=== PATIENT | female | born 1955 | race Caucasian/White ===

== ENCOUNTER 2016-06-15 00:19 | Inpatient (IN) | payer OTHER ==
[2016-06-15] VITALS (9 sets, daily range): BP systolic 150–161; BP diastolic 80–110; PULSE 58–92; TEMP 36.3–36.6; O2SAT 88–98; Ht 170.2 cm; Wt 134.0 kg
[~2016-06-15] VITALS: Ht 170.2 cm; Wt 134.0 kg
[2016-06-15 00:58] LABS: BASO % 0.3 %; BASO ABS # 0.02 K/uL (0-0.2); COMPLETE YES; EOS % 2.8 %; HEMATOCRIT 36.3 % (37-47); IG% 0.1 %; LYMPH % 16.7 %; LYMPH ABS # 1.21 K/uL (1.2-3.4); MEAN CELL VOLUME 90.8 fL (80-100); MEAN CORPUSCULAR HEMOGLOBIN 28.3 pg (25-34); MEAN CORPUSCULAR HGB CONC 31.1 g/dl (32-36); MONO % 6.9 %; NEUT % 73.2 %; PLATELET COUNT 214 K/uL (130-400); WHITE BLOOD COUNT 7.24 K/uL (4.8-10.8)
[2016-06-15 01:12] LABS: INR 1.2 (0.9-1.1); PARTIAL THROMBOPLASTIN RATIO 1.1; PROTHROMBIN TIME (PATIENT) 13.2 SECONDS (9.0-12.0)
[2016-06-15 01:14] LABS: BUN/CREATININE RATIO 32.6 (10-20); CALCIUM 8.8 mg/dl (8.5-10.1); CREATININE 0.76 mg/dl (0.60-1.20); POTASSIUM 4.3 mmol/L (3.5-5.1)
[2016-06-15 01:19] LABS: CKMB/CK RATIO 2.2 (0-3.0)
[2016-06-15] MEDS ORDERED: PANT40TA PO (01:25)
[2016-06-15] MEDS ORDERED: CITA40TA4 PO (01:26)
[2016-06-15] MEDS ORDERED: LISI20TA3 PO (01:27)
[2016-06-15] MEDS ORDERED: ATOR80TA PO (01:28)
[2016-06-15] MEDS ORDERED: GABA-113 PO (01:28)
--- NOTE | 2016-06-15 01:29 | EMERGENCY ROOM VISIT NOTE ---
History Report prepared by Nikki: Adolfo Carbajal Under the Supervision of: Dr. Gilson Benson M.D. First contact with patient: 00:29 Chief Complaint: ALTERED MENTAL STATUS Stated Complaint: CONFUSED,CAN'T REMEMBER THINGS History of Present Illness The patient is a 60 year old female who presents to the Emergency Room with complaints of worsening confusion starting about 7 hours ago. She has been having trouble remembering. She is having issues speech and word finding. As per family, the patient does not seem to be at baseline. She had a sudden onset of her symptoms. She also complains of abdominal distension and bilateral lower extremity swelling. The patient currently denies any pain. She denies headache, chest pain, shortness of breath, abdominal pain, or any other complaints. She denies any drug or alcohol use. She was recently started on gabapentin. She has a history of stroke occurring in 2014. She is currently on Xarelto. The patient also has a history of diabetes. Source of History: patient Onset: about 7 hours ago Position: other (global) Symptom Intensity: No pain Quality: other (confusion) Timing: worsening Associated Symptoms: No SOB, No abdominal pain, No chest pain, No headache Review of Systems See HPI for pertinent positives & negatives. A total of 10 systems reviewed and were otherwise negative. Past Medical & Surgical Medical Problems: (1) CHF (congestive heart failure) (2) Diabetes (3) Stroke Family History Patient reports no known family medical history. Social History Marital Status: single Occupation Status: unemployed Current/Historical Medications Scheduled Atenolol (Tenormin), 50 MG PO DIRECTED Atorvastatin Calcium (Lipitor), 40 MG PO DAILY Cholecalciferol (Vitamin D3), 1,000 INTER.UNIT PO DAILY Cinnamon (Cinnamon), 375 MG PO DAILY Citalopram (Citalopram Hydrobromide), 40 MG PO DAILY Cyanocobalamin (Vitamin B 12), 500 MCG PO DAILY Ferrous Fumarate (Iron), 65 MG PO DAILY Fish Oil ([place]-3), 1 CAP PO DAILY Furosemide (Lasix), 20 MG PO DAILY Gabapentin (Neurontin), 300 MG PO DIRECTED Glyburide (Micronase), 5 MG PO DIRECTED Lisinopril (Prinivil), 20 MG PO DAILY Loratadine (Claritin), 10 MG PO DAILY Melatonin (Gnp Melatonin Maximum Str), 5 MG PO HS Metformin Hcl (Glucophage), 500 MG PO DAILY Multivitamin (Multivitamin), 1 TAB PO DAILY Pantoprazole (Protonix), 40 MG PO DAILY Potassium Chloride Pwd (Klor-Con Pwd), 20 MEQ PO DAILY Rivaroxaban (Xarelto), 20 MG PO DAILY Triamterene & Hydrochlorothiaz (Triamterene/Hydrochloroth 50-25 mg), 1 CAP PO DIRECTED [caritia xt], 240 MG PO DAILY Scheduled PRN Acetaminophen (Tylenol), 650 MG PO DIRECTED PRN for pain fever Allergies Coded Allergies: Codeine (Unverified Allergy, Unknown, unsure, 06/15/16) Erythromycin (Unverified Allergy, Unknown, unsure, 06/15/16) Physical Exam Vital Signs Date Time Temp Pulse Resp B/P Pulse Ox O2 Delivery O2 Flow Rate FiO2 06/15/16 01:11 57 20 168/112 94 Room Air 06/15/16 00:35 56 06/15/16 00:31 93 Room Air 06/15/16 00:21 36.4 71 22 177/104 93 Room Air Physical Exam GENERAL: Patient is unwell appearing but in no acute distress. HEENT: No acute trauma, normocephalic atraumatic, mucous membranes moist, no nasal congestion, no scleral icterus. NECK: No stridor, no adenopathy, no meningismus, trachea is midline. LUNGS: Decreased breath sounds in all lung robles with apical wheezing and crackles. HEART: Regular rate and rhythm. No murmurs, rubs, gallops appreciated. ABDOMEN: Soft, nontender, distant bowel sounds, no masses appreciated, no peritonitis. Distended abdomen. BACK: No midline tenderness, no CVA tenderness EXTREMITIES: Normal motion all extremities, no cyanosis, 4+ edema bilateral lower extremities. NEUROLOGIC: Awake, answering questions though inappropriately answering some questions. Does not remember date or time but remembers name. She has stuttering and sometimes incorrect speech. Has word finding problems. No focal weakness, cranial nerves grossly intact. SKIN: No rash, no jaundice, no diaphoresis. Medical Decision & Procedures ER Provider Diagnostic Interpretation: X ray results are stated below per my interpretation: CHEST X-RAY ONE VIEW Enlarged heart and diffuse congestive findings, no infiltrate, no effusion. CT results as stated below per interpretation by me and the radiologist: CT HEAD No evidence of acute infarct, hemorrhage, mass or edema. Chronic small vessel ischemic disease. The sinuses are patent. No acute osseous abnormality. Radiologist: Gilberto Sutton MD Laboratory Results Test 06/15/16 00:31 06/15/16 00:45 06/15/16 00:50 06/15/16 02:10 Bedside Glucose 118 mg/dl (70-90) Nucleated RBC Absolute Count (auto) 0.00 K/uL (0-0) Nucleated Red Blood Cells % 0.0 % Prothrombin Time 13.2 SECONDS (9.0-12.0) Prothromb Time International Ratio 1.2 (0.9-1.1) Activated Partial Thromboplast Time 29.6 SECONDS (21.0-31.0) Partial Thromboplastin Ratio 1.1 Est Creatinine Clear Calc Drug Dose 119.4 ml/min Magnesium Level 2.2 mg/dl (1.8-2.4) Total Creatine Kinase 59 U/L (26-192) Creatine Kinase MB 1.3 ng/ml (0.5-3.6) Creatine Kinase MB Ratio 2.2 (0-3.0) Pro-B-Type Natriuretic Peptide 1519 pg/ml (0-900) Thyroid Stimulating Hormone (TSH) 1.310 uIu/ml (0.300-4.500) Ethyl Alcohol mg/dL < 3.0 mg/dl (0-3) Urine Color YELLOW Urine Appearance CLEAR (CLEAR) Urine pH 5.5 (4.5-7.5) Urine Specific [place] 1.016 (1.000-1.030) Urine Protein TRACE (NEG) Urine Glucose (UA) NEG (NEG) Urine Ketones NEG (NEG) Urine Occult Blood NEG (NEG) Urine Nitrite NEG (NEG) Urine Bilirubin NEG (NEG) Urine Urobilinogen NEG (NEG) Urine Leukocyte Esterase NEG (NEG) Urine WBC (Auto) 1-5 /hpf (0-5) Urine RBC (Auto) 0-4 /hpf (0-4) Urine Hyaline Casts (Auto) 1-5 /lpf (0-5) Urine Epithelial Cells (Auto) >30 /lpf (0-5) Urine Bacteria (Auto) NEG (NEG) Urine Opiates Screen NEG (NEG) Urine Methadone, Qualitative NEG (NEG) Urine Barbiturates NEG (NEG) Urine Phencyclidine (PCP) Level NEG (NEG) Ur Amphetamine/Methamphetamine NEG (NEG) MDMA (Ecstasy) Screen NEG (NEG) Urine Benzodiazepines Screen NEG (NEG) Urine Cocaine Metabolite NEG (NEG) Urine Marijuana (THC) NEG (NEG) Laboratory results as reviewed by me. Medications Administered Medications (Trade) Dose Ordered Sig/Magdaleno Route Start Time Stop Time Status Last Admin Dose Admin Aspirin (Aspirin Chew) 324 mg NOW STAT PO 06/15/16 01:32 06/15/16 01:34 DC 06/15/16 01:42 324 MG Furosemide (Lasix Inj) 40 mg NOW STAT IV 06/15/16 01:32 06/15/16 01:34 DC 06/15/16 01:42 40 MG ECG Indication: other (Confusion) Rate (beats per minute): 53 Rhythm: atrial fibrillation Findings: no acute ischemic change, other (Slow ventricular response) Comparison ECG Date: no prior available ED Course 0029: The patient was evaluated in room A11B. A complete history and physical exam was performed. 0132: Lasix Inj 40 mg IV, Aspirin 324 mg PO 0139: Upon reevaluation, the patient is resting comfortably. Discussed results and treatment plan with the patient and her family. They verbalized understanding and agreement with the treatment plan. I discussed the patient's case with Dr. Weiss, from [facility]. The patient will be evaluated for further management. Medical Decision Differential: Sepsis, Infectious (UTI/Pneumonia/Meningitis/etc), Metabolic/ Electrolyte Abnormality, Cardiac, Hepatic, Endocrine, Toxicologic, Neurologic, amongst other pathologies entertained. 60 yr old female with > 6 hours of word finding issues, memory problems and mild slurred speech. No weakness on exam though clearly word findings issues and memory loss. With ongoing symptoms an don xarelto not stroke alert/TPA candidate. She also is in acute CHF per my exam though without hypoxia. CT head negative. CXR with congestive findings. EKG Afib (unclear if chronic). Trop negative. Will need to come in for further work-up and evaluation. Lasix/ ASA ordered. Consults Time Called: 133 [facility] Phys[facility] Returned Call: [phone] I discussed the patient's case with Dr. Weiss, from [facility]. Impression Primary Impression: Stroke Additional Impression: CHF (congestive heart failure) Scribe Attestation The scribe's documentation has been prepared under my direction and personally reviewed by me in its entirety. I confirm that the note above accurately reflects all work, treatment, procedures, and medical decision making performed by me. Departure Information Dispostion Being Evaluated By Hospitalist Referrals Franklyn Nicole PA-C (PCP) Patient Instructions [facility] Stroke History Time Last Known Well 1730 Stroke t-PA Criteria Reviewed Does NOT meet criteria for t-PA Reason t-PA Not Given Treatment not indicated Extended Window (3-4.5 hour) Any anticoagulant use (Xarelto) Problem Qualifiers Primary Impression: Stroke CVA mechanism: unspecified Qualified Codes: I63.9 - Cerebral infarction, unspecified Additional Impression: CHF (congestive heart failure) Congestive heart failure type: diastolic Congestive heart failure chronicity : acute on chronic Qualified Codes: I50.33 - Acute on chronic diastolic ( congestive) heart failure
[2016-06-15] MEDS ORDERED: [UNRECOGNIZED DRUG - OTHER] PO (01:30)
[2016-06-15] MEDS ORDERED: GLYB5TAB8 PO (01:31)
[2016-06-15] MEDS ORDERED: GLC/500 PO (01:32)
[2016-06-15] MEDS ORDERED: ASPIRIN 324 MG CHEW PO STA (01:32)
[2016-06-15] MEDS ORDERED: FUROSEMIDE 40 MG/4 ML VIAL IV STA (01:32)
[2016-06-15] MEDS ORDERED: FURO-85 PO (01:32)
[2016-06-15] MEDS ORDERED: ATEN50TA8 PO (01:33)
[2016-06-15] MEDS ORDERED: RIVA1TAB4 PO (01:34)
[2016-06-15] MEDS ORDERED: POTA1POW PO (01:35)
[2016-06-15] MEDS ORDERED: TRIA50CA PO (01:38)
[2016-06-15] MEDS ORDERED: OMEG10007 PO (01:39)
[2016-06-15] MEDS ORDERED: ACET650S10 PO (01:39)
[2016-06-15] MEDS ORDERED: CHOL1000 PO (01:40)
[2016-06-15] MEDS ORDERED: MULT-506 PO (01:41)
[2016-06-15] MEDS ORDERED: FERR18TA2 PO (01:43)
[2016-06-15] MEDS ORDERED: CINN1CAP2 PO (01:44)
[2016-06-15] MEDS ORDERED: CYAN1LOZ2 PO (01:45)
[2016-06-15] MEDS ORDERED: CLR10 PO (01:45)
[2016-06-15] MEDS ORDERED: MELA1TAB12 PO (01:46)
[2016-06-15 02:06] LABS: MAGNESIUM 2.2 mg/dl (1.8-2.4); THYROID STIMULATING HORMONE 1.31 uIu/ml (0.300-4.500)
[2016-06-15 02:43] LABS: BENZODIAZEPINE, URINE NEG (NEG); COCAINE,URINE NEG (NEG); PHENCYCLIDINE, URINE NEG (NEG)
[2016-06-15] MEDS ORDERED: ALBUT/IPRATROP 3MG/0.5MG NEB 3 ML VIAL INH STA (03:12)
[2016-06-15] MEDS ORDERED: GLUCOSE 10 TABS/TUBE PO PRN (03:15)
[2016-06-15] MEDS ORDERED: PHARMACIST DISCHARGE MED REC CONSULT PRN (03:15)
[2016-06-15] MEDS ORDERED: NITROGLYCERIN 0.4 MG SL PER TAB CHARGE SL PRN (03:15)
[2016-06-15] MEDS ORDERED: DEXTROSE 50% 50 ML SYR IV PRN (03:15)
[2016-06-15] MEDS ORDERED: GLUCAGON FOR INJ 1 MG VIAL SQ PRN (03:15)
[2016-06-15] MEDS ORDERED: GLUCOSE 40% GEL 15 GM TUBE PO PRN (03:15)
[2016-06-15] MEDS ORDERED: ALBUT/IPRATROP 3MG/0.5MG NEB 3 ML VIAL INH PRN (03:15)
[2016-06-15] MEDS ORDERED: RIVAROXABAN 10 MG TAB PO STA (03:36)
[2016-06-15 03:42] LABS: FERRITIN 50.8 ng/ml (8.0-388.0)
[2016-06-15 03:59] LABS: URINE APPEARANCE CLEAR (CLEAR); URINE BILIRUBIN NEG (NEG); URINE COLOR YELLOW; URINE EPITHELIAL CELL AUTO >30 /lpf (0-5); URINE NITRITE NEG (NEG); URINE PH 5.5 (4.5-7.5); URINE SPECIFIC GRAVITY 1.016 (1.000-1.030); UROBILINOGEN NEG (NEG); ZZUR CULT IF INDIC CLEAN CATCH NO
[2016-06-15 04:00] LABS: MANUAL MICROSCOPIC REQUIRED? NO; REVIEW REQ? NO
[2016-06-15 05:33] LABS: BASO % 0.3 %; BASO ABS # 0.02 K/uL (0-0.2); COMPLETE YES; EOS % 3.3 %; HEMATOCRIT 33.9 % (37-47); IG% 0.2 %; LYMPH % 19.2 %; LYMPH ABS # 1.17 K/uL (1.2-3.4); MEAN CELL VOLUME 90.6 fL (80-100); MEAN CORPUSCULAR HEMOGLOBIN 27.8 pg (25-34); MEAN CORPUSCULAR HGB CONC 30.7 g/dl (32-36); MEAN PLATELET VOLUME 8.7 fL (7.4-10.4); MONO % 7.6 %; NEUT % 69.4 %; PLATELET COUNT 196 K/uL (130-400); RED BLOOD COUNT 3.74 M/uL (4.2-5.4); WHITE BLOOD COUNT 6.08 K/uL (4.8-10.8)
--- NOTE | 2016-06-15 05:58 | HISTORY & PHYSICAL EXAMINATION ---
DATE OF ADMISSION: 06/15/2016 PRIMARY CARE PHYSICIAN: Franklyn Nicole PA-C. History obtained from patient and patient's friends. Patient is not a very reliable historian secondary to aphasia. HISTORY OF PRESENT ILLNESS: Medical history significant for history of mini-strokes as per family, AF on Xarelto, HTN, DM2 on oral meds, hx uterine cancer status post surgery. The last 2 weeks, the patient noted abdominal distention and abundio leg swelling, shortness of breath danay on exertion. No unusual cough sx. Complaint with home medications. No chest pain. As per patient's friend, the patient was seen at PCP's office. Px felt that "she was not being taken seriously... prescribed an inhaler." This afternoon, the patient dropped chocolates she had in hand. Had trouble looking for them. Noted to be confused - her words were not making sense. Patient was given orange juice for possible hypoglycemia. No glucometer at home. Some improvement as per friend. Patient subsequently napped. Upon waking up, symptoms a little worse. Patient brought to the Emergency Room. Patient given ASA and Lasix at the ER. MEDICAL HISTORY: As above. SURGERIES: She has had hysterectomy. HOME MEDICATIONS: Include citalopram, iron, Lasix, Neurontin, glyburide, lisinopril, Claritin, melatonin, Glucophage, multivitamins, Protonix, Klor-Con, triamterene ALLERGIES: CODEINE, ERYTHROMYCIN. FAMILY HISTORY: Heart disease. PERSONAL AND SOCIAL HISTORY: Nonsmoker, no chronic intake of alcoholic beverages. 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 REVIEW OF SYSTEMS: could not be reliably obtained. PHYSICAL EXAMINATION: VITAL SIGNS: Blood pressure noted to be 177/104, pulse rate 72, respiratory rate 22, T 37 O2 sats 94 on room air. GENERAL: Noted to be obese. Aphasic. In minimal respiratory distress. SKIN: Pallor. HEENT: Pale palpable conjunctivae. Dry mucosa. NECK: Short neck. HEART: irreg ABDOMEN: Some distention. NT RECTAL: Intact sphincter. Brown stool, heme negative. EXTREMITIES: Bilateral lower extremity edema, tenderness. NEUROLOGIC: No gross focality except for aphasia. LABORATORY DATA: Hemoglobin 11.3, WBC 10 platelet count 214. Sodium 144, potassium 4.3, chloride 108, CO2 29, BUN 25, creatinine 0.7, glucose was noted to be 106. Troponin was noted to be 0.01. EKG - aFib. Chest x-ray - minimal congestion, atelectasis CT of the head - initial read no acute strokes, chronic small vessel ischemic disease. ASSESSMENT: 1. Cerebrovascular accident hx TIA as per px/family possible Xarelto failure ? compliance history of Atrial fibrillation, rate on the lower side, on Xarelto. 2. Hypertension, elevated possibly secondary to above. 3. acute CHF subacute sx over the last 2 weeks 4. DM2 on oral medications euglycemic in the Emergency Room, unknown baseline control. 5. Hyperlipidemia on statin tx 6. hx uterine cancer sp surgery 7. Anemia, possibly chronic. px on iron supplementation at home 8. LE swelling 2 to CHF ro dvt PLAN: PCU neuro checks Add aspirin to Xarelto for now secondary stroke prevention until new stroke definitely ruled out. continue statin MRI/MRA of the brain. Neurology consultation. RE aphasia may need additional stroke fulton pending MRI results PT, OT eval. Permissive hypertension until stroke ruled out diuretic tx; 2D echo, Cardio Consult (Dr. Cross as per family request) RE CHF strict IOs, daily weights, CHF education PT, OT eval. ISS BG goal 140-180. Check hemoglobin A1c. anemia fulton LE dopplers ro dvt Retrieve recent outpx PCP records DVT prophylaxis, Xarelto Full code. Patient's friends requesting the patient's brother to be updated by px providers. Mr. Joaquín [facility]i at / . [facility]
[2016-06-15 06:07] LABS: BLOOD UREA NITROGEN 24 mg/dl (7-18); BUN/CREATININE RATIO 32.9 (10-20); CALCIUM 8.4 mg/dl (8.5-10.1); CARBON DIOXIDE 30 mmol/L (21-32); CHLORIDE 109 mmol/L (98-107); CREATININE 0.74 mg/dl (0.60-1.20); GLUCOSE 78 mg/dl (70-99); POTASSIUM 3.7 mmol/L (3.5-5.1); SODIUM 143 mmol/L (136-145)
[2016-06-15 06:12] LABS: FERRITIN 47.8 ng/ml (8.0-388.0); TOTAL IRON BINDING CAPACITY 327 mcg/dl (250-450)
--- NOTE | 2016-06-15 06:42 | DIAGNOSTIC IMAGING REPORT ---
HEAD CT NONCONTRAST CT DOSE: 537.48 mGy.cm HISTORY: Mental status change stroke TECHNIQUE: Multiaxial CT images of the head were performed without the use of intravenous contrast. Comparison: None. Findings: The paranasal sinuses and mastoid air cells are clear. The calvarium and skull base are intact. The ventricles and sulci are within normal limits. There is no mass, hematoma, midline shift, or acute infarct. Impression: No acute intracranial abnormality. Electronically signed by: Anam Solano M.D. 06/15/2016 6:41 AM Dictated Date/Time: 06/15/2016 6:40 AM
--- NOTE | 2016-06-15 06:42 | DIAGNOSTIC IMAGING REPORT ---
CHEST ONE VIEW PORTABLE CLINICAL HISTORY: Stroke symptoms COMPARISON STUDY: No previous studies for comparison. FINDINGS: The heart is enlarged. There is mild central pulmonary vascular congestion. There is no focal pulmonary consolidation. There are no pleural effusions.[ IMPRESSION: Cardiomegaly with mild central pulmonary vascular congestion/fluid overload. Electronically signed by: Anurag Archibald M.D. 06/15/2016 6:41 AM Dictated Date/Time: 06/15/2016 6:41 AM
[2016-06-15] MEDS: INSULIN ASPART 100 UNITS/ML 3 ML PEN SC SCH ×4 (07:00→20:53)
--- NOTE | 2016-06-15 07:06 | DIAGNOSTIC IMAGING REPORT ---
Limited abdominal ultrasound ASCITES-ABDOMEN LIMITED CLINICAL HISTORY: abd distension ascites TECHNIQUE: Survey abdominal ultrasound COMPARISON STUDY: None FINDINGS: Serial family abdomen confirms a trace amount of ascites. Major collection is not seen. IMPRESSION: Trace abdominal ascites Electronically signed by: Anam Solano M.D. 06/15/2016 7:05 AM Dictated Date/Time: 06/15/2016 7:04 AM
--- NOTE | 2016-06-15 07:07 | DIAGNOSTIC IMAGING REPORT ---
ULTRASOUND VENOUS DOPPLER LWR EXT BILA CLINICAL HISTORY: leg swelling COMPARISON STUDY: No previous studies for comparison. FINDINGS: Real-time and color flow Doppler imaging were performed. Flow was seen within the femoral, popliteal and calf veins with no intraluminal thrombus demonstrated. The saphenous vein is patent. There are prominent bilateral inguinal lymph nodes. There are complex collections within each popliteal fossa, likely representing complex popliteal cyst. The lesion on the right measures 46 x 16 x 31 mm. The lesion the left measures 95 x 25 x 33 mm. IMPRESSION: No evidence of deep venous thrombosis. Electronically signed by: Anurag Archibald M.D. 06/15/2016 7:06 AM Dictated Date/Time: 06/15/2016 7:04 AM
[2016-06-15 07:52] LABS: ESTIMATED AVERAGE GLUCOSE 120 mg/dl; HA1C FLAG Normal (Normal)
[2016-06-15] MEDS ORDERED: ASPIRIN 81 MG ECTAB PO SCH (09:00)
[2016-06-15] MEDS ORDERED: RIVAROXABAN 10 MG TAB PO SCH (09:00)
[2016-06-15] MEDS: PANTOprazole SOD 40 MG TAB PO SCH (09:05)
[2016-06-15] MEDS: CITALOPRAM 40 MG TAB PO SCH (09:05)
[2016-06-15] MEDS: FERROUS FUMARATE CONTR REL CAP 65 MG CAPCR PO SCH (09:05)
[2016-06-15] MEDS: FUROSEMIDE 20 MG TAB PO SCH (09:05)
[2016-06-15] MEDS: MULTIVITAMIN TAB PO SCH (09:06)
[2016-06-15] MEDS: ATORVASTATIN 20 MG TAB PO SCH (09:06)
[2016-06-15] MEDS: POTASSIUM CHLORIDE PWD 20 MEQ PACK PO SCH (09:07)
--- NOTE | 2016-06-15 10:40 | Cardiology Consultation ---
Cardiology Consultation Date of Consultation: June 15, 2016 Requesting Physician: Abhishek Attending Chairman & Ceo: Tay (Anam Vaughan PA-C) History of Present Illness Ms. Marti is a 60 year old female who is being seen at the request of Dr. Weiss. Reason for cardiology consultation is congestive heart failure. Ms. Marti states she presented to the [facility] because "I got melani of confused." This seemed to start around 17:30 last night. She has word finding trouble, difficulty with speech, increased memory impairment, increased fatigue. Gabapentin started in April and titrated upward. She notes increased abdominal distention and increased peripheral edema. She is also prescribed Cardizem, 240 mg/day, for rate control of what appears to be chronic atrial fibrillation. The patient is followed by Dr. Callahan in [place] for Cardiology. She describes what appears to be chronic atrial fibrillation for which she is prescribed Cardizem 240 mg/day, Atenolol 50 mg/day, and Xarelto. She describes have had an abnormal stress test that lead to diagnostic cardiac catheterization in November 2015, describing mild to moderate nonobstructive coronary artery disease. Unfortunately no records are available for review but were requested by the undersigned prior to typing his note. She denies chest pain or discomfort. She denies history of SC or congestive heart failure. She denies history of rheumatic fever or scarlet fever. She denies worsening exertional dyspnea. She denies palpitations. She has orthopnea without PND and evidence suggestive of significant sleep apnea/hypoxemia, daytime sleepiness, poor concentration, restless sleep, nocturnal choking, AM fatigue, and intermittent headaches upon waking. (Anam Vaughan PA-C) History Past Medical and Surgical History: History of TIA x 1. Chronic atrial fibrillation managed by Dr. Callahan, rate control with Diltiazem and Atenolol, anticoagulation with Xarelto Mild to moderate nonobstructive coronary artery disease by November 2015 cardiac catheterization in [place], as per patient description. Hypertension Dyslipidemia Type II diabetes mellitus Obesity Anemia Uterine cancer status post total hysterectomy Social History: Nonsmoker. No alcohol. No illegal drug use. Single. No children. 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 Lives in [place], [place] Family History: Father is alive at 92 with CAD. Mother 8 years ago and had CHF. ? CA. She has a younger brother without cardiac issues. (Anam Vaughan PA-C) Review Of Systems General: No fevers. No chills. + Mild night sweats. No abrupt weight gain or loss. HEENT: Migraine headaches. AM headaches. Floaters. Epistaxis. No head trauma. Cardiovascular: See above. No near syncope or syncope. Pulmonary: Sleep apnea signs and symptoms. + Cough. + Wheezing. ? hemoptysis 2 weeks ago. Gastrointestinal: + Nausea. No vomiting. No melena or hematochezia. : Urinary incontinence. No hematuria. No dysuria. Skin: No rash. Musculoskeletal: Arthritis. Back pain. Neurological: TIA x 1. No CVA. No history of seizure. Complete review of systems is as stated above, negative or noncontributory. (Anam Vaughan PA-C) Allergies Coded Allergies: Codeine (Unverified Allergy, Unknown, unsure, 06/15/16) Erythromycin (Unverified Allergy, Unknown, unsure, 06/15/16) Medications Reported Home Medications Medications Dose Route/Sig Max Daily Dose Days Date Category Gnp Melatonin Maximum Str (Melatonin) 5 Mg Tab 5 Mg PO HS 06/15/16 Reported Claritin (Loratadine) 10 Mg Tab 10 Mg PO DAILY 06/15/16 Reported Vitamin B 12 (Cyanocobalamin) 250 Mcg Malorie 500 Mcg PO DAILY 06/15/16 Reported Cinnamon 500 Mg Cap 375 Mg PO DAILY 06/15/16 Reported Iron (Ferrous Fumarate) 18 Mg Tab 65 Mg PO DAILY 06/15/16 Reported Multivitamin (Multivitamins) Tab 1 Tab PO DAILY 06/15/16 Reported Vitamin D3 (Cholecalciferol) 1,000 Unit Tab 1,000 Inter.unit PO DAILY 90 06/15/16 Reported Floral-3 (Fish Oil) 1 Ea Cap 1 Cap PO DAILY 06/15/16 Reported Tylenol (Acetaminophen) 650 Mg Supp 650 Mg PO DIRECTED PRN 06/15/16 Reported Triamterene/Hydrochloroth 50-25 mg (Triamterene & Hydrochlorothiaz) 1 Cap Cap 1 Cap PO DIRECTED 06/15/16 Reported Klor-Con Pwd (Potassium Chloride) 20 Meq Pack 20 Meq PO DAILY 06/15/16 Reported Xarelto (Rivaroxaban) 20 Mg Tab 20 Mg PO DAILY 06/15/16 Reported Tenormin (Atenolol) 50 Mg Tab 50 Mg PO DIRECTED 06/15/16 Reported Lasix (Furosemide) 20 Mg Tab 20 Mg PO DAILY 06/15/16 Reported Glucophage (Metformin Hcl) 500 Mg Tab 500 Mg PO DAILY 06/15/16 Reported Micronase (Glyburide) 5 Mg Tab 5 Mg PO DIRECTED 06/15/16 Reported [caritia xt] 240 Mg PO DAILY 06/15/16 Reported Neurontin (Gabapentin) 300 Mg Cap 300 Mg PO DIRECTED 06/15/16 Reported Lipitor (Atorvastatin Calcium) 80 Mg Tab 40 Mg PO DAILY 06/15/16 Reported Prinivil (Lisinopril) 20 Mg Tab 20 Mg PO DAILY 06/15/16 Reported Citalopram Hydrobromide (Citalopram) 40 Mg Tab 40 Mg PO DAILY 90 06/15/16 Reported Protonix (Pantoprazole Sodium) 40 Mg Tab 40 Mg PO DAILY 06/15/16 Reported (Anam Vaughan PA-C) Physical Exam Vital Signs (Last 8hrs): Last 8 Hrs Date Time Temp Pulse Resp B/P Pulse Ox O2 Delivery O2 Flow Rate FiO2 06/15/16 07:04 36.4 58 16 161/97 93 Room Air 06/15/16 04:12 36.3 68 16 152/83 94 Nasal Cannula 2.0 06/15/16 04:10 88 Room Air 06/15/16 02:47 62 20 151/94 95 06/15/16 02:30 62 20 151/94 95 Room Air General Appearance: Alert to person and place. NAD. HEENT: Normocephalic. Atraumatic. PER. EOMI. Conjunctiva and sclera clear. Neck: Crowded airway. Neck if very thick. No carotid bruits. Jugular veins are not appreciated. Respiratory: Clear anteriorly and laterally. No wheezes. Cardiovascular: Distant heart sounds. Irregularly irregular in the 40's. No murmurs appreciated. PMI was nonpalpable. Abdomen: Markedly obese. +BS. Soft. Nontender. No obvious masses. Extremities: Thick indurated edema to the knees. No clubbing. No cyanosis. Distal pulses nonpalpable. Neuro: Dysarthric. No other focal deficits appreciated. Psychiatric: Flat affect. (Anam Vaughan PA-C) Data Last 24 Hours Test 06/15/16 00:31 06/15/16 00:45 06/15/16 00:50 06/15/16 02:10 Bedside Glucose 118 mg/dl White Blood Count 7.24 K/uL Red Blood Count 4.00 M/uL Hemoglobin 11.3 g/dL Hematocrit 36.3 % Mean Corpuscular Volume 90.8 fL Mean Corpuscular Hemoglobin 28.3 pg Mean Corpuscular Hemoglobin Concent 31.1 g/dl Platelet Count 214 K/uL Mean Platelet Volume 9.0 fL Neutrophils (%) (Auto) 73.2 % Lymphocytes (%) (Auto) 16.7 % Monocytes (%) (Auto) 6.9 % Eosinophils (%) (Auto) 2.8 % Basophils (%) (Auto) 0.3 % Neutrophils # (Auto) 5.30 K/uL Lymphocytes # (Auto) 1.21 K/uL Monocytes # (Auto) 0.50 K/uL Eosinophils # (Auto) 0.20 K/uL Basophils # (Auto) 0.02 K/uL RDW Standard Deviation 51.7 fL RDW Coefficient of Variation 15.5 % Immature Granulocyte % (Auto) 0.1 % Immature Granulocyte # (Auto) 0.01 K/uL Nucleated RBC Absolute Count (auto) 0.00 K/uL Nucleated Red Blood Cells % 0.0 % Prothrombin Time 13.2 SECONDS Prothromb Time International Ratio 1.2 Activated Partial Thromboplast Time 29.6 SECONDS Partial Thromboplastin Ratio 1.1 Sodium Level 144 mmol/L Potassium Level 4.3 mmol/L Chloride Level 108 mmol/L Carbon Dioxide Level 29 mmol/L Anion Gap 7.0 mmol/L Blood Urea Nitrogen 25 mg/dl Creatinine 0.76 mg/dl Est Creatinine Clear Calc Drug Dose 119.4 ml/min Estimated GFR () 99.5 Estimated GFR (Non- 85.9 BUN/Creatinine Ratio 32.6 Random Glucose 106 mg/dl Calcium Level 8.8 mg/dl Magnesium Level 2.2 mg/dl Iron Level 36 mcg/dl Total Iron Binding Capacity 359 mcg/dl Ferritin 50.8 ng/ml Total Creatine Kinase 59 U/L Creatine Kinase MB 1.3 ng/ml Creatine Kinase MB Ratio 2.2 Troponin I 0.019 ng/ml Pro-B-Type Natriuretic Peptide 1519 pg/ml Thyroid Stimulating Hormone (TSH) 1.310 uIu/ml Ethyl Alcohol mg/dL < 3.0 mg/dl Estimated Average Glucose 120 mg/dl Hemoglobin A1c 5.8 % Urine Color YELLOW Urine Appearance CLEAR Urine pH 5.5 Urine Specific [place] 1.016 Urine Protein TRACE Urine Glucose (UA) NEG Urine Ketones NEG Urine Occult Blood NEG Urine Nitrite NEG Urine Bilirubin NEG Urine Urobilinogen NEG Urine Leukocyte Esterase NEG Urine WBC (Auto) 1-5 /hpf Urine RBC (Auto) 0-4 /hpf Urine Hyaline Casts (Auto) 1-5 /lpf Urine Epithelial Cells (Auto) >30 /lpf Urine Bacteria (Auto) NEG Urine Opiates Screen NEG Urine Methadone, Qualitative NEG Urine Barbiturates NEG Urine Phencyclidine (PCP) Level NEG Ur Amphetamine/Methamphetamine NEG MDMA (Ecstasy) Screen NEG Urine Benzodiazepines Screen NEG Urine Cocaine Metabolite NEG Urine Marijuana (THC) NEG Test 06/15/16 05:24 06/15/16 07:03 06/15/16 07:28 White Blood Count 6.08 K/uL Red Blood Count 3.74 M/uL Hemoglobin 10.4 g/dL Hematocrit 33.9 % Mean Corpuscular Volume 90.6 fL Mean Corpuscular Hemoglobin 27.8 pg Mean Corpuscular Hemoglobin Concent 30.7 g/dl Platelet Count 196 K/uL Mean Platelet Volume 8.7 fL Neutrophils (%) (Auto) 69.4 % Lymphocytes (%) (Auto) 19.2 % Monocytes (%) (Auto) 7.6 % Eosinophils (%) (Auto) 3.3 % Basophils (%) (Auto) 0.3 % Neutrophils # (Auto) 4.22 K/uL Lymphocytes # (Auto) 1.17 K/uL Monocytes # (Auto) 0.46 K/uL Eosinophils # (Auto) 0.20 K/uL Basophils # (Auto) 0.02 K/uL RDW Standard Deviation 51.1 fL RDW Coefficient of Variation 15.5 % Immature Granulocyte % (Auto) 0.2 % Immature Granulocyte # (Auto) 0.01 K/uL Sodium Level 143 mmol/L Potassium Level 3.7 mmol/L Chloride Level 109 mmol/L Carbon Dioxide Level 30 mmol/L Anion Gap 4.0 mmol/L Blood Urea Nitrogen 24 mg/dl Creatinine 0.74 mg/dl Est Creatinine Clear Calc Drug Dose 121.2 ml/min Estimated GFR () 102.8 Estimated GFR (Non- 88.7 BUN/Creatinine Ratio 32.9 Random Glucose 78 mg/dl Calcium Level 8.4 mg/dl Iron Level 30 mcg/dl Total Iron Binding Capacity 327 mcg/dl Transferrin 253 mg/dl Transferrin % Saturation 8 % Ferritin 47.8 ng/ml Troponin I < 0.015 ng/ml Vitamin B12 Level 703 pg/mL Folate 21.45 ng/mL Bedside Glucose 73 mg/dl 83 mg/dl Admission CXR revealed cardiomegaly with mild central pulmonary vascular congestion/fluid overload, as per Dr. Archibald. Admission EKG revealed atrial fibrillation with slow ventricular response (53 bpm) with nonspecific ST and T wave abnormality. EKG this morning revealed atrial fibrillation with slow ventricular response ( 53 bpm) with nonspecific T wave abnormality. Telemetry: Currently atrial fibrillation in the 40's. No pauses. No significant tachy events. Venous duplex showed no evidence of deep venous thrombosis, as per Dr. Archibald. Abdominal ultrasound revealed trace abdominal ascites as per Dr. Solano. Head CT showed no acute intracranial abnormality as per Dr. Solano. (Anam Vaughan PA-C) Assessment & Plan ? Transient ischemic attack. CVA. MR evaluation pending. Neurology consultation pending. Right heart failure, fluid overload. ? secondary to obesity hypoventilation syndrome, medications (Diltiazem, gabapentin). Resting echocardiography requested, pending. Furosemide as prescribed on admission. Recommend polysomnography. ? Check ABG. Recommend reduction to discontinuation of gabapentin if able. See below, RE discontinuation of diltiazem. Chronic atrial fibrillation. Currently with a slow ventricular response. Atenolol decrease on admission. Discontinue Atenolol Discontinue Diltiazem Add Metoprolol, +/- digoxin if needed down the road. Continue Xarelto. History of mild to moderate nonobstructive coronary artery disease. Cath in [place] in 11/2015 as per patient. Records requested from [facility]. Troponin negative x 2. EKG without acute changes. Denies chest pain. No evidence of an acute coronary syndrome. Continue medical management. Risk factor and life style modification Hypertension Permissive hypertension for now. Continue Lisinopril and the oral loop diuretic for now. Beta-jn (metoprolol) therapy as detailed above. Dyslipidemia. Statin. Anemia. Labs with iron deficiency Further evaluation and treatment as per Hospitalist. (Anam Vaughan PA-C) CARDIOLOGY ATTENDING ADDENDUM: The patient was seen and personally examined. Agree with Anam Vaughan PA-C's findings and plans as documented above with additions as noted below. S: patient states her mentation has improved. She still refers to her friend to help her answer a lot of questions. Exam: CV: ireg rhythm. Impression: 1. Left MCA territory stroke in the setting of chronic AF. -Patient admits to two recent missed doses of Xarelto. 2. Shortness of breath, possible underlying diastolic HF, not acutely volume overloaded. Plan: Not certain this neurologic event occurred due to failure of Xarelto therapy, but rather poor adherence. Pt has recent epistaxis and has iron deficiency. Recommend holding off of full dose ASA for now and continue Xarelto for stroke prophylaxis (if OK with neurology). I discussed adherence to Xarelto with patient. She states there is not a cost barrier to treatment with this medication. Await echo , Will read when images available. Renee Cross DO (Franklyn Cross,D.O.)
--- NOTE | 2016-06-15 10:42 | DIAGNOSTIC IMAGING REPORT ---
MR ANGIOGRAPHY OF THE [place] NO CONTRAST CLINICAL HISTORY: Stroke, confusion, history of uterine carcinoma COMPARISON STUDY: None. A 3-D [id number] MR angiographic sequence of the [place] was performed. Both the source and projection images were reviewed. There is no evidence of major intracranial branch occlusion. There is no evidence of intracranial stenosis. There are no lesions suspicious for aneurysm. The examination is compromised due to patient motion artifact IMPRESSION: Unremarkable MR angiography of the [place]. Electronically signed by: Anurag Archibald M.D. 06/15/2016 10:41 AM Dictated Date/Time: 06/15/2016 10:39 AM
--- NOTE | 2016-06-15 11:05 | DIAGNOSTIC IMAGING REPORT ---
Brain MRI WITHOUT CONTRAST HISTORY: Stroke stroke TECHNIQUE: Multiplanar multisequence MRI of the brain was performed without the use of contrast. COMPARISON STUDY: None. FINDINGS: Diffusion-weighted images show scattered foci of acute ischemic change involving the left middle cerebral arterial distribution. These are relatively small suggested potential watershed type process. No additional foci of acute ischemic change are present. Remainder study is compromised in part due to patient motion. Ventricular system is midline. There is no evidence for midline shift. Internal artery canals are symmetric. Sella and parasellar region are unremarkable. IMPRESSION: Several small foci of acute ischemic change involving the left middle cerebral arterial distribution . This suggestive of watershed type etiology. Remainder the brain is unremarkable. Electronically signed by: Anam Solano M.D. 06/15/2016 11:03 AM Dictated Date/Time: 06/15/2016 10:51 AM
[2016-06-15] MEDS: METOPROLOL TARTRATE 25 MG TAB PO SCH ×2 (13:22→20:54)
--- NOTE | 2016-06-15 15:06 | Neurology Consultation ---
Neurology Consultation Date of Consultation: June 15, 2016. Attending Physician: Sammi Carlisle M.D. Primary Care Physician: Franklyn Nicole PA-C Reason for Consultation: aphasia History of Present Illness Source: patient, friend Deann is a 60 year old female with a PMH DM, CHF, TIA. Her friend is in the room and states she was at a friends house and they noticed she was having trouble finding the right words.She states the event started around 5p last night. They thought this may be a blood sugar issues but after it didn't improve they brought her to the ED. She has word finding trouble, difficulty with speech, increased memory impairment, increased fatigue. Gabapentin started in April and titrated upward. She notes increased abdominal distention and increased peripheral edema. She is also prescribed Cardizem, 240 mg/day, for rate control of what appears to be chronic atrial fibrillation. 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 She is on Xarelto after a TIA in the past for her afib. . She describes have had an abnormal stress test that lead to diagnostic cardiac catheterization in November 2015, describing mild to moderate nonobstructive coronary artery disease. Currently her only complaint is being tired. denies CP, SOB, abdominal pain, one sided weakness, numbness tingling, N , V, vision changes, headache. She states she lives alone and after her TIA she didn't need rehab "she got over it quickly" She does not walk with a walker or cane at baseline. She thinks she has not skipped doses of Xarelto Past Medical/Surgical History Medical Problems: (1) Stroke Status: Acute Social History Marital Status: single Occupation Status: unemployed Allergies Coded Allergies: Codeine (Unverified Allergy, Unknown, unsure, 06/15/16) Erythromycin (Unverified Allergy, Unknown, unsure, 06/15/16) Current Inpatient Medications Current Inpatient Medications Medications (Trade) Dose Ordered Sig/Magdaleno Route Start Time Stop Time Status Last Admin Dose Admin Albuterol/ Ipratropium (Duoneb) 3 ml Q2H PRN INH 06/15/16 03:15 07/15/16 03:14 Acetaminophen (Tylenol Tab) 650 mg Q4H PRN PO 06/15/16 03:15 07/15/16 03:14 Nitroglycerin (Nitrostat Tab) 0.4 mg UD PRN SL 06/15/16 03:15 07/15/16 03:14 Miscellaneous Information (Pharmacist Discharge Med Rec Consult) 1 ea UD PRN N/A 06/15/16 03:15 07/15/16 03:14 Atorvastatin Calcium (Lipitor Tab) 40 mg DAILY PO 06/15/16 09:00 07/15/16 08:59 06/15/16 09:06 40 MG Citalopram Hydrobromide (celeXA TAB) 40 mg DAILY PO 06/15/16 09:00 07/15/16 08:59 06/15/16 09:05 40 MG Furosemide (Lasix Tab) 40 mg DAILY PO 06/15/16 09:00 07/15/16 08:59 06/15/16 09:05 40 MG Multivitamins (Multivitamin Tab) 1 tab DAILY PO 06/15/16 09:00 07/15/16 08:59 06/15/16 09:06 1 TAB Pantoprazole Sodium (Protonix Tab) 40 mg DAILY PO 06/15/16 09:00 07/15/16 08:59 06/15/16 09:05 40 MG Potassium Chloride (Klor-Con Pwd) 20 meq DAILY PO 06/15/16 09:00 07/15/16 08:59 06/15/16 09:07 20 MEQ Ferrous Fumarate (Gabrielle-Sequels Contr Rel Cap) 50 mg DAILY PO 06/15/16 09:00 07/15/16 08:59 06/15/16 09:05 50 MG Ondansetron HCl (Zofran Inj) 4 mg Q6H PRN IV 06/15/16 03:15 07/15/16 03:14 Tramadol HCl (Ultram Tab) 25 mg Q6H PRN PO 06/15/16 03:15 07/15/16 03:14 Insulin Aspart (novoLOG ASPART) SLIDING SCALE If C... ACHS SC 06/15/16 07:00 07/15/16 06:59 Glucose (Glucose 40% Gel) 15-30 GRAMS 15 GRAMS... UD PRN PO 06/15/16 03:15 07/15/16 03:14 Glucose (Glucose Chew Tab) 4-8 Tablets 4 Tabl... UD PRN PO 06/15/16 03:15 07/15/16 03:14 Dextrose (Dextrose 50% 50ML Syringe) 25-50ML OF 50% DW IV FOR... UD PRN IV 06/15/16 03:15 07/15/16 03:14 Glucagon (Glucagon Inj) 1 mg UD PRN SQ 06/15/16 03:15 07/15/16 03:14 Rivaroxaban (Xarelto Tab) 20 mg DAILY PO 06/16/16 09:00 07/16/16 08:59 Aspirin (Ecotrin Tab) 325 mg QAM PO 06/16/16 09:00 07/16/16 08:59 Metoprolol Tartrate (Lopressor Tab) 25 mg TID PO 06/15/16 14:00 07/15/16 13:59 Physical Exam Vital Signs (Past 24 Hrs): Date Time Temp Pulse Resp B/P Pulse Ox O2 Delivery O2 Flow Rate FiO2 06/15/16 13:22 61 157/85 06/15/16 10:57 36.6 60 16 150/80 96 2.0 06/15/16 08:00 96 Room Air 2.0 06/15/16 07:04 36.4 58 16 161/97 93 Room Air 06/15/16 04:12 36.3 68 16 152/83 94 Nasal Cannula 2.0 06/15/16 04:10 88 Room Air 06/15/16 02:47 62 20 151/94 95 06/15/16 02:30 62 20 151/94 95 Room Air 06/15/16 01:11 57 20 168/112 94 Room Air 06/15/16 00:35 56 06/15/16 00:31 93 Room Air 06/15/16 00:21 36.4 71 22 177/104 93 Room Air Physical Exam: Constitutional: appearance nourished, healthy and obese Ears, Nose, Mouth and Throat: mucous membranes moist, no injection and skin normal, eyes normal Cardiovascular: irregular irregular Respiratory: course breath sounds Musculoskeletal: venous stasis bilaterally with 2+ pitting edema to knees Skin: no stigmata of neurocutaneous disease noted and normal and intact Eyes: extraocular muscles intact (EOMI) and pupils equal, round and reactive to light (PERRL) NEUROLOGIC EXAMINATION: Mental status: Alert and interactive Oriented 2017, Trump, unable to say no ifs ands or buts, when asked to stick out tongue close eyes and point to the ceiling with her left hand she point to her head even after repeating command. Oriented to person Speech dysarthria difficulty with word finding, expressive aphasia Cranial Nerves smile eye brow raise symmetric Sensory: to light touch Coordination: finger to nose without bi pass, Gait/Stance: Posture lying in bed Motor: Negative for pronator drift of out stretched arms with eyes closed. Strength: biceps triceps deltoids hand rug measurer bilaterally 5/5, hip flex plantar flex ext 5/5 Laboratory Results Past 24 Hours: 06/15/16 05:24 Red Blood Count 3.74, Mean Corpuscular Volume 90.6, Mean Corpuscular Hemoglobin 27.8, Mean Corpuscular Hemoglobin Concent 30.7, Mean Platelet Volume 8.7, Neutrophils (%) (Auto) 69.4, Lymphocytes (%) (Auto) 19.2, Monocytes (%) (Auto) 7.6, Eosinophils (%) (Auto) 3.3, Basophils (%) (Auto) 0.3, Neutrophils # (Auto) 4.22, Lymphocytes # (Auto) 1.17, Monocytes # (Auto) 0.46, Eosinophils # (Auto) 0.20, Basophils # (Auto) 0.02 06/15/16 05:24 Test 06/15/16 00:45 06/15/16 00:50 06/15/16 02:10 06/15/16 05:24 Nucleated RBC Absolute Count (auto) 0.00 K/uL (0-0) Nucleated Red Blood Cells % 0.0 % Prothrombin Time 13.2 SECONDS (9.0-12.0) Prothromb Time International Ratio 1.2 (0.9-1.1) Activated Partial Thromboplast Time 29.6 SECONDS (21.0-31.0) Partial Thromboplastin Ratio 1.1 Magnesium Level 2.2 mg/dl (1.8-2.4) Total Creatine Kinase 59 U/L (26-192) Creatine Kinase MB 1.3 ng/ml (0.5-3.6) Creatine Kinase MB Ratio 2.2 (0-3.0) Pro-B-Type Natriuretic Peptide 1519 pg/ml (0-900) Thyroid Stimulating Hormone (TSH) 1.310 uIu/ml (0.300-4.500) Ethyl Alcohol mg/dL < 3.0 mg/dl (0-3) Estimated Average Glucose 120 mg/dl Hemoglobin A1c 5.8 % (4.5-5.6) Urine Color YELLOW Urine Appearance CLEAR (CLEAR) Urine pH 5.5 (4.5-7.5) Urine Specific [place] 1.016 (1.000-1.030) Urine Protein TRACE (NEG) Urine Glucose (UA) NEG (NEG) Urine Ketones NEG (NEG) Urine Occult Blood NEG (NEG) Urine Nitrite NEG (NEG) Urine Bilirubin NEG (NEG) Urine Urobilinogen NEG (NEG) Urine Leukocyte Esterase NEG (NEG) Urine WBC (Auto) 1-5 /hpf (0-5) Urine RBC (Auto) 0-4 /hpf (0-4) Urine Hyaline Casts (Auto) 1-5 /lpf (0-5) Urine Epithelial Cells (Auto) >30 /lpf (0-5) Urine Bacteria (Auto) NEG (NEG) Urine Opiates Screen NEG (NEG) Urine Methadone, Qualitative NEG (NEG) Urine Barbiturates NEG (NEG) Urine Phencyclidine (PCP) Level NEG (NEG) Ur Amphetamine/Methamphetamine NEG (NEG) MDMA (Ecstasy) Screen NEG (NEG) Urine Benzodiazepines Screen NEG (NEG) Urine Cocaine Metabolite NEG (NEG) Urine Marijuana (THC) NEG (NEG) White Blood Count 6.08 K/uL (4.8-10.8) Red Blood Count 3.74 M/uL (4.2-5.4) Hemoglobin 10.4 g/dL (12.0-16.0) Hematocrit 33.9 % (37-47) Mean Corpuscular Volume 90.6 fL (80-100) Mean Corpuscular Hemoglobin 27.8 pg (25-34) Mean Corpuscular Hemoglobin Concent 30.7 g/dl (32-36) Platelet Count 196 K/uL (130-400) Mean Platelet Volume 8.7 fL (7.4-10.4) Neutrophils (%) (Auto) 69.4 % Lymphocytes (%) (Auto) 19.2 % Monocytes (%) (Auto) 7.6 % Eosinophils (%) (Auto) 3.3 % Basophils (%) (Auto) 0.3 % Neutrophils # (Auto) 4.22 K/uL (1.4-6.5) Lymphocytes # (Auto) 1.17 K/uL (1.2-3.4) Monocytes # (Auto) 0.46 K/uL (0.11-0.59) Eosinophils # (Auto) 0.20 K/uL (0-0.5) Basophils # (Auto) 0.02 K/uL (0-0.2) RDW Standard Deviation 51.1 fL (36.4-46.3) RDW Coefficient of Variation 15.5 % (11.5-14.5) Immature Granulocyte % (Auto) 0.2 % Immature Granulocyte # (Auto) 0.01 K/uL (0.00-0.02) Anion Gap 4.0 mmol/L (3-11) Est Creatinine Clear Calc Drug Dose 121.2 ml/min Estimated GFR () 102.8 Estimated GFR (Non- 88.7 BUN/Creatinine Ratio 32.9 (10-20) Calcium Level 8.4 mg/dl (8.5-10.1) Iron Level 30 mcg/dl (35-150) Total Iron Binding Capacity 327 mcg/dl (250-450) Transferrin 253 mg/dl (200-360) Transferrin % Saturation 8 % (15-50) Ferritin 47.8 ng/ml (8.0-388.0) Troponin I < 0.015 ng/ml (0-0.045) Vitamin B12 Level 703 pg/mL (211-911) Folate 21.45 ng/mL (>5.38) Test 06/15/16 11:04 Bedside Glucose 101 mg/dl (70-90) Imaging MRA brain -Unremarkable MR angiography of the [place]. MRI brain with and without- Several small foci of acute ischemic change involving the left middle cerebral arterial distribution . This suggestive of watershed type etiology. Remainder the brain is unremarkable. abdominal US- small amount of ascites doppler LE- There are prominent bilateral inguinal lymph nodes. There are complex collections within each popliteal fossa, likely representing complex popliteal cyst. The lesion on the right measures 46 x 16 x 31 mm. The lesion the left measures 95 x 25 x 33 mm. IMPRESSION: No evidence of deep venous thrombosis. CXR- Cardiomegaly with mild central pulmonary vascular congestion/fluid overload. Impression 60 year old female s/p water shed ischemia, chronic afib on Xarelto Plan 1. permissive hypertension and then optimize HTN, cholestrol and DM control 2. recently started on Neurontin and CCB may contribute to LE edema 3. PT/OT/speech for discharge needs 4. echo pending read 5. Xarelto-no clear if patient missed dosing- aspirin 325 mg added 6. optimized anticoagulation due to afib- cardiology input for treatment plan 7. MRI with acute ischemia 8. carotid doppler - to evaluate for carotid stenosis I have seen and discussed above patient with Dr Walter Mcghee, neurology Patient seen examined and images reviewed along with cardiology note and above discussed with Ally Mccurdy picture is that of embolic events left hemisphere with now improving aphasia and no or minimal right sided sensoryu or motor deficits and with at most a minimal right facial asymmetry and no visual field cuts naming and right left issues seem actually to be good some sequencing deficits need carotid duplex to exclude a potential right carotid issue in light of the pure left hemispheric location of the events but continue to suspect a fib and wonder about transient non compliance with the xerelto rather than a failure but agree with adding asa and getting speech etc involved we will follow up tomorrow Walter Mcghee MD
--- NOTE | 2016-06-15 21:58 | Progress Note ---
Internal Med Progress Note Date of Service: June 15, 2016. Provider Documentation: SUBJECTIVE: no complain of headache , still have some dysarthria left sided weakness has much improved no complain of chest pain or SOB , OBJECTIVE: Vital Signs-as noted below Exam: General-no sign of distress, very pleasant Eyes-sclera non icteric Lungs-CTA Heart-irregular Abdomen-soft, non tender Extremities-+ 2 bilat lower ext edema Neuro-+ dysarthria, rt sided weakness Lab data as noted below. ASSESSMENT & PLAN: ACUTE CVA /LEFT MCA TERRITORY STROKE IN SETTING OF CHRONIC AFIB : presented with dysarthria /word finding difficulty hx of chronic afib has skipped Xarelto dose for 2 days due to epistaxis history of Atrial fibrillation MRA brain -Unremarkable MR angiography of the [place]. MRI brain with and without- Several small foci of acute ischemic change involving the left middle cerebral arterial distribution . This suggestive of watershed type etiology. Remainder the brain is unremarkable. abdominal US- small amount of ascites Doppler LE- There are prominent bilateral inguinal lymph nodes. There are complex collections within each popliteal fossa, likely representing complex popliteal cyst. The lesion on the right measures 46 x 16 x 31 mm. The lesion the left measures 95 x 25 x 33 mm. IMPRESSION: No evidence of deep venous thrombosis. CXR- Cardiomegaly with mild central pulmonary vascular congestion/fluid overload. Xarelto resumed appreciate input form Neurology and Cardiology possible acute CVA /Cardioembolic in setting of chronic afib due to missed Xarelto not necessary failure of Xarelto therapy no indication for addition of aspirin - ASA discontinued for risk of bleeding PT/OT ; speech therapy consulted CHRONIC AFIB : remains rate controlled beta jn changed -Atenolol D/flores Diltiazem d/flores -worsening lower ext edema added Metoprolol cont Xarelto for stroke prophylaxis pt is counselled not to stop taking med without counselling with physician BILATERAL LOWER EXT EDEMA /RT HEART FAILURE/POSSIBLE SCOTT /OBESITY HYPOVENTILATION SYNDROME : Appreciate input from cardiology cont Lasix as out pt dose ECHO ordered will need out pt sleep study CPAP at night lower ext -Doppler-negative for DVT HTN : allow permissive HTN in setting acute CVA on Metoprolol , Lasix DYSLIPIDEMIA: Cont statin Fasting lipid panel in AM goal LDL < 70 HX OF CAD : hx of mild to moderate non obstructive coronary artery disease as per Cardiac cath in [place] in 11/2015 records requested form pt's [employer] [place] , [place] cardiac markers negative , EKG no ischemic change no evidence of acute coronary event no complain of chest pain or COLLINS cont medical management risk factor and life style modification , LDL goal < 70 DVT PROPHYLAXIS on Xarelto DISPOSITION cont to monitor in tele PT/OT eval Vital Signs: Date Time Temp Pulse Resp B/P Pulse Ox O2 Delivery O2 Flow Rate FiO2 06/16/16 20:35 99 184/117 95 Room Air 185/107 06/16/16 20:00 Nasal Cannula 2.0 06/16/16 19:38 36.4 100 20 186/97 94 Room Air 06/16/16 16:10 36.4 88 20 182/90 96 Nasal Cannula 2.0 06/16/16 16:00 Nasal Cannula 2.0 06/16/16 12:00 Nasal Cannula 2.0 06/16/16 11:22 36.5 76 20 148/96 95 Nasal Cannula 2.0 06/16/16 09:51 64 18 97 Nasal Cannula 2.0 06/16/16 08:00 Nasal Cannula 2.0 06/16/16 07:33 36.5 76 20 147/83 96 Nasal Cannula 2.0 06/16/16 04:00 Room Air 06/16/16 00:00 Nasal Cannula 2.0 06/15/16 23:14 36.5 62 21 152/98 97 Nasal Cannula 2.0 Lab Results: Results Past 24 Hours Test 06/16/16 05:25 06/16/16 06:28 06/16/16 11:31 06/16/16 16:26 Range/Units White Blood Count 5.52 4.8-10.8 K/uL Red Blood Count 3.87 4.2-5.4 M/uL Hemoglobin 10.7 12.0-16.0 g/dL Hematocrit 35.2 37-47 % Mean Corpuscular Volume 91.0 80-100 fL Mean Corpuscular Hemoglobin 27.6 25-34 pg Mean Corpuscular Hemoglobin Concent 30.4 32-36 g/dl Platelet Count 200 130-400 K/uL Mean Platelet Volume 9.1 7.4-10.4 fL Neutrophils (%) (Auto) 69.4 % Lymphocytes (%) (Auto) 18.3 % Monocytes (%) (Auto) 8.9 % Eosinophils (%) (Auto) 2.7 % Basophils (%) (Auto) 0.5 % Neutrophils # (Auto) 3.83 1.4-6.5 K/uL Lymphocytes # (Auto) 1.01 1.2-3.4 K/uL Monocytes # (Auto) 0.49 0.11-0.59 K/uL Eosinophils # (Auto) 0.15 0-0.5 K/uL Basophils # (Auto) 0.03 0-0.2 K/uL RDW Standard Deviation 50.9 36.4-46.3 fL RDW Coefficient of Variation 15.2 11.5-14.5 % Immature Granulocyte % (Auto) 0.2 % Immature Granulocyte # (Auto) 0.01 0.00-0.02 K/uL Sodium Level 143 136-145 mmol/L Potassium Level 3.9 3.5-5.1 mmol/L Chloride Level 104 98-107 mmol/L Carbon Dioxide Level 36 21-32 mmol/L Anion Gap 3.0 3-11 mmol/L Blood Urea Nitrogen 18 7-18 mg/dl Creatinine 0.71 0.60-1.20 mg/dl Est Creatinine Clear Calc Drug Dose 124.5 ml/min Estimated GFR () 108.1 Estimated GFR (Non- 93.2 BUN/Creatinine Ratio 25.5 10-20 Random Glucose 72 70-99 mg/dl Calcium Level 8.8 8.5-10.1 mg/dl Triglycerides Level 64 0-150 mg/dl Cholesterol Level 100 0-200 mg/dl HDL Cholesterol 39 mg/dl LDL Cholesterol, Calculated 48 mg/dl VLDL Cholesterol, Calculated 13 mg/dl Cholesterol/HDL Ratio 2.6 Bedside Glucose 88 119 96 70-90 mg/dl Test 06/16/16 20:39 Range/Units Bedside Glucose 120 70-90 mg/dl
--- NOTE | 2016-06-15 22:20 | DIAGNOSTIC IMAGING REPORT ---
ULTRASOUND OF THE CAROTID ARTERIES CLINICAL HISTORY: Stroke. COMPARISON STUDY: No priors. TECHNIQUE: Real-time, grayscale, and color Doppler sonography of the carotid arteries is performed. Images are reviewed in the transverse and longitudinal planes. FINDINGS: Blood pressures were not assessed. The carotid arteries are patent bilaterally and demonstrate antegrade flow. There is mild echogenic shadowing atherosclerotic plaque seen bilaterally. Normal doppler arterial waveforms are seen throughout. The cardiac pulsations are irregularly irregular. Velocity measurements are listed below. Elevated velocities within the distal left internal carotid artery are likely related to vascular tortuosity. There is no significant luminal narrowing seen on the grayscale images. Common carotid peak systolic velocity (cm/sec): RIGHT: 66 LEFT: 87 ICA proximal peak systolic velocity (cm/sec): RIGHT: 63 LEFT: 71 ICA mid peak systolic velocity (cm/sec): RIGHT: 59 LEFT: 89 ICA distal peak systolic velocity (cm/sec): RIGHT: 60 LEFT: 174 ICA/CC peak systolic ratio: RIGHT: 1.0 LEFT: 2.0 Antegrade flow was shown in the vertebral arteries. The external carotid arteries are patent. IMPRESSION: 1. There is no sonographic evidence of hemodynamically significant stenosis in the right or left carotid arterial system. 2. Antegrade flow is shown in the vertebral arteries. 3. The cardiac pulsations appear irregularly irregular. Colon clinically and with EKG for evidence of arrhythmia. Electronically signed by: Tal Randle M.D. 06/15/2016 10:19 PM Dictated Date/Time: 06/15/2016 10:17 PM
[2016-06-16] VITALS (7 sets, daily range): BP systolic 147–186; BP diastolic 83–117; PULSE 64–100; TEMP 36.4–36.7; O2SAT 94–97
[2016-06-16 06:17] LABS: BASO % 0.5 %; BASO ABS # 0.03 K/uL (0-0.2); COMPLETE YES; EOS % 2.7 %; HEMATOCRIT 35.2 % (37-47); IG% 0.2 %; LYMPH % 18.3 %; LYMPH ABS # 1.01 K/uL (1.2-3.4); MEAN CORPUSCULAR HEMOGLOBIN 27.6 pg (25-34); MEAN CORPUSCULAR HGB CONC 30.4 g/dl (32-36); MEAN PLATELET VOLUME 9.1 fL (7.4-10.4); MONO % 8.9 %; NEUT % 69.4 %; PLATELET COUNT 200 K/uL (130-400); RED BLOOD COUNT 3.87 M/uL (4.2-5.4); WHITE BLOOD COUNT 5.52 K/uL (4.8-10.8)
[2016-06-16 06:55] LABS: BUN/CREATININE RATIO 25.5 (10-20); CALCIUM 8.8 mg/dl (8.5-10.1); CREATININE 0.71 mg/dl (0.60-1.20); POTASSIUM 3.9 mmol/L (3.5-5.1)
[2016-06-16 06:58] LABS: CHOLESTEROL/HDL RATIO 2.6
[2016-06-16] MEDS: INSULIN ASPART 100 UNITS/ML 3 ML PEN SC SCH ×4 (07:00→20:43)
[2016-06-16] MEDS: METOPROLOL TARTRATE 25 MG TAB PO SCH (07:40)
[2016-06-16] MEDS: PANTOprazole SOD 40 MG TAB PO SCH (07:40)
[2016-06-16] MEDS: ATORVASTATIN 20 MG TAB PO SCH (07:40)
[2016-06-16] MEDS: RIVAROXABAN 10 MG TAB PO SCH (07:40)
[2016-06-16] MEDS: MULTIVITAMIN TAB PO SCH (07:40)
[2016-06-16] MEDS: FERROUS FUMARATE CONTR REL CAP 65 MG CAPCR PO SCH (07:41)
[2016-06-16] MEDS: FUROSEMIDE 20 MG TAB PO SCH (07:41)
[2016-06-16] MEDS: CITALOPRAM 40 MG TAB PO SCH (07:41)
[2016-06-16] MEDS: POTASSIUM CHLORIDE PWD 20 MEQ PACK PO SCH (07:41)
[2016-06-16] MEDS ORDERED: ASPIRIN 325 MG ECTAB PO SCH (09:00)
[2016-06-16] MEDS ORDERED: ASPIRIN 81 MG ECTAB PO SCH (09:00)
--- NOTE | 2016-06-16 09:47 | Cardiology Follow-Up ---
Subjective General Date of Service: June 16, 2016. Chief Complaint: F/U CHF. CVA Pt evaluation today including: conversation w/ patient, physical exam, chart review, lab review, review of studies, review of inpatient medication list History of Present Illness Patient seen and examined. Feels considerably better. No complaints. Improved dysarthria. Denies chest pain, palpitations, new or worsening dyspnea. Telemetry: Currently (chronic) atrial fibrillation ~90-100 bpm. Echo pending Allergies Coded Allergies: Codeine (Unverified Allergy, Unknown, unsure, 06/15/16) Erythromycin (Unverified Allergy, Unknown, unsure, 06/15/16) Social History Smoking Status: Unknown if Ever Smoked Hx Tobacco Use In Past Year?: No Hx Alcohol Use - Type And Amou: No Hx Substance Use - Type And Am: No Problem List Medical Problems: (1) Stroke Status: Acute Physical Exam Vital Signs Last Vital Signs Documentation Date Time Temp Pulse Resp B/P Pulse Ox O2 Delivery O2 Flow Rate FiO2 06/16/16 07:33 36.5 76 20 147/83 96 Nasal Cannula 2.0 Physical Exam Constitutional: General Apperance: obese Level of Distress: NAD Psychiatric: Mental Status: active & alert Orientation: to time, to place, to person Memory: recent memory normal, remote memory normal Head: normocephalic, atraumatic Eyes: Pupils: PERRLA Neck: pertinent finding (No overt JVD) Lungs: Respiratory effort: no dyspnea Auscultation: no wheezing, no rales/crackles, no rhonchi Cardiovascular: Heart Auscultation: no murmurs, no rubs, irregular rate rhythm (~100 bpm) Peripheral Pulses: Radial Pulse: normal on the left, normal on the right Dorsalis Pedis Pulse: decreased on the left, decreased on the right Abdomen: Bowel Sounds: normal Inspection & Palpation: soft, no masses Extremities: no cyanosis, no clubbing, edema (1-2+ edema) Neurologic: Cranial Nerves: grossly intact Assessment and Plan Assessment and Plan Left MCA territory stroke in the setting of chronic atrial fibrillation, noncompliance with Xarelto (missed two doses in the past week secondary to epistaxis) June 15, 2016 Carotid duplex with no sonographic evidence of hemodynamically significant stenosis bilaterally. TTE pending. Right heart failure, fluid overload. ? secondary to obesity hypoventilation syndrome, medications (Diltiazem, gabapentin). Diltiazem and gabapentin discontinued Continue Furosemide as presently prescribed. Recommend polysomnography. ? ABG Chronic atrial fibrillation. Present since 2013 as per patient Patient with a slow ventricular response on presentation Atenolol and diltiazem discontinued. Metoprolol added, to be increased to 50 mg twice a day today. Continue Xarelto. History of mild to moderate nonobstructive coronary artery disease. Cath in [place] in 11/2015 as per patient. Records requested 06/15/2016 (unavailable at this time). Troponin negative x 2. EKG without acute changes. Denies chest pain. No evidence of an acute coronary syndrome. Continue medical management. Risk factor and life style modification Hypertension. See above Dyslipidemia. Statin. Anemia. Labs with iron deficiency. Further evaluation and treatment as per Hospitalist. CARDIOLOGY ATTENDING ADDENDUM: The patient was seen and personally examined. Agree with Anam Vaughan PA-C's findings and plans as documented above with additions as noted below. Patient denies any chest discomfort or shortness of breath. She states her mental status is improving. She is able to tell me her location and described to me her friend's name. Her thinking certainly seems to have improved compared to yesterday. Telemetry reveals recurrent controlled atrial fibrillation in the 90 be per minute range. Cardiovascular exam: Irregular rhythm, no murmurs, trace ankle edema Impression: As noted above Plan: Continue Xarelto for stroke prophylaxis. Given patient history of nonadherence having missed doses, I think her stroke may be due to the patient having failed to take the medication rather than the medication treatment being unsuccessful. Continue iron supplementation. Although patient has coronary artery disease, aspirin has been discontinued due to her anemia. Will review echo when available. Laboratory Results Last 24 Hours Test 06/15/16 11:04 06/15/16 16:22 06/15/16 20:48 06/16/16 05:25 Bedside Glucose 101 mg/dl 80 mg/dl 111 mg/dl White Blood Count 5.52 K/uL Red Blood Count 3.87 M/uL Hemoglobin 10.7 g/dL Hematocrit 35.2 % Mean Corpuscular Volume 91.0 fL Mean Corpuscular Hemoglobin 27.6 pg Mean Corpuscular Hemoglobin Concent 30.4 g/dl Platelet Count 200 K/uL Mean Platelet Volume 9.1 fL Neutrophils (%) (Auto) 69.4 % Lymphocytes (%) (Auto) 18.3 % Monocytes (%) (Auto) 8.9 % Eosinophils (%) (Auto) 2.7 % Basophils (%) (Auto) 0.5 % Neutrophils # (Auto) 3.83 K/uL Lymphocytes # (Auto) 1.01 K/uL Monocytes # (Auto) 0.49 K/uL Eosinophils # (Auto) 0.15 K/uL Basophils # (Auto) 0.03 K/uL RDW Standard Deviation 50.9 fL RDW Coefficient of Variation 15.2 % Immature Granulocyte % (Auto) 0.2 % Immature Granulocyte # (Auto) 0.01 K/uL Sodium Level 143 mmol/L Potassium Level 3.9 mmol/L Chloride Level 104 mmol/L Carbon Dioxide Level 36 mmol/L Anion Gap 3.0 mmol/L Blood Urea Nitrogen 18 mg/dl Creatinine 0.71 mg/dl Est Creatinine Clear Calc Drug Dose 124.5 ml/min Estimated GFR () 108.1 Estimated GFR (Non- 93.2 BUN/Creatinine Ratio 25.5 Random Glucose 72 mg/dl Calcium Level 8.8 mg/dl Triglycerides Level 64 mg/dl Cholesterol Level 100 mg/dl HDL Cholesterol 39 mg/dl LDL Cholesterol, Calculated 48 mg/dl VLDL Cholesterol, Calculated 13 mg/dl Cholesterol/HDL Ratio 2.6 Test 06/16/16 06:28 Bedside Glucose 88 mg/dl
--- NOTE | 2016-06-16 15:30 | Neurology Progress Notes ---
Neurology Progress Note Date of Service June 16, 2016. Sage Zacarias is a 60 year old female with a PMH DM, CHF, TIA. Her friend is in the room and states she was at a friends house and they noticed she was having trouble finding the right words.She states the event started around 5p last night. They thought this may be a blood sugar issues but after it didn't improve they brought her to the ED. She has word finding trouble, difficulty with speech, increased memory impairment, increased fatigue. Gabapentin started in April and titrated upward. She notes increased abdominal distention and increased peripheral edema. She is also prescribed Cardizem, 240 mg/day, for rate control of what appears to be chronic atrial fibrillation. Dr. Callahan in [place] is her manager utilization review. She is on Xarelto after a TIA in the past for her afib. . She describes have had an abnormal stress test that lead to diagnostic cardiac catheterization in November 2015, describing mild to moderate nonobstructive coronary artery disease. Currently her only complaint is being tired. denies CP, SOB, abdominal pain, one sided weakness, numbness tingling, N , V, vision changes, headache. She states she lives alone and after her TIA she didn't need rehab "she got over it quickly" She does not walk with a walker or cane at baseline. She thinks she has not skipped doses of Xarelto. However she did admit to cardiology that she had missed 2 doses when she had a nose bleed. Objective Date Time Temp Pulse Resp B/P Pulse Ox O2 Delivery O2 Flow Rate FiO2 06/16/16 12:00 Nasal Cannula 2.0 06/16/16 11:22 36.5 76 20 148/96 95 Nasal Cannula 2.0 06/16/16 09:51 64 18 97 Nasal Cannula 2.0 06/16/16 08:00 Nasal Cannula 2.0 06/16/16 07:33 36.5 76 20 147/83 96 Nasal Cannula 2.0 06/16/16 04:00 Room Air 06/16/16 00:00 Nasal Cannula 2.0 06/15/16 23:14 36.5 62 21 152/98 97 Nasal Cannula 2.0 06/15/16 20:00 Nasal Cannula 2.0 06/15/16 19:41 36.3 92 22 155/88 98 Nasal Cannula 3.0 06/15/16 16:00 Nasal Cannula 2.0 Last 24 Hours Test 06/15/16 16:22 06/15/16 20:48 06/16/16 05:25 06/16/16 06:28 Bedside Glucose 80 mg/dl 111 mg/dl 88 mg/dl White Blood Count 5.52 K/uL Red Blood Count 3.87 M/uL Hemoglobin 10.7 g/dL Hematocrit 35.2 % Mean Corpuscular Volume 91.0 fL Mean Corpuscular Hemoglobin 27.6 pg Mean Corpuscular Hemoglobin Concent 30.4 g/dl Platelet Count 200 K/uL Mean Platelet Volume 9.1 fL Neutrophils (%) (Auto) 69.4 % Lymphocytes (%) (Auto) 18.3 % Monocytes (%) (Auto) 8.9 % Eosinophils (%) (Auto) 2.7 % Basophils (%) (Auto) 0.5 % Neutrophils # (Auto) 3.83 K/uL Lymphocytes # (Auto) 1.01 K/uL Monocytes # (Auto) 0.49 K/uL Eosinophils # (Auto) 0.15 K/uL Basophils # (Auto) 0.03 K/uL RDW Standard Deviation 50.9 fL RDW Coefficient of Variation 15.2 % Immature Granulocyte % (Auto) 0.2 % Immature Granulocyte # (Auto) 0.01 K/uL Sodium Level 143 mmol/L Potassium Level 3.9 mmol/L Chloride Level 104 mmol/L Carbon Dioxide Level 36 mmol/L Anion Gap 3.0 mmol/L Blood Urea Nitrogen 18 mg/dl Creatinine 0.71 mg/dl Est Creatinine Clear Calc Drug Dose 124.5 ml/min Estimated GFR () 108.1 Estimated GFR (Non- 93.2 BUN/Creatinine Ratio 25.5 Random Glucose 72 mg/dl Calcium Level 8.8 mg/dl Triglycerides Level 64 mg/dl Cholesterol Level 100 mg/dl HDL Cholesterol 39 mg/dl LDL Cholesterol, Calculated 48 mg/dl VLDL Cholesterol, Calculated 13 mg/dl Cholesterol/HDL Ratio 2.6 Test 06/16/16 11:31 Bedside Glucose 119 mg/dl Imaging: carotid doppler- There is no sonographic evidence of hemodynamically significant stenosis in the right or left carotid arterial system. Antegrade flow is shown in the vertebral arteries. The cardiac pulsations appear irregularly irregular. Colon clinically and with EKG for evidence of arrhythmia. Exam: Physical Exam: Constitutional: appearance nourished, healthy and normal Ears, Nose, Mouth and Throat: mucous membranes moist, no injection and skin normal, eyes normal Cardiovascular: irregular irregular Respiratory: course breath sounds Musculoskeletal: LE stasis with non pitting edema Skin: no stigmata of neurocutaneous disease noted and normal and intact Eyes: extraocular muscles intact (EOMI) and pupils equal, round and reactive to light (PERRL) NEUROLOGIC EXAMINATION: Mental status: Alert and interactive able to say no ifs ands or buts, able to close eyes, stick out tongue and point to ceiling Cranial Nerves smile and eye brow raise symmetric tongue midline Reflexes: Deep tendon reflexes were symmetrical and graded 2/5. Plantar responses were flexor. Coordination: finger to nose with no bi pass or tremor Gait/Stance: Posture normal. walking in room with no difficulty Motor: Negative for pronator drift of out stretched arms with eyes closed. Strength: hand strength biceps triceps 5/5 bilaterally Current Inpatient Medications Medications (Trade) Dose Ordered Sig/Magdaleno Route Start Time Stop Time Status Last Admin Dose Admin Albuterol/ Ipratropium (Duoneb) 3 ml Q2H PRN INH 06/15/16 03:15 07/15/16 03:14 06/16/16 09:50 3 ML Acetaminophen (Tylenol Tab) 650 mg Q4H PRN PO 06/15/16 03:15 07/15/16 03:14 Nitroglycerin (Nitrostat Tab) 0.4 mg UD PRN SL 06/15/16 03:15 07/15/16 03:14 Miscellaneous Information (Pharmacist Discharge Med Rec Consult) 1 ea UD PRN N/A 06/15/16 03:15 07/15/16 03:14 Atorvastatin Calcium (Lipitor Tab) 40 mg DAILY PO 06/15/16 09:00 07/15/16 08:59 06/16/16 07:40 40 MG Citalopram Hydrobromide (celeXA TAB) 40 mg DAILY PO 06/15/16 09:00 07/15/16 08:59 06/16/16 07:41 40 MG Furosemide (Lasix Tab) 40 mg DAILY PO 06/15/16 09:00 07/15/16 08:59 06/16/16 07:41 40 MG Multivitamins (Multivitamin Tab) 1 tab DAILY PO 06/15/16 09:00 07/15/16 08:59 06/16/16 07:40 1 TAB Pantoprazole Sodium (Protonix Tab) 40 mg DAILY PO 06/15/16 09:00 07/15/16 08:59 06/16/16 07:40 40 MG Potassium Chloride (Klor-Con Pwd) 20 meq DAILY PO 06/15/16 09:00 07/15/16 08:59 06/16/16 07:41 20 MEQ Ferrous Fumarate (Gabrielle-Sequels Contr Rel Cap) 50 mg DAILY PO 06/15/16 09:00 07/15/16 08:59 06/16/16 07:41 50 MG Ondansetron HCl (Zofran Inj) 4 mg Q6H PRN IV 06/15/16 03:15 07/15/16 03:14 Tramadol HCl (Ultram Tab) 25 mg Q6H PRN PO 06/15/16 03:15 07/15/16 03:14 Insulin Aspart (novoLOG ASPART) SLIDING SCALE If C... ACHS SC 06/15/16 07:00 07/15/16 06:59 Glucose (Glucose 40% Gel) 15-30 GRAMS 15 GRAMS... UD PRN PO 06/15/16 03:15 07/15/16 03:14 Glucose (Glucose Chew Tab) 4-8 Tablets 4 Tabl... UD PRN PO 06/15/16 03:15 07/15/16 03:14 Dextrose (Dextrose 50% 50ML Syringe) 25-50ML OF 50% DW IV FOR... UD PRN IV 06/15/16 03:15 07/15/16 03:14 Glucagon (Glucagon Inj) 1 mg UD PRN SQ 06/15/16 03:15 07/15/16 03:14 Rivaroxaban (Xarelto Tab) 20 mg DAILY PO 06/16/16 09:00 07/16/16 08:59 06/16/16 07:40 20 MG Metoprolol Tartrate (Lopressor Tab) 50 mg BID PO 06/16/16 21:00 07/16/16 20:59 Impression 60 year old female s/p water shed ischemia, chronic afib on Xarelto Plan 1. permissive hypertension and then optimize HTN, cholestrol and DM control 2. recently started on Neurontin may contribute to LE edema would not restart 3. PT/OT/speech for discharge needs 4. echo pending read 5. Xarelto-confirmed missed dosing aspirin stopped by cards 6. optimized anticoagulation due to afib- cardiology input for treatment plan 7. MRI with acute ischemia 8. carotid doppler - to evaluate for carotid stenosis - no high grade stenosis 9. cardiology to follow will see in our clinic in 2-3 weeks Ally Rosas PAC, neurology I have seen and discussed above patient with Dr Walter Mcghee, neurology Mucch better today virtually asymptomatic speech norris Now admits to noncompliance with xarelto for two days prior to event so we do not need to start or continue asa here continue rx for edema and now back on xarelto neurology may well sign off soon as we are not offering any additional value here and the carotid on the left is not a source for embolization leaving the atrial fibrillation as the culprit Walter Mcghee MD
--- NOTE | 2016-06-16 15:59 | ECHOCARDIOGRAM REPORT ---
*NOTICE TO RECEIVING [employer] This information is strictly Confidential and protected under [place] law. [place] law prohibits you from making any further disclosure of this information unless further disclosure is expressly permitted by the written consent of the person to whom it pertains or is authorized by law. A general authorization for the release of medical or other information is not sufficient for this purpose. Hospital accepts no responsibility if the information is made available to any other person, INCLUDING THE PATIENT. Interpretation Summary * Name: ROMELIA STEVENSON Study Date: 06/16/2016 02:47 PM BP: 148/96 mmHg * Patient Location: C.2T\S\S232\S\1 HR: 95 * : 1955 (M/d/yyyy) Gender: Female Height: 68 in * Age: 60 yrs Ethnicity: [place] Weight: 311 lb * Ordering Physician: Morro Weiss * Referring Physician: Self, Referred * Performed By: Laya Riggs RCS * * Reason For Study: SOB * BSA: 2.5 m2 * The study was technically difficult. * -- Conclusions -- * Atrial fibrillation with controlled ventricular response was present during the echocardiogram study. * There is mild concentric left ventricular hypertrophy. * There is mild global hypokinesis of the left ventricle. * Left ventricular systolic function is mildly reduced. * Ejection Fraction = 40-45%. * The right ventricle is mildly dilated. * The right ventricular systolic function is normal as assessed by tricuspid annular plane systolic excursion (TAPSE) (normal >1.5 cm). * The left atrium is severely dilated. * Aortic valve sclerosis mild, without significant aortic valvular stenosis. * There is mild mitral regurgitation. * There is minimal tricuspid regurgitation and therefore the TR jet is not sufficient to allow calculation of the pulmonary artery systolic pressure. Procedure Details * A complete two-dimensional transthoracic echocardiogram was performed (2D, M-mode, Doppler and color flow Doppler). Left Ventricle * The left ventricle is normal in size. * There is mild concentric left ventricular hypertrophy. * Left ventricular systolic function is mildly reduced. * Ejection Fraction = 40-45%. * There is mild global hypokinesis of the left ventricle. Right Ventricle * The right ventricle is mildly dilated. * The right ventricular systolic function is normal as assessed by tricuspid annular plane systolic excursion (TAPSE) (normal >1.5 cm). Atria * The left atrium is severely dilated. * The right atrium is mildly dilated. * There is no evidence of atrial septal defect, but resolution does not allow assessment for a patent foramen ovale. Mitral Valve * The mitral valve is normal. * There is no mitral valve stenosis. * There is mild mitral regurgitation. Tricuspid Valve * The tricuspid valve is normal. * There is no tricuspid stenosis. * Significant tricuspid regurgitation is absent. * There is minimal tricuspid regurgitation and therefore the TR jet is not sufficient to allow calculation of the pulmonary artery systolic pressure. Aortic Valve * The aortic valve is tricuspid. The leaflet thickness if normal. There is no aortic stenosis, and no significant insufficiency. * Aortic valve sclerosis mild, without significant aortic valvular stenosis. * There is no significant aortic regurgitation. Pulmonic Valve * The pulmonary valve is not well seen, but the Doppler examination is normal without significant regurgitation or stenosis. Great Vessels * The aortic root and proximal ascending aorta are normal sized. Pericardium/Pleural * There is no pericardial effusion. Great Vessels * Normal inferior vena cava size and collapsability with sniff indicates a normal right atrial pressure of 3 mmHg Left Ventricular Diastolic Function * The LV diastolic function is abnormal. MMode 2D Measurements and Calculations IVSd 1.4 cm IVSs 1.6 cm LVIDd 5.3 cm LVIDs 3.9 cm LVPWd 1.5 cm LVPWs 1.8 cm IVS/LVPW 0.94 FS 25.4 % EDV(Teich) 132.8 ml ESV(Teich) 66.7 ml EF(Teich) 49.8 % EDV(cubed) 145.3 ml ESV(cubed) 60.2 ml EF(cubed) 58.6 % % IVS thick 14.2 % % LVPW thick 19.8 % LV mass(C)d 325.9 grams LV mass(C)dI 132.2 grams/m\S\2 LV mass(C)s 271.1 grams LV mass(C)sI 110.0 grams/m\S\2 SV(Teich) 66.1 ml SI(Teich) 26.8 ml/m\S\2 SV(cubed) 85.0 ml SI(cubed) 34.5 ml/m\S\2 Ao root diam 3.3 cm Ao root area 8.8 cm\S\2 ACS 1.8 cm LA dimension 5.4 cm LA/Ao 1.6 LVOT diam 1.9 cm LVOT area 2.8 cm\S\2 LVAd ap4 38.2 cm\S\2 LVLd ap4 7.9 cm EDV(MOD-sp4) 156.2 ml EDV(sp4-el) 156.8 ml LVAs ap4 27.0 cm\S\2 LVLs ap4 7.0 cm ESV(MOD-sp4) 87.0 ml ESV(sp4-el) 88.9 ml EF(MOD-sp4) 44.3 % EF(sp4-el) 43.3 % LVAd ap2 32.8 cm\S\2 LVLd ap2 7.1 cm EDV(MOD-sp2) 128.2 ml EDV(sp2-el) 129.3 ml LVAs ap2 23.6 cm\S\2 LVLs ap2 6.1 cm ESV(MOD-sp2) 80.1 ml ESV(sp2-el) 78.2 ml EF(MOD-sp2) 37.6 % EF(sp2-el) 39.5 % LVLd %diff -11.74 % EDV(MOD-bp) 143.7 ml LVLs %diff -15.20 % ESV(MOD-bp) 89.3 ml EF(MOD-bp) 37.9 % SV(MOD-sp4) 69.1 ml SI(MOD-sp4) 28.0 ml/m\S\2 SV(MOD-sp2) 48.2 ml SI(MOD-sp2) 19.5 ml/m\S\2 SV(MOD-bp) 54.5 ml SI(MOD-bp) 22.1 ml/m\S\2 SV(sp4-el) 67.9 ml SI(sp4-el) 27.5 ml/m\S\2 SV(sp2-el) 51.1 ml SI(sp2-el) 20.7 ml/m\S\2 Doppler Measurements and Calculations MV E max veronica 161.2 cm/sec MV P1/2t max veronica 171.8 cm/sec MV P1/2t 66.5 msec MVA(P1/2t) 3.3 cm\S\2 MV dec slope 757.4 cm/sec\S\2 MV dec time 0.11 sec Ao V2 max 167.8 cm/sec Ao max PG 11.3 mmHg Ao max PG (full) 8.0 mmHg EDILBERTO(V,A) 1.5 cm\S\2 EDILBERTO(V,D) 1.5 cm\S\2 LV V1 max PG 3.3 mmHg LV V1 max 90.1 cm/sec MR max veronica 513.8 cm/sec MR max PG 105.6 mmHg PA V2 max 97.7 cm/sec PA max PG 3.8 mmHg
--- NOTE | 2016-06-16 17:51 | Progress Note ---
Internal Med Progress Note Date of Service: June 16, 2016. Provider Documentation: SUBJECTIVE: feels much better today able to walk independently speech is much fluent today no complain of chest pain or SOB OBJECTIVE: Vital Signs-as noted below Exam: General-no sign of distress, very pleasant Eyes-sclera non icteric Lungs-CTA Heart-irregular Abdomen-soft, non tender Extremities-+ 2 bilat lower ext edema Neuro-+ dysarthria, rt sided weakness Lab data as noted below. ASSESSMENT & PLAN: ACUTE CVA /LEFT MCA TERRITORY STROKE IN SETTING OF CHRONIC AFIB : presented with dysarthria /word finding difficulty hx of chronic afib has skipped Xarelto dose for 2 days due to epistaxis history of Atrial fibrillation MRA brain -Unremarkable MR angiography of the [place]. MRI brain with and without- Several small foci of acute ischemic change involving the left middle cerebral arterial distribution . This suggestive of watershed type etiology. Remainder the brain is unremarkable. abdominal US- small amount of ascites Doppler LE- There are prominent bilateral inguinal lymph nodes. There are complex collections within each popliteal fossa, likely representing complex popliteal cyst. The lesion on the right measures 46 x 16 x 31 mm. The lesion the left measures 95 x 25 x 33 mm. IMPRESSION: No evidence of deep venous thrombosis. CXR- Cardiomegaly with mild central pulmonary vascular congestion/fluid overload. Xarelto resumed appreciate input form Neurology and Cardiology possible acute CVA /Cardioembolic in setting of chronic afib due to missed Xarelto not necessary failure of Xarelto therapy no indication for addition of aspirin - ASA discontinued for risk of bleeding PT/OT ; speech therapy consulted CHRONIC AFIB : remains rate controlled beta jn changed -Atenolol D/flores Diltiazem d/flores -worsening lower ext edema added Metoprolol cont Xarelto for stroke prophylaxis pt is counselled not to stop taking med without counselling with physician BILATERAL LOWER EXT EDEMA /RT HEART FAILURE/POSSIBLE SCOTT /OBESITY HYPOVENTILATION SYNDROME : Appreciate input from cardiology cont Lasix as out pt dose ECHO : Atrial fibrillation with controlled ventricular response was present during the echocardiogram study. There is mild concentric left ventricular hypertrophy. There is mild global hypokinesis of the left ventricle. Left ventricular systolic function is mildly reduced. Ejection Fraction = 40-45%. The right ventricle is mildly dilated. The right ventricular systolic function is normal as assessed by tricuspid annular plane systolic excursion (TAPSE) (normal >1.5 cm). The left atrium is severely dilated. will need out pt sleep study nocturnal pulse oximetry ordered lower ext -Doppler-negative for DVT HTN : allow permissive HTN in setting acute CVA on Metoprolol , Lasix DYSLIPIDEMIA: Cont statin Fasting lipid panel in AM goal LDL < 70 HX OF CAD : hx of mild to moderate non obstructive coronary artery disease as per Cardiac cath in [place] in 11/2015 records requested form pt's Senior Patient Account Representative Dr Callahan , [place] cardiac markers negative , EKG no ischemic change no evidence of acute coronary event no complain of chest pain or COLLINS cont medical management risk factor and life style modification , LDL goal < 70 DVT PROPHYLAXIS on Xarelto DISPOSITION cont to monitor in tele PT/OT eval appreciated , independent in her ADLs stable to be return home with home health Vital Signs: Date Time Temp Pulse Resp B/P Pulse Ox O2 Delivery O2 Flow Rate FiO2 06/16/16 20:35 99 184/117 95 Room Air 185/107 06/16/16 20:00 Nasal Cannula 2.0 06/16/16 19:38 36.4 100 20 186/97 94 Room Air 06/16/16 16:10 36.4 88 20 182/90 96 Nasal Cannula 2.0 06/16/16 16:00 Nasal Cannula 2.0 06/16/16 12:00 Nasal Cannula 2.0 06/16/16 11:22 36.5 76 20 148/96 95 Nasal Cannula 2.0 06/16/16 09:51 64 18 97 Nasal Cannula 2.0 06/16/16 08:00 Nasal Cannula 2.0 06/16/16 07:33 36.5 76 20 147/83 96 Nasal Cannula 2.0 06/16/16 04:00 Room Air 06/16/16 00:00 Nasal Cannula 2.0 06/15/16 23:14 36.5 62 21 152/98 97 Nasal Cannula 2.0 Lab Results: Results Past 24 Hours Test 06/16/16 05:25 06/16/16 06:28 06/16/16 11:31 06/16/16 16:26 Range/Units White Blood Count 5.52 4.8-10.8 K/uL Red Blood Count 3.87 4.2-5.4 M/uL Hemoglobin 10.7 12.0-16.0 g/dL Hematocrit 35.2 37-47 % Mean Corpuscular Volume 91.0 80-100 fL Mean Corpuscular Hemoglobin 27.6 25-34 pg Mean Corpuscular Hemoglobin Concent 30.4 32-36 g/dl Platelet Count 200 130-400 K/uL Mean Platelet Volume 9.1 7.4-10.4 fL Neutrophils (%) (Auto) 69.4 % Lymphocytes (%) (Auto) 18.3 % Monocytes (%) (Auto) 8.9 % Eosinophils (%) (Auto) 2.7 % Basophils (%) (Auto) 0.5 % Neutrophils # (Auto) 3.83 1.4-6.5 K/uL Lymphocytes # (Auto) 1.01 1.2-3.4 K/uL Monocytes # (Auto) 0.49 0.11-0.59 K/uL Eosinophils # (Auto) 0.15 0-0.5 K/uL Basophils # (Auto) 0.03 0-0.2 K/uL RDW Standard Deviation 50.9 36.4-46.3 fL RDW Coefficient of Variation 15.2 11.5-14.5 % Immature Granulocyte % (Auto) 0.2 % Immature Granulocyte # (Auto) 0.01 0.00-0.02 K/uL Sodium Level 143 136-145 mmol/L Potassium Level 3.9 3.5-5.1 mmol/L Chloride Level 104 98-107 mmol/L Carbon Dioxide Level 36 21-32 mmol/L Anion Gap 3.0 3-11 mmol/L Blood Urea Nitrogen 18 7-18 mg/dl Creatinine 0.71 0.60-1.20 mg/dl Est Creatinine Clear Calc Drug Dose 124.5 ml/min Estimated GFR () 108.1 Estimated GFR (Non- 93.2 BUN/Creatinine Ratio 25.5 10-20 Random Glucose 72 70-99 mg/dl Calcium Level 8.8 8.5-10.1 mg/dl Triglycerides Level 64 0-150 mg/dl Cholesterol Level 100 0-200 mg/dl HDL Cholesterol 39 mg/dl LDL Cholesterol, Calculated 48 mg/dl VLDL Cholesterol, Calculated 13 mg/dl Cholesterol/HDL Ratio 2.6 Bedside Glucose 88 119 96 70-90 mg/dl Test 06/16/16 20:39 Range/Units Bedside Glucose 120 70-90 mg/dl
[2016-06-16] MEDS: METOPROLOL TARTRATE 50 MG TAB PO SCH (20:16)
[2016-06-16] MEDS: ACETAMINOPHEN 325 MG TAB PO PRN (20:16)
--- NOTE | 2016-06-16 21:02 | Progress Note ---
Progress Note Date of Service June 16, 2016. Progress Note ATTENDING NOTE : pt developed headache , blurred vision followed by transient episode of confusion given Tylenol for headache -improved to 05/23 ( was 8 ) BP elevated 180 pt evaluated at bedside - EXAM : eyes : PERRLA /EOMI -no diplopia or visual field cut noted -Neuro : no facial droop, tongue midline persistent Dysarthria -no worsening of symptom able to repeat : NO IF AND OR BUTS " -with second attempt with mild hesitancy strength normal /symmetric both upper and lower ext Orientation -intact , able to answer questions appropriately remains on Afib on monitor rate controlled got Xarelto 20 mg earlier today at 7 am Lopressor dose increased to 50 mg BID , received last dose at 8 pm TRANSIENT CONFUSION /HEADACHE ; possible due to hypertensive urgency SBP in > 180 persistently Lopressor 50 mg given at [address] head without contrast to assess for any progression of CVA repeat BP in 1-2 hrs PRN IV hydralazine ordered for SBP > 170 pt will be allowed for permissive HTN post acute CVA with goal SBP between 150- 160 cont to monitor in tele
[2016-06-16] MEDS: ONDANSETRON INJ 2 MG/ML 2 ML VIAL IV PRN (21:11)
--- NOTE | 2016-06-16 21:39 | DIAGNOSTIC IMAGING REPORT ---
HEAD CT NONCONTRAST CT DOSE: 537.48 mGy.cm HISTORY: Mental status change acute CVA /headache /confusion TECHNIQUE: Multiaxial CT images of the head were performed without the use of intravenous contrast. Comparison: 06/15/2016 Findings: The paranasal sinuses and mastoid air cells are clear. There is evidence for a small cortical infarct superior left temporal lobe. Density characteristics of the cerebellar as well as cerebral hemispheres are otherwise unremarkable. This measures approximately 1 cm maximum dimension. There is no evidence for acute intracranial hemorrhage. Impression: Small 1 cm infarct left temporal lobe. 2. No evidence for acute intracranial hemorrhage. Electronically signed by: Anam Solano M.D. 06/16/2016 9:37 PM Dictated Date/Time: 06/16/2016 9:35 PM
--- NOTE | 2016-06-16 22:00 | Progress Note ---
Progress Note Date of Service June 16, 2016. Progress Note ATTENDING ADDENDUM: stat CT head shows : Impression: Small 1 cm infarct left temporal lobe. No evidence for acute intracranial hemorrhage. spoke with Neurology Dr Mcghee the change in CT head is natural evolution of CVA which correlate with area of stroked seen in MRI of brain no further intervention needed
[2016-06-16] MEDS: HydrALAZINE HCL 20 MG/ML VIAL IV. PRN (23:03)
[2016-06-17] VITALS (7 sets, daily range): BP systolic 112–156; BP diastolic 62–84; PULSE 71–93; TEMP 36.6–37; O2SAT 91–96
[2016-06-17] MEDS: INSULIN ASPART 100 UNITS/ML 3 ML PEN SC SCH ×4 (07:00→21:00)
[2016-06-17 07:05] LABS: BASO % 0.2 %; BASO ABS # 0.01 K/uL (0-0.2); COMPLETE YES; EOS % 2.6 %; HEMATOCRIT 35.9 % (37-47); IG% 0.2 %; LYMPH % 17.1 %; LYMPH ABS # 0.92 K/uL (1.2-3.4); MEAN CELL VOLUME 91.1 fL (80-100); MEAN CORPUSCULAR HEMOGLOBIN 27.4 pg (25-34); MEAN CORPUSCULAR HGB CONC 30.1 g/dl (32-36); MEAN PLATELET VOLUME 8.8 fL (7.4-10.4); NEUT % 71.9 %; PLATELET COUNT 200 K/uL (130-400); RED BLOOD COUNT 3.94 M/uL (4.2-5.4); WHITE BLOOD COUNT 5.39 K/uL (4.8-10.8)
[2016-06-17 07:35] LABS: BUN/CREATININE RATIO 23.3 (10-20); CALCIUM 8.8 mg/dl (8.5-10.1); CREATININE 0.71 mg/dl (0.60-1.20); POTASSIUM 4.1 mmol/L (3.5-5.1)
[2016-06-17] MEDS: ONDANSETRON INJ 2 MG/ML 2 ML VIAL IV PRN (07:55)
[2016-06-17] MEDS: ACETAMINOPHEN 325 MG TAB PO PRN ×3 (07:55→19:37)
[2016-06-17] MEDS: CITALOPRAM 40 MG TAB PO SCH (08:14)
[2016-06-17] MEDS: METOPROLOL TARTRATE 50 MG TAB PO SCH ×2 (08:14→19:38)
[2016-06-17] MEDS: ATORVASTATIN 20 MG TAB PO SCH (08:15)
[2016-06-17] MEDS: POTASSIUM CHLORIDE PWD 20 MEQ PACK PO SCH (08:16)
[2016-06-17] MEDS: PANTOprazole SOD 40 MG TAB PO SCH (08:16)
[2016-06-17] MEDS: MULTIVITAMIN TAB PO SCH (08:17)
[2016-06-17] MEDS: FERROUS FUMARATE CONTR REL CAP 65 MG CAPCR PO SCH (08:17)
[2016-06-17] MEDS: FUROSEMIDE 20 MG TAB PO SCH (08:17)
[2016-06-17] MEDS: RIVAROXABAN 10 MG TAB PO SCH (08:18)
--- NOTE | 2016-06-17 09:38 | Cardiology Follow-Up ---
Subjective General Date of Service: June 17, 2016. Chief Complaint: F/U CHF. CVA History of Present Illness Patient seen and examined. Notes feeling groggy and with mild nausea this morning. Denies chest pain, palpitations, new or worsening dyspnea. Telemetry: Currently (chronic) atrial fibrillation in the 80's. Rare ectopy. June 16, 2016 TTE Interpretation Summary ([facility], Dr. Cross): Atrial fibrillation with controlled ventricular response was present during the echocardiogram study. There is mild concentric left ventricular hypertrophy. There is mild global hypokinesis of the left ventricle. Left ventricular systolic function is mildly reduced. Ejection Fraction = 40-45%. The right ventricle is mildly dilated. The right ventricular systolic function is normal as assessed by tricuspid annular plane systolic excursion (TAPSE) (normal >1.5 cm). The left atrium is severely dilated. Aortic valve sclerosis mild, without significant aortic valvular stenosis. There is mild mitral regurgitation. There is minimal tricuspid regurgitation and therefore the TR jet is not sufficient to allow calculation of the pulmonary artery systolic pressure. Allergies Coded Allergies: Codeine (Unverified Allergy, Unknown, unsure, 06/15/16) Erythromycin (Unverified Allergy, Unknown, unsure, 06/15/16) Social History Smoking Status: Unknown if Ever Smoked Hx Tobacco Use In Past Year?: No Hx Alcohol Use - Type And Amou: No Hx Substance Use - Type And Am: No Problem List Medical Problems: (1) Stroke Status: Acute Physical Exam Vital Signs Last Vital Signs Documentation Date Time Temp Pulse Resp B/P Pulse Ox O2 Delivery O2 Flow Rate FiO2 06/17/16 07:52 36.8 93 20 156/84 91 Room Air 06/16/16 20:00 2.0 Physical Exam Constitutional: General Apperance: obese Level of Distress: NAD Psychiatric: Mental Status: active & alert Orientation: to time, to place, to person Memory: recent memory normal, remote memory normal Head: normocephalic, atraumatic Eyes: Pupils: PERRLA Neck: pertinent finding (No overt JVD) Lungs: Respiratory effort: no dyspnea Auscultation: no wheezing, no rales/crackles, no rhonchi Cardiovascular: Heart Auscultation: no murmurs, no rubs, irregular rate rhythm (~80 bpm) Peripheral Pulses: Radial Pulse: normal on the left, normal on the right Dorsalis Pedis Pulse: decreased on the left, decreased on the right Abdomen: Bowel Sounds: normal Inspection & Palpation: soft, no masses Extremities: no cyanosis, no clubbing, edema (1+ edema) Neurologic: Cranial Nerves: grossly intact Assessment and Plan Assessment and Plan Left MCA territory stroke in the setting of chronic atrial fibrillation, noncompliance with Xarelto (missed two doses in the past week secondary to epistaxis) June 15, 2016 Carotid duplex with no sonographic evidence of hemodynamically significant stenosis bilaterally. Right heart failure, fluid overload. Appears to be secondary to obesity hypoventilation syndrome, excessive intake, medications (Diltiazem, gabapentin). Diltiazem and gabapentin discontinued Continue Furosemide as presently prescribed. Recommend polysomnography. Chronic atrial fibrillation. Present since 2013 as per patient. Left atrium severely dilated. Patient with a slow ventricular response on presentation Atenolol and diltiazem discontinued. Metoprolol added, to be changed to Toprol XL in the AM given mild reduction in LV systolic function on TTE. Continue Xarelto. History of mild to moderate nonobstructive coronary artery disease. Cath in [place] in 11/2015 as per patient. Records requested 06/15/2016 (unavailable at this time). Troponin negative EKG without acute changes. Denies chest pain. No evidence of an acute coronary syndrome. Continue medical management. Continue statin. Risk factor and life style modification Hypertension. Lisinopril 10 mg/day given mild reduction in LV systolic function and the type II diabetes mellitus. Dyslipidemia. Statin. Anemia. Labs with iron deficiency. Further evaluation and treatment as per Hospitalist. Note: Atenolol, diltiazem, Maxzide, and gabapentin discontinued. Please call with any questions or concerns. Dr. Shultz is covering the weekend service. CARDIOLOGY ATTENDING ADDENDUM: The patient was seen and personally examined. Agree with Anam Vaughan PA-C's findings and plans as documented above and additions as noted below. S: patient denies CP or shortness of breath. Mild upset stomach this am Exam: CV: irregular, no murmurs Impression: as above. Plan: Transition to metoprolol succinate given mild LV systolic dysfunction. Continue lasix 40 mg po daily. Continue Xarelto for stroke and DVT prophylaxis. Laboratory Results Last 24 Hours Test 06/16/16 11:31 06/16/16 16:26 06/16/16 20:39 06/17/16 06:33 Bedside Glucose 119 mg/dl 96 mg/dl 120 mg/dl White Blood Count 5.39 K/uL Red Blood Count 3.94 M/uL Hemoglobin 10.8 g/dL Hematocrit 35.9 % Mean Corpuscular Volume 91.1 fL Mean Corpuscular Hemoglobin 27.4 pg Mean Corpuscular Hemoglobin Concent 30.1 g/dl Platelet Count 200 K/uL Mean Platelet Volume 8.8 fL Neutrophils (%) (Auto) 71.9 % Lymphocytes (%) (Auto) 17.1 % Monocytes (%) (Auto) 8.0 % Eosinophils (%) (Auto) 2.6 % Basophils (%) (Auto) 0.2 % Neutrophils # (Auto) 3.88 K/uL Lymphocytes # (Auto) 0.92 K/uL Monocytes # (Auto) 0.43 K/uL Eosinophils # (Auto) 0.14 K/uL Basophils # (Auto) 0.01 K/uL RDW Standard Deviation 51.1 fL RDW Coefficient of Variation 15.2 % Immature Granulocyte % (Auto) 0.2 % Immature Granulocyte # (Auto) 0.01 K/uL Sodium Level 142 mmol/L Potassium Level 4.1 mmol/L Chloride Level 102 mmol/L Carbon Dioxide Level 37 mmol/L Anion Gap 3.0 mmol/L Blood Urea Nitrogen 17 mg/dl Creatinine 0.71 mg/dl Est Creatinine Clear Calc Drug Dose 112.8 ml/min Estimated GFR () 108.1 Estimated GFR (Non- 93.2 BUN/Creatinine Ratio 23.3 Random Glucose 94 mg/dl Calcium Level 8.8 mg/dl Test 06/17/16 06:42 Bedside Glucose 98 mg/dl
--- NOTE | 2016-06-17 13:08 | Neurology Progress Notes ---
Neurology Progress Note Date of Service June 17, 2016. Sage Zacarias is a 60 year old female with a PMH DM, CHF, TIA. Her friend is in the room and states she was at a friends house and they noticed she was having trouble finding the right words.She states the event started around 5p last night. They thought this may be a blood sugar issues but after it didn't improve they brought her to the ED. She has word finding trouble, difficulty with speech, increased memory impairment, increased fatigue. Gabapentin started in April and titrated upward. She notes increased abdominal distention and increased peripheral edema. She is also prescribed Cardizem, 240 mg/day, for rate control of what appears to be chronic atrial fibrillation. Dr. Callahan in [place] is her medical office technician. She is on Xarelto after a TIA in the past for her afib. . She describes have had an abnormal stress test that lead to diagnostic cardiac catheterization in November 2015, describing mild to moderate nonobstructive coronary artery disease. Currently her only complaint is being tired. She states she lives alone and after her TIA she didn't need rehab "she got over it quickly" She does not walk with a walker or cane at baseline. She thinks she has not skipped doses of Xarelto. However she did admit to cardiology that she had missed 2 doses when she had a nose bleed. She had another episode of headache and some slurred speech. She states the headache is now a 3 but they just gave her some Tylenol. denies CP, SOB, abdominal pain, one sided weakness, numbness tingling, N, V, vision changes, headache. Objective Date Time Temp Pulse Resp B/P Pulse Ox O2 Delivery O2 Flow Rate FiO2 06/17/16 11:09 36.8 89 20 138/74 96 Nasal Cannula 2.0 06/17/16 08:00 Room Air 06/17/16 07:52 36.8 93 20 156/84 91 Room Air 06/17/16 04:57 137/83 06/17/16 04:00 Room Air 06/17/16 03:31 36.8 75 20 112/62 95 Room Air 06/17/16 00:00 Room Air 06/16/16 22:54 36.7 65 20 172/99 97 06/16/16 20:35 99 184/117 95 Room Air 185/107 06/16/16 20:00 Nasal Cannula 2.0 06/16/16 19:38 36.4 100 20 186/97 94 Room Air 06/16/16 16:10 36.4 88 20 182/90 96 Nasal Cannula 2.0 06/16/16 16:00 Nasal Cannula 2.0 Last 24 Hours Test 06/16/16 16:26 06/16/16 20:39 06/17/16 06:33 06/17/16 06:42 Bedside Glucose 96 mg/dl 120 mg/dl 98 mg/dl White Blood Count 5.39 K/uL Red Blood Count 3.94 M/uL Hemoglobin 10.8 g/dL Hematocrit 35.9 % Mean Corpuscular Volume 91.1 fL Mean Corpuscular Hemoglobin 27.4 pg Mean Corpuscular Hemoglobin Concent 30.1 g/dl Platelet Count 200 K/uL Mean Platelet Volume 8.8 fL Neutrophils (%) (Auto) 71.9 % Lymphocytes (%) (Auto) 17.1 % Monocytes (%) (Auto) 8.0 % Eosinophils (%) (Auto) 2.6 % Basophils (%) (Auto) 0.2 % Neutrophils # (Auto) 3.88 K/uL Lymphocytes # (Auto) 0.92 K/uL Monocytes # (Auto) 0.43 K/uL Eosinophils # (Auto) 0.14 K/uL Basophils # (Auto) 0.01 K/uL RDW Standard Deviation 51.1 fL RDW Coefficient of Variation 15.2 % Immature Granulocyte % (Auto) 0.2 % Immature Granulocyte # (Auto) 0.01 K/uL Sodium Level 142 mmol/L Potassium Level 4.1 mmol/L Chloride Level 102 mmol/L Carbon Dioxide Level 37 mmol/L Anion Gap 3.0 mmol/L Blood Urea Nitrogen 17 mg/dl Creatinine 0.71 mg/dl Est Creatinine Clear Calc Drug Dose 112.8 ml/min Estimated GFR () 108.1 Estimated GFR (Non- 93.2 BUN/Creatinine Ratio 23.3 Random Glucose 94 mg/dl Calcium Level 8.8 mg/dl Imaging: CT head- Small 1 cm infarct left temporal lobe. TTE- * Atrial fibrillation with controlled ventricular response was present during the echocardiogram study. * There is mild concentric left ventricular hypertrophy. * There is mild global hypokinesis of the left ventricle. * Left ventricular systolic function is mildly reduced. * Ejection Fraction = 40-45%. * The right ventricle is mildly dilated. * The right ventricular systolic function is normal as assessed by tricuspid annular plane systolic excursion (TAPSE) (normal >1.5 cm). * The left atrium is severely dilated. * Aortic valve sclerosis mild, without significant aortic valvular stenosis. * There is mild mitral regurgitation. * NO ASD Exam: Physical Exam: Constitutional: appearance nourished, healthy and normal Ears, Nose, Mouth and Throat: mucous membranes moist, no injection and skin normal, eyes normal Cardiovascular: irregular irregular Respiratory: clear to auscultation (CTA) and no rales, rhonchi or wheeze Musculoskeletal: venous stasis, non pitting peripheral edema Skin: no stigmata of neurocutaneous disease noted and normal and intact Eyes: extraocular muscles intact (EOMI) and pupils equal, round and reactive to light (PERRL) NEUROLOGIC EXAMINATION: Mental status: Alert and interactive Oriented to full date and location Oriented to person Speech fluent with no evidence of aphasia, mild dysarthria Cranial Nerves smile symmetric Reflexes: Deep tendon reflexes were symmetrical and graded 2/5. Plantar responses were flexor. Sensory: decreased sensation to cool, vibration, GT proprioception absent Coordination: Romberg absent Gait/Stance: Posture normal. Gait normal: with steady with steps, base, turning, heel and toe walking and tandem gait. Motor: Negative for pronator drift of out stretched arms with eyes closed. Strength: biceps triceps hand hard rock miner 5/5 bilaterally hip flex plantar flex ext Current Inpatient Medications Medications (Trade) Dose Ordered Sig/Magdaleno Route Start Time Stop Time Status Last Admin Dose Admin Albuterol/ Ipratropium (Duoneb) 3 ml Q2H PRN INH 06/15/16 03:15 07/15/16 03:14 06/16/16 09:50 3 ML Acetaminophen (Tylenol Tab) 650 mg Q4H PRN PO 06/15/16 03:15 07/15/16 03:14 06/17/16 12:29 650 MG Nitroglycerin (Nitrostat Tab) 0.4 mg UD PRN SL 06/15/16 03:15 07/15/16 03:14 Miscellaneous Information (Pharmacist Discharge Med Rec Consult) 1 ea UD PRN N/A 06/15/16 03:15 07/15/16 03:14 Atorvastatin Calcium (Lipitor Tab) 40 mg DAILY PO 06/15/16 09:00 07/15/16 08:59 06/17/16 08:15 40 MG Citalopram Hydrobromide (celeXA TAB) 40 mg DAILY PO 06/15/16 09:00 07/15/16 08:59 06/17/16 08:14 40 MG Furosemide (Lasix Tab) 40 mg DAILY PO 06/15/16 09:00 07/15/16 08:59 06/17/16 08:17 40 MG Multivitamins (Multivitamin Tab) 1 tab DAILY PO 06/15/16 09:00 07/15/16 08:59 06/17/16 08:17 1 TAB Pantoprazole Sodium (Protonix Tab) 40 mg DAILY PO 06/15/16 09:00 07/15/16 08:59 06/17/16 08:16 40 MG Potassium Chloride (Klor-Con Pwd) 20 meq DAILY PO 06/15/16 09:00 07/15/16 08:59 06/17/16 08:16 20 MEQ Ferrous Fumarate (Gabrielle-Sequels Contr Rel Cap) 50 mg DAILY PO 06/15/16 09:00 07/15/16 08:59 06/17/16 08:17 50 MG Ondansetron HCl (Zofran Inj) 4 mg Q6H PRN IV 06/15/16 03:15 07/15/16 03:14 06/17/16 07:55 4 MG Tramadol HCl (Ultram Tab) 25 mg Q6H PRN PO 06/15/16 03:15 07/15/16 03:14 Insulin Aspart (novoLOG ASPART) SLIDING SCALE If C... ACHS SC 06/15/16 07:00 07/15/16 06:59 Glucose (Glucose 40% Gel) 15-30 GRAMS 15 GRAMS... UD PRN PO 06/15/16 03:15 07/15/16 03:14 Glucose (Glucose Chew Tab) 4-8 Tablets 4 Tabl... UD PRN PO 06/15/16 03:15 07/15/16 03:14 Dextrose (Dextrose 50% 50ML Syringe) 25-50ML OF 50% DW IV FOR... UD PRN IV 06/15/16 03:15 07/15/16 03:14 Glucagon (Glucagon Inj) 1 mg UD PRN SQ 06/15/16 03:15 07/15/16 03:14 Rivaroxaban (Xarelto Tab) 20 mg DAILY PO 06/16/16 09:00 07/16/16 08:59 06/17/16 08:18 20 MG Metoprolol Tartrate (Lopressor Tab) 50 mg BID PO 06/16/16 21:00 06/17/16 23:00 06/17/16 08:14 50 MG Hydralazine HCl (HydrALAZINE INJ) 10 mg Q8 PRN IV. 06/16/16 21:00 07/16/16 20:59 06/16/16 23:03 10 MG Metoprolol Succinate (Toprol Xl Tab) 100 mg QAM PO 06/18/16 08:00 07/18/16 07:59 Lisinopril (Zestril Tab) 10 mg QAM PO 06/18/16 09:00 07/18/16 08:59 Impression 60 year old female s/p water shed ischemia, chronic afib on Xarelto Plan 1. permissive hypertension and then optimize HTN, cholesterol and DM control 2. recently started on Neurontin may contribute to LE edema would not restart 3. PT/OT/speech for discharge needs 4. echo afib and no ASD 5. Xarelto-confirmed missed dosing aspirin stopped by cards 6. optimized anticoagulation due to afib- cardiology input for treatment plan 7. MRI with acute ischemia 8. carotid Doppler - to evaluate for carotid stenosis - no high grade stenosis 9. cardiology to follow 10. repeat CT head with acute infarct noted will not add aspirin at this time but may in the future. will see in our clinic in 2-3 weeks Ally Rosas PAC, neurology I have seen and discussed above patient with Dr Ally Mayberry, neurology Pt seen and examined. CT head reviewed, appears similar to MRI brain. REviewed nurses note. Last pm pt reported being confused. Dr. Carlisle notes mild hesitancy with reps, otherwise ok. Today's exam is unremarkable. Impr L MCA infarct while off xarelto. Monitor, suspect minor fluctuation. Discussed with Dr Cross use of asa in addition, but concern re anemia, microcystosis and recent nose bleeds. Monitor for addl events. If event, check bp, glucose, reimaging, consider eEG depending on sx and exam. Will follow with you, CARRILLO Mayberry MD
[2016-06-17] MEDS ORDERED: ASPIRIN 81 MG ECTAB PO STA (13:18)
--- NOTE | 2016-06-17 21:02 | Progress Note ---
Internal Med Progress Note Date of Service: June 17, 2016. Provider Documentation: SUBJECTIVE: no headache today , no diplopia BP much improved today minimum dysarthria no complain of chest pain or palpitation OBJECTIVE: Vital Signs-as noted below Exam: General-no sign of distress, very pleasant Eyes-sclera non icteric Lungs-CTA Heart-irregular Abdomen-soft, non tender Extremities-+ 2 bilat lower ext edema Neuro-+ dysarthria, rt sided weakness Lab data as noted below. ASSESSMENT & PLAN: ACUTE CVA /LEFT MCA TERRITORY STROKE IN SETTING OF CHRONIC AFIB : presented with dysarthria /word finding difficulty hx of chronic afib has skipped Xarelto dose for 2 days due to epistaxis history of Atrial fibrillation MRA brain -Unremarkable MR angiography of the [place]. MRI brain with and without- Several small foci of acute ischemic change involving the left middle cerebral arterial distribution . This suggestive of watershed type etiology. Remainder the brain is unremarkable. abdominal US- small amount of ascites Doppler LE- There are prominent bilateral inguinal lymph nodes. There are complex collections within each popliteal fossa, likely representing complex popliteal cyst. The lesion on the right measures 46 x 16 x 31 mm. The lesion the left measures 95 x 25 x 33 mm. IMPRESSION: No evidence of deep venous thrombosis. CXR- Cardiomegaly with mild central pulmonary vascular congestion/fluid overload. Xarelto resumed appreciate input form Neurology and Cardiology possible acute CVA /Cardioembolic in setting of chronic afib due to missed Xarelto not necessary failure of Xarelto therapy no indication for addition of aspirin - ASA discontinued for risk of bleeding PT/OT ; speech therapy consulted -no further help needed , pt is at her baseline activity CT head without contrast done yesterday due to headache -showed natural evolution for prior CVA CHRONIC AFIB : remains rate controlled beta jn changed -Atenolol D/flores Diltiazem d/flores -worsening lower ext edema added Metoprolol cont Xarelto for stroke prophylaxis pt is counselled not to stop taking med without counselling with physician BILATERAL LOWER EXT EDEMA /RT HEART FAILURE/POSSIBLE SCOTT /OBESITY HYPOVENTILATION SYNDROME : Appreciate input from cardiology cont Lasix as out pt dose ECHO : Atrial fibrillation with controlled ventricular response was present during the echocardiogram study. There is mild concentric left ventricular hypertrophy. There is mild global hypokinesis of the left ventricle. Left ventricular systolic function is mildly reduced. Ejection Fraction = 40-45%. The right ventricle is mildly dilated. The right ventricular systolic function is normal as assessed by tricuspid annular plane systolic excursion (TAPSE) (normal >1.5 cm). The left atrium is severely dilated. will need out pt sleep study nocturnal pulse oximetry ordered lower ext -Doppler-negative for DVT HTN : allow permissive HTN in setting acute CVA on Metoprolol , Lasix DYSLIPIDEMIA: Cont statin Fasting lipid panel in AM goal LDL < 70 HX OF CAD : hx of mild to moderate non obstructive coronary artery disease as per Cardiac cath in [place] in 11/2015 records requested form pt's [employer] Dr Callahan , [place] cardiac markers negative , EKG no ischemic change no evidence of acute coronary event no complain of chest pain or COLLINS cont medical management risk factor and life style modification , LDL goal < 70 DVT PROPHYLAXIS on Xarelto DISPOSITION cont to monitor in tele PT/OT eval appreciated , independent in her ADLs stable to be return home with home health Vital Signs: Date Time Temp Pulse Resp B/P Pulse Ox O2 Delivery O2 Flow Rate FiO2 06/18/16 16:00 Nasal Cannula 2.0 06/18/16 15:07 36.7 80 20 168/93 97 Nasal Cannula 2.0 Humidified Oxygen 06/18/16 12:00 Nasal Cannula 2.0 06/18/16 11:31 36.8 63 20 166/87 99 2.0 06/18/16 08:00 Nasal Cannula 2.0 06/18/16 06:50 36.6 75 18 176/101 96 2.0 06/18/16 04:00 Nasal Cannula 2.0 06/18/16 03:23 36.6 68 19 148/85 95 Nasal Cannula 2.0 06/18/16 00:00 Nasal Cannula 2.0 06/17/16 23:27 37.0 71 19 145/82 94 Nasal Cannula 2.0 06/17/16 20:08 36.6 90 16 137/73 94 Nasal Cannula 2.0 06/17/16 20:00 Nasal Cannula 2.0 Lab Results: Results Past 24 Hours Test 06/17/16 20:16 06/18/16 05:39 06/18/16 06:27 06/18/16 11:11 Range/Units Bedside Glucose 119 113 135 70-90 mg/dl White Blood Count 5.20 4.8-10.8 K/uL Red Blood Count 3.93 4.2-5.4 M/uL Hemoglobin 10.7 12.0-16.0 g/dL Hematocrit 36.2 37-47 % Mean Corpuscular Volume 92.1 80-100 fL Mean Corpuscular Hemoglobin 27.2 25-34 pg Mean Corpuscular Hemoglobin Concent 29.6 32-36 g/dl Platelet Count 203 130-400 K/uL Mean Platelet Volume 9.0 7.4-10.4 fL Neutrophils (%) (Auto) 69.4 % Lymphocytes (%) (Auto) 18.8 % Monocytes (%) (Auto) 8.7 % Eosinophils (%) (Auto) 2.7 % Basophils (%) (Auto) 0.4 % Neutrophils # (Auto) 3.61 1.4-6.5 K/uL Lymphocytes # (Auto) 0.98 1.2-3.4 K/uL Monocytes # (Auto) 0.45 0.11-0.59 K/uL Eosinophils # (Auto) 0.14 0-0.5 K/uL Basophils # (Auto) 0.02 0-0.2 K/uL RDW Standard Deviation 51.1 36.4-46.3 fL RDW Coefficient of Variation 15.0 11.5-14.5 % Immature Granulocyte % (Auto) 0.0 % Immature Granulocyte # (Auto) 0.00 0.00-0.02 K/uL Sodium Level 141 136-145 mmol/L Potassium Level 3.8 3.5-5.1 mmol/L Chloride Level 100 98-107 mmol/L Carbon Dioxide Level 39 21-32 mmol/L Anion Gap 2.0 3-11 mmol/L Blood Urea Nitrogen 19 7-18 mg/dl Creatinine 0.62 0.60-1.20 mg/dl Est Creatinine Clear Calc Drug Dose 139.2 ml/min Estimated GFR () 114.4 Estimated GFR (Non- 98.7 BUN/Creatinine Ratio 30.6 10-20 Random Glucose 101 70-99 mg/dl Calcium Level 8.9 8.5-10.1 mg/dl
[2016-06-18] VITALS (7 sets, daily range): BP systolic 148–176; BP diastolic 83–107; PULSE 63–84; TEMP 36.5–36.8; O2SAT 94–99
[2016-06-18] MEDS: ACETAMINOPHEN 325 MG TAB PO PRN ×2 (06:29→16:24)
[2016-06-18 06:44] LABS: BASO % 0.4 %; BASO ABS # 0.02 K/uL (0-0.2); COMPLETE YES; EOS % 2.7 %; HEMATOCRIT 36.2 % (37-47); LYMPH % 18.8 %; LYMPH ABS # 0.98 K/uL (1.2-3.4); MEAN CELL VOLUME 92.1 fL (80-100); MEAN CORPUSCULAR HEMOGLOBIN 27.2 pg (25-34); MEAN CORPUSCULAR HGB CONC 29.6 g/dl (32-36); MONO % 8.7 %; NEUT % 69.4 %; PLATELET COUNT 203 K/uL (130-400); RED BLOOD COUNT 3.93 M/uL (4.2-5.4)
[2016-06-18] MEDS: INSULIN ASPART 100 UNITS/ML 3 ML PEN SC SCH ×4 (07:00→20:08)
[2016-06-18 07:07] LABS: BUN/CREATININE RATIO 30.6 (10-20); CALCIUM 8.9 mg/dl (8.5-10.1); CREATININE 0.62 mg/dl (0.60-1.20); POTASSIUM 3.8 mmol/L (3.5-5.1)
[2016-06-18] MEDS: METOPROLOL SUCC 50MG EXT REL TAB PO SCH ×4 (08:21→09:00)
[2016-06-18] MEDS: MULTIVITAMIN TAB PO SCH (08:22)
[2016-06-18] MEDS: FUROSEMIDE 20 MG TAB PO SCH (08:22)
[2016-06-18] MEDS: FERROUS FUMARATE CONTR REL CAP 65 MG CAPCR PO SCH (08:22)
[2016-06-18] MEDS: RIVAROXABAN 10 MG TAB PO SCH (08:23)
[2016-06-18] MEDS: POTASSIUM CHLORIDE PWD 20 MEQ PACK PO SCH (08:23)
[2016-06-18] MEDS: CITALOPRAM 40 MG TAB PO SCH (08:24)
[2016-06-18] MEDS: ATORVASTATIN 20 MG TAB PO SCH (08:24)
[2016-06-18] MEDS: PANTOprazole SOD 40 MG TAB PO SCH (08:24)
[2016-06-18] MEDS ORDERED: ASPIRIN 81 MG ECTAB PO SCH (09:00)
[2016-06-18] MEDS ORDERED: LISINOPRIL 10 MG TAB PO SCH (09:00)
--- NOTE | 2016-06-18 12:09 | NEUROLOGY PROGRESS NOTE ---
DATE: 06/15/2016 DATE: 06/18/2016. SUBJECTIVE: I am seeing Mrs. Marti in followup of a left MCA infarction in the setting of atrial fibrillation without Xarelto. She has not had any recurrent events, although she had some isolated searching for words. She has some mild residual headache which has been relieved by Tylenol. OBJECTIVE: VITAL SIGNS: 36.8, 63, 21, 66/87, 113, 99%. NEUROLOGIC: The patient awake and alert, normal speech and language, affect appropriate. She follows 3-step commands and names. No field cut. No facial asymmetry. No asymmetric weakness. Her gait is unremarkable for age, albeit mildly wide based. IMPRESSION: Left middle cerebral artery infarction while off anticoagulants. No high grade carotid stenosis. Continue risk factor modification, anticoagulant therapy with gradual control of blood pressure, lipids and blood sugar. Will sign off at this point. LAITHD
[2016-06-18] MEDS ORDERED: LISINOPRIL 10 MG TAB PO ONE (17:15)
--- NOTE | 2016-06-18 17:15 | Progress Note ---
Internal Med Progress Note Date of Service: June 18, 2016. Provider Documentation: SUBJECTIVE: feels much better , no headache , dysarthria has improved BP remains elevated > 160 still requiring 02 2 L via nasal canula cont ( was not on home 02 ) denies of any SOB OBJECTIVE: Vital Signs-as noted below Exam: General-no sign of distress, very pleasant Eyes-sclera non icteric Lungs-CTA Heart-irregular Abdomen-soft, non tender Extremities-+ 2 bilat lower ext edema Neuro-+ dysarthria, rt sided weakness Lab data as noted below. ASSESSMENT & PLAN: ACUTE CVA /LEFT MCA TERRITORY STROKE IN SETTING OF CHRONIC AFIB : presented with dysarthria /word finding difficulty hx of chronic afib due to skipped Xarelto dose for 2 days due to epistaxis history of Atrial fibrillation MRA brain -Unremarkable MR angiography of the [place] of [place]. MRI brain with and without- Several small foci of acute ischemic change involving the left middle cerebral arterial distribution . This suggestive of watershed type etiology. Remainder the brain is unremarkable. abdominal US- small amount of ascites Doppler LE- There are prominent bilateral inguinal lymph nodes. There are complex collections within each popliteal fossa, likely representing complex popliteal cyst. The lesion on the right measures 46 x 16 x 31 mm. The lesion the left measures 95 x 25 x 33 mm. IMPRESSION: No evidence of deep venous thrombosis. CXR- Cardiomegaly with mild central pulmonary vascular congestion/fluid overload. Xarelto resumed appreciate input form Neurology and Cardiology possible acute CVA /Cardioembolic in setting of chronic afib due to missed Xarelto not necessary failure of Xarelto therapy no indication for addition of aspirin - ASA discontinued for risk of bleeding PT/OT ; speech therapy consulted -no further help needed , pt is at her baseline activity CT head without contrast done yesterday due to headache -showed natural evolution for prior CVA CHRONIC AFIB : remains rate controlled beta jn changed -Atenolol D/flores Diltiazem d/flores -worsening lower ext edema added Metoprolol cont Xarelto for stroke prophylaxis pt is counselled not to stop taking med without counselling with physician BILATERAL LOWER EXT EDEMA /RT HEART FAILURE/POSSIBLE SCOTT /OBESITY HYPOVENTILATION SYNDROME : Appreciate input from cardiology cont Lasix as out pt dose ECHO : Atrial fibrillation with controlled ventricular response was present during the echocardiogram study. There is mild concentric left ventricular hypertrophy. There is mild global hypokinesis of the left ventricle. Left ventricular systolic function is mildly reduced. Ejection Fraction = 40-45%. The right ventricle is mildly dilated. The right ventricular systolic function is normal as assessed by tricuspid annular plane systolic excursion (TAPSE) (normal >1.5 cm). The left atrium is severely dilated. will need out pt sleep study nocturnal pulse oximetry ordered lower ext -Doppler-negative for DVT HTN : BP remains elevated on Metoprolol , Lasix , Lisinopril added schedule dose of Hydralazine DYSLIPIDEMIA: Cont statin goal LDL < 70 HX OF CAD : hx of mild to moderate non obstructive coronary artery disease as per Cardiac cath in [place] in 11/2015 records requested form pt's Executive Vp Dr Callahan [place] cardiac markers negative , EKG no ischemic change no evidence of acute coronary event no complain of chest pain or COLLINS cont medical management risk factor and life style modification , LDL goal < 70 DVT PROPHYLAXIS on Xarelto DISPOSITION cont to monitor in tele PT/OT eval appreciated , independent in her ADLs stable to be return home with home health tomorrow pt will need assess for home 02 with 2 step pulse oximetry will need scrip for home glucometer and testing strips will continue to follow up with her family physician Dr Franklyn Lyles Vital Signs: Date Time Temp Pulse Resp B/P Pulse Ox O2 Delivery O2 Flow Rate FiO2 06/18/16 20:00 Nasal Cannula 06/18/16 19:55 36.5 66 20 164/83 94 Room Air 06/18/16 16:20 78 20 174/107 94 Nasal Cannula 2.0 84 161/92 06/18/16 16:00 Nasal Cannula 2.0 06/18/16 15:07 36.7 80 20 168/93 97 Nasal Cannula 2.0 Humidified Oxygen 06/18/16 12:00 Nasal Cannula 2.0 06/18/16 11:31 36.8 63 20 166/87 99 2.0 06/18/16 08:00 Nasal Cannula 2.0 06/18/16 06:50 36.6 75 18 176/101 96 2.0 06/18/16 04:00 Nasal Cannula 2.0 06/18/16 03:23 36.6 68 19 148/85 95 Nasal Cannula 2.0 06/18/16 00:00 Nasal Cannula 2.0 06/17/16 23:27 37.0 71 19 145/82 94 Nasal Cannula 2.0 Lab Results: Results Past 24 Hours Test 06/18/16 05:39 06/18/16 06:27 06/18/16 11:11 Range/Units White Blood Count 5.20 4.8-10.8 K/uL Red Blood Count 3.93 4.2-5.4 M/uL Hemoglobin 10.7 12.0-16.0 g/dL Hematocrit 36.2 37-47 % Mean Corpuscular Volume 92.1 80-100 fL Mean Corpuscular Hemoglobin 27.2 25-34 pg Mean Corpuscular Hemoglobin Concent 29.6 32-36 g/dl Platelet Count 203 130-400 K/uL Mean Platelet Volume 9.0 7.4-10.4 fL Neutrophils (%) (Auto) 69.4 % Lymphocytes (%) (Auto) 18.8 % Monocytes (%) (Auto) 8.7 % Eosinophils (%) (Auto) 2.7 % Basophils (%) (Auto) 0.4 % Neutrophils # (Auto) 3.61 1.4-6.5 K/uL Lymphocytes # (Auto) 0.98 1.2-3.4 K/uL Monocytes # (Auto) 0.45 0.11-0.59 K/uL Eosinophils # (Auto) 0.14 0-0.5 K/uL Basophils # (Auto) 0.02 0-0.2 K/uL RDW Standard Deviation 51.1 36.4-46.3 fL RDW Coefficient of Variation 15.0 11.5-14.5 % Immature Granulocyte % (Auto) 0.0 % Immature Granulocyte # (Auto) 0.00 0.00-0.02 K/uL Sodium Level 141 136-145 mmol/L Potassium Level 3.8 3.5-5.1 mmol/L Chloride Level 100 98-107 mmol/L Carbon Dioxide Level 39 21-32 mmol/L Anion Gap 2.0 3-11 mmol/L Blood Urea Nitrogen 19 7-18 mg/dl Creatinine 0.62 0.60-1.20 mg/dl Est Creatinine Clear Calc Drug Dose 139.2 ml/min Estimated GFR () 114.4 Estimated GFR (Non- 98.7 BUN/Creatinine Ratio 30.6 10-20 Random Glucose 101 70-99 mg/dl Calcium Level 8.9 8.5-10.1 mg/dl Bedside Glucose 113 135 70-90 mg/dl
[2016-06-18] MEDS ORDERED: LSX20 PO (17:17)
[2016-06-18] MEDS ORDERED: TPRSR50 PO (17:17)
--- NOTE | 2016-06-18 17:18 | Discharge Instructions ---
Discharge Instructions Date of Service June 18, 2016. Admission Reason for Admission: CHF Discharge Discharge Diagnosis / Problem: ACUTE CVA /HYPERTENSION /RT HEART FAILURE / OBSTRUCTED SLEEP APNEA Discharge Goals Goal(s): Increase independence, Improve disease control, Diagnostic testing Activity Recommendations Activity Limitations: resume your previous activity . Instructions / Follow-Up Instructions / Follow-Up HOSPITAL FOLLOW UP WITH FAMILY PHYSICIAN DR Franklyn Nicole PA-C. IN A WEEK , PLEASE CALL OFFICE FOR APPOINTMENT NEED TO HAVE CLOSE FOLLOW UP FOR MONITORING OF BLOOD PRESSURE AND ADJUSTMENT OF MEDS IF NEEDED NEED REFERRAL FOR OUT PATIENT SLEEP STUDY FOR OBSTRUCTED SLEEP APNEA /HOME CPAP PLEASE HAVE CARDIOLOGY FOLLOW UP IN 2-3 WEEKS [employer] Nathalie Richter DO NOT STOP TAKING ANY OF YOUR MEDICATIONS WITHOUT DISCUSSING WITH YOUR FAMILY PHYSICIAN YOU ARE GIVEN SCRIPTS FOR GLUCOMETER AND TESTING STRIPS CHECK YOU BLOOD SUGAR IN AM BEFORE BREAKFAST -FASTING , KEEP LOG AND BRING TO YOUR DOCTOR'S APPOINTMENT Risk Factors for Stroke: You can reduce your chances of stroke by working with your medical provider to adopt a healthy lifestyle. Some specific ways to lower your chance of stroke are: * If you are a smoker, now is the time to stop smoking cigarettes * If you are diabetic, improve the control of your blood sugars * Avoid excessive amounts of alcohol * Control high blood pressure * Lose weight if you are overweight * Be sure to lead an active lifestyle * Eat a healthy diet low in salt, cholesterol and fat You should know about other risk factors for stroke that you are unable to control. These include: * Age 55 years or older * Male gender * Certain racial groups: , or / * Family History of Stroke, Mini stroke or Heart Attack * Sickle Cell Disease Follow Up: It is important for you to keep your follow up appointments with your medical provider. Current Hospital Diet Patient's current hospital diet: Diabetes Type 2 Diet, AHA Diet (Heart Healthy) Discharge Diet Recommended Diet: AHA Diet (Heart Healthy), Diabetes Type 2 Diet Pending Studies Studies pending at discharge: yes List of pending studies: SLEEP STUDY OUT PATIENT Laboratory Results Hemoglobin A1c Test 06/15/16 00:50 Range/Units Estimated Average Glucose 120 mg/dl Hemoglobin A1c 5.8 H 4.5-5.6 % Lipid Panel Test 06/16/16 05:25 Range/Units Triglycerides Level 64 0-150 mg/dl Cholesterol Level 100 0-200 mg/dl HDL Cholesterol 39 mg/dl Cholesterol/HDL Ratio 2.6 LDL Cholesterol, Calculated 48 mg/dl Medical Emergencies . Who to Call and When: Medical Emergencies: Call 911 immediately if you experience any of the following warning signs and symptoms of Stroke: * Sudden numbness or weakness of the face, arm or leg, especially on one side of the body * Sudden confusion, trouble speaking or understanding * Sudden trouble seeing in one or both eyes * Sudden trouble walking, dizziness, loss of balance or coordination * Sudden severe headache with no cause Do not delay calling 911 if you experience any warning signs or symptoms of a stroke. Delay in seeking medical attention may affect what treatments can be given to you. . Non-Emergent Contact Non-Emergency issues call your: Primary Care Provider . . "Provider Documentation" section prepared by Sammi Carlisle. . Stroke Core Measures Reason no t-PA for Stroke: Treatment not indicated Reason no antithrom by day 2: Treatment provided - N/A Reason no antithrom at D/C: Treatment provided - N/A Reason no statin at D/C: Treatment provided - N/A Reason no anticoag w/a fib: Treatment provided - N/A VTE Core Measure Inpt VTE Proph given/why not?: Other Anticoagulation (XERALTO ) [place] Drug Monitoring Program Search Results: no issues identified
[2016-06-19] VITALS (9 sets, daily range): BP systolic 127–188; BP diastolic 78–126; PULSE 81–100; TEMP 36.4–36.8; O2SAT 91–97
[2016-06-19] MEDS: HydrALAZINE HCL 20 MG/ML VIAL IV. PRN ×3 (03:30→23:41)
[2016-06-19] MEDS: ACETAMINOPHEN 325 MG TAB PO PRN ×3 (03:31→13:34)
[2016-06-19] MEDS ORDERED: SODIUM CHLORIDE 0.65% NA SOLN 45 ML (OCEAN) ONE (04:57)
[2016-06-19] MEDS ORDERED: NURSING VERBAL MED ORDER ONE ×2 (05:15→10:15)
[2016-06-19] MEDS ORDERED: SODIUM CHLORIDE 0.65% NA SOLN 45 ML (OCEAN) PRN (05:15)
[2016-06-19] MEDS: ONDANSETRON INJ 2 MG/ML 2 ML VIAL IV PRN (06:04)
[2016-06-19 06:31] LABS: BASO % 0.2 %; BASO ABS # 0.01 K/uL (0-0.2); COMPLETE YES; EOS % 2.6 %; HEMATOCRIT 34.5 % (37-47); IG% 0.2 %; LYMPH % 14.8 %; LYMPH ABS # 0.91 K/uL (1.2-3.4); MEAN CELL VOLUME 90.1 fL (80-100); MEAN CORPUSCULAR HEMOGLOBIN 27.4 pg (25-34); MEAN CORPUSCULAR HGB CONC 30.4 g/dl (32-36); MEAN PLATELET VOLUME 8.8 fL (7.4-10.4); MONO % 8.2 %; PLATELET COUNT 193 K/uL (130-400); RED BLOOD COUNT 3.83 M/uL (4.2-5.4); WHITE BLOOD COUNT 6.13 K/uL (4.8-10.8)
[2016-06-19 06:53] LABS: BUN/CREATININE RATIO 26.7 (10-20); CREATININE 0.64 mg/dl (0.60-1.20); POTASSIUM 3.7 mmol/L (3.5-5.1)
[2016-06-19] MEDS: INSULIN ASPART 100 UNITS/ML 3 ML PEN SC SCH ×4 (08:06→20:49)
[2016-06-19] MEDS: CITALOPRAM 40 MG TAB PO SCH (08:09)
[2016-06-19] MEDS: MULTIVITAMIN TAB PO SCH (08:09)
[2016-06-19] MEDS: PANTOprazole SOD 40 MG TAB PO SCH (08:10)
[2016-06-19] MEDS: FERROUS FUMARATE CONTR REL CAP 65 MG CAPCR PO SCH (08:10)
[2016-06-19] MEDS: POTASSIUM CHLORIDE PWD 20 MEQ PACK PO SCH (08:11)
[2016-06-19] MEDS: FUROSEMIDE 20 MG TAB PO SCH (08:11)
[2016-06-19] MEDS: ATORVASTATIN 20 MG TAB PO SCH (08:12)
[2016-06-19] MEDS: METOPROLOL SUCC 50MG EXT REL TAB PO SCH (08:13)
[2016-06-19] MEDS: RIVAROXABAN 10 MG TAB PO SCH (08:13)
[2016-06-19] MEDS ORDERED: LISINOPRIL 20 MG TAB PO SCH (09:00)
[2016-06-19] MEDS ORDERED: BISACODYL 5 MG TABEC PO PRN (10:15)
[2016-06-19] MEDS: DOCUSATE SODIUM 100 MG CAP PO SCH ×2 (10:39→20:49)
[2016-06-19] MEDS ORDERED: POLYETHYLENE (MIRALAX) 17 GM PACK PO ONE (10:45)
--- NOTE | 2016-06-19 14:40 | Progress Note ---
Internal Med Progress Note Date of Service: June 19, 2016. Provider Documentation: SUBJECTIVE: feels bloated and nauseous had not had any bowel movement since admission improvement of dysarthria having intermittent headache , getting relief with Tylenol no visual symptom BP improved after adjustment of meds OBJECTIVE: Vital Signs-as noted below Exam: General-no sign of distress, very pleasant Eyes-sclera non icteric Lungs-CTA Heart-irregular Abdomen-soft, non tender Extremities-+ 2 bilat lower ext edema Neuro-+ dysarthria, rt sided weakness Lab data as noted below. ASSESSMENT & PLAN: ACUTE CVA /LEFT MCA TERRITORY STROKE IN SETTING OF CHRONIC AFIB : presented with dysarthria /word finding difficulty hx of chronic afib due to skipped Xarelto dose for 2 days for epistaxis history of Atrial fibrillation-chronic , rate controlled MRA brain -Unremarkable MR angiography of the [place]. MRI brain with and without- Several small foci of acute ischemic change involving the left middle cerebral arterial distribution . This suggestive of watershed type etiology. Remainder the brain is unremarkable. abdominal US- small amount of ascites Doppler LE- There are prominent bilateral inguinal lymph nodes. There are complex collections within each popliteal fossa, likely representing complex popliteal cyst. The lesion on the right measures 46 x 16 x 31 mm. The lesion the left measures 95 x 25 x 33 mm. IMPRESSION: No evidence of deep venous thrombosis. CXR- Cardiomegaly with mild central pulmonary vascular congestion/fluid overload. Xarelto resumed appreciate input form Neurology and Cardiology possible acute CVA /Cardioembolic in setting of chronic afib due to missed Xarelto not necessary failure of Xarelto therapy no indication for addition of aspirin - ASA discontinued for risk of bleeding PT/OT ; speech therapy consulted -no further help needed , pt is at her baseline activity CT head without contrast done yesterday due to headache -showed natural evolution for prior CVA stable to be transferred to medical floor CHRONIC AFIB : remains rate controlled beta jn changed -Atenolol D/flores Diltiazem d/flores -worsening lower ext edema added Metoprolol cont Xarelto for stroke prophylaxis pt is counselled not to stop taking med without counselling with physician BILATERAL LOWER EXT EDEMA /RT HEART FAILURE/POSSIBLE SCOTT /OBESITY HYPOVENTILATION SYNDROME : improved Appreciate input from cardiology cont Lasix as out pt dose ECHO : Atrial fibrillation with controlled ventricular response was present during the echocardiogram study. There is mild concentric left ventricular hypertrophy. There is mild global hypokinesis of the left ventricle. Left ventricular systolic function is mildly reduced. Ejection Fraction = 40-45%. The right ventricle is mildly dilated. The right ventricular systolic function is normal as assessed by tricuspid annular plane systolic excursion (TAPSE) (normal >1.5 cm). The left atrium is severely dilated. will need out pt sleep study lower ext -Doppler-negative for DVT 2 step exercise ordered , pt qualified for home 02 2 L via NC script given to CM portable 02 tank delivered to pt's room ABDOMINAL PAIN /BLOATING : possible due to constipation not able to have bowel movement since admission bowel regimen ordered abdomen exam -benign , no rebound or guarding will order Cxray of abdomen of now bowel movement with laxatives , developed pain in abdomen HTN : BP improved on Metoprolol , Lasix , Lisinopril added schedule dose of Hydralazine DYSLIPIDEMIA: Cont statin goal LDL < 70 HX OF CAD : hx of mild to moderate non obstructive coronary artery disease as per Cardiac cath in [place] in 11/2015 records requested form pt's 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 Modeling Architect Dr Callahan , [place] cardiac markers negative , EKG no ischemic change no evidence of acute coronary event no complain of chest pain or COLLINS cont medical management risk factor and life style modification , LDL goal < 70 DVT PROPHYLAXIS on Xarelto DISPOSITION stable to transfer to medical floor PT/OT eval appreciated , independent in her ADLs Discharge home when medically stable will need script for home glucometer and testing strips will continue to follow up with her family physician Dr Franklyn Lyles Vital Signs: Date Time Temp Pulse Resp B/P Pulse Ox O2 Delivery O2 Flow Rate FiO2 06/19/16 12:00 Nasal Cannula 2.0 06/19/16 11:14 36.4 94 22 157/91 93 Nasal Cannula 2.0 Humidified Oxygen 06/19/16 09:45 140/82 06/19/16 07:45 Nasal Cannula 2.0 06/19/16 07:35 36.4 100 19 172/78 91 Nasal Cannula 2.0 06/19/16 04:20 127/79 06/19/16 04:00 Nasal Cannula 06/19/16 03:24 36.4 82 20 188/114 95 Nasal Cannula 2.0 183/126 06/18/16 23:59 Nasal Cannula 06/18/16 22:58 36.6 70 18 155/89 97 Nasal Cannula 2.0 06/18/16 20:00 Nasal Cannula 06/18/16 19:55 36.5 66 20 164/83 94 Room Air 06/18/16 16:20 78 20 174/107 94 Nasal Cannula 2.0 84 161/92 06/18/16 16:00 Nasal Cannula 2.0 06/18/16 15:07 36.7 80 20 168/93 97 Nasal Cannula 2.0 Humidified Oxygen Lab Results: Results Past 24 Hours Test 06/18/16 16:07 06/18/16 20:00 06/19/16 05:45 06/19/16 06:28 Range/Units Bedside Glucose 127 119 120 70-90 mg/dl White Blood Count 6.13 4.8-10.8 K/uL Red Blood Count 3.83 4.2-5.4 M/uL Hemoglobin 10.5 12.0-16.0 g/dL Hematocrit 34.5 37-47 % Mean Corpuscular Volume 90.1 80-100 fL Mean Corpuscular Hemoglobin 27.4 25-34 pg Mean Corpuscular Hemoglobin Concent 30.4 32-36 g/dl Platelet Count 193 130-400 K/uL Mean Platelet Volume 8.8 7.4-10.4 fL Neutrophils (%) (Auto) 74.0 % Lymphocytes (%) (Auto) 14.8 % Monocytes (%) (Auto) 8.2 % Eosinophils (%) (Auto) 2.6 % Basophils (%) (Auto) 0.2 % Neutrophils # (Auto) 4.54 1.4-6.5 K/uL Lymphocytes # (Auto) 0.91 1.2-3.4 K/uL Monocytes # (Auto) 0.50 0.11-0.59 K/uL Eosinophils # (Auto) 0.16 0-0.5 K/uL Basophils # (Auto) 0.01 0-0.2 K/uL RDW Standard Deviation 48.8 36.4-46.3 fL RDW Coefficient of Variation 14.8 11.5-14.5 % Immature Granulocyte % (Auto) 0.2 % Immature Granulocyte # (Auto) 0.01 0.00-0.02 K/uL Sodium Level 141 136-145 mmol/L Potassium Level 3.7 3.5-5.1 mmol/L Chloride Level 101 98-107 mmol/L Carbon Dioxide Level 37 21-32 mmol/L Anion Gap 3.0 3-11 mmol/L Blood Urea Nitrogen 17 7-18 mg/dl Creatinine 0.64 0.60-1.20 mg/dl Est Creatinine Clear Calc Drug Dose 135.3 ml/min Estimated GFR () 113.2 Estimated GFR (Non- 97.7 BUN/Creatinine Ratio 26.7 10-20 Random Glucose 106 70-99 mg/dl Calcium Level 9.0 8.5-10.1 mg/dl Test 06/19/16 11:13 Range/Units Bedside Glucose 162 70-90 mg/dl
[2016-06-19] MEDS ORDERED: BISACODYL 10 MG SUPP PR ONE (14:45)
[2016-06-19] MEDS: TRAMADOL HCL 50 MG TAB PO PRN (16:36)
[2016-06-19] MEDS ORDERED: LSN20 PO (18:30)
[2016-06-19] MEDS: KETOROLAC TROMETHAMINE 15 MG/ML VIAL IV PRN (19:09)
[2016-06-19] MEDS: POLYETHYLENE (MIRALAX) 17 GM PACK PO SCH (20:47)
[2016-06-19] MEDS: SENNA 8.6 MG TAB PO SCH (20:48)
[2016-06-20] VITALS: BP 135/72
[2016-06-20] MEDS: KETOROLAC TROMETHAMINE 15 MG/ML VIAL IV PRN (03:37)
[2016-06-20 07:48] VITALS: BP 166/75; PULSE 101; TEMP 36.3; O2SAT 90
[2016-06-20] MEDS: POLYETHYLENE (MIRALAX) 17 GM PACK PO SCH ×2 (08:00→19:41)
[2016-06-20] MEDS: METOPROLOL SUCC 50MG EXT REL TAB PO SCH (08:08)
[2016-06-20] MEDS: DOCUSATE SODIUM 100 MG CAP PO SCH ×2 (08:08→19:41)
[2016-06-20] MEDS: POTASSIUM CHLORIDE PWD 20 MEQ PACK PO SCH (08:09)
[2016-06-20] MEDS: MULTIVITAMIN TAB PO SCH (08:09)
[2016-06-20] MEDS: ATORVASTATIN 20 MG TAB PO SCH (08:10)
[2016-06-20] MEDS: RIVAROXABAN 10 MG TAB PO SCH (08:10)
[2016-06-20] MEDS: FUROSEMIDE 20 MG TAB PO SCH (08:10)
[2016-06-20] MEDS: FERROUS FUMARATE CONTR REL CAP 65 MG CAPCR PO SCH (08:10)
[2016-06-20] MEDS: PANTOprazole SOD 40 MG TAB PO SCH (08:10)
[2016-06-20] MEDS: CITALOPRAM 40 MG TAB PO SCH (08:11)
[2016-06-20] MEDS: ONDANSETRON INJ 2 MG/ML 2 ML VIAL IV PRN (08:19)
[2016-06-20] MEDS: TRAMADOL HCL 50 MG TAB PO PRN (08:19)
[2016-06-20] MEDS: LISINOPRIL 40 MG TAB PO SCH (08:29)
[2016-06-20] MEDS: INSULIN ASPART 100 UNITS/ML 3 ML PEN SC SCH ×4 (08:29→20:32)
--- NOTE | 2016-06-20 12:50 | Progress Note ---
Internal Med Progress Note Date of Service: June 20, 2016. Provider Documentation: SUBJECTIVE: wakes up in am with not feeling well , headache , nausea symptom gradually gets better in the afternoon no visual symptoms , speech has improved to be normal AM SBP remains elevate pt's Lisinopril increased to 40 mg daily on2 L 02 via nasal canula will order for CPAP at night pt's symptom could be possible to SCOTT -causing headache , elevated BP in AM arrangements made for home 02 will need out pt sleep study to have CPAP at home OBJECTIVE: Vital Signs-as noted below Exam: General-no sign of distress, very pleasant Eyes-sclera non icteric Lungs-CTA Heart-irregular Abdomen-soft, non tender Extremities-+ 2 bilat lower ext edema Neuro-+ dysarthria, rt sided weakness Lab data as noted below. ASSESSMENT & PLAN: ACUTE CVA /LEFT MCA TERRITORY STROKE IN SETTING OF CHRONIC AFIB : presented with dysarthria /word finding difficulty hx of chronic afib due to skipped Xarelto dose for 2 days for epistaxis history of Atrial fibrillation-chronic , rate controlled MRA brain -Unremarkable MR angiography of the [place] of [place]. MRI brain with and without- Several small foci of acute ischemic change involving the left middle cerebral arterial distribution . This suggestive of watershed type etiology. Remainder the brain is unremarkable. abdominal US- small amount of ascites Doppler LE- There are prominent bilateral inguinal lymph nodes. There are complex collections within each popliteal fossa, likely representing complex popliteal cyst. The lesion on the right measures 46 x 16 x 31 mm. The lesion the left measures 95 x 25 x 33 mm. IMPRESSION: No evidence of deep venous thrombosis. CXR- Cardiomegaly with mild central pulmonary vascular congestion/fluid overload. Xarelto resumed appreciate input form Neurology and Cardiology possible acute CVA /Cardioembolic in setting of chronic afib due to missed Xarelto not necessary failure of Xarelto therapy no indication for addition of aspirin - ASA discontinued for risk of bleeding PT/OT ; speech therapy consulted -no further help needed , pt is at her baseline activity CT head without contrast done yesterday due to headache -showed natural evolution for prior CVA stable to be transferred to medical floor CHRONIC AFIB : remains rate controlled beta jn changed -Atenolol D/flores Diltiazem d/flores -worsening lower ext edema added Metoprolol cont Xarelto for stroke prophylaxis pt is counselled not to stop taking med without counselling with physician BILATERAL LOWER EXT EDEMA /RT HEART FAILURE/POSSIBLE SCOTT /OBESITY HYPOVENTILATION SYNDROME : improved Appreciate input from cardiology cont Lasix as out pt dose ECHO : Atrial fibrillation with controlled ventricular response was present during the echocardiogram study. There is mild concentric left ventricular hypertrophy. There is mild global hypokinesis of the left ventricle. Left ventricular systolic function is mildly reduced. Ejection Fraction = 40-45%. The right ventricle is mildly dilated. The right ventricular systolic function is normal as assessed by tricuspid annular plane systolic excursion (TAPSE) (normal >1.5 cm). The left atrium is severely dilated. will need out pt sleep study lower ext -Doppler-negative for DVT 2 step exercise ordered , pt qualified for home 02 2 L via [place] script given to CM portable 02 tank delivered to pt's room ABDOMINAL PAIN /BLOATING : possible due to constipation not able to have bowel movement since admission bowel regimen ordered abdomen exam -benign , no rebound or guarding will order Cxray of abdomen of now bowel movement with laxatives , developed pain in abdomen HTN : BP remains elevated on Metoprolol , Lasix , Lisinopril added schedule dose of Hydralazine cont to follow and adjust meds as needed DYSLIPIDEMIA: Cont statin goal LDL < 70 HX OF CAD : hx of mild to moderate non obstructive coronary artery disease as per Cardiac cath in [place] in 11/2015 records requested form pt's Supplier Manager Dr Callahan [place] cardiac markers negative , EKG no ischemic change no evidence of acute coronary event no complain of chest pain or COLLINS cont medical management risk factor and life style modification , LDL goal < 70 DVT PROPHYLAXIS on Xarelto DISPOSITION hold discharge home today possible transfer home tomorrow if BP remains stable , no headache complain PT/OT eval appreciated , independent in her ADLs Discharge home when medically stable will need script for home glucometer and testing strips will continue to follow up with her family physician Dr Fraknlyn Lyles Vital Signs: Date Time Temp Pulse Resp B/P Pulse Ox O2 Delivery O2 Flow Rate FiO2 06/20/16 09:00 Nasal Cannula 2.0 06/20/16 07:48 36.3 101 22 166/75 90 2.0 06/20/16 00:00 135/72 06/20/16 00:00 Nasal Cannula 2.0 06/19/16 23:02 36.8 81 18 170/97 97 Nasal Cannula 2.0 06/19/16 18:10 142/86 06/19/16 16:30 Nasal Cannula 2.0 06/19/16 15:54 36.5 85 18 171/95 93 Nasal Cannula 2.0 06/19/16 15:24 36.4 94 22 93 2.0 Lab Results: Results Past 24 Hours Test 06/19/16 16:28 06/19/16 20:04 06/20/16 07:37 06/20/16 11:33 Range/Units Bedside Glucose 166 162 127 152 70-90 mg/dl
[2016-06-20 15:33] VITALS: BP 165/89; PULSE 79; TEMP 36.5; O2SAT 95
[2016-06-20] MEDS ORDERED: LSN20 PO (17:39)
[2016-06-20 19:37] VITALS: BP 136/80; PULSE 96
[2016-06-20] MEDS: SENNA 8.6 MG TAB PO SCH (19:42)
--- NOTE | 2016-06-20 20:10 | Progress Note ---
Progress Note Date of Service June 20, 2016. Progress Note ATTENDING NOTE : received call form Pt's Brother Eusebio Marti ( # [phone] ) and Sister in Law Teena -home phone [phone] both of them are very concerned regarding pt being discharged home mentions that pt is a Hoarder -her home is filthy -has chicken and rooster - faeces every where does not have heating or hot water the whole house is falling apart there are rotten food in fridge , trash and waste every where family were not aware of this situation being so recently until 2 days back as the went to her place Brother mentioned pt refused seek help in past , had argument with him , now not in good term Pt is planning to stay with friends for the time being Brother and Sister in Law requests for Psych eval for her Hoarding Nature and asking help if social service can look into her living situation which is very unhealthy and unsafe will update Social service regarding the situation pt has referral for home health visiting nurse , will hold off discharge home tomorrow till living situation is evaluated due to safety issue
[2016-06-20 22:20] VITALS: PULSE 83; O2SAT 94
[2016-06-21 00:03] VITALS: BP 161/84; PULSE 85; TEMP 36.7; O2SAT 94
[2016-06-21 07:55] VITALS: BP 177/101; PULSE 72; TEMP 37; O2SAT 94
[2016-06-21] MEDS: ATORVASTATIN 20 MG TAB PO SCH (08:28)
[2016-06-21] MEDS: MULTIVITAMIN TAB PO SCH (08:28)
[2016-06-21] MEDS: FUROSEMIDE 20 MG TAB PO SCH (08:29)
[2016-06-21] MEDS: RIVAROXABAN 10 MG TAB PO SCH (08:29)
[2016-06-21] MEDS: POLYETHYLENE (MIRALAX) 17 GM PACK PO SCH (08:30)
[2016-06-21] MEDS: METOPROLOL SUCC 50MG EXT REL TAB PO SCH (08:30)
[2016-06-21] MEDS: DOCUSATE SODIUM 100 MG CAP PO SCH (08:30)
[2016-06-21] MEDS: PANTOprazole SOD 40 MG TAB PO SCH (08:31)
[2016-06-21] MEDS: CITALOPRAM 40 MG TAB PO SCH (08:31)
[2016-06-21] MEDS: POTASSIUM CHLORIDE PWD 20 MEQ PACK PO SCH (08:31)
[2016-06-21] MEDS: HydrALAZINE HCL 20 MG/ML VIAL IV. PRN (08:32)
[2016-06-21] MEDS: LISINOPRIL 40 MG TAB PO SCH (08:32)
[2016-06-21] MEDS: FERROUS FUMARATE CONTR REL CAP 65 MG CAPCR PO SCH (08:33)
[2016-06-21] MEDS: INSULIN ASPART 100 UNITS/ML 3 ML PEN SC SCH ×2 (08:33→11:00)
[2016-06-21] MEDS ORDERED: NURSING DECISION MEDICATION ORDER SCH (08:45)
[2016-06-21] MEDS ORDERED: POTASSIUM CHLORIDE 20 MEQ TABCR PO SCH (09:00)
[2016-06-21 10:59] VITALS: BP 156/96; PULSE 91
--- NOTE | 2016-06-21 14:47 | Progress Note ---
Internal Med Progress Note Date of Service: June 21, 2016. Provider Documentation: SUBJECTIVE: no headache today no complain or sob Speech is clear feels well , stable to be discharged home today pt is updated regarding call form her Family members -Brother /Sister in Law - regarding concern for her living situation being not healthy , and not safe for her to return back to home pt states she will be moving into her friends house , willing to have home health visiting nurse and if needed help form office fo aging for living situation OBJECTIVE: Vital Signs-as noted below Exam: General-no sign of distress, very pleasant Eyes-sclera non icteric Lungs-CTA Heart-irregular Abdomen-soft, non tender Extremities-+ 2 bilat lower ext edema Neuro-speech is clear, no weakness or paresthesia ,no focal deficit Lab data as noted below. ASSESSMENT & PLAN: ACUTE CVA /LEFT MCA TERRITORY STROKE IN SETTING OF CHRONIC AFIB : presented with dysarthria /word finding difficulty symptom has resolved hx of chronic afib due to skipped Xarelto dose for 2 days for epistaxis history of Atrial fibrillation-chronic , rate controlled MRA brain -Unremarkable MR angiography of the [place]. MRI brain with and without- Several small foci of acute ischemic change involving the left middle cerebral arterial distribution . This suggestive of watershed type etiology. Remainder the brain is unremarkable. abdominal US- small amount of ascites Doppler LE- There are prominent bilateral inguinal lymph nodes. There are complex collections within each popliteal fossa, likely representing complex popliteal cyst. The lesion on the right measures 46 x 16 x 31 mm. The lesion the left measures 95 x 25 x 33 mm. IMPRESSION: No evidence of deep venous thrombosis. CXR- Cardiomegaly with mild central pulmonary vascular congestion/fluid overload. Xarelto resumed appreciate input form Neurology and Cardiology possible acute CVA /Cardioembolic in setting of chronic afib due to missed Xarelto not necessary failure of Xarelto therapy no indication for addition of aspirin - ASA discontinued for risk of bleeding PT/OT ; speech therapy consulted -no further help needed , pt is at her baseline activity CT head without contrast -showed natural evolution for prior CVA -stable to be discharged home pt is Cautioned not to stop taking any medications without discussing with her Physician CHRONIC AFIB : remains rate controlled beta jn changed -Atenolol D/flores Diltiazem d/flores -worsening lower ext edema added Metoprolol cont Xarelto for stroke prophylaxis pt is counselled not to stop taking med without counselling with physician BILATERAL LOWER EXT EDEMA /RT HEART FAILURE/POSSIBLE SCOTT /OBESITY HYPOVENTILATION SYNDROME : improved Appreciate input from cardiology cont Lasix as out pt dose ECHO : Atrial fibrillation with controlled ventricular response was present during the echocardiogram study. There is mild concentric left ventricular hypertrophy. There is mild global hypokinesis of the left ventricle. Left ventricular systolic function is mildly reduced. Ejection Fraction = 40-45%. The right ventricle is mildly dilated. The right ventricular systolic function is normal as assessed by tricuspid annular plane systolic excursion (TAPSE) (normal >1.5 cm). The left atrium is severely dilated. will need out pt sleep study lower ext -Doppler-negative for DVT 2 step exercise ordered , pt qualified for home 02 2 L via [place] script given to CM portable 02 tank delivered to pt's room ABDOMINAL PAIN /BLOATING : symptom resolved had bowel movement after taking stool softener HTN : BP stabilized now on Metoprolol , Lasix , Lisinopril DYSLIPIDEMIA: Cont statin goal LDL < 70 HX OF CAD : hx of mild to moderate non obstructive coronary artery disease as per Cardiac cath in [place] in 11/2015 records requested form pt's Medical Billing And Coding Specialist Dr Callahan , [place] cardiac markers negative , EKG no ischemic change no evidence of acute coronary event no complain of chest pain or COLLINS cont medical management risk factor and life style modification , LDL goal < 70 DVT PROPHYLAXIS on Xarelto DISPOSITION discharge home today discussed about living situation at home mentions she will stay with her friends home for now aware the concern for possible unhealthy condition of her home willing to seek help from Office of aging if needed , pt is asked to let Home health visiting nurse know as well arrangements made for Home Health visiting nurse pt will be discharged with home oxygen script given for home glucometer and testing strips Pt is asked to to follow up with her family physician Dr Franklyn Lyles in a week Vital Signs: Date Time Temp Pulse Resp B/P Pulse Ox O2 Delivery O2 Flow Rate FiO2 06/21/16 10:59 91 156/96 06/21/16 08:30 Nasal Cannula 2.0 06/21/16 07:55 37.0 72 20 177/101 94 06/21/16 00:03 36.7 85 20 161/84 94 CPAP 2.0 06/21/16 00:01 CPAP 06/20/16 22:20 83 94 2.0 06/20/16 20:00 Nasal Cannula 2.0 06/20/16 19:37 96 136/80 06/20/16 15:33 36.5 79 20 165/89 95 Nasal Cannula 2.0 06/20/16 15:18 Nasal Cannula 2.0 Lab Results: Results Past 24 Hours Test 06/20/16 16:42 06/20/16 19:48 06/21/16 08:03 06/21/16 11:07 Range/Units Bedside Glucose 126 137 114 171 70-90 mg/dl
--- NOTE | 2016-06-21 15:07 | Discharge Summary ---
Discharge Summary Date of Service June 21, 2016. Discharge Summary Admission Date: June 15, 2016 at 02:25 Discharge Date: June 19, 2016 Discharge Disposition: Home Principal Diagnosis: ACUTE CVA /HYPERTENSION /RT HEART FAILURE /OBSTRUCTED SLEEP APNEA Procedures: MRI OF BRAIN : IMPRESSION: Several small foci of acute ischemic change involving the left middle cerebral arterial distribution . This suggestive of watershed type etiology. Remainder the brain is unremarkable. MRA OF BRAIN : normal study MRA OF NECK normal study CAROTID USG: no hemodynamically significant stenosis CT HEAD WITH OUT CONTRAST : IMPRESSION: No evidence of deep venous thrombosis. ECHO : Atrial fibrillation with controlled ventricular response was present during the echocardiogram study. There is mild concentric left ventricular hypertrophy. There is mild global hypokinesis of the left ventricle. Left ventricular systolic function is mildly reduced. Ejection Fraction = 40-45%. The right ventricle is mildly dilated. The right ventricular systolic function is normal as assessed by tricuspid annular plane systolic excursion (TAPSE) (normal >1.5 cm). The left atrium is severely dilated. Aortic valve sclerosis mild, without significant aortic valvular stenosis. There is mild mitral regurgitation. There is minimal tricuspid regurgitation and therefore the TR jet is not sufficient to allow calculation of the pulmonary artery systolic pressure. Consultations: [facility] Medication Reconciliation New Medications: Furosemide (Furosemide) 20 Mg Tab 40 MG PO DAILY for 30 Days, #60 TAB 2 Refills Lisinopril (Lisinopril) 20 Mg Tab 40 MG PO QAM for 30 Days, #60 TAB 1 Refill Metoprolol Succinate (Metoprolol Succinate ER) 50 Mg Tabcr 100 MG PO QAM for 30 Days, #60 TABS 2 Refills Continued Medications: Acetaminophen (Tylenol) 650 Mg Supp 650 MG PO DIRECTED PRN for pain fever Atorvastatin Calcium (Lipitor) 80 Mg Tab 40 MG PO DAILY, TAB Cholecalciferol (Vitamin D3) 1,000 Unit Tab 1000 INTER.UNIT PO DAILY for 90 Days, TAB 3 Refills Cinnamon (Cinnamon) 500 Mg Cap 375 MG PO DAILY Citalopram (Citalopram Hydrobromide) 40 Mg Tab 40 MG PO DAILY for 90 Days, #90 TAB 3 Refills Cyanocobalamin (Vitamin B 12) 250 Mcg Malorie 500 MCG PO DAILY Ferrous Fumarate (Iron) 18 Mg Tab 65 MG PO DAILY Fish Oil ([place]-3) 1 Ea Cap 1 CAP PO DAILY, CAP Gabapentin (Neurontin) 300 Mg Cap 300 MG PO DIRECTED, CAP Glyburide (Micronase) 5 Mg Tab 5 MG PO DIRECTED, TAB Loratadine (Claritin) 10 Mg Tab 10 MG PO DAILY, TAB Melatonin (Gnp Melatonin Maximum Str) 5 Mg Tab 5 MG PO HS Metformin Hcl (Glucophage) 500 Mg Tab 500 MG PO DAILY, TAB Multivitamin (Multivitamin) Tab 1 TAB PO DAILY, TAB Pantoprazole (Protonix) 40 Mg Tab 40 MG PO DAILY, #30 TAB Potassium Chloride Pwd (Klor-Con Pwd) 20 Meq Pack 20 MEQ PO DAILY Rivaroxaban (Xarelto) 20 Mg Tab 20 MG PO DAILY, TAB Triamterene & Hydrochlorothiaz (Triamterene/Hydrochloroth 50-25 mg) 1 Cap Cap 1 CAP PO DIRECTED [caritia xt] () 240 MG PO DAILY Discontinued Medications: Atenolol (Tenormin) 50 Mg Tab 50 MG PO DIRECTED, TAB Furosemide (Lasix) 20 Mg Tab 20 MG PO DAILY, TAB Lisinopril (Prinivil) 20 Mg Tab 20 MG PO DAILY, TAB Referrals At Discharge Follow up Referrals: Physician Referral - Within 1 Week with Franklyn Nicole PA-C Hospital Course ACUTE CVA /LEFT MCA TERRITORY STROKE IN SETTING OF CHRONIC AFIB : presented with dysarthria /word finding difficulty symptom has resolved hx of chronic afib due to skipped Xarelto dose for 2 days for epistaxis history of Atrial fibrillation-chronic , rate controlled MRA brain -Unremarkable MR angiography of the [place]. MRI brain with and without- Several small foci of acute ischemic change involving the left middle cerebral arterial distribution . This suggestive of watershed type etiology. Remainder the brain is unremarkable. abdominal US- small amount of ascites Doppler LE- There are prominent bilateral inguinal lymph nodes. There are complex collections within each popliteal fossa, likely representing complex popliteal cyst. The lesion on the right measures 46 x 16 x 31 mm. The lesion the left measures 95 x 25 x 33 mm. IMPRESSION: No evidence of deep venous thrombosis. CXR- Cardiomegaly with mild central pulmonary vascular congestion/fluid overload. Xarelto resumed appreciate input form Neurology and Cardiology possible acute CVA /Cardioembolic in setting of chronic afib due to missed Xarelto not necessary failure of Xarelto therapy no indication for addition of aspirin - ASA discontinued for risk of bleeding PT/OT ; speech therapy consulted -no further help needed , pt is at her baseline activity CT head without contrast -showed natural evolution for prior CVA -stable to be discharged home pt is Cautioned not to stop taking any medications without discussing with her Physician CHRONIC AFIB : remains rate controlled beta jn changed -Atenolol D/flores Diltiazem d/flores -worsening lower ext edema added Metoprolol cont Xarelto for stroke prophylaxis pt is counselled not to stop taking med without counselling with physician BILATERAL LOWER EXT EDEMA /RT HEART FAILURE/POSSIBLE SCOTT /OBESITY HYPOVENTILATION SYNDROME : improved Appreciate input from cardiology cont Lasix as out pt dose ECHO : Atrial fibrillation with controlled ventricular response was present during the echocardiogram study. There is mild concentric left ventricular hypertrophy. There is mild global hypokinesis of the left ventricle. Left ventricular systolic function is mildly reduced. Ejection Fraction = 40-45%. The right ventricle is mildly dilated. The right ventricular systolic function is normal as assessed by tricuspid annular plane systolic excursion (TAPSE) (normal >1.5 cm). The left atrium is severely dilated. 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 Machine Operator Nathalie Richter cardiac markers negative , EKG no ischemic change no evidence of acute coronary event no complain of chest pain or COLLINS cont medical management risk factor and life style modification , LDL goal < 70 DVT PROPHYLAXIS on Xarelto DISPOSITION discharge home today discussed about living situation at home mentions she will stay with her friends home for now aware the concern for possible unhealthy condition of her home willing to seek help from Office of aging if needed , pt is asked to let Home health visiting nurse know as well arrangements made for Home Health visiting nurse pt will be discharged with home oxygen script given for home glucometer and testing strips Pt is asked to to follow up with her family physician Dr Franklyn Lyles in a week Total time spent on discharge = This includes examination of the patient, discharge planning, medication reconciliation, and communication with other providers. Discharge Instructions Discharge Instructions Date of Service June 18, 2016. Admission Reason for Admission: CHF Discharge Discharge Diagnosis / Problem: ACUTE CVA /HYPERTENSION /RT HEART FAILURE / OBSTRUCTED SLEEP APNEA Discharge Goals Goal(s): Increase independence, Improve disease control, Diagnostic testing Activity Recommendations Activity Limitations: resume your previous activity . Instructions / Follow-Up Instructions / Follow-Up HOSPITAL FOLLOW UP WITH FAMILY PHYSICIAN DR Franklyn Nicole PA-C. IN A WEEK , PLEASE CALL OFFICE FOR APPOINTMENT NEED TO HAVE CLOSE FOLLOW UP FOR MONITORING OF BLOOD PRESSURE AND ADJUSTMENT OF MEDS IF NEEDED NEED REFERRAL FOR OUT PATIENT SLEEP STUDY FOR OBSTRUCTED SLEEP APNEA /HOME CPAP PLEASE HAVE CARDIOLOGY FOLLOW UP IN 2-3 WEEKS Gear Coding Machine Operator Nathalie Richter DO NOT STOP TAKING ANY OF YOUR MEDICATIONS WITHOUT DISCUSSING WITH YOUR FAMILY PHYSICIAN YOU ARE GIVEN SCRIPTS FOR GLUCOMETER AND TESTING STRIPS CHECK YOU BLOOD SUGAR IN AM BEFORE BREAKFAST -FASTING , KEEP LOG AND BRING TO YOUR DOCTOR'S APPOINTMENT Risk Factors for Stroke: You can reduce your chances of stroke by working with your medical provider to adopt a healthy lifestyle. Some specific ways to lower your chance of stroke are: * If you are a smoker, now is the time to stop smoking cigarettes * If you are diabetic, improve the control of your blood sugars * Avoid excessive amounts of alcohol * Control high blood pressure * Lose weight if you are overweight * Be sure to lead an active lifestyle * Eat a healthy diet low in salt, cholesterol and fat You should know about other risk factors for stroke that you are unable to control. These include: * Age 55 years or older * Male gender * Certain racial groups: , or / * Family History of Stroke, Mini stroke or Heart Attack * Sickle Cell Disease Follow Up: It is important for you to keep your follow up appointments with your medical provider. Current Hospital Diet Patient's current hospital diet: Diabetes Type 2 Diet, AHA Diet (Heart Healthy) Discharge Diet Recommended Diet: AHA Diet (Heart Healthy), Diabetes Type 2 Diet Pending Studies Studies pending at discharge: yes List of pending studies: SLEEP STUDY OUT PATIENT Laboratory Results Hemoglobin A1c Test 06/15/16 00:50 Range/Units Estimated Average Glucose 120 mg/dl Hemoglobin A1c 5.8 H 4.5-5.6 % Lipid Panel Test 06/16/16 05:25 Range/Units Triglycerides Level 64 0-150 mg/dl Cholesterol Level 100 0-200 mg/dl HDL Cholesterol 39 mg/dl Cholesterol/HDL Ratio 2.6 LDL Cholesterol, Calculated 48 mg/dl Medical Emergencies . Who to Call and When: Medical Emergencies: Call 911 immediately if you experience any of the following warning signs and symptoms of Stroke: * Sudden numbness or weakness of the face, arm or leg, especially on one side of the body * Sudden confusion, trouble speaking or understanding * Sudden trouble seeing in one or both eyes * Sudden trouble walking, dizziness, loss of balance or coordination * Sudden severe headache with no cause Do not delay calling 911 if you experience any warning signs or symptoms of a stroke. Delay in seeking medical attention may affect what treatments can be given to you. . Non-Emergent Contact Non-Emergency issues call your: Primary Care Provider . . "Provider Documentation" section prepared by Sammi Carlisle. . Stroke Core Measures Reason no t-PA for Stroke: Treatment not indicated Reason no antithrom by day 2: Treatment provided - N/A Reason no antithrom at D/C: Treatment provided - N/A Reason no statin at D/C: Treatment provided - N/A Reason no anticoag w/a fib: Treatment provided - N/A VTE Core Measure Inpt VTE Proph given/why not?: Other Anticoagulation (XERALTO ) [place] Drug Monitoring Program Search Results: no issues identified Additional Copies To Franklyn Nicole PA-C
--- NOTE | 2016-06-21 15:34 | Pharmacy Progress Note ---
Pharmacist Stroke Counseling Date of Service June 21, 2016. Scope Pharmacy has been consulted to provide medication discharge counseling for this patient admitted with ischemic stroke/hemorrhagic stroke/ transient ischemic attack as per the Pharmacist Discharge Counseling for Stroke Patients Protocol. Medications on Discharge New Medications: Furosemide (Furosemide) 20 Mg Tab 40 MG PO DAILY for 30 Days, #60 TAB 2 Refills Lisinopril (Lisinopril) 20 Mg Tab 40 MG PO QAM for 30 Days, #60 TAB 1 Refill Metoprolol Succinate (Metoprolol Succinate ER) 50 Mg Tabcr 100 MG PO QAM for 30 Days, #60 TABS 2 Refills Continued Medications: Acetaminophen (Tylenol) 650 Mg Supp 650 MG PO DIRECTED PRN for pain fever Atorvastatin Calcium (Lipitor) 80 Mg Tab 40 MG PO DAILY, TAB Cholecalciferol (Vitamin D3) 1,000 Unit Tab 1000 INTER.UNIT PO DAILY for 90 Days, TAB 3 Refills Cinnamon (Cinnamon) 500 Mg Cap 375 MG PO DAILY Citalopram (Citalopram Hydrobromide) 40 Mg Tab 40 MG PO DAILY for 90 Days, #90 TAB 3 Refills Cyanocobalamin (Vitamin B 12) 250 Mcg Malorie 500 MCG PO DAILY Ferrous Fumarate (Iron) 18 Mg Tab 65 MG PO DAILY Fish Oil ([place]-3) 1 Ea Cap 1 CAP PO DAILY, CAP Gabapentin (Neurontin) 300 Mg Cap 300 MG PO DIRECTED, CAP Glyburide (Micronase) 5 Mg Tab 5 MG PO DIRECTED, TAB Loratadine (Claritin) 10 Mg Tab 10 MG PO DAILY, TAB Melatonin (Gnp Melatonin Maximum Str) 5 Mg Tab 5 MG PO HS Metformin Hcl (Glucophage) 500 Mg Tab 500 MG PO DAILY, TAB Multivitamin (Multivitamin) Tab 1 TAB PO DAILY, TAB Pantoprazole (Protonix) 40 Mg Tab 40 MG PO DAILY, #30 TAB Potassium Chloride Pwd (Klor-Con Pwd) 20 Meq Pack 20 MEQ PO DAILY Rivaroxaban (Xarelto) 20 Mg Tab 20 MG PO DAILY, TAB Triamterene & Hydrochlorothiaz (Triamterene/Hydrochloroth 50-25 mg) 1 Cap Cap 1 CAP PO DIRECTED Discontinued Medications: Atenolol (Tenormin) 50 Mg Tab 50 MG PO DIRECTED, TAB Furosemide (Lasix) 20 Mg Tab 20 MG PO DAILY, TAB Lisinopril (Prinivil) 20 Mg Tab 20 MG PO DAILY, TAB Action The above medications, specifically ones for stroke treatment/prophylaxis, have been reviewed in detail with the patient and/or patient automotive sales representative(s) prior to discharge. This includes indication, common adverse reactions, drug interactions, and medication administration. Medication counseling has been employed using the teach-back method to ensure understanding. Outcome The patient and/or patient automotive sales representative(s) have demonstrated understanding of the medications. Please note, they are aware that the pharmacist will call them within 72 hours post-discharge to confirm that the appropriate medications are being taken and answer any further medication related questions the patient might have at that time. 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 All providers aware. Patient instructed to continue Xarelto and to come to ED/ contact MD if nose bleeds would become more severe. Thank you for allowing pharmacy to be involved in the care of this patient. Please call [phone] or [phone] with any additional questions
[2016-06-21 15:54] VITALS: BP_SYST 154; BP_SYST 162; BP_DIAS 105; BP_DIAS 96; PULSE 90; TEMP 36.5; O2SAT 95
[2016-06-21 16:00] VITALS: O2SAT 95
[2016-10-29] MEDS ORDERED: IPRA1AER2 INH (10:53)
[2016-10-29] MEDS ORDERED: LVQ500 PO (10:53)
[2016-10-29] MEDS ORDERED: PRED10TA PO (10:53)
== END 2016-06-21 16:25 | disposition home health service (06) | DRG 65 ==
LOC: ENRESERVDT → ENRESERVTM → C.EDB 00:22 → C.2T 02:25 → C.4E 06-19 15:48
PROVIDERS: ADMIT Internal Medicine; ATTEND Internal Medicine
DX: I63.9 Cerebral infarction, unspecified (principal); E66.2 Morbid (severe) obesity with alveolar hypoventilation; Z68.42 Body mass index [BMI] 45.0-49.9, adult; R47.1 Dysarthria and anarthria; R47.01 Aphasia; I48.2 Chronic atrial fibrillation; I11.0 Hypertensive heart disease with heart failure; E11.9 Type 2 diabetes mellitus without complications; E78.5 Hyperlipidemia, unspecified; I50.9 Heart failure, unspecified; D50.9 Iron deficiency anemia, unspecified; I25.10 Atherosclerotic heart disease of native coronary artery without angina pectoris; I87.8 Other specified disorders of veins; Z79.01 Long term (current) use of anticoagulants; Z79.84 Long term (current) use of oral hypoglycemic drugs; Z79.899 Other long term (current) drug therapy; Z88.5 Allergy status to narcotic agent; Z88.3 Allergy status to other anti-infective agents; Z91.14 Patient's other noncompliance with medication regimen; Z85.42 Personal history of malignant neoplasm of other parts of uterus; Z90.710 Acquired absence of both cervix and uterus; Z82.49 Family history of ischemic heart disease and other diseases of the circulatory system

== ENCOUNTER 2016-10-25 11:43 | Inpatient (IN) | payer OTHER ==
[~2016-10-25] VITALS: Ht 172.7 cm; Wt 123.0 kg
[~2016-10-25 11:43] MED LIST: ACET650S10 PO; ATOR80TA PO; CHOL1000 PO; CINN1CAP2 PO; CITA40TA4 PO; CLR10 PO; CYAN1LOZ2 PO; FERR18TA2 PO; GABA-113 PO; GLC/500 PO; GLYB5TAB8 PO; LSN20 PO; LSX20 PO; MELA1TAB12 PO; MULT-506 PO; OMEG10007 PO; PANT40TA PO; POTA1POW PO; RIVA1TAB4 PO; TPRSR50 PO; TRIA50CA PO
[2016-10-25] MEDS ORDERED: ASPIRIN 81 MG CHEW PO STA (12:03)
--- NOTE | 2016-10-25 12:28 | DIAGNOSTIC IMAGING REPORT ---
CHEST ONE VIEW PORTABLE CLINICAL HISTORY: EVALUATE RESPIRATORY DISTRESS.DYSPNEA COMPARISON STUDY: 06/15/2016 FINDINGS: Moderate stable cardiomegaly. Increased prominence of pulmonary vasculature. Diaphragms smooth. Pulmonary apices are clear. IMPRESSION: Developing congestive heart failure The above report was generated using voice recognition software. It may contain grammatical, syntax or spelling errors. Electronically signed by: Anam Solano M.D. 10/25/2016 12:27 PM Dictated Date/Time: 10/25/2016 12:26 PM
[2016-10-25] MEDS ORDERED: DILTIAZEM BOLUS / DRIP IV STA (12:39)
[2016-10-25] MEDS ORDERED: DILTIAZEM HCL 5 MG/ML 5 ML VIAL IV SCH (12:45)
[2016-10-25] MEDS ORDERED: DILTIAZEM HCL INJ 125 MG in DEXTROSE 5% 100ML IV PRN (12:45)
[2016-10-25 12:56] LABS: BASO % 0.2 %; BASO ABS # 0.02 K/uL (0-0.2); COMPLETE YES; EOS % 0.2 %; HEMATOCRIT 34.7 % (37-47); IG% 0.3 %; LYMPH % 5.5 %; LYMPH ABS # 0.59 K/uL (1.2-3.4); MEAN CELL VOLUME 88.1 fL (80-100); MEAN CORPUSCULAR HEMOGLOBIN 28.7 pg (25-34); MEAN CORPUSCULAR HGB CONC 32.6 g/dl (32-36); MEAN PLATELET VOLUME 8.7 fL (7.4-10.4); MONO % 3.6 %; NEUT % 90.2 %; PLATELET COUNT 154 K/uL (130-400); RED BLOOD COUNT 3.94 M/uL (4.2-5.4); WHITE BLOOD COUNT 10.81 K/uL (4.8-10.8)
[2016-10-25 13:05] LABS: BUN/CREATININE RATIO 23.6 (10-20); CALCIUM 9.1 mg/dl (8.5-10.1); CREATININE 0.78 mg/dl (0.60-1.20); POTASSIUM 3.6 mmol/L (3.5-5.1)
[2016-10-25 13:06] LABS: INR 1.2 (0.9-1.1); PARTIAL THROMBOPLASTIN RATIO 1.3; PROTHROMBIN TIME (PATIENT) 13.3 SECONDS (9.0-12.0)
[2016-10-25 13:09] LABS: URINE APPEARANCE CLEAR (CLEAR); URINE BILIRUBIN NEG (NEG); URINE COLOR YELLOW; URINE NITRITE NEG (NEG); URINE PH 6.5 (4.5-7.5); URINE SPECIFIC GRAVITY 1.021 (1.000-1.030); UROBILINOGEN NEG (NEG)
[2016-10-25 13:10] LABS: ALB/GLOB RATIO 1.1 (0.9-2)
[2016-10-25 13:13] LABS: MANUAL MICROSCOPIC REQUIRED? NO; REVIEW REQ? NO
[2016-10-25] MEDS ORDERED: FUROSEMIDE 40 MG/4 ML VIAL IV STA (13:24)
[2016-10-25] MEDS ORDERED: LEVAQUIN 750MG / 150ML D5W IV ONE (13:30)
[2016-10-25] MEDS ORDERED: NITROGLYCERIN OINT 2% 1GM PACKET EXT SCH (13:30)
[2016-10-25] MEDS ORDERED: ACETAMINOPHEN 325 MG TAB PO PRN (13:45)
[2016-10-25] MEDS ORDERED: ONDANSETRON INJ 2 MG/ML 2 ML VIAL IV PRN (13:45)
[2016-10-25] MEDS ORDERED: NITROGLYCERIN OINT 2% 1GM PACKET ONE ×2 (13:51→14:00)
[2016-10-25 14:08] VITALS: BMI 42.5
[2016-10-25] MEDS ORDERED: METO50TA16 PO (14:49)
[2016-10-25] MEDS ORDERED: GABA-113 PO (14:49)
[2016-10-25] MEDS ORDERED: GLIP10TA9 PO (14:49)
[2016-10-25] MEDS ORDERED: POTA20TA16 PO (14:49)
[2016-10-25] MEDS ORDERED: LEVALBUTEROL/IPRATROPIUM NEB INH PRN (15:00)
[2016-10-25] MEDS ORDERED: GLUCAGON FOR INJ 1 MG VIAL SQ PRN (15:15)
[2016-10-25] MEDS ORDERED: GLUCOSE 40% GEL 15 GM TUBE PO PRN (15:15)
[2016-10-25] MEDS ORDERED: DEXTROSE 50% 50 ML SYR IV PRN (15:15)
[2016-10-25] MEDS ORDERED: GLUCOSE 10 TABS/TUBE PO PRN (15:15)
[2016-10-25] MEDS ORDERED: LPT40 PO (15:34)
[2016-10-25] MEDS ORDERED: LSN20 PO (15:34)
[2016-10-25] MEDS ORDERED: DILT-115 PO (15:34)
--- NOTE | 2016-10-25 15:56 | History and Physical ---
History & Physical Date & Time of Service: Oct 25, 2016 at 15:46 Chief Complaint: Breathing Difficulty Primary Care Physician: Franklyn Nicole PA-C History of Present Illness This is a 61yo F with a PMH of CHF, chronic A Fib (on xarelto), non-obstructive CAD, DM II, HTN, h/o CVA who presents with worsening SOB that started last evening. Patient was in her normal state of health until yesterday morning, when she woke up with fever, chills, sore throat, runny nose and a cough with productive yellow/green sputum. By evening, noticed that she was SOB with any type of exertion but was still not requiring her PRN home O2. Was unable to use her BiPAP overnight due to coughing. This morning, SOB worsened to occurring at rest, which required her to use home O2 of 2.5L NC. Went to see PCP (Franklyn Nicole PA-C) in clinic and was found to have a low grade fever and decompensated CHF. Sent to the ER for further evaluation. Received a nebulized treatment en route. Patient is now breathing comfortably on 4L NC and saturating in the 90s. Endorses "pain in ribs" from coughing that was relieved with nitro paste. Continues to have an intermittent productive cough that is aggravated by deep inspiration. + Rhinorrhea, sore throat. Denies fever/chills. + LE swelling and orthopnea. Denies confusion, palpitations, PND abd pain, nausea/vomiting, LE weakness. States that she has noticed a 5 lb weight gain since the summer. Did not take medications this morning. Was diagnosed with CHF in June of 2016 at [facility]. [facility] Callahan ( [facility] Awaiting records of recent echo performed at OSH. Echo from June 2016 shows a reduced EF of 40-45% with mild LVH and hypokinesis of LV. Did have [facility] that showed mild-moderate non-obstructive CAD. Past Medical/Surgical History Medical Problems: (1) Atrial fibrillation Status: Chronic (2) CHF (congestive heart failure) Status: Chronic (3) Chronic anticoagulation Status: Chronic (4) Depression Status: Chronic (5) DM type 2 (diabetes mellitus, type 2) Status: Chronic (6) GERD (gastroesophageal reflux disease) Status: Chronic (7) History of CVA (cerebrovascular accident) Permanent Comment: Reported events in 2013 and 2014. Status: Chronic (8) History of uterine cancer Status: Chronic (9) HTN (hypertension) Status: Chronic (10) SCOTT (obstructive sleep apnea) Status: Chronic (11) Stroke Status: Resolved Surgical Problems: (1) History of hysterectomy Status: Chronic Family History FH: CAD (coronary artery disease) Social History Smoking Status: Never Smoker Marital Status: single Housing status: lives with friends Occupational Status: unemployed Allergies Coded Allergies: Codeine (Unverified Allergy, Unknown, unsure, 10/25/16) Erythromycin (Unverified Allergy, Unknown, unsure, 10/25/16) Home Medications Scheduled Atorvastatin (Atorvastatin Calcium), 1 TAB PO DAILY Cholecalciferol (Vitamin D3), 1,000 INTER.UNIT PO DAILY Cinnamon (Cinnamon), 375 MG PO DAILY Citalopram (Citalopram Hydrobromide), 40 MG PO DAILY Cyanocobalamin (Vitamin B 12), 500 MCG PO DAILY Diltiazem Hcl Ext Rel (Tiazac), 240 MG PO DAILY Ferrous Fumarate (Iron), 65 MG PO DAILY Fish Oil (Aurora-3), 1 CAP PO DAILY Furosemide (Furosemide), 40 MG PO DAILY Gabapentin (Neurontin), 300 MG PO QAM Gabapentin (Neurontin), 600 MG PO HS Glipizide (Glucotrol), 10 MG PO BID Lisinopril (Lisinopril), 1 TAB PO DAILY Loratadine (Claritin), 10 MG PO DAILY Melatonin (Gnp Melatonin Maximum Str), 5 MG PO HS Metoprolol Tartrate (Lopressor) (Lopressor), 50 MG PO BID Multivitamin (Multivitamin), 1 TAB PO DAILY Pantoprazole (Protonix), 40 MG PO DAILY Potassium Ext Rel (Klor-Con), 40 MEQ PO DAILY Rivaroxaban (Xarelto), 20 MG PO DAILY Review of Systems Ten systems reviewed and negative except as noted in the HPI. Physical Exam Vital Signs Date Time Temp Pulse Resp B/P (MAP) Pulse Ox O2 Delivery O2 Flow Rate FiO2 10/25/16 15:19 87 18 142/95 96 Room Air 10/25/16 14:26 157/113 10/25/16 14:08 Nasal Cannula 10/25/16 14:07 93 20 149/99 95 Nasal Cannula 4.0 10/25/16 13:53 94 24 151/99 95 Nasal Cannula 4.0 10/25/16 13:38 91 164/113 10/25/16 13:32 92 151/103 10/25/16 13:23 91 168/94 10/25/16 13:15 93 16 160/97 10/25/16 13:08 86 16 137/78 94 Nasal Cannula 4.0 10/25/16 13:03 94 Nasal Cannula 4.0 10/25/16 13:02 106 163/112 97 Nasal Cannula 4.0 10/25/16 11:55 94 Nasal Cannula 4.0 10/25/16 11:54 94 4.0 10/25/16 11:54 135 10/25/16 11:46 37.5 122 22 147/112 94 Nasal Cannula 4.0 General Appearance: no apparent distress (Breathing and conversing comfortably with NC O2 in place.), + obese Head: normocephalic, atraumatic Eyes: normal inspection, PERRL ENT: hearing grossly normal, + nasal congestion, + pharyngeal erythema Neck: supple, no adenopathy, trachea midline, + JVD Respiratory/Chest: chest non-tender (Pleuritic pain 2/2 coughing), no respiratory distress, no accessory muscle use, + crackles (Coarse crackles at bilateral bases. ), + wheezing (Expiratory wheezes appreciated throughout lung robles. ) Cardiovascular: no gallop, normal peripheral pulses, + irregularly irregular Abdomen/GI: normal bowel sounds, non tender, soft, no organomegaly Back: normal inspection Extremities/Musculoskelatal: no calf tenderness, normal capillary refill, + swelling (1+ bilateral edema to knees) Neurologic/Psych: alert, normal mood/affect, oriented x 3 Skin: normal color, warm/dry Diagnostics Laboratory Results Results Past 24 Hours Test 10/25/16 12:30 10/25/16 12:52 Range/Units White Blood Count 10.81 4.8-10.8 K/uL Red Blood Count 3.94 4.2-5.4 M/uL Hemoglobin 11.3 12.0-16.0 g/dL Hematocrit 34.7 37-47 % Mean Corpuscular Volume 88.1 80-100 fL Mean Corpuscular Hemoglobin 28.7 25-34 pg Mean Corpuscular Hemoglobin Concent 32.6 32-36 g/dl Platelet Count 154 130-400 K/uL Mean Platelet Volume 8.7 7.4-10.4 fL Neutrophils (%) (Auto) 90.2 % Lymphocytes (%) (Auto) 5.5 % Monocytes (%) (Auto) 3.6 % Eosinophils (%) (Auto) 0.2 % Basophils (%) (Auto) 0.2 % Neutrophils # (Auto) 9.76 1.4-6.5 K/uL Lymphocytes # (Auto) 0.59 1.2-3.4 K/uL Monocytes # (Auto) 0.39 0.11-0.59 K/uL Eosinophils # (Auto) 0.02 0-0.5 K/uL Basophils # (Auto) 0.02 0-0.2 K/uL RDW Standard Deviation 47.0 36.4-46.3 fL RDW Coefficient of Variation 14.5 11.5-14.5 % Immature Granulocyte % (Auto) 0.3 % Immature Granulocyte # (Auto) 0.03 0.00-0.02 K/uL Prothrombin Time 13.3 9.0-12.0 SECONDS Prothromb Time International Ratio 1.2 0.9-1.1 Activated Partial Thromboplast Time 33.4 21.0-31.0 SECONDS Partial Thromboplastin Ratio 1.3 Sodium Level 140 136-145 mmol/L Potassium Level 3.6 3.5-5.1 mmol/L Chloride Level 106 98-107 mmol/L Carbon Dioxide Level 27 21-32 mmol/L Anion Gap 7.0 3-11 mmol/L Blood Urea Nitrogen 18 7-18 mg/dl Creatinine 0.78 0.60-1.20 mg/dl Est Creatinine Clear Calc Drug Dose 107.9 ml/min Estimated GFR () 95.8 Estimated GFR (Non- 82.6 BUN/Creatinine Ratio 23.6 10-20 Random Glucose 148 70-99 mg/dl Calcium Level 9.1 8.5-10.1 mg/dl Total Bilirubin 1.3 0.2-1 mg/dl Aspartate Amino Transf (AST/SGOT) 19 15-37 U/L Alanine Aminotransferase (ALT/SGPT) 26 12-78 U/L Alkaline Phosphatase 80 45-117 U/L Troponin I 0.035 0-0.045 ng/ml Pro-B-Type Natriuretic Peptide 3567 0-900 pg/ml Total Protein 7.5 6.4-8.2 gm/dl Albumin 3.9 3.4-5.0 gm/dl Globulin 3.6 2.5-4.0 gm/dl Albumin/Globulin Ratio 1.1 0.9-2 Urine Color YELLOW Urine Appearance CLEAR CLEAR Urine pH 6.5 4.5-7.5 Urine Specific [place] 1.021 1.000-1.030 Urine Protein 2+ NEG Urine Glucose (UA) NEG NEG Urine Ketones NEG NEG Urine Occult Blood NEG NEG Urine Nitrite NEG NEG Urine Bilirubin NEG NEG Urine Urobilinogen NEG NEG Urine Leukocyte Esterase NEG NEG Urine WBC (Auto) 1-5 0-5 /hpf Urine RBC (Auto) 0-4 0-4 /hpf Urine Hyaline Casts (Auto) 0 0-5 /lpf Urine Epithelial Cells (Auto) 10-20 0-5 /lpf Urine Bacteria (Auto) NEG NEG Diagnostic Radiology CXR: IMPRESSION: Developing congestive heart failure EKG Atrial fibrillation with rapid ventricular response. Ventricular rate of 124. Nonspecific ST and T wave abnormality Impression Assessment and Plan This is a 61yo F with a PMH of CHF, chronic A Fib (on xarelto), non-obstructive CAD, DM II, HTN, h/o CVA who presents with worsening SOB that started last evening. Shortness of breath: -Vital signs are stable. Saturating well on O2 -Likely decompensation of CHF 2/2 URI/bronchitis -No opacities on CXR indicating PNA -Slight leukocytosis of 10.81, productive cough, wheezing -Levaquin given in ER -Ordered Xopenex nebs, solu-medrol 40mg IV x 1, continue O2 -Start prednisone 40mg PO daily tomorrow -See below for CHF -Monitor on tele Acute on chronic CHF: -Shown on XR and clinically -Elevated BNP of 3567 -Given IV Lasix 40mg in ER. Will consider an evening dose -Continue 40mg IV Lasix daily, NC O2 -Continue home meds for HTN -Awaiting OSH records for most recent echo -June 2016 echo shows reduced EF of 40-45%, mild LVH, hypokinesis of LV Mild mitral regurgitation and aortic valve sclerosis -Will consider cardiac consult if no improvement -Daily weights, low Na diet Chronic atrial fibrillation: -EKG of A Fib with RVR on admission with HR of 122 -Placed on diltiazem drip and HR returned to normal range -Plan to transition to home med PO diltiazem on the floor -Monitor on tele -Continue Xarelto HTN: -Stable -Continue home meds DM II: -Last hgb a1c unknown -Ordered for tomorrow -Hold oral agents -SSI ordered -BG checks AC HS Non-obstructive CAD: -2009 cardiac cath performed in [place] showing mild-moderate non-obst. CAD -Complaint of rib pain from coughing, likely pleuritic -Pain relieved by nitro -Given ASA 324 in ER -Trop x 1 neg -No EKG changes suggestive of ischemia -Continue to monitor SCOTT: -Bi PAP to use qHS while in-patient H/o CVA: -Reported ? TIA/CVA in 2013 -Documented CVA in 2014 with residual decreased L eye acuity -No neuro symptoms reported. No deficits on exam -Continue baby aspirin GERD: -Stable -Continue home med Depression: -Stable -Continue home med DVT Ppx: Xarelto Code status: FULL PCP: Bonnie HIGH Dispo: Plan to return home once medically stable Level of Care Telemetry Advanced Directives Existing Living Will: No Existing Power of Electrolysis Engineer: No Resuscitation Status FULL RESUSCITATION VTE Prophylaxis VTE Risk Assessment Done? Y/N: Yes Risk Level: Moderate Given or contraindicated: Other Anticoagulation Note ATTENDING ADDENDUM Record reviewed. Patient interviewed and examined in ED. Care coordinated with Maria Eugenia Carlos PA-C. Please refer to her documentation for patient's history. Briefly, 61 YO F with history of sys CHF, AF, sleep apnea, CVA, DM, and other problems. Presented to ED with worsening SOB associated with productive cough. EXAM: General- no acute distress VS- as noted HEENT- anicteric Neck- + JVD Lungs- scattered rhonchi, diffuse moderate wheezing Heart- irregular, no gallop appreciated Abdomen- + BS, soft, nontender Extremities- trace pretibial edema, no calf tenderness Neuro- alert DATA: WBC 10,810. BNP 3567. Other lab studies as noted. CXR reviewed by undersigned and interpreted by Radiology: cardiomegaly, pulmonary vascular congestion, no infiltrates EKG performed at 11:51 reviewed and demonstrated AF with ventricular rate of 120 / minute, ST depression laterally. ASSESSMENT AND PLAN: Acute on chronic left ventricular systolic CHF. Rx with IV furosemide. Continue MAJO. Echo 06/16/16 showed LVEF 45%. No need to repeat echo at this time. AF with rapid ventricular response. Received IV diltiazem in ED; transition back to PO. Continue metoprolol. Continue rivaroxaban. Lower respiratory tract infection. No infiltrates on CXR. Probable bronchitis. Received levofloxacin in ED. QTc 540. Change antibiotic therapy to doxy. May benefit from short course of steroids. Please refer to NIKOS Carlos's documentation for discussion of other issues. Walter Dias MD
[2016-10-25] MEDS ORDERED: IPRATROPIUM BROMIDE NEB SOLN 0.02% 2.5 ML VIAL INH PRN (16:15)
[2016-10-25 16:27] VITALS: BP 154/86; PULSE 98; TEMP 36.8; O2SAT 97
[2016-10-25] MEDS ORDERED: METHYLPREDNISOLONE IV 40 MG in SYRINGE 0 ML IV SCH (16:45)
[2016-10-25] MEDS: INSULIN ASPART 100 UNITS/ML 3 ML PEN SC SCH ×2 (16:53→21:00)
[2016-10-25] MEDS: RIVAROXABAN 10 MG TAB PO SCH (17:00)
[2016-10-25] MEDS: ATORVASTATIN 40 MG TAB PO SCH (17:00)
[2016-10-25] MEDS: CITALOPRAM 40 MG TAB PO SCH (17:01)
[2016-10-25] MEDS: LISINOPRIL 20 MG TAB PO SCH (17:01)
[2016-10-25] MEDS: POTASSIUM CHLORIDE 20 MEQ TABCR PO SCH (17:01)
[2016-10-25] MEDS: PANTOprazole SOD 40 MG TAB PO SCH (17:02)
--- NOTE | 2016-10-25 18:24 | EMERGENCY ROOM VISIT NOTE ---
History Report prepared by Nikki: Richa Yates Under the Supervision of: Dr. Gilberto Marks D.O. First contact with patient: 11:55 Chief Complaint: SHORTNESS OF BREATH Stated Complaint: BREATHING DIFFICULTY Nursing Triage Summary: PT STATES FEELING SHOB SINCE LAST EVENING, STATES WENT TO PHYSICIANS OFFICE THIS MORNING AND SENT HOME. PT O2 SAT 85 ON ROOM AIR, STATES COUGHING UP "YELLOW GREEN SPUTUM, COUGHING SO MUCH MY RIBS HURT." PT UNABLE TO SLEEP ALL NIGHT. History of Present Illness The patient is a 61 year old female who presents to the Emergency Room with complaints of persistent SOB starting last night. The patient presents to the ED by EMS. She is usually not on oxygen, but does wear it intermittently. She is feeling better on oxygen and after the nebulizer treatment in route. Last night she started having SOB with a cough with green, yellow, and red sputum. She has nausea and swelling in her feet. She has had these symptoms before. She was diagnosed with CHF in June. She denies any chest pain, abdominal pain, or weight gain. She has a history of A fib and is on xarelto. She did not take her heart rate medication this morning. She denies any history of COPD or asthma. She has a history of sleep apnea. She did not use her BiPAP last night. Source of History: patient Onset: last night Position: other (global) Quality: other (SOB) Timing: other (persistent) Modifying Factors (Relieving): other (oxygen, nebulizer) Associated Symptoms: + cough, + nausea, No chest pain, No abdominal pain Note: Pt reports swelling in feet. Pt denies weight gain. Review of Systems See HPI for pertinent positives & negatives. A total of 10 systems reviewed and were otherwise negative. Past Medical & Surgical Medical Problems: (1) Atrial fibrillation (2) CHF (congestive heart failure) (3) Chronic anticoagulation (4) Depression (5) DM type 2 (diabetes mellitus, type 2) (6) GERD (gastroesophageal reflux disease) (7) History of CVA (cerebrovascular accident) (8) History of uterine cancer (9) HTN (hypertension) (10) SCOTT (obstructive sleep apnea) (11) Stroke Surgical Problems: (1) History of hysterectomy Family History FH: CAD (coronary artery disease) Social History Smoking Status: Never Smoker Marital Status: single Occupation Status: unemployed Current/Historical Medications Scheduled Atorvastatin (Atorvastatin Calcium), 1 TAB PO DAILY Cholecalciferol (Vitamin D3), 1,000 INTER.UNIT PO DAILY Cinnamon (Cinnamon), 375 MG PO DAILY Citalopram (Citalopram Hydrobromide), 40 MG PO DAILY Cyanocobalamin (Vitamin B 12), 500 MCG PO DAILY Diltiazem Hcl Ext Rel (Tiazac), 240 MG PO DAILY Ferrous Fumarate (Iron), 65 MG PO DAILY Fish Oil ([place]ote[place]-3), 1 CAP PO DAILY Furosemide (Furosemide), 40 MG PO DAILY Gabapentin (Neurontin), 300 MG PO QAM Gabapentin (Neurontin), 600 MG PO HS Glipizide (Glucotrol), 10 MG PO BID Lisinopril (Lisinopril), 1 TAB PO DAILY Loratadine (Claritin), 10 MG PO DAILY Melatonin (Gnp Melatonin Maximum Str), 5 MG PO HS Metoprolol Tartrate (Lopressor) (Lopressor), 50 MG PO BID Multivitamin (Multivitamin), 1 TAB PO DAILY Pantoprazole (Protonix), 40 MG PO DAILY Potassium Ext Rel (Klor-Con), 40 MEQ PO DAILY Rivaroxaban (Xarelto), 20 MG PO DAILY Allergies Coded Allergies: Codeine (Unverified Allergy, Unknown, unsure, 10/25/16) Erythromycin (Unverified Allergy, Unknown, unsure, 10/25/16) Physical Exam Vital Signs Date Time Temp Pulse Resp B/P (MAP) Pulse Ox O2 Delivery O2 Flow Rate FiO2 10/25/16 13:38 91 164/113 10/25/16 13:32 92 151/103 10/25/16 13:23 91 168/94 10/25/16 13:15 93 16 160/97 10/25/16 13:08 86 16 137/78 94 Nasal Cannula 4.0 10/25/16 13:03 94 Nasal Cannula 4.0 10/25/16 13:02 106 163/112 97 Nasal Cannula 4.0 10/25/16 11:55 94 Nasal Cannula 4.0 10/25/16 11:54 94 4.0 10/25/16 11:54 135 10/25/16 11:46 37.5 122 22 147/112 94 Nasal Cannula 4.0 Physical Exam GENERAL: sitting up in bed, dyspneic, on nasal cannula EYE EXAM: normal conjunctiva OROPHARYNX: no exudate, no erythema, lips, buccal mucosa, and tongue normal and mucous membranes are moist NECK: supple, no nuchal rigidity, no adenopathy, non-tender, mild JVD. LUNGS: Faint rhonchi on exhalation to bilateral bases. Normal chest wall mechanics HEART: tachycardic, irregularly irregular rhythm, no murmurs, S1 normal and S2 normal ABDOMEN: abdomen soft, non-tender, normo-active bowel sounds, no masses, no rebound or guarding. BACK: Back is symmetrical on inspection and there is no deformity, no midline tenderness, no CVA tenderness. SKIN: no rashes and no bruising UPPER EXTREMITIES: upper extremities are grossly normal. LOWER EXTREMITIES: Faint pitting edema bilaterally. NEURO EXAM: Normal sensorium, cranial nerves II-XII grossly intact, normal speech, no gross weakness of arms, no gross weakness of legs. Medical Decision & Procedures ER Provider Diagnostic Interpretation: Radiology results as stated below per my review and the radiologist's interpretation: CHEST ONE VIEW PORTABLE CLINICAL HISTORY: EVALUATE RESPIRATORY DISTRESS.DYSPNEA COMPARISON STUDY: 06/15/2016 FINDINGS: Moderate stable cardiomegaly. Increased prominence of pulmonary vasculature. Diaphragms smooth. Pulmonary apices are clear. IMPRESSION: Developing congestive heart failure The above report was generated using voice recognition software. It may contain grammatical, syntax or spelling errors. Electronically signed by: Anam Solano M.D. 10/25/2016 12:27 PM Dictated Date/Time: 10/25/2016 12:26 PM Laboratory Results 10/25/16 12:30 Red Blood Count 3.94, Mean Corpuscular Volume 88.1, Mean Corpuscular Hemoglobin 28.7, Mean Corpuscular Hemoglobin Concent 32.6, Mean Platelet Volume 8.7, Neutrophils (%) (Auto) 90.2, Lymphocytes (%) (Auto) 5.5, Monocytes (%) (Auto) 3.6, Eosinophils (%) (Auto) 0.2, Basophils (%) (Auto) 0.2, Neutrophils # (Auto) 9.76, Lymphocytes # (Auto) 0.59, Monocytes # (Auto) 0.39, Eosinophils # (Auto) 0.02, Basophils # (Auto) 0.02 10/25/16 12:30 Test 10/25/16 12:30 10/25/16 12:52 White Blood Count 10.81 K/uL (4.8-10.8) Red Blood Count 3.94 M/uL (4.2-5.4) Hemoglobin 11.3 g/dL (12.0-16.0) Hematocrit 34.7 % (37-47) Mean Corpuscular Volume 88.1 fL (80-100) Mean Corpuscular Hemoglobin 28.7 pg (25-34) Mean Corpuscular Hemoglobin Concent 32.6 g/dl (32-36) Platelet Count 154 K/uL (130-400) Mean Platelet Volume 8.7 fL (7.4-10.4) Neutrophils (%) (Auto) 90.2 % Lymphocytes (%) (Auto) 5.5 % Monocytes (%) (Auto) 3.6 % Eosinophils (%) (Auto) 0.2 % Basophils (%) (Auto) 0.2 % Neutrophils # (Auto) 9.76 K/uL (1.4-6.5) Lymphocytes # (Auto) 0.59 K/uL (1.2-3.4) Monocytes # (Auto) 0.39 K/uL (0.11-0.59) Eosinophils # (Auto) 0.02 K/uL (0-0.5) Basophils # (Auto) 0.02 K/uL (0-0.2) RDW Standard Deviation 47.0 fL (36.4-46.3) RDW Coefficient of Variation 14.5 % (11.5-14.5) Immature Granulocyte % (Auto) 0.3 % Immature Granulocyte # (Auto) 0.03 K/uL (0.00-0.02) Prothrombin Time 13.3 SECONDS (9.0-12.0) Prothromb Time International Ratio 1.2 (0.9-1.1) Activated Partial Thromboplast Time 33.4 SECONDS (21.0-31.0) Partial Thromboplastin Ratio 1.3 Anion Gap 7.0 mmol/L (3-11) Est Creatinine Clear Calc Drug Dose 107.9 ml/min Estimated GFR () 95.8 Estimated GFR (Non- 82.6 BUN/Creatinine Ratio 23.6 (10-20) Calcium Level 9.1 mg/dl (8.5-10.1) Total Bilirubin 1.3 mg/dl (0.2-1) Aspartate Amino Transf (AST/SGOT) 19 U/L (15-37) Alanine Aminotransferase (ALT/SGPT) 26 U/L (12-78) Alkaline Phosphatase 80 U/L (45-117) Troponin I 0.035 ng/ml (0-0.045) Pro-B-Type Natriuretic Peptide 3567 pg/ml (0-900) Total Protein 7.5 gm/dl (6.4-8.2) Albumin 3.9 gm/dl (3.4-5.0) Globulin 3.6 gm/dl (2.5-4.0) Albumin/Globulin Ratio 1.1 (0.9-2) Hepatitis C Antibody Screen NEG (NEG) Urine Color YELLOW Urine Appearance CLEAR (CLEAR) Urine pH 6.5 (4.5-7.5) Urine Specific [place] 1.021 (1.000-1.030) Urine Protein 2+ (NEG) Urine Glucose (UA) NEG (NEG) Urine Ketones NEG (NEG) Urine Occult Blood NEG (NEG) Urine Nitrite NEG (NEG) Urine Bilirubin NEG (NEG) Urine Urobilinogen NEG (NEG) Urine Leukocyte Esterase NEG (NEG) Urine WBC (Auto) 1-5 /hpf (0-5) Urine RBC (Auto) 0-4 /hpf (0-4) Urine Hyaline Casts (Auto) 0 /lpf (0-5) Urine Epithelial Cells (Auto) 10-20 /lpf (0-5) Urine Bacteria (Auto) NEG (NEG) Laboratory results per my review. Medications Administered Medications (Trade) Dose Ordered Sig/Magdaleno Route Start Time Stop Time Status Last Admin Dose Admin Aspirin (Aspirin Chew) 324 mg NOW STAT PO 10/25/16 12:03 10/25/16 12:05 DC 10/25/16 12:53 324 MG Diltiazem HCl (Cardizem Inj) 10 mg 1245 IV 10/25/16 12:45 10/25/16 12:48 DC 10/25/16 13:00 10 MG Diltiazem HCl 125 mg/Dextrose 125 ml @ 0 mls/hr Q0M PRN IV 10/25/16 12:45 10/25/16 18:13 DC 10/25/16 13:01 5 MLS/HR Furosemide (Lasix Inj) 40 mg NOW STAT IV 10/25/16 13:24 10/25/16 13:25 DC 10/25/16 14:05 40 MG Levofloxacin (Levaquin / D5W) 750 mg NOW ONCE IV 10/25/16 13:30 10/25/16 13:31 DC 10/25/16 14:05 750 MG ECG Indication: SOB/dyspnea Rate (beats per minute): 124 Rhythm: atrial fibrillation (with RVR) Findings: ST depression (Anterior, Lateral), other (normal axis) ED Course ED COURSE: Vital signs were reviewed and showed hypoxia, tachycardia. The patients medical record was reviewed The above diagnostic studies were performed and reviewed. ED treatments and interventions as stated above. 1155: The patient was evaluated in room A2. A complete history and physical examination was performed. 1203: Aspirin 324 mg PO. 1245: Diltiazem HCl 10 mg IV. 1321: Upon reevaluation, the patient is doing fine. I discussed my findings with the patient and she understands and agrees with the treatment plan. Based on the patients age, coexisting illnesses, exam and lab findings the decision to treat as an inpatient was made. The patient remained stable while under my care. The patient will be evaluated for further management. 1324: Lasix Inj 40 mg IV. 1330: Levofloxacin 750 mg IV, Nitroglycerin 2 inch EXT. 1336: I reviewed the patient's case with Dr. Dias, [facility] hospitalist. He will evaluate the patient for further management. Medical Decision Differential diagnoses includes but is not limited to pneumonia, bronchitis, COPD/Asthma exacerbation, pneumothorax, pulmonary embolism, congestive heart failure, acute coronary syndrome. Patient is a 61-year-old female that presents to ER for shortness of breath associated with a cough which is yellow/green. Patient is on Xa inhibitor. She does have nausea. She does have a history of CHF. CBC along with BMP, LFTs is unremarkable. The BNP is elevated at 3500. Chest x-ray supports CHF. UA was negative. Patient was given a dose of Lasix and placed on nitroglycerin paste which improved her symptoms. EKG did show A. fib with RVR and ST-T wave changes. She was placed on a Cardizem drip and given a bolus. Heart rate conjunctiva 90s. Symptoms improved. She was admitted to internal medicine on Cardizem drip. Medication Reconcilliation Current Medication List: was personally reviewed by me Blood Pressure Screening Patient's blood pressure: Normal blood pressure Blood pressure disposition: Did not require urgent referral Consults Time Called: 1326 Consulting Physician: Dr. Dias [facility] hospitalist Returned Call: [phone] I reviewed the patient's case with him. He will evaluate the patient for further management. Impression Primary Impression: CHF (congestive heart failure) Additional Impression: Atrial fibrillation with RVR Critical Care I have personally spent 35 minutes of critical care time in the direct management of this patient. This includes bedside care, interpretation of diagnostic studies, and testing, discussion with consultants, patient, and family members, and other required patient management activities. This 35 minutes is in excess of all separately billable procedures. Scribe Attestation The scribe's documentation has been prepared under my direction and personally reviewed by me in its entirety. I confirm that the note above accurately reflects all work, treatment, procedures, and medical decision making performed by me. Departure Information Dispostion Being Evaluated By Hospitalist Referrals Franklyn Nicole PA-C (PCP) Patient Instructions My [facility] Problem Qualifiers Primary Impression: CHF (congestive heart failure) Congestive heart failure type: unspecified congestive heart failure type Congestive heart failure chronicity: unspecified congestive heart failure chronicity Qualified Codes: I50.9 - Heart failure, unspecified
[2016-10-25] MEDS: GABAPENTIN 300 MG CAP PO SCH (19:33)
[2016-10-25] MEDS: METOPROLOL TARTRATE 50 MG TAB PO SCH (19:33)
[2016-10-25 19:44] VITALS: BP 163/87; PULSE 103; TEMP 37; O2SAT 94
[2016-10-25] MEDS ORDERED: DILTIAZEM HCL 120 MG ER CAP PO ONE (21:00)
[2016-10-25] MEDS: INSULIN GLARGINE SOLOSTAR 100 UNITS/ML 3 ML PEN SC SCH (21:02)
[2016-10-25 21:30] VITALS: PULSE 110; O2SAT 95
[2016-10-25 22:04] VITALS: PULSE 110; O2SAT 98
[2016-10-25 23:51] VITALS: BP 143/77; PULSE 80; TEMP 37.1; O2SAT 93
[2016-10-26] VITALS (7 sets, daily range): BP systolic 135–159; BP diastolic 75–80; PULSE 67–84; TEMP 36.6–37; O2SAT 90–98
[2016-10-26] MEDS: LEVALBUTEROL 0.63MG/3 ML NEB INH PRN (06:05)
[2016-10-26 06:43] LABS: BUN/CREATININE RATIO 22.1 (10-20); CALCIUM 9.1 mg/dl (8.5-10.1); CREATININE 0.91 mg/dl (0.60-1.20); POTASSIUM 3.9 mmol/L (3.5-5.1)
[2016-10-26 06:55] LABS: ESTIMATED AVERAGE GLUCOSE 111 mg/dl; HA1C FLAG Normal (Normal)
[2016-10-26] MEDS: GABAPENTIN 300 MG CAP PO SCH ×2 (08:48→21:06)
[2016-10-26] MEDS: FUROSEMIDE INJ 40 MG in SYRINGE 0 ML IV SCH (08:48)
[2016-10-26] MEDS: LISINOPRIL 20 MG TAB PO SCH (08:49)
[2016-10-26] MEDS: DILTIAZEM HCL 120 MG EXT REL CAP PO SCH (08:49)
[2016-10-26] MEDS: CITALOPRAM 40 MG TAB PO SCH (08:49)
[2016-10-26] MEDS: LORATADINE 10 MG TAB PO SCH (08:49)
[2016-10-26] MEDS: PANTOprazole SOD 40 MG TAB PO SCH (08:50)
[2016-10-26] MEDS: CHOLECALCIFEROL 1000 INTER.UNIT TAB PO SCH (08:50)
[2016-10-26] MEDS: MULTIVITAMIN TAB PO SCH (08:50)
[2016-10-26] MEDS: ATORVASTATIN 40 MG TAB PO SCH (08:50)
[2016-10-26] MEDS: RIVAROXABAN 10 MG TAB PO SCH (08:51)
[2016-10-26] MEDS: POTASSIUM CHLORIDE 20 MEQ TABCR PO SCH (08:51)
[2016-10-26] MEDS: CYANOCOBALAMIN 500 MCG TAB (VIT B-12) PO SCH (08:52)
[2016-10-26] MEDS: INSULIN GLARGINE SOLOSTAR 100 UNITS/ML 3 ML PEN SC SCH ×2 (08:55→21:16)
[2016-10-26] MEDS: INSULIN ASPART 100 UNITS/ML 3 ML PEN SC SCH ×4 (08:55→21:16)
[2016-10-26] MEDS ORDERED: FERROUS FUMARATE 65 MG PO SCH (09:00)
[2016-10-26] MEDS: METOPROLOL TARTRATE 50 MG TAB PO SCH ×2 (09:00→21:05)
[2016-10-26] MEDS ORDERED: DOXYCYCLINE HYCLATE 100 MG CAP PO SCH (09:00)
[2016-10-26] MEDS: LEVOFLOXACIN 500 MG TAB PO SCH (11:49)
[2016-10-26] MEDS: METHYLPREDNISOLONE IV 40 MG in SYRINGE 0 ML IV SCH ×2 (14:35→21:05)
--- NOTE | 2016-10-26 19:02 | Progress Note ---
Internal Med Progress Note Date of Service: Oct 26, 2016. Provider Documentation: SUBJECTIVE: still having sob on exertion having cough with sputum no chest pain no nausea afebrile OBJECTIVE: Vital Signs-as noted below Exam: General-alert and oriented. Not in distress ENT-normal hearing Neck-no neck masses Lungs-cta b/l b/l rhonchi present Heart-s1 and s2 heard regular rhythm, no murmurs Abdomen-soft bowel sounds present non tender no distension Extremities no edema present no erythema Neuro-alert and oriented moves extremities Lab data as noted below. ASSESSMENT & PLAN: This is a 61yo F with a PMH of CHF, chronic A Fib (on xarelto), non-obstructive CAD, DM II, HTN, h/o CVA who presents with worsening SOB that started last evening. Shortness of breath: acute bronchitis acute on chronic systolic chf on iv steroids, po Levaquin and nebs iv lasix will monitor Acute on chronic CHF: eg 40-45%On echo in june 2016 iv lasix 40mg daily on lisinopril and metoprolol will monitor if no improvement will consult cardiology f/u cxr in am Chronic atrial fibrillation: EKG of A Fib with RVR on admission with HR of 122 Was Placed on diltiazem drip and HR returned to normal range currently home med PO diltiazem and Lopressor on Xarelto will monitor HTN: on diltiazem and Lopressor will monitor DM II: hba1c 5.5 oral agents on hold iss will monitor while on steroids Non-obstructive CAD: 2009 cardiac cath performed in [place] showing mild-moderate non-obst. CAD -Complaint of rib pain from coughing, most likely pleuritic CE and ekg unremarkable will f/u echo. SCOTT: Bi PAP to use qHS while in-patient H/o CVA: Reported ? TIA/CVA in 2013 Documented CVA in 2015 with residual decreased L eye acuity on aspirin GERD: Stable Depression: stable on home med DVT Ppx: Xarelto Disposition monitor in tele to be determined Vital Signs: Date Time Temp Pulse Resp B/P (MAP) Pulse Ox O2 Delivery O2 Flow Rate FiO2 10/26/16 16:00 Oxymask 4.0 10/26/16 15:10 37.0 74 22 143/77 (99) 90 Mask 4.0 10/26/16 12:00 Oxymask 4.0 10/26/16 11:30 37.0 69 18 158/80 (106) 98 Oxymask 4.0 10/26/16 07:39 36.6 75 18 135/77 (96) 96 BiPAP 5.0 10/26/16 07:30 Oxymask 4.0 10/26/16 06:06 84 18 95 BiPAP/CPAP 5.0 10/26/16 04:04 CPAP 5.0 10/26/16 03:55 37.0 77 20 138/80 (99) 95 CPAP 10/26/16 00:01 CPAP 5.0 10/25/16 23:51 37.1 80 22 143/77 (99) 93 CPAP 10/25/16 22:04 110 98 5.0 10/25/16 21:30 110 24 95 Mask 5.0 10/25/16 20:00 Oxymask 4.0 10/25/16 19:44 37.0 103 22 163/87 (112) 94 Nasal Cannula 4.0 Lab Results: Results Past 24 Hours Test 10/25/16 20:19 10/26/16 05:19 10/26/16 07:11 10/26/16 11:14 Range/Units Bedside Glucose 175 200 211 70-90 mg/dl Sodium Level 138 136-145 mmol/L Potassium Level 3.9 3.5-5.1 mmol/L Chloride Level 102 98-107 mmol/L Carbon Dioxide Level 31 21-32 mmol/L Anion Gap 5.0 3-11 mmol/L Blood Urea Nitrogen 20 7-18 mg/dl Creatinine 0.91 0.60-1.20 mg/dl Est Creatinine Clear Calc Drug Dose 91.5 ml/min Estimated GFR () 79.5 Estimated GFR (Non- 68.6 BUN/Creatinine Ratio 22.1 10-20 Random Glucose 193 70-99 mg/dl Estimated Average Glucose 111 mg/dl Hemoglobin A1c 5.5 4.5-5.6 % Calcium Level 9.1 8.5-10.1 mg/dl Test 10/26/16 16:27 10/26/16 16:28 Range/Units Bedside Glucose 201 212 70-90 mg/dl
[2016-10-27] VITALS (7 sets, daily range): BP systolic 150–173; BP diastolic 81–92; PULSE 61–88; TEMP 36.3–37.2; O2SAT 93–98; Ht 172.7 cm; Wt 123.0 kg
[2016-10-27] MEDS: LISINOPRIL 20 MG TAB PO SCH (07:47)
[2016-10-27] MEDS: PANTOprazole SOD 40 MG TAB PO SCH (07:47)
[2016-10-27] MEDS: GABAPENTIN 300 MG CAP PO SCH ×2 (07:47→21:04)
[2016-10-27] MEDS: LORATADINE 10 MG TAB PO SCH (07:47)
[2016-10-27] MEDS: CITALOPRAM 40 MG TAB PO SCH (07:48)
[2016-10-27] MEDS: ATORVASTATIN 40 MG TAB PO SCH (07:48)
[2016-10-27] MEDS: METHYLPREDNISOLONE IV 40 MG in SYRINGE 0 ML IV SCH ×3 (07:48→21:04)
[2016-10-27] MEDS: MULTIVITAMIN TAB PO SCH (07:48)
[2016-10-27] MEDS: CYANOCOBALAMIN 500 MCG TAB (VIT B-12) PO SCH (07:48)
[2016-10-27] MEDS: RIVAROXABAN 10 MG TAB PO SCH (07:49)
[2016-10-27] MEDS: METOPROLOL TARTRATE 50 MG TAB PO SCH ×2 (07:49→21:04)
[2016-10-27] MEDS: CHOLECALCIFEROL 1000 INTER.UNIT TAB PO SCH (07:49)
[2016-10-27] MEDS: POTASSIUM CHLORIDE 20 MEQ TABCR PO SCH (07:50)
[2016-10-27] MEDS: FUROSEMIDE INJ 40 MG in SYRINGE 0 ML IV SCH (07:50)
[2016-10-27] MEDS: DILTIAZEM HCL 120 MG EXT REL CAP PO SCH (07:51)
[2016-10-27] MEDS: INSULIN GLARGINE SOLOSTAR 100 UNITS/ML 3 ML PEN SC SCH ×2 (07:54→21:09)
[2016-10-27] MEDS: INSULIN ASPART 100 UNITS/ML 3 ML PEN SC SCH ×4 (07:55→21:08)
[2016-10-27] MEDS ORDERED: PERFLUTREN LIPID MICROSPHERE (DEFINITY) IV ONE (08:20)
[2016-10-27 09:11] LABS: COMPLETE YES; HEMATOCRIT 36.2 % (37-47); IG% 0.3 %; LYMPH % 5.9 %; LYMPH ABS # 0.58 K/uL (1.2-3.4); MEAN CELL VOLUME 89.8 fL (80-100); MEAN CORPUSCULAR HEMOGLOBIN 27.8 pg (25-34); MEAN CORPUSCULAR HGB CONC 30.9 g/dl (32-36); MONO % 4.9 %; NEUT % 88.9 %; PLATELET COUNT 189 K/uL (130-400); RED BLOOD COUNT 4.03 M/uL (4.2-5.4); WHITE BLOOD COUNT 9.88 K/uL (4.8-10.8)
[2016-10-27 09:37] LABS: BUN/CREATININE RATIO 25.4 (10-20); CALCIUM 9.1 mg/dl (8.5-10.1); CREATININE 0.98 mg/dl (0.60-1.20); MAGNESIUM 2.2 mg/dl (1.8-2.4); POTASSIUM 3.9 mmol/L (3.5-5.1)
[2016-10-27 09:51] LABS: BETA-HYDROXYBUTYRATE 1.08 mg/dL (0.2-2.81)
[2016-10-27] MEDS: LEVOFLOXACIN 500 MG TAB PO SCH (11:24)
--- NOTE | 2016-10-27 12:35 | ECHOCARDIOGRAM REPORT ---
*NOTICE TO RECEIVING REPUBLICAN AGENCY This information is strictly Confidential and protected under [place] law. [place] law prohibits you from making any further disclosure of this information unless further disclosure is expressly permitted by the written consent of the person to whom it pertains or is authorized by law. A general authorization for the release of medical or other information is not sufficient for this purpose. Hospital accepts no responsibility if the information is made available to any other person, INCLUDING THE PATIENT. Interpretation Summary * Name: ROMELIA TSEVENSON Study Date: 10/27/2016 07:52 AM BP: 150/85 mmHg * Patient Location: C.2T\S\S229\S\2 HR: 84 * : 1955 (M/d/y) Gender: Female Height: 68 in * Age: 61 yrs Ethnicity: CA Weight: 274 lb * Ordering Physician: Reuben Hill * Referring Physician: Self, Referred * Performed By: Vaishnavi Leal RCS * * Reason For Study: CHF * BSA: 2.3 m2 * Grossly normal valvular structure and function. * -- Conclusions -- * Extremely poor acoustic windows. * Grossly normal cardiac chamber sizes. * Grossly normal LVEF * Grossly normal valvular structure and function. Procedure Details * A contrast injection of Definity was performed to improve assessment of LV function. * Contrast was injected into an intravenous site in the right arm. * One vial of Definity ultrasound contrast was diluted in normal saline to a total volume of 10 ml. A total of '4' ml of solution was administered during imaging. * Lot # [id number] of Definity utilized for procedure. * Expiration date . * The attending nurse who injected the contrast agent was Rachelle Quinn RN. Left Ventricle * Ejection Fraction = 60-65%. MMode 2D Measurements and Calculations IVSd 1.2 cm LVIDd 6.1 cm LVIDs 3.6 cm LVPWd 1.2 cm IVS/LVPW 1.0 FS 41.6 % EDV(Teich) 186.6 ml ESV(Teich) 53.1 ml EF(Teich) 71.6 % EDV(cubed) 226.5 ml ESV(cubed) 45.2 ml EF(cubed) 80.0 % LV mass(C)d 321.3 grams LV mass(C)dI 137.5 grams/m\S\2 SV(Teich) 133.5 ml SI(Teich) 57.1 ml/m\S\2 SV(cubed) 181.2 ml SI(cubed) 77.6 ml/m\S\2 Ao root diam 2.5 cm Ao root area 5.0 cm\S\2 LVOT diam 1.9 cm LVOT area 2.9 cm\S\2 LVAd ap4 29.7 cm\S\2 LVLd ap4 7.6 cm EDV(MOD-sp4) 95.3 ml EDV(sp4-el) 98.6 ml LVAs ap4 16.3 cm\S\2 LVLs ap4 7.0 cm ESV(MOD-sp4) 30.9 ml ESV(sp4-el) 31.9 ml EF(MOD-sp4) 67.5 % EF(sp4-el) 67.7 % LVAd ap2 38.6 cm\S\2 LVLd ap2 8.4 cm EDV(MOD-sp2) 143.0 ml EDV(sp2-el) 149.6 ml LVAs ap2 23.5 cm\S\2 LVLs ap2 7.9 cm ESV(MOD-sp2) 57.2 ml ESV(sp2-el) 59.2 ml EF(MOD-sp2) 60.0 % EF(sp2-el) 60.4 % LVLd %diff 9.7 % EDV(MOD-bp) 122.4 ml LVLs %diff 11.0 % ESV(MOD-bp) 44.9 ml EF(MOD-bp) 63.4 % SV(MOD-sp4) 64.3 ml SI(MOD-sp4) 27.5 ml/m\S\2 SV(MOD-sp2) 85.9 ml SI(MOD-sp2) 36.8 ml/m\S\2 SV(MOD-bp) 77.5 ml SI(MOD-bp) 33.2 ml/m\S\2 SV(sp4-el) 66.7 ml SI(sp4-el) 28.6 ml/m\S\2 SV(sp2-el) 90.4 ml SI(sp2-el) 38.7 ml/m\S\2 Doppler Measurements and Calculations Ao V2 max 195.5 cm/sec Ao max PG 15.3 mmHg Ao max PG (full) 11.2 mmHg EDILBERTO(V,A) 1.5 cm\S\2 EDILBERTO(V,D) 1.5 cm\S\2 LV V1 max PG 4.0 mmHg LV V1 max 100.4 cm/sec
--- NOTE | 2016-10-27 17:37 | Progress Note ---
Internal Med Progress Note Date of Service: Oct 27, 2016. Provider Documentation: SUBJECTIVE: sob and cough better today no chest pain afebrile no nausea feeling better today OBJECTIVE: Vital Signs-as noted below Exam: General-alert and oriented. Not in distress ENT-normal hearing Neck-no neck masses Lungs-cta b/l b/l rhonchi present-improving Heart-s1 and s2 heard regular rhythm, no murmurs Abdomen-soft bowel sounds present non tender no distension Extremities no edema present no erythema Neuro-alert and oriented moves extremities Lab data as noted below. ASSESSMENT & PLAN: This is a 61yo F with a PMH of CHF, chronic A Fib (on xarelto), non-obstructive CAD, DM II, HTN, h/o CVA who presents with worsening SOB that started last evening. Shortness of breath: acute bronchitis acute on chronic systolic chf on iv steroids, po Levaquin and nebs iv lasix improving will monitor Acute on chronic CHF: eg 40-45%On echo in june 2016 iv lasix 40mg daily on lisinopril and metoprolol will monitor echo poor study but grossly normal ef if no improvement will consult cardiology f/u cxr in am Chronic atrial fibrillation: EKG of A Fib with RVR on admission with HR of 122 Was Placed on diltiazem drip and HR returned to normal range currently home med PO diltiazem and Lopressor rates under control on Xarelto will monitor HTN: on diltiazem and Lopressor will monitor DM II: hba1c 5.5 oral agents on hold iss will monitor while on steroids Non-obstructive CAD: 2009 cardiac cath performed in [place] showing mild-moderate non-obst. CAD -Complaint of rib pain from coughing, most likely pleuritic CE and ekg unremarkable echo unremarkable SCOTT: Bi PAP to use qHS while in-patient H/o CVA: Reported ? TIA/CVA in 2013 Documented CVA in 2015 with residual decreased L eye acuity on aspirin GERD: Stable Depression: stable on home med DVT Ppx: Xarelto Disposition monitor in tele to be determined Vital Signs: Date Time Temp Pulse Resp B/P (MAP) Pulse Ox O2 Delivery O2 Flow Rate FiO2 10/27/16 16:00 Oxymask 4.0 10/27/16 15:14 37.2 61 20 156/88 (110) 93 Mask 4.0 10/27/16 12:00 Oxymask 4.0 10/27/16 11:27 36.3 72 18 173/90 (117) 98 4.0 10/27/16 07:37 37.1 67 18 165/92 (116) 93 BiPAP 10/27/16 07:00 Oxymask 4.0 10/27/16 04:09 36.6 66 16 150/85 (106) 94 Room Air 10/27/16 04:00 Oxymask 4.0 10/27/16 00:00 Oxymask 4.0 10/26/16 23:30 36.6 78 21 159/75 (103) 91 Room Air 10/26/16 20:00 Oxymask 4.0 10/26/16 19:10 36.7 67 18 150/79 (102) 92 Mask 4.0 Lab Results: Results Past 24 Hours Test 10/26/16 20:25 10/27/16 08:59 10/27/16 11:14 10/27/16 16:30 Range/Units Bedside Glucose 250 272 191 70-90 mg/dl White Blood Count 9.88 4.8-10.8 K/uL Red Blood Count 4.03 4.2-5.4 M/uL Hemoglobin 11.2 12.0-16.0 g/dL Hematocrit 36.2 37-47 % Mean Corpuscular Volume 89.8 80-100 fL Mean Corpuscular Hemoglobin 27.8 25-34 pg Mean Corpuscular Hemoglobin Concent 30.9 32-36 g/dl Platelet Count 189 130-400 K/uL Mean Platelet Volume 9.0 7.4-10.4 fL Neutrophils (%) (Auto) 88.9 % Lymphocytes (%) (Auto) 5.9 % Monocytes (%) (Auto) 4.9 % Eosinophils (%) (Auto) 0.0 % Basophils (%) (Auto) 0.0 % Neutrophils # (Auto) 8.79 1.4-6.5 K/uL Lymphocytes # (Auto) 0.58 1.2-3.4 K/uL Monocytes # (Auto) 0.48 0.11-0.59 K/uL Eosinophils # (Auto) 0.00 0-0.5 K/uL Basophils # (Auto) 0.00 0-0.2 K/uL RDW Standard Deviation 46.8 36.4-46.3 fL RDW Coefficient of Variation 14.2 11.5-14.5 % Immature Granulocyte % (Auto) 0.3 % Immature Granulocyte # (Auto) 0.03 0.00-0.02 K/uL Sodium Level 133 136-145 mmol/L Potassium Level 3.9 3.5-5.1 mmol/L Chloride Level 100 98-107 mmol/L Carbon Dioxide Level 27 21-32 mmol/L Anion Gap 6.0 3-11 mmol/L Blood Urea Nitrogen 25 7-18 mg/dl Creatinine 0.98 0.60-1.20 mg/dl Est Creatinine Clear Calc Drug Dose 89.5 ml/min Estimated GFR () 72.7 Estimated GFR (Non- 62.7 BUN/Creatinine Ratio 25.4 10-20 Random Glucose 308 70-99 mg/dl Calcium Level 9.1 8.5-10.1 mg/dl Magnesium Level 2.2 1.8-2.4 mg/dl Beta-Hydroxybutyric Acid 1.08 0.2-2.81 mg/dL
[2016-10-27] MEDS: LEVALBUTEROL 0.63MG/3 ML NEB INH PRN (22:13)
[2016-10-28] VITALS (8 sets, daily range): BP systolic 155–192; BP diastolic 84–91; PULSE 62–94; TEMP 36.1–37.2; O2SAT 93–98
--- NOTE | 2016-10-28 07:41 | DIAGNOSTIC IMAGING REPORT ---
CHEST ONE VIEW PORTABLE HISTORY: Short of breath. congestion/infiltrate COMPARISON: Chest 10/25/2016. FINDINGS: Cardiac silhouette remains mildly enlarged. No pleural effusions. No pneumothorax. There is mild central pulmonary vascular congestion without overt edema. No focal lung consolidations to suggest pneumonia. IMPRESSION: Mild central pulmonary vascular congestion without overt edema. Stable cardiomegaly. Electronically signed by: Rick Gay M.D. 10/28/2016 7:40 AM Dictated Date/Time: 10/28/2016 7:39 AM
[2016-10-28] MEDS: GABAPENTIN 300 MG CAP PO SCH ×2 (07:51→21:18)
[2016-10-28] MEDS: CYANOCOBALAMIN 500 MCG TAB (VIT B-12) PO SCH (07:51)
[2016-10-28] MEDS: FUROSEMIDE INJ 40 MG in SYRINGE 0 ML IV SCH (07:51)
[2016-10-28] MEDS: METHYLPREDNISOLONE IV 40 MG in SYRINGE 0 ML IV SCH (07:51)
[2016-10-28 07:52] LABS: COMPLETE YES; HEMATOCRIT 35.9 % (37-47); IG% 0.3 %; LYMPH % 7.3 %; LYMPH ABS # 0.85 K/uL (1.2-3.4); MEAN CELL VOLUME 89.3 fL (80-100); MEAN CORPUSCULAR HEMOGLOBIN 29.4 pg (25-34); MEAN CORPUSCULAR HGB CONC 32.9 g/dl (32-36); MEAN PLATELET VOLUME 8.9 fL (7.4-10.4); MONO % 4.2 %; NEUT % 88.2 %; PLATELET COUNT 209 K/uL (130-400); RED BLOOD COUNT 4.02 M/uL (4.2-5.4); WHITE BLOOD COUNT 11.63 K/uL (4.8-10.8)
[2016-10-28] MEDS: CITALOPRAM 40 MG TAB PO SCH (07:52)
[2016-10-28] MEDS: DILTIAZEM HCL 120 MG EXT REL CAP PO SCH (07:52)
[2016-10-28] MEDS: RIVAROXABAN 10 MG TAB PO SCH (07:52)
[2016-10-28] MEDS: METOPROLOL TARTRATE 50 MG TAB PO SCH ×2 (07:52→21:18)
[2016-10-28] MEDS: PANTOprazole SOD 40 MG TAB PO SCH (07:52)
[2016-10-28] MEDS: ATORVASTATIN 40 MG TAB PO SCH (07:52)
[2016-10-28] MEDS: LORATADINE 10 MG TAB PO SCH (07:52)
[2016-10-28] MEDS: LISINOPRIL 20 MG TAB PO SCH (07:52)
[2016-10-28] MEDS: MULTIVITAMIN TAB PO SCH (07:53)
[2016-10-28] MEDS: CHOLECALCIFEROL 1000 INTER.UNIT TAB PO SCH (07:53)
[2016-10-28] MEDS: POTASSIUM CHLORIDE 20 MEQ TABCR PO SCH (07:53)
[2016-10-28] MEDS: INSULIN GLARGINE SOLOSTAR 100 UNITS/ML 3 ML PEN SC SCH ×2 (07:55→21:21)
[2016-10-28] MEDS: INSULIN ASPART 100 UNITS/ML 3 ML PEN SC SCH ×4 (08:05→21:22)
[2016-10-28 08:21] LABS: BUN/CREATININE RATIO 32.2 (10-20); CALCIUM 9.2 mg/dl (8.5-10.1); CREATININE 0.9 mg/dl (0.60-1.20); MAGNESIUM 2.5 mg/dl (1.8-2.4)
[2016-10-28] MEDS: LEVOFLOXACIN 500 MG TAB PO SCH (14:02)
--- NOTE | 2016-10-28 17:50 | Progress Note ---
Internal Med Progress Note Date of Service: Oct 28, 2016. Provider Documentation: SUBJECTIVE: sob and cough much better no fevers resting comfortably feeling better eating ok OBJECTIVE: Vital Signs-as noted below Exam: General-alert and oriented. Not in distress ENT-normal hearing Neck-no neck masses Lungs-cta b/l b/l rhonchi present-much improved Heart-s1 and s2 heard regular rhythm, no murmurs Abdomen-soft bowel sounds present non tender no distension Extremities no edema present no erythema Neuro-alert and oriented moves extremities Lab data as noted below. ASSESSMENT & PLAN: This is a 61yo F with a PMH of CHF, chronic A Fib (on xarelto), non-obstructive CAD, DM II, HTN, h/o CVA who presents with worsening SOB that started last evening. Shortness of breath: acute bronchitis acute on chronic systolic chf on iv steroids, po Levaquin and nebs iv lasix improving tapering steroids Acute on chronic CHF: eg 40-45%On echo in june 2016 iv lasix 40mg daily on lisinopril and metoprolol will monitor echo poor study but grossly normal ef if no improvement will consult cardiology f/u cxr improved continue same for now Chronic atrial fibrillation: EKG of A Fib with RVR on admission with HR of 122 Was Placed on diltiazem drip and HR returned to normal range currently home med PO diltiazem and Lopressor rates under control on Xarelto will monitor Stable conditions: HTN: on diltiazem and Lopressor will monitor DM II: hba1c 5.5 oral agents on hold iss will monitor while on steroids Non-obstructive CAD: 2009 cardiac cath performed in [place] showing mild-moderate non-obst. CAD -Complaint of rib pain from coughing, most likely pleuritic CE and ekg unremarkable echo unremarkable SCOTT: Bi PAP to use qHS while in-patient H/o CVA: Reported ? TIA/CVA in 2013 Documented CVA in 2014 with residual decreased L eye acuity on aspirin GERD: Stable Depression: stable on home med DVT Ppx: Xarelto Disposition monitor in tele pt/ot possible d/c in am Vital Signs: Date Time Temp Pulse Resp B/P (MAP) Pulse Ox O2 Delivery O2 Flow Rate FiO2 10/28/16 16:05 Room Air 10/28/16 15:09 36.7 75 18 167/89 (115) 95 Room Air 10/28/16 12:05 Room Air 10/28/16 11:40 37.0 66 20 164/84 (110) 93 Oxymask 3.0 66 10/28/16 08:07 36.6 67 16 192/87 (122) 96 Oxymask 3.0 67 10/28/16 08:05 Room Air 10/28/16 05:53 94 98 5.0 10/28/16 04:00 CPAP 5.0 10/28/16 03:55 36.1 62 17 172/91 (118) 95 BiPAP 10/27/16 23:59 CPAP 5.0 10/27/16 23:55 36.4 67 18 155/81 (105) 97 BiPAP 4.0 10/27/16 22:14 88 18 95 Mask 5.0 10/27/16 20:00 Mask 4.0 10/27/16 18:32 36.3 70 20 173/90 (117) 98 Mask 4.0 Lab Results: Results Past 24 Hours Test 10/27/16 20:23 10/28/16 06:45 10/28/16 07:23 10/28/16 11:21 Range/Units Bedside Glucose 221 220 223 70-90 mg/dl White Blood Count 11.63 4.8-10.8 K/uL Red Blood Count 4.02 4.2-5.4 M/uL Hemoglobin 11.8 12.0-16.0 g/dL Hematocrit 35.9 37-47 % Mean Corpuscular Volume 89.3 80-100 fL Mean Corpuscular Hemoglobin 29.4 25-34 pg Mean Corpuscular Hemoglobin Concent 32.9 32-36 g/dl Platelet Count 209 130-400 K/uL Mean Platelet Volume 8.9 7.4-10.4 fL Neutrophils (%) (Auto) 88.2 % Lymphocytes (%) (Auto) 7.3 % Monocytes (%) (Auto) 4.2 % Eosinophils (%) (Auto) 0.0 % Basophils (%) (Auto) 0.0 % Neutrophils # (Auto) 10.25 1.4-6.5 K/uL Lymphocytes # (Auto) 0.85 1.2-3.4 K/uL Monocytes # (Auto) 0.49 0.11-0.59 K/uL Eosinophils # (Auto) 0.00 0-0.5 K/uL Basophils # (Auto) 0.00 0-0.2 K/uL RDW Standard Deviation 45.9 36.4-46.3 fL RDW Coefficient of Variation 14.0 11.5-14.5 % Immature Granulocyte % (Auto) 0.3 % Immature Granulocyte # (Auto) 0.04 0.00-0.02 K/uL Sodium Level 136 136-145 mmol/L Potassium Level 4.0 3.5-5.1 mmol/L Chloride Level 100 98-107 mmol/L Carbon Dioxide Level 31 21-32 mmol/L Anion Gap 5.0 3-11 mmol/L Blood Urea Nitrogen 29 7-18 mg/dl Creatinine 0.90 0.60-1.20 mg/dl Est Creatinine Clear Calc Drug Dose 92.6 ml/min Estimated GFR () 80.5 Estimated GFR (Non- 69.5 BUN/Creatinine Ratio 32.2 10-20 Random Glucose 211 70-99 mg/dl Calcium Level 9.2 8.5-10.1 mg/dl Magnesium Level 2.5 1.8-2.4 mg/dl Test 10/28/16 16:31 Range/Units Bedside Glucose 166 70-90 mg/dl
[2016-10-28] MEDS ORDERED: METHYLPREDNISOLONE IV 40 MG in SYRINGE 0 ML IV SCH (21:00)
[2016-10-29 03:36] VITALS: BP 188/114; PULSE 67; TEMP 36.7; O2SAT 93
[2016-10-29 05:59] LABS: COMPLETE YES; HEMATOCRIT 36.8 % (37-47); IG% 0.2 %; LYMPH % 8.9 %; LYMPH ABS # 0.89 K/uL (1.2-3.4); MEAN CELL VOLUME 88.2 fL (80-100); MEAN CORPUSCULAR HEMOGLOBIN 28.8 pg (25-34); MEAN CORPUSCULAR HGB CONC 32.6 g/dl (32-36); MEAN PLATELET VOLUME 8.8 fL (7.4-10.4); MONO % 4.8 %; NEUT % 86.1 %; PLATELET COUNT 198 K/uL (130-400); RED BLOOD COUNT 4.17 M/uL (4.2-5.4); WHITE BLOOD COUNT 10.01 K/uL (4.8-10.8)
[2016-10-29 06:28] LABS: BUN/CREATININE RATIO 34.1 (10-20); CALCIUM 8.7 mg/dl (8.5-10.1); CREATININE 0.8 mg/dl (0.60-1.20); MAGNESIUM 2.4 mg/dl (1.8-2.4); POTASSIUM 3.8 mmol/L (3.5-5.1)
[2016-10-29] MEDS: CHOLECALCIFEROL 1000 INTER.UNIT TAB PO SCH (07:36)
[2016-10-29] MEDS: RIVAROXABAN 10 MG TAB PO SCH (07:36)
[2016-10-29] MEDS: METOPROLOL TARTRATE 50 MG TAB PO SCH (07:37)
[2016-10-29] MEDS: MULTIVITAMIN TAB PO SCH (07:37)
[2016-10-29] MEDS: ATORVASTATIN 40 MG TAB PO SCH (07:37)
[2016-10-29] MEDS: POTASSIUM CHLORIDE 20 MEQ TABCR PO SCH (07:37)
[2016-10-29] MEDS: LORATADINE 10 MG TAB PO SCH (07:38)
[2016-10-29] MEDS: DILTIAZEM HCL 120 MG EXT REL CAP PO SCH (07:38)
[2016-10-29] MEDS: LISINOPRIL 20 MG TAB PO SCH (07:38)
[2016-10-29] MEDS: PANTOprazole SOD 40 MG TAB PO SCH (07:38)
[2016-10-29] MEDS: CYANOCOBALAMIN 500 MCG TAB (VIT B-12) PO SCH (07:39)
[2016-10-29] MEDS: GABAPENTIN 300 MG CAP PO SCH (07:39)
[2016-10-29] MEDS: CITALOPRAM 40 MG TAB PO SCH (07:39)
[2016-10-29] MEDS: INSULIN GLARGINE SOLOSTAR 100 UNITS/ML 3 ML PEN SC SCH (07:46)
[2016-10-29] MEDS: INSULIN ASPART 100 UNITS/ML 3 ML PEN SC SCH ×2 (07:46→13:17)
[2016-10-29 07:59] VITALS: BP_SYST 163; BP_SYST 170; BP_DIAS 107; BP_DIAS 98; PULSE 72; TEMP 36.6; O2SAT 96
[2016-10-29 09:05] VITALS: BP 162/81; PULSE 71; TEMP 37.1; O2SAT 93
[2016-10-29] MEDS ORDERED: IPRA1AER2 INH (10:53)
[2016-10-29] MEDS ORDERED: PRED10TA PO (10:53)
[2016-10-29] MEDS ORDERED: LVQ500 PO (10:53)
--- NOTE | 2016-10-29 10:55 | Discharge Instructions ---
Discharge Instructions Date of Service Oct 29, 2016. Admission Reason for Admission: Atrial Fibrillation, Chf Discharge Discharge Diagnosis / Problem: A FIB, CHF, ACUTE BRONCHITIS Discharge Goals Goal(s): Decrease discomfort, Improve function Activity Recommendations Activity Limitations: resume your previous activity . Instructions / Follow-Up Instructions / Follow-Up FOLLOWUP WITH FAMILY DOCTOR WITH IN A WEEK FOLLOW UP WITH CARDIOLOGY IN 1-2 WEEKS Call your Primary Care doctor if any of the following symptoms or problems start or get worse: * Shortness of breath or difficulty breathing * Wake up at night short of breath * Chest pain * Cough * Swelling of your hands, feet, or legs * More fatigued or tired with your normal activity * Palpitations - sudden fast heart beats WEIGHT * Weigh yourself every morning after using the bathroom. * Use the same scale. * Wear the same amount of clothing. * Write your weight down on a chart. * Call your Primary Care doctor if you gain more than 2-3 pounds in 1-2 days. MEDICATIONS * Use this discharge instruction sheet for medication instructions. * Take your medications at the time your doctor ordered. * Do not skip a dose of your medicines. * If you miss a dose of medicine, take it as soon as possible, but DO NOT DOUBLE A DOSE. * Read your medicine information when you get home. * Know all of the side effects of your medicine. If in doubt, ask your pharmacist * Call your Primary Care doctor's office if you have any side effects. * Be sure all of your doctors know what medicine and herbs you take (including cold, flu, and herbal medicine). Take the following with you to your follow-up doctor appointments: * Weight Chart * Medication List * List of questions Do not drink excessive alcohol, beer or wine. Current Hospital Diet Patient's current hospital diet: AHA Diet (Heart Healthy), Diabetes Type 2 Diet Discharge Diet Recommended Diet: AHA Diet (Heart Healthy), Diabetes Type 2 Diet Pending Studies Studies pending at discharge: no Laboratory Results Hemoglobin A1c Test 10/26/16 05:19 Range/Units Estimated Average Glucose 111 mg/dl Hemoglobin A1c 5.5 4.5-5.6 % Medical Emergencies . Who to Call and When: Call 911 or go to the Emergency Room if: * If at any time you feel your situation is an emergency * You have tightness or pain in your chest that does not go away with rest or Nitroglycerin * You are very short of breath even with rest . Non-Emergent Contact Non-Emergency issues call your: Primary Care Provider . . "Provider Documentation" section prepared by Reuben Hill. . VTE Core Measure Inpt VTE Proph given/why not?: Other Anticoagulation (N XARELTO)
[2016-10-29] MEDS: LEVOFLOXACIN 500 MG TAB PO SCH (11:09)
[2016-10-29] MEDS: FUROSEMIDE INJ 40 MG in SYRINGE 0 ML IV SCH (11:09)
[2016-10-29 12:39] VITALS: BP 162/81; PULSE 71; TEMP 37.1; O2SAT 93
--- NOTE | 2016-10-29 17:00 | Progress Note ---
Internal Med Progress Note Date of Service: Oct 29, 2016. Provider Documentation: SUBJECTIVE: sob and cough much improved ambulating fine afebrile no chest pain ok for discharge OBJECTIVE: Vital Signs-as noted below Exam: General-alert and oriented. Not in distress ENT-normal hearing Neck-no neck masses Lungs-cta b/l b/l rhonchi present-resolved Heart-s1 and s2 heard regular rhythm, no murmurs Abdomen-soft bowel sounds present non tender no distension Extremities no edema present no erythema Neuro-alert and oriented moves extremities Lab data as noted below. ASSESSMENT & PLAN: This is a 61yo F with a PMH of CHF, chronic A Fib (on xarelto), non-obstructive CAD, DM II, HTN, h/o CVA who presents with worsening SOB that started last evening. Shortness of breath: acute bronchitis acute on chronic systolic chf on iv steroids, po Levaquin and nebs iv lasix improving d/flores on po Levaquin and tapering steroids improved f/u with pcp and cardiology Acute on chronic CHF: eg 40-45%On echo in june 2016 iv lasix 40mg daily on lisinopril and metoprolol will monitor echo poor study but grossly normal ef if no improvement will consult cardiology f/u cxr improved continue same for now discharged on home meds f/u cardiology Chronic atrial fibrillation: EKG of A Fib with RVR on admission with HR of 122 Was Placed on diltiazem drip and HR returned to normal range currently home med PO diltiazem and Lopressor rates under control on Xarelto HTN: on diltiazem and Lopressor will monitor DM II: hba1c 5.5 oral agents on hold iss d/c on home meds Non-obstructive CAD: 2009 cardiac cath performed in [place] showing mild-moderate non-obst. CAD -Complaint of rib pain from coughing, most likely pleuritic CE and ekg unremarkable echo unremarkable SCOTT: Bi PAP to use qHS while in-patient H/o CVA: Reported ? TIA/CVA in 2013 Documented CVA in 2014 with residual decreased L eye acuity on aspirin GERD: Stable Depression: stable on home med discharged home Vital Signs: Date Time Temp Pulse Resp B/P (MAP) Pulse Ox O2 Delivery O2 Flow Rate FiO2 10/29/16 12:39 37.1 71 19 93 Room Air 10/29/16 12:00 Oxymask 3.0 10/29/16 09:05 37.1 71 19 162/81 (108) 93 Room Air 10/29/16 07:59 36.6 72 20 163/107 (125) 96 Room Air 170/98 (122) 10/29/16 07:30 Oxymask 3.0 10/29/16 04:00 CPAP 10/29/16 03:36 36.7 67 21 188/114 (138) 93 BiPAP 10/28/16 23:59 CPAP 10/28/16 23:00 36.6 75 21 155/91 (112) 93 CPAP 10/28/16 22:56 94 93 5.0 10/28/16 20:00 Room Air 10/28/16 19:56 37.2 65 20 160/90 (113) 96 Oxymask 3.0 Lab Results: Results Past 24 Hours Test 10/28/16 20:56 10/29/16 05:30 10/29/16 06:32 10/29/16 10:50 Range/Units Bedside Glucose 157 205 231 70-90 mg/dl White Blood Count 10.01 4.8-10.8 K/uL Red Blood Count 4.17 4.2-5.4 M/uL Hemoglobin 12.0 12.0-16.0 g/dL Hematocrit 36.8 37-47 % Mean Corpuscular Volume 88.2 80-100 fL Mean Corpuscular Hemoglobin 28.8 25-34 pg Mean Corpuscular Hemoglobin Concent 32.6 32-36 g/dl Platelet Count 198 130-400 K/uL Mean Platelet Volume 8.8 7.4-10.4 fL Neutrophils (%) (Auto) 86.1 % Lymphocytes (%) (Auto) 8.9 % Monocytes (%) (Auto) 4.8 % Eosinophils (%) (Auto) 0.0 % Basophils (%) (Auto) 0.0 % Neutrophils # (Auto) 8.62 1.4-6.5 K/uL Lymphocytes # (Auto) 0.89 1.2-3.4 K/uL Monocytes # (Auto) 0.48 0.11-0.59 K/uL Eosinophils # (Auto) 0.00 0-0.5 K/uL Basophils # (Auto) 0.00 0-0.2 K/uL RDW Standard Deviation 45.1 36.4-46.3 fL RDW Coefficient of Variation 13.9 11.5-14.5 % Immature Granulocyte % (Auto) 0.2 % Immature Granulocyte # (Auto) 0.02 0.00-0.02 K/uL Sodium Level 135 136-145 mmol/L Potassium Level 3.8 3.5-5.1 mmol/L Chloride Level 99 98-107 mmol/L Carbon Dioxide Level 31 21-32 mmol/L Anion Gap 5.0 3-11 mmol/L Blood Urea Nitrogen 27 7-18 mg/dl Creatinine 0.80 0.60-1.20 mg/dl Est Creatinine Clear Calc Drug Dose 103.3 ml/min Estimated GFR () 92.9 Estimated GFR (Non- 80.1 BUN/Creatinine Ratio 34.1 10-20 Random Glucose 217 70-99 mg/dl Calcium Level 8.7 8.5-10.1 mg/dl Magnesium Level 2.4 1.8-2.4 mg/dl
--- NOTE | 2016-10-29 17:47 | Discharge Summary ---
Discharge Summary Date of Service Oct 29, 2016. Discharge Summary Admission Date: Oct 25, 2016 at 13:49 Discharge Date: Oct 29, 2016 Discharge Disposition: Home Principal Diagnosis: SOB ACUTE BRONCHITIS ACUTE ON CHRONIC SYSTOLIC CHF? Secondary Diagnoses/Problems: 1) Atrial fibrillation Status: Chronic (2) CHF (congestive heart failure) Status: Chronic (3) Chronic anticoagulation Status: Chronic (4) Depression Status: Chronic (5) DM type 2 (diabetes mellitus, type 2) Status: Chronic (6) GERD (gastroesophageal reflux disease) Status: Chronic (7) History of CVA (cerebrovascular accident) Permanent Comment: Reported events in 2013 and 2014. Status: Chronic (8) History of uterine cancer Status: Chronic (9) HTN (hypertension) Status: Chronic (10) SCOTT (obstructive sleep apnea) Status: Chronic (11) Stroke Status: Resolved Procedures: CXR: Developing congestive heart failure ECHO: Extremely poor acoustic windows. * Grossly normal cardiac chamber sizes. * Grossly normal LVEF * Grossly normal valvular structure and function Medication Reconciliation New Medications: Ipratropium-Albuterol (Combivent Respimat) 1 Aer Aer 1 PUFFS INH QID PRN for SOB/Wheezing, #1 INH 1 Refill Prednisone Tab (Prednisone) 10 Mg Tab 40 MG PO UD, #20 TAB PREDNISONE 40MG PO DAILY X 2 DAYS THEN PREDNISONE 30MG PO DAILY X 2 DAYS THEN PREDNISONE 20MG PO DAILY X 2 DAYS THEN PREDNISONE 10MG PO DAILY X 2 DAYS THEN STOP. Levofloxacin (Levofloxacin) 500 Mg Tab 500 MG PO DAILY@11 for 4 Days, TAB Continued Medications: Atorvastatin (Atorvastatin Calcium) 40 Mg Tab 1 TAB PO DAILY Cholecalciferol (Vitamin D3) 1,000 Unit Tab 1000 INTER.UNIT PO DAILY for 90 Days, TAB 3 Refills Cinnamon (Cinnamon) 500 Mg Cap 375 MG PO DAILY Citalopram (Citalopram Hydrobromide) 40 Mg Tab 40 MG PO DAILY for 90 Days, #90 TAB 3 Refills Cyanocobalamin (Vitamin B 12) 250 Mcg Malorie 500 MCG PO DAILY Diltiazem Hcl Ext Rel (Tiazac) 240 Mg Capcr 240 MG PO DAILY, CAP Ferrous Fumarate (Iron) 18 Mg Tab 65 MG PO DAILY Fish Oil ([place]-3) 1 Ea Cap 1 CAP PO DAILY, CAP Furosemide (Furosemide) 20 Mg Tab 40 MG PO DAILY for 30 Days, #60 TAB 2 Refills Gabapentin (Neurontin) 300 Mg Cap 300 MG PO QAM, CAP Gabapentin (Neurontin) 300 Mg Cap 600 MG PO HS Glipizide (Glucotrol) 10 Mg Tab 10 MG PO BID, TAB Lisinopril (Lisinopril) 20 Mg Tab 1 TAB PO DAILY Loratadine (Claritin) 10 Mg Tab 10 MG PO DAILY, TAB Melatonin (Gnp Melatonin Maximum Str) 5 Mg Tab 5 MG PO HS Metoprolol Tartrate (Lopressor) (Lopressor) 50 Mg Tab 50 MG PO BID, TAB Multivitamin (Multivitamin) Tab 1 TAB PO DAILY, TAB Pantoprazole (Protonix) 40 Mg Tab 40 MG PO DAILY, #30 TAB Potassium Ext Rel (Klor-Con) 20 Meq Tabcr 40 MEQ PO DAILY, TAB Rivaroxaban (Xarelto) 20 Mg Tab 20 MG PO DAILY, TAB Admission Information HPI (per Admitting provider): This is a 61yo F with a PMH of CHF, chronic A Fib (on xarelto), non-obstructive CAD, DM II, HTN, h/o CVA who presents with worsening SOB that started last evening. Patient was in her normal state of health until yesterday morning, when she woke up with fever, chills, sore throat, runny nose and a cough with productive yellow/green sputum. By evening, noticed that she was SOB with any type of exertion but was still not requiring her PRN home O2. Was unable to use her BiPAP overnight due to coughing. This morning, SOB worsened to occurring at rest, which required her to use home O2 of 2.5L NC. Went to see PCP (Franklyn Nicole PA-C) in clinic and was found to have a low grade fever and decompensated CHF. Sent to the ER for further evaluation. Received a nebulized treatment en route. Patient is now breathing comfortably on 4L NC and saturating in the 90s. Endorses "pain in ribs" from coughing that was relieved with nitro paste. Continues to have an intermittent productive cough that is aggravated by deep inspiration. + Rhinorrhea, sore throat. Denies fever/chills. + LE swelling and orthopnea. Denies confusion, palpitations, PND abd pain, nausea/vomiting, LE weakness. States that she has noticed a 5 lb weight gain since the summer. Did not take medications this morning. Was diagnosed with CHF in June of 2016 at [facility]. Follows with Dr. Callahan ( cardiology) at [facility]. Awaiting records of recent echo performed at OSH. Echo from June 2016 shows a reduced EF of 40-45% with mild LVH and hypokinesis of LV. Did have a cardiac cath performed in Nov 2009 at [facility] that showed mild-moderate non-obstructive CAD. Physical Exam (per Admitting): General Appearance: no apparent distress (Breathing and conversing comfortably with NC O2 in place.), + obese Head: normocephalic, atraumatic Eyes: normal inspection, PERRL ENT: hearing grossly normal, + nasal congestion, + pharyngeal erythema Neck: supple, no adenopathy, trachea midline, + JVD Respiratory/Chest: chest non-tender (Pleuritic pain 2/2 coughing), no respiratory distress, no accessory muscle use, + crackles (Coarse crackles at bilateral bases. ), + wheezing (Expiratory wheezes appreciated throughout lung robles. ) Cardiovascular: no gallop, normal peripheral pulses, + irregularly irregular Abdomen/GI: normal bowel sounds, non tender, soft, no organomegaly Back: normal inspection Extremities/Musculoskelatal: no calf tenderness, normal capillary refill, + swelling (1+ bilateral edema to knees) Neurologic/Psych: alert, normal mood/affect, oriented x 3 Skin: normal color, warm/dry Hospital Course This is a 61yo F with a PMH of CHF, chronic A Fib (on xarelto), non-obstructive CAD, DM II, HTN, h/o CVA who presents with worsening SOB that started last evening. Shortness of breath: acute bronchitis acute on chronic systolic chf on iv steroids, po Levaquin and nebs iv lasix improving d/flores on po Levaquin and tapering steroids improved f/u with pcp and cardiology Acute on chronic CHF: eg 40-45%On echo in june 2016 iv lasix 40mg daily on lisinopril and metoprolol will monitor echo poor study but grossly normal ef if no improvement will consult cardiology f/u cxr improved continue same for now discharged on home meds f/u cardiology Chronic atrial fibrillation: EKG of A Fib with RVR on admission with HR of 122 Was Placed on diltiazem drip and HR returned to normal range currently home med PO diltiazem and Lopressor rates under control on Xarelto HTN: on diltiazem and Lopressor will monitor DM II: hba1c 5.5 oral agents on hold iss d/c on home meds Non-obstructive CAD: 2009 cardiac cath performed in [place] showing mild-moderate non-obst. CAD -Complaint of rib pain from coughing, most likely pleuritic CE and ekg unremarkable echo unremarkable SCOTT: Bi PAP to use qHS while in-patient H/o CVA: Reported ? TIA/CVA in 2013 Documented CVA in 2014 with residual decreased L eye acuity on aspirin GERD: Stable Depression: stable on home med discharged home Total time spent on discharge = 35MINUTES This includes examination of the patient, discharge planning, medication reconciliation, and communication with other providers. Discharge Instructions Discharge Instructions Date of Service Oct 29, 2016. Admission Reason for Admission: Atrial Fibrillation, Chf Discharge Discharge Diagnosis / Problem: A FIB, CHF, ACUTE BRONCHITIS Discharge Goals Goal(s): Decrease discomfort, Improve function Activity Recommendations Activity Limitations: resume your previous activity . Instructions / Follow-Up Instructions / Follow-Up FOLLOWUP WITH FAMILY DOCTOR WITH IN A WEEK FOLLOW UP WITH CARDIOLOGY IN 1-2 WEEKS Call your Primary Care doctor if any of the following symptoms or problems start or get worse: * Shortness of breath or difficulty breathing * Wake up at night short of breath * Chest pain * Cough * Swelling of your hands, feet, or legs * More fatigued or tired with your normal activity * Palpitations - sudden fast heart beats WEIGHT * Weigh yourself every morning after using the bathroom. * Use the same scale. * Wear the same amount of clothing. * Write your weight down on a chart. * Call your Primary Care doctor if you gain more than 2-3 pounds in 1-2 days. MEDICATIONS * Use this discharge instruction sheet for medication instructions. * Take your medications at the time your doctor ordered. * Do not skip a dose of your medicines. * If you miss a dose of medicine, take it as soon as possible, but DO NOT DOUBLE A DOSE. * Read your medicine information when you get home. * Know all of the side effects of your medicine. If in doubt, ask your pharmacist * Call your Primary Care doctor's office if you have any side effects. * Be sure all of your doctors know what medicine and herbs you take (including cold, flu, and herbal medicine). Take the following with you to your follow-up doctor appointments: * Weight Chart * Medication List * List of questions Do not drink excessive alcohol, beer or wine. Current Hospital Diet Patient's current hospital diet: AHA Diet (Heart Healthy), Diabetes Type 2 Diet Discharge Diet Recommended Diet: AHA Diet (Heart Healthy), Diabetes Type 2 Diet Pending Studies Studies pending at discharge: no Laboratory Results Hemoglobin A1c Test 10/26/16 05:19 Range/Units Estimated Average Glucose 111 mg/dl Hemoglobin A1c 5.5 4.5-5.6 % Medical Emergencies . Who to Call and When: Call 911 or go to the Emergency Room if: * If at any time you feel your situation is an emergency * You have tightness or pain in your chest that does not go away with rest or Nitroglycerin * You are very short of breath even with rest . Non-Emergent Contact Non-Emergency issues call your: Primary Care Provider . . "Provider Documentation" section prepared by Reuben Hill. . VTE Core Measure Inpt VTE Proph given/why not?: Other Anticoagulation (N XARELTO)
== END 2016-10-29 13:24 | disposition home or self-care (01) | DRG 202 ==
LOC: EDBD 11:43 → C.EDA 11:44 → C.2T 13:49 → ENRESERV 15:11
PROVIDERS: ADMIT Hospitalist; ATTEND Internal Medicine
DX: J20.9 Acute bronchitis, unspecified (principal); I50.23 Acute on chronic systolic (congestive) heart failure; E11.9 Type 2 diabetes mellitus without complications; K21.9 Gastro-esophageal reflux disease without esophagitis; Z86.73 Personal history of transient ischemic attack (TIA), and cerebral infarction without residual deficits; G47.33 Obstructive sleep apnea (adult) (pediatric); I48.2 Chronic atrial fibrillation; I11.0 Hypertensive heart disease with heart failure; I25.10 Atherosclerotic heart disease of native coronary artery without angina pectoris; Z79.01 Long term (current) use of anticoagulants; F32.9 Major depressive disorder, single episode, unspecified

== ENCOUNTER 2020-04-25 13:04 | Inpatient (IN) ==
--- OUTSIDE RECORDS SUMMARY | 2020-04-25 15:14 | External Medical Summary | Continuity of Care Document ---
:1955 Author Name Alex M.DSonja Address Unavailable Unavailable , Care Team Providers Name Role Phone Unavailable Unavailable Unavailable PCP, UNKNOWN Unavailable Unavailable Problems Atrial flutter (427.32) (I48.92) Atrial fibrillation (427.31) (I48.91) Dizziness (780.4) (R42) Allergic rhinitis (477.9) (J30.9) Depression (311) (F32.9) Mixed hyperlipidemia (272.2) (E78.2) Shortness of breath on exertion (786.05) (R06.02) Chest pain (786.50) (R07.9) Benign essential hypertension (401.1) (I10) History of chronic atrial fibrillation (V12.59) (Z86.79) Allergies and Adverse Reactions codeine (Allergy) Reaction: Nausea Erythromycin Derivatives (Allergy) React ion: Nausea, Vomiting Medications Acetaminophen 500 MG CAPS; TAKE DIRECTED ON BOTTLE. , M.D . Refills: 0 Atenolol 50 MG Oral Tablet; TAKE 1 TABLET TWICE DAILY. , M.D . Quantity: 180 Refills: 3 Atorvastatin Calcium 40 MG Oral Tablet; TAKE 1 TABLET DAILY. , M.D. Quantity: 30 Refills: 11 Cartia XT 240 MG Oral Capsule Extended R elease 24 Hour; TAKE 1 CAPSULE EVERY DAY , M.D. Refills: 0 CeleXA 20 MG Oral Tablet; TAKE ONE TABLET BY MOUTH DAILY , M .D. Refills: 0 Flovent Diskus 50 MCG/BLIST Inhalation A erosol Powder Breath Activated; USE ONE INHALATION TWICE A DAY , M.D. Refills: 0 Glucovance 5-500 MG TABS; TAKE 1 TABLET TWICE DAILY. , M.D. Refills: 0 Ferrous Sulfate ER 50 MG Oral Tablet Extended Release; TAKE 1 TAB DAILY. , M.D. Refills: 0 Lisinopril 20 MG Oral Tablet; TAKE 1 TABLET TWICE DAILY. , M .D. Quantity: 180 Refills: 3 Loratadine 10 MG Oral Tablet; TAKE 1 TABLET DAILY NEEDED. , M.D. Refills: 0 Meclizine HCl - 25 MG Oral Tablet; TAKE 1 TABLET EVERY 8 TO 12 HOURS NEEDED , M.D. Refills: 0 Multivitamins CAPS; TAKE 1 CAP DAILY. , M.D. Refills: 0 Potassium Chloride 20 MEQ TBCR; TAKE 2 TABLETS DAILY. , M.D. Refills: 0 Pred Forte 1 % Ophthalmic Suspension; USE DIRECTED. , M.D . Refills: 0 Triamterene-HCTZ 37.5-25 MG Oral Capsule; TAKE 1 CAPSULE Leigh Ann ly , M.D. Refills: 0 Vitamin B Complex CAPS; TAKE 1 CAP DAILY. , M.D. Refills: 0 Xarelto 20 MG Oral Tablet; TAKE 1 TABLET BY MOUTH DAILY , M. D. Quantity: 90 Refills: 3 Procedures Procedures not documented Immunizations Immunizations not documented Family History Mother Family history of CAD (coronary artery disease) (414.0 0) (I25.10) Status: Active FH: CABG (coronary artery bypass surgery) (V17.3) (Z82.49) S tatus: Active Family history of atrial fibrillation (V17.49) (Z82.49) Stat us: Active Family history of cerebrovascular accident (CVA) (V17.1) (Z8 2.3) Status: Active Father Family history of CAD (coronary artery disease) (414.0 0) (I25.10) Status: Active FH: CABG (coronary artery bypass surgery) (V17.3) (Z82.49) S tatus: Active Family history of cerebrovascular accident (CVA) (V17.1) (Z8 2.3) Status: Active Family history of cardiac disorder (V17.49) (Z82.49) Status: Active Grandfather Family history of malignant neoplasm of urinary bladder (V16 .52) Status: Active (Z80.52) Social History - Smoking Status Never smoked tobacco Plan of Treatment Planned Observations Planned Goals not documented Results No Known Results Results not documented
--- NOTE | 2020-04-25 16:17 | History & Physical Report ---
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 Left lower extremity osteomyelitis, diabetic foot ulcer with cellulitis CBC, BMP, CRP, ESR, blood culture, wound culture pending By report on CT fifth metatarsal evidence of osteomyelitis MRI pending. Preferably with contrast, may defer to without if needed based on creatinine when available Orthopedics consulted, case discussed with Dr. Lee. Patient nontoxic Previously on Zosyn/vancomycin. Clindamycin added on transfer Convert to Zosyn/daptomycin with clindamycin IV Wound care consulted Type 2 diabetes mellitus A1c pending Home glipizide held Converted to basal bolus, Weight-based. Lantus 20 daily, CF 35, ratio 11 Glucose checks AC/at bedtime Diabetic diet Chronic Congestive heart failure Patient unsure of past echo results, reports history of CHF on Lasix TTE pending, new systolic murmur appreciated BNP pending Patient reports clinical signs of volume overload including difficulty breathing laying flat and increased swelling in legs CXR pending Continue atorvastatin 40 mg daily Lisinopril held temporarily Continue metoprolol 50 mg tartrate twice daily Continue Lasix 40 mg daily, 1X Lasix 20 mg IV given for clinical volume overload A. fib on chronic Xarelto anticoagulation Patient irregularly irregular on exam Xarelto held in anticipation of potential surgical intervention this coming week Convert to heparin GTT while held Adequately rate controlled at time of admission Hypertension Continue diltiazem 240 mg CD MAJO held as above Metoprolol as above Wheezing Unclear, patient reports uses Combivent up to four times daily as needed but does not the regular medications DuoNebs as needed Incentive spirometry Flutter valve CAD -Continue b jn, ACEi, Depression Continue aripiprazole 10 mg daily Continue citalopram 40 mg daily GERD Continue pantoprazole 40 mg daily DVT prophylaxis: Heparinized as above Disposition: Medical with telemetry Diet: Diabetic diet CODE STATUS: Full code (2) DM type 2 (diabetes mellitus, type 2): (3) HTN (hypertension): (4) Atrial fibrillation: (5) CHF (congestive heart failure): (6) Chronic anticoagulation: (7) History of uterine cancer: (8) SCOTT (obstructive sleep apnea): (9) Depression: (10) GERD (gastroesophageal reflux disease): (11) History of CVA (cerebrovascular accident): (12) Atrial fibrillation with RVR: (13) Status post cardiac catheterization: (14) Left leg cellulitis: Admission and Anticipated Discharge Date Admission Date: April 25, 2020 History of Present Illness Chief Complaint: Foot infection Primary Care Provider: [facility] Zacarias is a 64-year-old female with a past medical history of atrial fibrillation on Xarelto anticoagulation, congestive heart failure, type 2 diabetes mellitus not on insulin, hypertension, SCOTT, GERD, CVA, and 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 Mery reports that her symptoms began in October with increased swelling in her legs bilaterally. She reports her legs were "leaking "and "I was in CHF ". She eventually presented to her primary care physician in December who diagnosed her with superimposed cellulitis and placed her on 7 days of ciprofloxacin. She reports she did not improve and a few days later went to the emergency department who performed a swab and culture and put her on another medicine of which she is unsure the name but thinks it might have been clindamycin. She reports she did not have resolution of her symptoms and on March 08 went to the emergency department and was placed on "a blue pill that covered for MRSA that you had to take 4 times a day "for 10 days and had resolution of her cellulitis over the next 10 days. Despite resolution of her cellulitis, at the end of February she noticed that she developed left foot pain which gradually worsened and felt like "walking on glass "she feels this symptom gradually worsened and on this past , 2 days prior to presentation to the hospital, was trying to look at her foot when a ulcer seem to rupture and 1/2 teaspoon of purulent white pus "gush "from the outside of the left foot. She reports she felt better after that, and her foot "decreased in size by 50% ", but was advised on Monday to seek additional medical attention. She presented to [facility] who placed her on IV antibiotics and on imaging had concern for gas producing infection and osteomyelitis and transferred her to [facility] for further care. The case was discussed with Dr. Lee prior to transfer who agreed to see the patient following transfer. In addition to the above Mery reports that she has had shaking chills for the past 2 months which only resolved after antibiotics were begun at [facility] 2 days ago. She does not think she had a temperature at any point. She endorses chronic shortness of breath Which is worse laying flat at night. She sleeps on one pillow older than half in order to prop herself up. She reports she is supposed to use CPAP at night, but her multi has had to do it so she has not been able to use it lately. She endorses chronic numbness due to neuropathy in both her feet bilaterally. She reports over the previous few months she has just globally become weaker, and reports while she has not fallen she finds it harder and harder to walk around to maintain her strength and needs increasing mechanical assistance to walk. No bowel or bladder retention/incontinence, her legs do not give out, she just feels she is progressively becoming very weak. Medications: Medication list reviewed. She has a medication list with her which she reports is up-to-date other than a recent addition of 10 mg daily of aripiprazole for depression in addition to her sertraline. Medications: Atorvastatin 40 daily, Cartia XT 240 mg daily, citalopram 40 mg daily, furosemide 40 mg daily as needed, glipizide 10 mg twice daily, isosorbide mononitrate 30 mg every morning, lisinopril 20 mg twice daily, metoprolol 50 mg twice daily, pantoprazole 40 mg daily, potassium chloride 20 M EQ twice daily, gabapentin 300 mg 3 times daily, loratadine 10 mg daily, Combivent 1 puff up to 4 times daily as needed, Xarelto 20 mg daily. Surgical history: Reviewed. Status post hysterectomy. Allergies: Erythromycin hives, codeine nausea. Denies other medication allergies. Social: Reports she lives in a home alone, increasing difficulty performing activities of daily living. Reports "I struggle lately, and think I need some help ". Tobacco: Denies current and former use Alcohol: Reports no alcohol use since age 41 Recreational drug use: Denies CODE STATUS: Full code Allergies Allergy/AdvReac Type Severity Reaction Status Date / Time codeine Allergy Unknown unsure Unverified 10/25/16 14:51 erythromycin base Allergy Unknown unsure Unverified 10/25/16 14:51 Home Medications Medication Instructions Recorded Confirmed Type CHOLECALCIFEROL (VITAMIN D3) 1,000 inter.unit PO DAILY 90 Days 06/15/16 04/25/20 History #0 tab CINNAMON 375 mg PO DAILY #0 06/15/16 History CYANOCOBALAMIN (VITAMIN B 12) 500 mcg PO DAILY #0 06/15/16 04/25/20 History Citalopram (Citalopram 40 mg PO DAILY 90 Days #90 tab 06/15/16 04/25/20 History Hydrobromide) FERROUS FUMARATE (IRON) 65 mg PO DAILY #0 06/15/16 04/25/20 History Fish Oil (Mitchell-3) 1 cap PO DAILY #0 cap 06/15/16 04/25/20 History Gabapentin (Neurontin) 300 mg PO TID #0 cap 06/15/16 History Loratadine (Claritin) 10 mg PO DAILY #0 tab 06/15/16 04/25/20 History MELATONIN (GNP MELATONIN MAXIMUM 5 mg PO HS #0 06/15/16 04/25/20 History STR) Multivitamin 1 tab PO DAILY #0 tab 06/15/16 04/25/20 History Pantoprazole (Protonix) 40 mg PO DAILY #30 tab 06/15/16 04/25/20 History RIVAROXABAN (XARELTO) 20 mg PO DAILY #0 tab 06/15/16 04/25/20 History ATORVASTATIN (LIPITOR) 1 tab PO DAILY #0 10/25/16 04/25/20 History GLIPIZIDE (GLUCOTROL) 10 mg PO BID #0 tab 10/25/16 04/25/20 History Lisinopril 1 tab PO DAILY #0 10/25/16 04/25/20 History Metoprolol Tartrate (Lopressor) 50 mg PO BID #0 tab 10/25/16 04/25/20 History (Lopressor) Potassium Ext Rel (Klor-Con) 20 meq PO BID #0 tab 10/25/16 04/25/20 History IPRATROPIUM-ALBUTEROL (COMBIVENT 1 puff INHALATION QID PRN #1 inh 10/29/16 04/25/20 Rx RESPIMAT) Furosemide 40 mg PO BID PRN 04/25/20 History Past Med/Surg History Surgical History (Updated 04/25/20 @ 16:31 by Ranjan White MD) H/O: hysterectomy Social History Smoking Status: Never smoker Second Hand Exposure: Yes; Do You Dip or Chew Tobacco: No; Hx Alcohol Use: No Hx Substance Use: No Preferred Language: Icelandic Communication Ability: Effective Supplier Development 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 NAD. Cooperative. Skin warm and dry. See extremity exam below. HEENT: Atraumatic, normocephalic. Visual acuity grossly intact. Pupils equal and reactive to light. Pulm: Trace end expiratory wheezes, moderate air movement. No increased work of breathing. No respiratory distress. Bibasilar crackles. Cardiac: Regular rhythm, systolic murmur present. Radial pulses intact and symmetrical. Abdominal: Obese, nontender, nondistended, soft. BS present. Extremities: Left lower extremity: Left lower extremity edematous with chronic venous stasis changes through the calf. Increased erythema compared to the right ascending to a few centimeters below the knee, marked with marking pen. No additional overlying warmth or tenderness. Left foot swollen, 3 cm diameter ulceration at lateral distal fifth PIP/MTP junction with tracking and underlying necrosis. Patient with reduced sensation of the foot globally. PT pulses not able to be appreciated. Right lower extremity: Mild pitting edema, less than left. No overlying cellulitis. Sensation decreased to soft touch over the foot and distal lower extremity. PT pulse intact but difficult to appreciate due to swelling. Small surface ~2mm superficial grade I ulceration at dorsal midfoot. Ankle plantarflexion/dorsiflexion intact bilaterally without pain. [employer] strength, elbow flexion/extension, shoulder internal rotation/external rotation 4+/5 bilaterally. Supervising Physician Co-Signing Physician Notes Resident Physician Supervision Note: I independently interviewed and examined the patient and verified the tripathi history and physical, reviewed labs and image studies, discussed the case with the resident Dr. White and agree with the findings and care plan. Resident Activity Tracking Resident Involvement: Resident Care Provided Care Provided: Adult [facility] Medicine
[2020-04-25] MEDS ORDERED: PIPERACILL/TAZOBAC CONSULT ACTIVE PRN (16:55)
[2020-04-25] MEDS ORDERED: MELATONIN 3 MG TAB PO PRN (17:00)
[2020-04-25] MEDS ORDERED: PATIENT'S HEIGHT AND/OR WEIGHT NEEDED SCH (17:15)
--- NOTE | 2020-04-25 17:25 | XRay Report ---
XR chest 1V portable HISTORY: 64 years-old Female CHF acute shortness of breath with reported heart failure COMPARISON: Chest radiograph 10/28/2016 TECHNIQUE: AP view of the chest. FINDINGS: Cardiac silhouette is moderately enlarged. Pulmonary vascular congestion with mild reticular opacitie s. Calcified plaque of the thoracic aorta. No pneumothorax. Small left pleural effusion with left molly g base opacities. Degenerative changes of the shoulders and spine. IMPRESSION: 1. Cardiomegaly with mild pulmonary edema. 2. Small left pleural effusion with left lung base opacities suggestive of atelectasis versus pneumon itis. ACT 112: Negative or not required by law. The above report was generated using voice recognition software. It may contain grammatical, syntax o r spelling errors. Electronically signed by: Julius Brothers M.D. 04/25/2020 5:23 PM
[2020-04-25] MEDS ORDERED: DEXTROSE 50% 50 ML SYRINGE IV PRN (17:26)
[2020-04-25] MEDS ORDERED: GLUCOSE 10 TABS/TUBE PO PRN (17:26)
[2020-04-25] MEDS ORDERED: CARBOHYDRATES FOR HYPOGLYCEMIA PO PRN (17:26)
[2020-04-25] MEDS ORDERED: GLUCAGON FOR INJ 1 MG VIAL SQ PRN (17:26)
[2020-04-25] MEDS ORDERED: GLUCOSE 40% GEL 15 GM TUBE PO PRN (17:26)
[2020-04-25] MEDS ORDERED: PIPERACILLIN/TAZOBACTAM 3.375 GM in DEXTROSE 5% 100 ML IV ONE (17:30)
[2020-04-25] MEDS: Heparin IV Adult Wt-Based Standard *NO* Bolus Protocol IV SCH ×2 (18:24→19:33)
[2020-04-25] MEDS: INSULIN ASPART 100 UNITS/ML 3 ML PEN SC SCH ×2 (18:26→21:25)
[2020-04-25 18:29] LABS: Basophils # (auto) 0.02 K/uL (0-0.2); Basophils % (auto) 0.3 %; Eosinophils # (auto) 0.14 K/uL (0-0.5); Eosinophils % (auto) 2.3 %; Hematocrit (blood only) 34.1 % (37-47); Hemoglobin 10.4 g/dL (12.0-16.0); Immature Granulocytes # (auto) 0.01 K/uL (0.00-0.02); Immature Granulocytes % (auto) 0.2 %; Lymphocytes # (auto) 0.87 K/uL (1.2-3.4); Lymphocytes % (auto) 14.4 %; Mean Corpuscular Hemoglobin 26.1 pg (25-34); Mean Corpuscular Volume 85.7 fL (80-100); Mean Platelet Volume 9.1 fL (7.4-10.4); Monocytes # (auto) 0.58 K/uL (0.11-0.59); Monocytes % (auto) 9.6 %; Neutrophils # (auto) 4.42 K/uL (1.4-6.5); Neutrophils % (auto) 73.2 %; Platelet Count 229 K/uL (130-400); RDW Coefficient of Variation 15.3 % (11.5-14.5); RDW Standard Deviation 48.1 fL (36.4-46.3); Red Blood Count 3.98 M/uL (4.2-5.4); White Blood Count 6.04 K/uL (4.8-10.8)
[2020-04-25] MEDS: CLINDAMYCIN 600 MG in DEXTROSE 5% 50 ML IV SCH (18:29)
[2020-04-25] MEDS ORDERED: DAPTOmycin 350 MG in SYRINGE 0 ML IV ONE (18:30)
[2020-04-25 18:44] LABS: INR 1.3 (0.9-1.1); Partial Thromboplastin Ratio 1.3; Partial Thromboplastin Time 34.5 Seconds (21.0-31.0); Prothrombin Time 12.6 Seconds (9.0-12.0)
[2020-04-25 18:58] LABS: Mean Corpuscular Hgb Conc 30.5 g/dL (32-36)
[2020-04-25 19:01] LABS: BUN Creatinine Ratio 22.3 (10-20); Calcium 8.2 mg/dl (8.5-10.1); Creatinine Clr Calc Pharmacy 88.7 ml/min; Est GFR (African American) 76.8; Est GFR (Non-African American) 66.3; Potassium 4.5 mmol/L (3.5-5.1)
[2020-04-25] MEDS: HEPARIN SODIUM/DEXTROSE 25,000 UNITS/500 ML BAG IV SCH (19:02)
[2020-04-25 19:05] LABS: C Reactive Protein 6.65 mg/dl (0-0.29)
[2020-04-25] MEDS ORDERED: FUROSEMIDE 20 MG in SYRINGE 0 ML IV ONE (20:00)
[2020-04-25] MEDS: METOPROLOL TARTRATE 50 MG TAB PO SCH (21:26)
[2020-04-25] MEDS: GABAPENTIN 300 MG CAP PO SCH (21:26)
[2020-04-25] MEDS: PIPERACILLIN/TAZOBACTAM 4.5 GM in DEXTROSE 5% 100 ML IV SCH (21:27)
[2020-04-26 01:19] LABS: Partial Thromboplastin Ratio 1.6; Partial Thromboplastin Time 42.1 Seconds (21.0-31.0)
[2020-04-26] MEDS: CLINDAMYCIN 600 MG in DEXTROSE 5% 50 ML IV SCH ×3 (04:38→17:13)
[2020-04-26] MEDS: PIPERACILLIN/TAZOBACTAM 4.5 GM in DEXTROSE 5% 100 ML IV SCH ×3 (06:37→21:52)
[2020-04-26] MEDS: ATORVASTATIN 40 MG TAB PO SCH (08:12)
[2020-04-26] MEDS: dilTIAZem HCL 240 MG CAPCR PO SCH (08:12)
--- NOTE | 2020-04-26 08:12 | Hospitalist Progress Note ---
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 Left lower extremity osteomyelitis, diabetic foot ulcer with cellulitis No leukocytosis, ESR 47, CRP 6.65, By report on CT fifth metatarsal evidence of osteomyelitis MRI with and without contrast pending Orthopedics consulted, case discussed with Dr. Lee. Patient nontoxic Continue Zosyn/daptomycin with clindamycin IV Wound care consulted Type 2 diabetes mellitus A1c pending Home glipizide held Converted to basal bolus, Weight-based. Lantus 20 daily, CF 35, ratio 11 Glucose checks AC/at bedtime Diabetic diet Chronic Congestive heart failure Patient unsure of past echo results, reports history of CHF on Lasix TTE pending, new systolic murmur appreciated BNP 2464 CXR with cardiomegaly and mild pulmonary edema Continue atorvastatin 40 mg daily Lisinopril held temporarily Continue metoprolol 50 mg tartrate twice daily Patient responded with brisk diuresis to 1X Lasix 20 mg IV. Continue p.o. Lasix 20 mg twice daily x1-2 days, hold as indicated based on clinical volume status A. fib on chronic Xarelto anticoagulation Patient irregularly irregular on exam Xarelto held in anticipation of potential surgical intervention this coming week Convert to heparin GTT while held Adequately rate controlled at time of admission Hypertension Continue diltiazem 240 mg CD MAJO held as above Metoprolol as above Wheezing Unclear, patient reports uses Combivent up to four times daily as needed but does not the regular medications DuoNebs as needed Incentive spirometry Flutter valve Depression Continue aripiprazole 10 mg daily Continue citalopram 40 mg daily GERD Continue pantoprazole 40 mg daily Social Patient ports difficulties at home with self-care in addition to recent difficulties with paying bills/registering her car in addition to the loss of her job in the past month. Reports is difficult living condition at home, and may not have adequate resources to appropriately care for her medical condition at home alone at this time. Case management consulted. DVT prophylaxis: Heparinized as above Disposition: Medical with telemetry Diet: Diabetic diet CODE STATUS: Full code (2) DM type 2 (diabetes mellitus, type 2): (3) HTN (hypertension): (4) Atrial fibrillation: (5) CHF (congestive heart failure): (6) Chronic anticoagulation: (7) History of uterine cancer: (8) SCOTT (obstructive sleep apnea): (9) Depression: (10) GERD (gastroesophageal reflux disease): (11) History of CVA (cerebrovascular accident): (12) Atrial fibrillation with RVR: (13) Status post cardiac catheterization: (14) Left leg cellulitis: Admission and Anticipated Discharge Date Admission Date: April 25, 2020 Supervising Physician Co-Signing Physician Notes Resident Physician Supervision Note: I independently interviewed and examined the patient and verified the tripathi history and physical, reviewed labs and image studies, discussed the case with the resident Dr. White and agree with the findings and care plan. Subjective Patient seen at bedside. She reports she feels well, unchanged from prior. No fevers chills. No chest pain, shortness of breath, difficulty breathing. Has been ambulating today. All does not feel a change from prior, is looking forward to moving forward with the plan. Has not yet had MRI. No questions or concerns at bedside. Review of Systems Review of Systems: 10 point review of systems negative except as noted in HPI Physical Exam Physical Exam: General: A&Ox3. NAD. Cooperative. Skin warm and dry. See extremity exam below. HEENT: Atraumatic, normocephalic. Visual acuity grossly intact. Pupils equal and reactive to light. Pulm: Trace end expiratory wheezes, moderate air movement. No increased work of breathing. No respiratory distress. Bibasilar crackles. Cardiac: Regular rhythm, systolic murmur present. Radial pulses intact and symmetrical. Abdominal: Obese, nontender, nondistended, soft. BS present. Extremities: Left lower extremity: Left lower extremity edematous with chronic venous stasis changes through the calf. Increased erythema compared to the right ascending to a few centimeters below the knee, marked with marking pen. No additional overlying warmth or tenderness. No significant change from prior. Left foot swollen, 3 cm diameter ulceration at lateral distal fifth PIP/MTP junction with tracking and underlying necrosis. Patient with reduced sensation of the foot globally. PT pulse not able to be appreciated. Right lower extremity: Mild pitting edema, less than left. No overlying cellulitis. Sensation decreased to soft touch over the foot and distal lower extremity. Small surface ~2mm superficial grade I ulceration at dorsal midfoot. Results & Data Results & Data ([facility]) Vital Signs (Past 12 Hours) Vital Signs Temp Pulse Pulse Resp BP Pulse Ox 04/26/20 07:45 75 04/26/20 07:00 36.7 C 77 20 127/89 90 04/26/20 03:00 36.7 C 81 20 129/76 92 04/26/20 00:00 77 04/25/20 23:00 36.7 C 87 20 137/71 92 04/25/20 21:00 67 20 91 Resident Activity Tracking Resident Involvement: Resident Care Provided Care Provided: Adult Hospital Medicine
[2020-04-26] MEDS: LORATADINE 10 MG TAB PO SCH (08:13)
[2020-04-26] MEDS: FUROSEMIDE 20 MG TAB PO SCH ×2 (08:13→17:16)
[2020-04-26] MEDS: CITALOPRAM 40 MG TAB PO SCH (08:13)
[2020-04-26] MEDS: ISOSORBIDE MONO EXTENDED REL 30 MG TABCR PO SCH (08:13)
[2020-04-26] MEDS: INSULIN ASPART 100 UNITS/ML 3 ML PEN SC SCH ×4 (08:13→20:41)
[2020-04-26] MEDS: PANTOprazole 40 MG TAB PO SCH (08:13)
[2020-04-26] MEDS: ARIPiprazole 10 MG TAB PO SCH (08:13)
[2020-04-26] MEDS: INSULIN GLARGINE SOLOSTAR 100 UNITS/ML 3 ML PEN SC SCH (08:15)
[2020-04-26] MEDS: METOPROLOL TARTRATE 50 MG TAB PO SCH ×2 (08:16→21:51)
[2020-04-26] MEDS: GABAPENTIN 300 MG CAP PO SCH ×3 (08:16→21:52)
[2020-04-26 08:25] LABS: Basophils # (auto) 0.04 K/uL (0-0.2); Eosinophils # (auto) 0.16 K/uL (0-0.5); Eosinophils % (auto) 3.9 %; Hematocrit (blood only) 34.7 % (37-47); Hemoglobin 10.5 g/dL (12.0-16.0); Immature Granulocytes # (auto) 0.01 K/uL (0.00-0.02); Immature Granulocytes % (auto) 0.2 %; Lymphocytes # (auto) 0.97 K/uL (1.2-3.4); Lymphocytes % (auto) 23.4 %; Mean Corpuscular Hgb Conc 30.3 g/dL (32-36); Mean Corpuscular Volume 85.9 fL (80-100); Mean Platelet Volume 9.2 fL (7.4-10.4); Monocytes # (auto) 0.52 K/uL (0.11-0.59); Monocytes % (auto) 12.5 %; Neutrophils # (auto) 2.45 K/uL (1.4-6.5); Platelet Count 228 K/uL (130-400); RDW Coefficient of Variation 15.4 % (11.5-14.5); RDW Standard Deviation 48.8 fL (36.4-46.3); Red Blood Count 4.04 M/uL (4.2-5.4); White Blood Count 4.15 K/uL (4.8-10.8)
[2020-04-26 08:46] LABS: Partial Thromboplastin Ratio 1.7
[2020-04-26 08:50] LABS: BUN Creatinine Ratio 20.7 (10-20); Calcium 8.8 mg/dl (8.5-10.1); Creatinine Clr Calc Pharmacy 86.6 ml/min; Est GFR (African American) 74.8; Est GFR (Non-African American) 64.6
[2020-04-26] MEDS: HEPARIN SODIUM/DEXTROSE 25,000 UNITS/500 ML BAG IV SCH ×2 (09:05→10:53)
--- NOTE | 2020-04-26 12:23 | XCELERA ---
[id number]
[2020-04-26] MEDS: ACETAMINOPHEN 325 MG TAB PO PRN (15:14)
[2020-04-26 15:54] LABS: Partial Thromboplastin Ratio 1.3; Partial Thromboplastin Time 33.2 Seconds (21.0-31.0)
[2020-04-26] MEDS ORDERED: GADOBUTROL 10ML VIAL IV ONE (16:07)
[2020-04-26] MEDS: DAPTOmycin 550 MG in SYRINGE 0 ML IV SCH (17:14)
[2020-04-26] MEDS ORDERED: HEPARIN IV BOLUS 4,000 UNITS in SYRINGE 0 ML IV ONE (18:00)
--- NOTE | 2020-04-26 18:35 | Magnetic Resonance Report ---
MRI OF THE LEFT FOREFOOT COMBO CLINICAL HISTORY: Left foot infection. COMPARISON STUDY: No priors. TECHNIQUE: MRI of the left forefoot is performed using various T1 and T2-weighted sequences in the ax ial, sagittal, and coronal planes. Contrast-enhanced sequences are acquired following the IV administ ration of 12.5 cc of Gadavist. Note that interpretation is significantly suboptimal without plain aziza m correlate. FINDINGS: There is significant marrow edema identified throughout the fifth metatarsal and involving the fifth proximal phalanx. There is nonspecific associated postcontrast enhancement, and the appeara nce is highly concerning for osteomyelitis. Question marrow abnormality within the fifth middle and d istal phalanges. This is not well evaluated due to significant motion artifact and failure of fat sup pression. Erosive change is suggested in the head of the fifth metatarsal, and possibly within the ba se of the fifth proximal phalanx. No additional foci of similar-appearing marrow change are seen thro ughout the remainder of the forefoot. A large cutaneous ulceration is seen overlying the fifth metata rsophalangeal joint. There is surrounding soft tissue edema and nonspecific patchy abnormal enhanceme nt. No organized fluid collection is clearly identified. Milder soft tissue edema is seen throughout the forefoot. There is diffuse myositis of the regional musculature. Degenerative changes noted in th e midfoot. IMPRESSION: 1. Severely motion compromised examination. 2. Findings are consistent with osteomyelitis involving the fifth metatarsal and the fifth proximal p halanx as above. 3. There is evidence of a large overlying soft tissue wound/ulceration and cellulitis. 4. No organized fluid collection is seen to suggest abscess. 5. No similar appearing marrow changes are seen throughout the remainder of the forefoot. Dictated: 04/26/2020 5:30 PM Transcribed: 04/26/2020 6:13 PM Mary [id number] Electronically signed by: Tal Randle M.D. 04/26/2020 6:33 PM
[2020-04-27 01:01] LABS: Partial Thromboplastin Ratio 2.3
[2020-04-27] MEDS: CLINDAMYCIN 600 MG in DEXTROSE 5% 50 ML IV SCH ×3 (01:57→18:51)
[2020-04-27] MEDS: HEPARIN SODIUM/DEXTROSE 25,000 UNITS/500 ML BAG IV SCH ×2 (01:58→15:41)
[2020-04-27 05:54] LABS: Estimated Average Glucose 163 mg/dl; Hemoglobin A1C 7.3 % (4.5-5.6)
[2020-04-27] MEDS: PIPERACILLIN/TAZOBACTAM 4.5 GM in DEXTROSE 5% 100 ML IV SCH ×3 (05:57→22:44)
[2020-04-27] MEDS: PANTOprazole 40 MG TAB PO SCH (08:03)
[2020-04-27] MEDS: METOPROLOL TARTRATE 50 MG TAB PO SCH ×2 (08:03→20:52)
[2020-04-27] MEDS: dilTIAZem HCL 240 MG CAPCR PO SCH (08:03)
[2020-04-27] MEDS: LORATADINE 10 MG TAB PO SCH (08:03)
[2020-04-27] MEDS: ARIPiprazole 10 MG TAB PO SCH (08:03)
[2020-04-27] MEDS: ISOSORBIDE MONO EXTENDED REL 30 MG TABCR PO SCH (08:03)
[2020-04-27] MEDS: ATORVASTATIN 40 MG TAB PO SCH (08:03)
[2020-04-27] MEDS: GABAPENTIN 300 MG CAP PO SCH ×3 (08:03→21:13)
[2020-04-27] MEDS: CITALOPRAM 40 MG TAB PO SCH (08:03)
[2020-04-27] MEDS: INSULIN GLARGINE SOLOSTAR 100 UNITS/ML 3 ML PEN SC SCH (08:04)
[2020-04-27] MEDS: INSULIN ASPART 100 UNITS/ML 3 ML PEN SC SCH ×4 (08:04→21:30)
[2020-04-27 08:12] LABS: Basophils # (auto) 0.02 K/uL (0-0.2); Basophils % (auto) 0.6 %; Eosinophils # (auto) 0.16 K/uL (0-0.5); Eosinophils % (auto) 4.6 %; Hematocrit (blood only) 33.6 % (37-47); Hemoglobin 10.4 g/dL (12.0-16.0); Immature Granulocytes # (auto) 0.01 K/uL (0.00-0.02); Immature Granulocytes % (auto) 0.3 %; Lymphocytes # (auto) 0.89 K/uL (1.2-3.4); Lymphocytes % (auto) 25.7 %; Mean Corpuscular Hemoglobin 26.2 pg (25-34); Mean Corpuscular Volume 84.6 fL (80-100); Mean Platelet Volume 9.3 fL (7.4-10.4); Monocytes # (auto) 0.42 K/uL (0.11-0.59); Monocytes % (auto) 12.1 %; Neutrophils # (auto) 1.96 K/uL (1.4-6.5); Neutrophils % (auto) 56.7 %; Platelet Count 264 K/uL (130-400); RDW Coefficient of Variation 15.4 % (11.5-14.5); Red Blood Count 3.97 M/uL (4.2-5.4); White Blood Count 3.46 K/uL (4.8-10.8)
[2020-04-27 08:35] LABS: Partial Thromboplastin Time 52.4 Seconds (21.0-31.0)
[2020-04-27 09:14] LABS: BUN Creatinine Ratio 17.6 (10-20); Calcium 8.5 mg/dl (8.5-10.1); Creatinine Clr Calc Pharmacy 87.7 ml/min; Est GFR (African American) 75.8; Est GFR (Non-African American) 65.4
[2020-04-27] MEDS: ACETAMINOPHEN 325 MG TAB PO PRN ×2 (12:15→18:59)
--- NOTE | 2020-04-27 14:51 | Orthopedic Consultation ---
Date of Consultation April 27, 2020 Assessment & Plan (1) Osteomyelitis: Osteomyelitis of the left fifth metatarsal head and proximal phalanx per MRI with infected diabetic ulcer in the same area. I have discussed the case with Dr. Lee today. MRI has been reviewed. Patient will need irrigation and debridement of the infected ulcer with likely resection of the metatarsal head as well as probably the fifth toe if needed. This was discussed with the patient along with other possible scenarios including the use of a wound VAC if needed. Continue current antibiotics. Patient is scheduled for Monday the to have the above-noted surgery. Heparin will need to be shut off elma roximately 6 hours prior to surgery. We will make her n.p.o. after midnight tomorrow night. Appreciate wound care team input. Thank you for this consult. 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 She states that she was in [facility] ED at the end of last year having a DVT ruled out. She states at that time she had no signs of an ulceration on the left foot. In the last few months she began having increasing pain in the left foot which she felt was secondary to her neuropathy. Over time she noticed that the area of skin around the lateral left foot near the fifth metatarsal head was changing. As she examined it in the recent past, she states she ended up pushing on the skin and her finger went through the skin itself. Since that time the ulcer has enlarged and was draining. The patient had returned to [facility] of which Dr. Lee had been contacted. She was then directed here and was admitted by the hospitalist service. She was started on antibiotics and her Xarelto was held. She has been placed on a heparin drip. We have been asked to take care of her left foot ulcer. Allergies Allergy/AdvReac Type Severity Reaction Status Date / Time codeine Allergy Unknown unsure Unverified 10/25/16 14:51 erythromycin base Allergy Unknown unsure Unverified 10/25/16 14:51 Home Medications Medication Instructions Recorded Confirmed Type CHOLECALCIFEROL (VITAMIN D3) 1,000 inter.unit PO DAILY 90 Days 06/15/16 04/25/20 History #0 tab CINNAMON 375 mg PO DAILY #0 06/15/16 History CYANOCOBALAMIN (VITAMIN B 12) 500 mcg PO DAILY #0 06/15/16 04/25/20 History Citalopram (Citalopram 40 mg PO DAILY 90 Days #90 tab 06/15/16 04/25/20 History Hydrobromide) FERROUS FUMARATE (IRON) 65 mg PO DAILY #0 06/15/16 04/25/20 History Fish Oil (Cross Anchor-3) 1 cap PO DAILY #0 cap 06/15/16 04/25/20 History Gabapentin (Neurontin) 300 mg PO TID #0 cap 06/15/16 History Loratadine (Claritin) 10 mg PO DAILY #0 tab 06/15/16 04/25/20 History MELATONIN (GNP MELATONIN MAXIMUM 5 mg PO HS #0 06/15/16 04/25/20 History STR) Multivitamin 1 tab PO DAILY #0 tab 06/15/16 04/25/20 History Pantoprazole (Protonix) 40 mg PO DAILY #30 tab 06/15/16 04/25/20 History RIVAROXABAN (XARELTO) 20 mg PO DAILY #0 tab 06/15/16 04/25/20 History ATORVASTATIN (LIPITOR) 1 tab PO DAILY #0 10/25/16 04/25/20 History GLIPIZIDE (GLUCOTROL) 10 mg PO BID #0 tab 10/25/16 04/25/20 History Lisinopril 1 tab PO DAILY #0 10/25/16 04/25/20 History Metoprolol Tartrate (Lopressor) 50 mg PO BID #0 tab 10/25/16 04/25/20 History (Lopressor) Potassium Ext Rel (Klor-Con) 20 meq PO BID #0 tab 10/25/16 04/25/20 History IPRATROPIUM-ALBUTEROL (COMBIVENT 1 puff INHALATION QID PRN #1 inh 10/29/16 04/25/20 Rx RESPIMAT) Furosemide 40 mg PO BID PRN 04/25/20 History Patient History Surgical History H/O: hysterectomy Social History Smoking Status: Never smoker Second Hand Exposure: Yes; Do You Dip or Chew Tobacco: No; Hx Alcohol Use: No Hx Substance Use: No Preferred Language: Citizen Of [place] Communication Ability: Effective 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 She is alert and oriented x3 and in no acute distress. Pleasant and cooperative. Laura Cali RN is present from wound care team to examine the ulcer as well. On examination of her left foot, the dressing is removed and she has an ulcer that has developed on the plantar lateral surface near the fifth metatarsal head. It is close to 3 cm in width. Purulence is noted throughout the wound but is not grossly draining. The metatarsal bone is easily felt with a sterile swab when probing the wound. There is a foul odor. While probing the wound with the sterile swab, the patient has very little feeling. The toes are pink and warm and she has mild to moderate swelling of the foot and lower extremity. The lower extremity is cellulitic in nature. She has a strong dorsalis pedis pulse and posterior tibial pulse is present as well. Capillary refill is less than 2 seconds. She is capable of moving the toes and ankle at this time without difficulty. Neuropathy noted with moderate decrease sensation. Results & Data ([facility]) Vital Signs (Past 12 Hours) Vital Signs Temp Pulse Pulse Resp BP Pulse Ox 04/27/20 11:38 36.8 C 56 L 20 110/68 92 04/27/20 07:56 36.4 C L 61 20 143/79 H 93 04/27/20 03:28 50 L 16 94 Diagnostic Findings Patient: ROMELIA STEVENSON Date: 04/25/20#: [id number]: [id number] PUMPKIN RDAcct ID:[id number]: Date: 1955City Zip: [place] [id number]: 64Location: 2WSex: FRoom/Bed: [id number] Phy: LealJanna MDDiagnosis: OSTEOMYLITIS OF LT FOOTPri Phy: Naty Gillervice Date: 04/26/20Fam Phy:Interpreting Phy: Tal Randle MDAdmit Phy: Sheeba Valente MD Ordering Phy: Ranjan White MD cc: ~ MRI OF THE LEFT FOREFOOT COMBO CLINICAL HISTORY: Left foot infection. COMPARISON STUDY: No priors. TECHNIQUE: MRI of the left forefoot is performed using various T1 and T2- weighted sequences in the axial, sagittal, and coronal planes. Contrast-enhanced sequences are acquired following the IV administration of 12.5 cc of Gadavist. Note that interpretation is significantly suboptimal without plain film correlate. FINDINGS: There is significant marrow edema identified throughout the fifth metatarsal and involving the fifth proximal phalanx. There is nonspecific associated postcontrast enhancement, and the appearance is highly concerning for osteomyelitis. Question marrow abnormality within the fifth middle and distal phalanges. This is not well evaluated due to significant motion artifact and failure of fat suppression. Erosive change is suggested in the head of the fifth metatarsal, and possibly within the base of the fifth proximal phalanx. No additional foci of similar-appearing marrow change are seen throughout the remainder of the forefoot. A large cutaneous ulceration is seen overlying the fifth metatarsophalangeal joint. There is surrounding soft tissue edema and nonspecific patchy abnormal enhancement. No organized fluid collection is clearly identified. Milder soft tissue edema is seen throughout the forefoot. There is diffuse myositis of the regional musculature. Degenerative changes noted in the midfoot. IMPRESSION: 1. Severely motion compromised examination. 2. Findings are consistent with osteomyelitis involving the fifth metatarsal and the fifth proximal phalanx as above. 3. There is evidence of a large overlying soft tissue wound/ulceration and cellulitis. 4. No organized fluid collection is seen to suggest abscess. 5. No similar appearing marrow changes are seen throughout the remainder of the forefoot.
[2020-04-27] MEDS: DAPTOmycin 550 MG in SYRINGE 0 ML IV SCH (18:54)
--- NOTE | 2020-04-27 19:39 | Hospitalist Progress Note ---
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 Left lower extremity osteomyelitis, diabetic foot ulcer with cellulitis No leukocytosis, ESR 47, CRP 6.65, By report on CT fifth metatarsal evidence of osteomyelitis MRI with and without contrast with osteo seen at the 5th metatarsal and 5th proximal phalanx with cellulitis and no fluid collection Orthopedics consulted, case discussed with Dr. Lee. Patient nontoxic Continue Zosyn/daptomycin - discontinued Clindamycin Wound care consulted Type 2 diabetes mellitus A1c pending Home glipizide held Converted to basal bolus, Weight-based. Lantus 20 daily, CF 35, ratio 11 Glucose checks AC/at bedtime Diabetic diet Congestive heart failure Patient unsure of past echo results, reports history of CHF on Lasix TTE with EF 50-55% unchanged from 2017 BNP 2464 CXR with cardiomegaly and mild pulmonary edema Continue atorvastatin 40 mg daily Lisinopril held temporarily Continue metoprolol 50 mg tartrate twice daily Patient responded with brisk diuresis to 1X Lasix 20 mg IV. Continue p.o. Lasix 20 mg twice daily x1-2 days, hold as indicated based on clinical volume status A. fib on chronic Xarelto anticoagulation Patient irregularly irregular on exam Xarelto held in anticipation of potential surgical intervention this coming week Convert to heparin GTT while held Adequately rate controlled Hypertension Continue diltiazem 240 mg CD MAJO held as above Metoprolol as above Wheezing Unclear, patient reports uses Combivent up to four times daily as needed but does not the regular medications DuoNebs as needed Incentive spirometry Flutter valve Depression Continue aripiprazole 10 mg daily Continue citalopram 40 mg daily GERD Continue pantoprazole 40 mg daily Social Patient reports difficulties at home with self-care in addition to recent difficulties with paying bills/registering her car in addition to the loss of her job in the past month. Reports is difficult living condition at home, and may not have adequate resources to appropriately care for her medical condition at home alone at this time. Case management consulted. DVT prophylaxis: Heparinized as above Disposition: Medical with telemetry Diet: Diabetic diet CODE STATUS: Full code (2) DM type 2 (diabetes mellitus, type 2): (3) HTN (hypertension): (4) Atrial fibrillation: (5) CHF (congestive heart failure): (6) Chronic anticoagulation: (7) History of uterine cancer: (8) SCOTT (obstructive sleep apnea): (9) Depression: (10) GERD (gastroesophageal reflux disease): (11) History of CVA (cerebrovascular accident): (12) Atrial fibrillation with RVR: (13) Status post cardiac catheterization: (14) Left leg cellulitis: Admission and Anticipated Discharge Date Admission Date: April 25, 2020 Supervising Physician Co-Signing Physician Notes I personally examined the patient and verified all tripathi points of history and exam, discussed case, and agree with decision making with Dr Neely. Feeling okay, no significant pain, but she notes that she does have neuropathy so she usually does not feel a lot of pain. Wound and orthopedics input appreciated. Patient notes that her left lower extremity redness and swelling is much better than it was a few months ago, but there is not really been a whole lot of change in the last few days. She notes that whenever she was walking around she felt a little bit of a sensation like broken glass, but because of her neuropathy did not really think much of it. In general she is awake and alert pleasant no distress. HEENT normocephalic atraumatic mucous membranes moist. Breathing unlabored no accessory muscle use good effort. Skin shows no rashes no pallor or icterus. Left lower extremity shows chronic venous stasis changes, foot is dressed and wrappedwound is in the room when I am there, they note they just dressed it we were able to get very good picturespictures were reviewed, and because of all of this, the dressing was not taken down at this time. Diabetic foot ulcer with osteomyelitiscontinue gram-negative coverage, also given high probability of gram-positive'scontinue gram-positive coverage. Initially was also on clindamycin for antitoxin effect, but now that it is clear that this is not a progressive/necrotizing fasciitis type process, we can discontinue the clindamycin. Continue local wound care, anticipate operating room in a few days once antibiotics have had a chance to clear surrounding infection, and once her Xarelto has had a chance to washout given that there is not crisis level emergency. Discussed with patient the high probability this will be a long process. DVT prophylaxisheparin for now, Xarelto postop once it is safe to resume Otherwise as above Subjective Doing well this morning, and this afternoon. She brought up that she wanted to be aggressive with treatment of her infection. Her pain was well controlled and she had no questions after talking with her. Review of Systems Review of Systems: Constitutional: denies fevers, chills Cardiac: denies chest pain, palpitations Pulm.: denies shortness of breath GI: denies nausea, vomiting Physical Exam Constitutional: WD/WN, vitals as above Eyes: PERRL, conjunctivae normal, anicteric sclerae ENMT: external ear and nose normal, oropharynx normal Neck: normal visual inspection Respiratory: normal respiratory effort, lungs clear to auscultation Cardiovascular: Rate/Rhythm: + irregularly irregular Gastrointestinal (Abdomen): normal bowel sounds, soft, nontender, no hepatosplenomegaly Skin: left foot with c/d/i bandage, no pain on palpation, warm wiht no eschar, capillary refill <2 seconds, sensation to light touch intact to the distal phalanx of 1st phalanx Neurologic: no focal motor deficits Psychiatric: A+Ox3, euthymic affect Results & Data Results & Data ([facility]) Vital Signs (Past 12 Hours) Vital Signs Temp Pulse Pulse Resp BP BP Pulse Ox 04/27/20 19:07 36.4 C L 76 20 138/75 91 04/27/20 15:26 58 L 04/27/20 15:08 36.7 C 59 L 20 120/60 92 04/27/20 11:38 36.8 C 56 L 20 110/68 92 04/27/20 07:56 36.4 C L 61 20 143/79 H 93 CBC Results Results Complete Blood Count Results: RBC 3.97 M/uL (4.2-5.4) L 04/27/20 WBC 3.46 K/uL (4.8-10.8) L 04/27/20 Hgb 10.4 g/dL (12.0-16.0) L 04/27/20 Hct 33.6 % (37-47) L 04/27/20 Plt Count 264 K/uL (130-400) 04/27/20 Chemistry (BMP) Results BMP Results: Sodium 137 mmol/L (136-145) 04/27/20 Potassium 4.0 mmol/L (3.5-5.1) 04/27/20 Chloride 102 mmol/L (98-107) 04/27/20 BUN 16 mg/dl (7-18) 04/27/20 Creatinine 0.93 mg/dl (0.6-1.2) 04/27/20 Glucose 115 mg/dl (70-99) H 04/27/20 Resident Activity Tracking Resident Involvement: Resident Care Provided Care Provided: Adult Hospital Medicine
--- NOTE | 2020-04-27 20:08 | Billing Data ---
Date of Service April 27, 2020 Coding Level of Care Code 38374 Subseq Hosp Care Lvl 3
[2020-04-28] MEDS: HEPARIN SODIUM/DEXTROSE 25,000 UNITS/500 ML BAG IV SCH ×2 (04:12→16:54)
[2020-04-28] MEDS: PIPERACILLIN/TAZOBACTAM 4.5 GM in DEXTROSE 5% 100 ML IV SCH ×3 (06:55→22:39)
[2020-04-28] MEDS: INSULIN GLARGINE SOLOSTAR 100 UNITS/ML 3 ML PEN SC SCH (08:25)
[2020-04-28] MEDS: INSULIN ASPART 100 UNITS/ML 3 ML PEN SC SCH ×4 (08:25→21:11)
[2020-04-28] MEDS: CITALOPRAM 40 MG TAB PO SCH (08:26)
[2020-04-28] MEDS: LORATADINE 10 MG TAB PO SCH (08:26)
[2020-04-28] MEDS: PANTOprazole 40 MG TAB PO SCH (08:26)
[2020-04-28] MEDS: dilTIAZem HCL 240 MG CAPCR PO SCH (08:26)
[2020-04-28] MEDS: ISOSORBIDE MONO EXTENDED REL 30 MG TABCR PO SCH (08:26)
[2020-04-28] MEDS: METOPROLOL TARTRATE 50 MG TAB PO SCH ×2 (08:26→21:09)
[2020-04-28] MEDS: ARIPiprazole 10 MG TAB PO SCH (08:26)
[2020-04-28] MEDS: ATORVASTATIN 40 MG TAB PO SCH (08:26)
[2020-04-28] MEDS: GABAPENTIN 300 MG CAP PO SCH ×3 (08:26→21:11)
--- NOTE | 2020-04-28 08:27 | Hospitalist Progress Note ---
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 Left lower extremity osteomyelitis, diabetic foot ulcer with cellulitis No leukocytosis, ESR 47, CRP 6.65, By report on CT fifth metatarsal evidence of osteomyelitis MRI with and without contrast with osteo seen at the 5th metatarsal and 5th proximal phalanx with cellulitis and no fluid collection Orthopedics consulted, case discussed with Dr. Lee plan for surgery 04/29 NPO after midnight, will hold Heparin prior to surgery Patient nontoxic Continue Zosyn/daptomycin Wound care consulted Type 2 diabetes mellitus A1c 7.3 Home glipizide held Converted to basal bolus, weight-based. Lantus 20 daily, CF 35, ratio 11 Glucose checks AC/at bedtime Diabetic diet Congestive heart failure Patient unsure of past echo results, reports history of CHF on Lasix TTE with EF 50-55% unchanged from 2017 BNP 2464 CXR with cardiomegaly and mild pulmonary edema Continue atorvastatin 40 mg daily Lisinopril held temporarily Continue metoprolol 50 mg tartrate twice daily Patient responded with brisk diuresis to 1X Lasix 20 mg IV. Continue p.o. Lasix 20 mg twice daily x1-2 days, hold as indicated based on clinical volume status A. fib on chronic Xarelto anticoagulation Patient irregularly irregular on exam Xarelto held in anticipation of potential surgical intervention this coming week Convert to heparin GTT while held Adequately rate controlled Hypertension Continue diltiazem 240 mg CD MAJO held as above Metoprolol as above Wheezing Unclear, patient reports uses Combivent up to four times daily as needed but does not the regular medications DuoNebs as needed Incentive spirometry Flutter valve Depression Continue aripiprazole 10 mg daily Continue citalopram 40 mg daily GERD Continue pantoprazole 40 mg daily Social Patient reports difficulties at home with self-care in addition to recent difficulties with paying bills/registering her car in addition to the loss of her job in the past month. Reports is difficult living condition at home, and may not have adequate resources to appropriately care for her medical condition at home alone at this time. Case management consulted. Infection control precautions - MRSA coverage and precautions due to prior cellulitis that did not resolve until treated with MRSA coverage within the last 30 days of admission DVT prophylaxis: Heparin, discontinue prior to surgery Disposition: Medical with telemetry Diet: Diabetic diet CODE STATUS: Full code (2) DM type 2 (diabetes mellitus, type 2): (3) HTN (hypertension): (4) Atrial fibrillation: (5) CHF (congestive heart failure): (6) Chronic anticoagulation: (7) History of uterine cancer: (8) SCOTT (obstructive sleep apnea): (9) Depression: (10) GERD (gastroesophageal reflux disease): (11) History of CVA (cerebrovascular accident): (12) Atrial fibrillation with RVR: (13) Status post cardiac catheterization: (14) Left leg cellulitis: Admission and Anticipated Discharge Date Admission Date: April 25, 2020 Supervising Physician Co-Signing Physician Notes I personally examined the patient and verified all tripathi points of history and exam, discussed case, and agree with decision making with Dr Neely. Feeling okay, a little bit of pain in the foot but not nearly as bad as before. For surgery tomorrow. No new complaints otherwise. In general she is awake and alert pleasant no distress. HEENT normocephalic atraumatic mucous membranes moist. Breathing unlabored no accessory muscle use good effort. Skin shows no rashes no pallor or icterus. Diabetic foot ulcer with osteomyelitiscontinue gram-negative coverage, also given high probability of gram-positive'scontinue gram-positive coverage. For surgery tomorrow. Continue current care otherwise. DVT prophylaxisheparin for now, Xarelto postop once it is safe to resume Otherwise as above Subjective Deann Marti is doing okay this morning. She was having diarrhea starting overnight. She had some pain while walking that was a 2-3/10. She did not have any questions after talking with her. Review of Systems Review of Systems: Constitutional: denies fevers, chills GI: denies nausea or vomiting Pulm.: denies cough, shortness of breath : denies urinary frequency, urgency, pain Physical Exam Constitutional: WD/WN, vitals as above Eyes: PERRL, conjunctivae normal, anicteric sclerae ENMT: external ear and nose normal, oropharynx normal Neck: normal visual inspection Respiratory: normal respiratory effort, lungs clear to auscultation Cardiovascular: RRR, no murmur, no edema Rate/Rhythm: + irregularly irregular Gastrointestinal (Abdomen): normal bowel sounds, soft, nontender, no hepatosplenomegaly Neurologic: no focal motor deficits Psychiatric: A+Ox3, euthymic affect Results & Data Results & Data ([facility]) Vital Signs (Past 12 Hours) Vital Signs Temp Pulse Pulse Resp BP Pulse Ox 04/28/20 07:39 36.6 C 66 18 124/72 90 04/28/20 03:48 20 90 04/28/20 03:38 36.5 C 58 L 20 125/73 91 04/28/20 00:04 67 20 90 04/28/20 00:00 61 04/27/20 22:47 36.5 C 60 18 127/64 90 CBC Results Results Complete Blood Count Results: RBC 4.07 M/uL (4.2-5.4) L 04/28/20 WBC 4.20 K/uL (4.8-10.8) L 04/28/20 Hgb 10.6 g/dL (12.0-16.0) L 04/28/20 Hct 34.5 % (37-47) L 04/28/20 Plt Count 267 K/uL (130-400) 04/28/20 Chemistry (BMP) Results [facility] Results: Sodium 136 mmol/L (136-145) 04/28/20 Potassium 3.6 mmol/L (3.5-5.1) 04/28/20 Chloride 101 mmol/L (98-107) 04/28/20 BUN 13 mg/dl (7-18) 04/28/20 Creatinine 1.01 mg/dl (0.6-1.2) 04/28/20 Glucose 117 mg/dl (70-99) H 04/28/20 Resident Activity Tracking Resident Involvement: Resident Care Provided Care Provided: Adult [facility] Medicine
[2020-04-28 09:05] LABS: Basophils # (auto) 0.02 K/uL (0-0.2); Basophils % (auto) 0.5 %; Eosinophils # (auto) 0.14 K/uL (0-0.5); Eosinophils % (auto) 3.3 %; Hematocrit (blood only) 34.5 % (37-47); Hemoglobin 10.6 g/dL (12.0-16.0); Immature Granulocytes # (auto) 0.01 K/uL (0.00-0.02); Immature Granulocytes % (auto) 0.2 %; Lymphocytes # (auto) 1.14 K/uL (1.2-3.4); Lymphocytes % (auto) 27.1 %; Mean Corpuscular Hgb Conc 30.7 g/dL (32-36); Mean Corpuscular Volume 84.8 fL (80-100); Mean Platelet Volume 9.3 fL (7.4-10.4); Monocytes # (auto) 0.42 K/uL (0.11-0.59); Neutrophils # (auto) 2.47 K/uL (1.4-6.5); Neutrophils % (auto) 58.9 %; Platelet Count 267 K/uL (130-400); RDW Coefficient of Variation 15.2 % (11.5-14.5); RDW Standard Deviation 47.4 fL (36.4-46.3); Red Blood Count 4.07 M/uL (4.2-5.4)
[2020-04-28 09:24] LABS: Partial Thromboplastin Ratio 2.7
[2020-04-28 09:26] LABS: Partial Thromboplastin Time 72.1 Seconds (21.0-31.0)
[2020-04-28 09:42] LABS: Creatinine Clr Calc Pharmacy 80.9 ml/min; Est GFR (African American) 68.6; Est GFR (Non-African American) 59.2; Potassium 3.6 mmol/L (3.5-5.1)
[2020-04-28 16:02] LABS: Partial Thromboplastin Ratio 2.6
[2020-04-28 16:33] LABS: Partial Thromboplastin Time 67.6 Seconds (21.0-31.0)
[2020-04-28] MEDS: ALBUT/IPRATROP 3MG/0.5MG NEB 3 ML VIAL NEB PRN (16:42)
[2020-04-28] MEDS: DAPTOmycin 550 MG in SYRINGE 0 ML IV SCH (18:15)
--- NOTE | 2020-04-28 19:07 | Billing Data ---
Date of Service April 28, 2020 Coding Level of Care Code 63806 Subseq Hosp Care Lvl 3
[2020-04-28 23:26] LABS: Partial Thromboplastin Ratio 2.3
[2020-04-28 23:38] LABS: Partial Thromboplastin Time 61.1 Seconds (21.0-31.0)
[2020-04-29 06:19] LABS: Basophils # (auto) 0.02 K/uL (0-0.2); Basophils % (auto) 0.5 %; Eosinophils % (auto) 2.6 %; Hematocrit (blood only) 30.9 % (37-47); Hemoglobin 9.5 g/dL (12.0-16.0); Immature Granulocytes # (auto) 0.01 K/uL (0.00-0.02); Immature Granulocytes % (auto) 0.3 %; Lymphocytes # (auto) 0.85 K/uL (1.2-3.4); Mean Corpuscular Hgb Conc 30.7 g/dL (32-36); Mean Corpuscular Volume 84.7 fL (80-100); Mean Platelet Volume 9.1 fL (7.4-10.4); Monocytes # (auto) 0.45 K/uL (0.11-0.59); Monocytes % (auto) 11.6 %; Neutrophils # (auto) 2.44 K/uL (1.4-6.5); Platelet Count 240 K/uL (130-400); RDW Coefficient of Variation 15.4 % (11.5-14.5); RDW Standard Deviation 48.1 fL (36.4-46.3); Red Blood Count 3.65 M/uL (4.2-5.4); White Blood Count 3.87 K/uL (4.8-10.8)
[2020-04-29 06:34] LABS: Partial Thromboplastin Ratio 2.9
[2020-04-29 06:41] LABS: Partial Thromboplastin Time 75.2 Seconds (21.0-31.0)
[2020-04-29] MEDS: PIPERACILLIN/TAZOBACTAM 4.5 GM in DEXTROSE 5% 100 ML IV SCH ×3 (06:42→23:33)
[2020-04-29 06:45] LABS: Calcium 8.7 mg/dl (8.5-10.1); Est GFR (Non-African American) 62.2; Potassium 4.1 mmol/L (3.5-5.1)
[2020-04-29] MEDS ORDERED: ROPIVACAINE 0.5% 5 MG/ML 30 ML VIAL ONE (06:46)
[2020-04-29] MEDS ORDERED: [UNRECOGNIZED DRUG - REMARK] ONE (07:00)
[2020-04-29] MEDS: HEPARIN SODIUM/DEXTROSE 25,000 UNITS/500 ML BAG IV SCH ×3 (07:23→18:57)
[2020-04-29] MEDS: INSULIN ASPART 100 UNITS/ML 3 ML PEN SC SCH ×4 (07:43→20:37)
[2020-04-29] MEDS: GABAPENTIN 300 MG CAP PO SCH ×3 (07:44→20:33)
[2020-04-29] MEDS: ARIPiprazole 10 MG TAB PO SCH (07:44)
[2020-04-29] MEDS: dilTIAZem HCL 240 MG CAPCR PO SCH (07:45)
[2020-04-29] MEDS: ISOSORBIDE MONO EXTENDED REL 30 MG TABCR PO SCH (07:45)
[2020-04-29] MEDS: LORATADINE 10 MG TAB PO SCH (07:45)
[2020-04-29] MEDS: ATORVASTATIN 40 MG TAB PO SCH (07:45)
[2020-04-29] MEDS: METOPROLOL TARTRATE 50 MG TAB PO SCH ×2 (07:45→20:41)
[2020-04-29] MEDS: INSULIN GLARGINE SOLOSTAR 100 UNITS/ML 3 ML PEN SC SCH (07:45)
[2020-04-29] MEDS: PANTOprazole 40 MG TAB PO SCH (07:45)
[2020-04-29] MEDS: CITALOPRAM 40 MG TAB PO SCH (07:45)
--- NOTE | 2020-04-29 13:23 | Hospitalist Progress Note ---
Date of Service April 29, 2020 Assessment & Plan (1) Osteomyelitis: 64-year-old female with a past medical history of atrial fibrillation on Xarelto anticoagulation, congestive heart failure, type 2 diabetes mellitus not on insulin, hypertension, SCOTT, GERD, CVA, and uterine plus endometrial cancer status post total hysterectomy who presents as a direct admission from [facility] for left lower extremity osteomyelitis with gas production. Left lower extremity osteomyelitis, diabetic foot ulcer with cellulitis No leukocytosis, ESR 47, CRP 6.65, By report on CT fifth metatarsal evidence of osteomyelitis MRI with and without contrast with osteo seen at the 5th metatarsal and 5th proximal phalanx with cellulitis and no fluid collection Orthopedics consulted, plan for surgery today Patient nontoxic Continue Zosyn and Daptomycin Wound care consulted Type 2 diabetes mellitus A1c 7.3 Home glipizide held Converted to basal bolus, weight-based. Lantus 20 daily, CF 35, ratio 11 Glucose checks AC/at bedtime Diabetic diet Congestive heart failure TTE with EF 50-55% unchanged from 2017 BNP 2464 CXR with cardiomegaly and mild pulmonary edema Continue atorvastatin 40 mg daily Lisinopril held temporarily Continue metoprolol 50 mg tartrate twice daily Continue p.o. Lasix 20 mg twice daily A. fib on chronic Xarelto anticoagulation Patient irregularly irregular on exam Xarelto held in anticipation of potential surgical intervention this coming week Convert to heparin GTT while held Adequately rate controlled Hypertension Continue diltiazem 240 mg CD MAJO held as above Metoprolol as above Wheezing Unclear, patient reports uses Combivent up to four times daily as needed but does not the regular medications DuoNebs as needed Incentive spirometry Flutter valve Depression Continue aripiprazole 10 mg daily Continue citalopram 40 mg daily GERD Continue pantoprazole 40 mg daily Social Patient reports difficulties at home with self-care in addition to recent difficulties with paying bills/registering her car in addition to the loss of h er job in the past month. Reports is difficult living condition at home, and may not have adequate resources to appropriately care for her medical condition at home alone at this time. Case management consulted. Infection control precautions - MRSA coverage and precautions due to prior cellulitis that did not resolve until treated with MRSA coverage within the last 30 days of admission DVT prophylaxis: Heparin, held prior to surgery Disposition: Medical with telemetry Diet: Diabetic diet CODE STATUS: Full code (2) DM type 2 (diabetes mellitus, type 2): (3) HTN (hypertension): (4) Atrial fibrillation: (5) CHF (congestive heart failure): (6) Chronic anticoagulation: (7) History of uterine cancer: (8) SCOTT (obstructive sleep apnea): (9) Depression: (10) GERD (gastroesophageal reflux disease): (11) History of CVA (cerebrovascular accident): (12) Atrial fibrillation with RVR: (13) Status post cardiac catheterization: (14) Left leg cellulitis: Admission and Anticipated Discharge Date Admission Date: April 25, 2020 Supervising Physician Co-Signing Physician Notes I personally examined the patient and verified all tripathi points of history and exam, discussed case, and agree with decision making with Dr Neely. Postop, feeling good, ate well, no acute complaints. In general she is awake and alert pleasant no distress. HEENT normocephalic atraumatic mucous membranes moist. Breathing unlabored no accessory muscle use good effort. Skin shows no rashes no pallor or icterus. Diabetic foot ulcer with osteomyelitisnow status post surgical debridement, continue antibiotics for now, will need to discuss with orthopedics if ongoing treatment for osteomyelitis will be necessary, or more just for the surrounding soft tissue. Ongoing wound care. DVT prophylaxisheparin for now, Xarelto resume in near future (in next day or two if there's not much bleeding from wound) Otherwise as above Subjective Deann Marti is doing well today with no concerns. She was not having pain today while walking which she was previously. She was ready to have her surgery today. Review of Systems Review of Systems: Constitutional: denies fevers, chills Cardiac: denies chest pain, palpitations Pulm.: denies shortness of breath Physical Exam Constitutional: WD/WN, vitals as above Eyes: PERRL, conjunctivae normal, anicteric sclerae ENMT: external ear and nose normal, oropharynx normal Neck: normal visual inspection Respiratory: normal respiratory effort, lungs clear to auscultation Cardiovascular: RRR, no murmur, no edema Rate/Rhythm: + irregularly irregular Gastrointestinal (Abdomen): normal bowel sounds, soft, nontender, no hepatosplenomegaly Neurologic: no focal motor deficits Psychiatric: A+Ox3, euthymic affect Results & Data Results & Data ([facility]) Vital Signs (Past 12 Hours) Vital Signs Temp Pulse Pulse Resp BP BP Pulse Ox 04/29/20 12:06 36.6 C 55 L 18 119/71 90 04/29/20 11:47 157/89 H 04/29/20 07:57 37.0 C 65 20 164/77 H 92 04/29/20 04:00 36.6 C 67 20 151/84 H 91 04/29/20 02:59 62 18 92 CBC Results Results Complete Blood Count Results: RBC 3.65 M/uL (4.2-5.4) L 04/29/20 WBC 3.87 K/uL (4.8-10.8) L 04/29/20 Hgb 9.5 g/dL (12.0-16.0) L 04/29/20 Hct 30.9 % (37-47) L 04/29/20 Plt Count 240 K/uL (130-400) 04/29/20 Chemistry (BMP) Results BMP Results: Sodium 138 mmol/L (136-145) 04/29/20 Potassium 4.1 mmol/L (3.5-5.1) 04/29/20 Chloride 103 mmol/L (98-107) 04/29/20 BUN 14 mg/dl (7-18) 04/29/20 Creatinine 0.97 mg/dl (0.6-1.2) 04/29/20 Glucose 145 mg/dl (70-99) H 04/29/20 Resident Activity Tracking Resident Involvement: Resident Care Provided Care Provided: [facility]
[2020-04-29] MEDS ORDERED: MIDAZOLAM HCL 1 MG/ML 2ML VIAL ONE ×2 (14:33→15:34)
[2020-04-29] MEDS ORDERED: fentaNYL citrate 100 MCG/2 ML VIAL ONE (14:34)
[2020-04-29] MEDS ORDERED: LIDOCAINE HCL 2% 2 ML VIAL/AMP(20MG/ML) INFIL ONE (14:34)
[2020-04-29] MEDS ORDERED: PROPOFOL IV EMULSION 10 MG/ML 20 ML VIAL IV ONE (14:34)
[2020-04-29] MEDS ORDERED: BACITRACIN INJ 50,000 UNIT VIAL ONE (14:42)
--- NOTE | 2020-04-29 14:50 | Anesthesiology Consultation ---
Date of Service April 29, 2020 Assessment & Plan (1) Encounter for pre-operative examination: Chart Review Chart Review: Acceptable Risk for Surgery and Patient NOT seen in Pre Admission Testing Consults Requested none ASA ASA3 Proposed Anesthesia Anesthesia Type: MAC Risk / Benefits Reviewed With: PT / POA / Parent / Guardian, Accepts Plan and Informed Consent Obtained History Surgery Operation Date: 04/29/20 13:35 Proposed Procedures p Left 5th Metatarsal Head Excisional Arthroplasty - Vik Lee DO s Left Foot Incision and Drainage Large Diabetic Ulcer - Vik Lee DO Height/Weight Height: 5 ft 8 in Weight: 130.8 kg Allergies Allergy/AdvReac Type Severity Reaction Status Date / Time codeine Allergy Unknown unsure Unverified 10/25/16 14:51 erythromycin base Allergy Unknown unsure Unverified 10/25/16 14:51 Medications Home Medications Medication Instructions Recorded Confirmed Last Taken CHOLECALCIFEROL (VITAMIN D3) 1,000 inter.unit PO DAILY 90 Days 06/15/16 04/25/20 Unknown #0 tab CINNAMON 375 mg PO DAILY #0 06/15/16 Unknown CYANOCOBALAMIN (VITAMIN B 12) 500 mcg PO DAILY #0 06/15/16 04/25/20 Unknown Citalopram (Citalopram 40 mg PO DAILY 90 Days #90 tab 06/15/16 04/25/20 Unknown Hydrobromide) FERROUS FUMARATE (IRON) 65 mg PO DAILY #0 06/15/16 04/25/20 Unknown Fish Oil ([place]-3) 1 cap PO DAILY #0 cap 06/15/16 04/25/20 Unknown Gabapentin (Neurontin) 300 mg PO TID #0 cap 06/15/16 Unknown Loratadine (Claritin) 10 mg PO DAILY #0 tab 06/15/16 04/25/20 Unknown MELATONIN (GNP MELATONIN MAXIMUM 5 mg PO HS #0 06/15/16 04/25/20 Unknown STR) Multivitamin 1 tab PO DAILY #0 tab 06/15/16 04/25/20 Unknown Pantoprazole (Protonix) 40 mg PO DAILY #30 tab 06/15/16 04/25/20 Unknown RIVAROXABAN (XARELTO) 20 mg PO DAILY #0 tab 06/15/16 04/25/20 Unknown ATORVASTATIN (LIPITOR) 1 tab PO DAILY #0 10/25/16 04/25/20 Unknown GLIPIZIDE (GLUCOTROL) 10 mg PO BID #0 tab 10/25/16 04/25/20 Unknown Lisinopril 1 tab PO DAILY #0 10/25/16 04/25/20 Unknown Metoprolol Tartrate (Lopressor) 50 mg PO BID #0 tab 10/25/16 04/25/20 Unknown (Lopressor) Potassium Ext Rel (Klor-Con) 20 meq PO BID #0 tab 10/25/16 04/25/20 Unknown IPRATROPIUM-ALBUTEROL (COMBIVENT 1 puff INHALATION QID PRN #1 inh 10/29/16 04/25/20 Unknown RESPIMAT) Furosemide 40 mg PO BID PRN 04/25/20 Unknown Active Medications Generic Name Dose Route Start Last Admin Trade Name Freq PRN Reason Stop Dose Admin Acetaminophen 650 mg 04/25/20 16:50 04/27/20 18:59 Acetaminophen 325 Mg Tab PO 05/25/20 16:49 650 mg Q4H PRN Administration Pain or Fever Albuterol 3 ml 04/25/20 17:00 04/28/20 16:42 Albut/Ipratrop 3mg/0.5mg Neb 3 Ml Vial NEB 05/25/20 16:59 3 ml Q4H PRN Administration Shortness of Breath/Wheezing Aripiprazole 10 mg 04/26/20 09:00 04/29/20 07:44 Aripiprazole 10 Mg Tab PO 05/26/20 08:59 10 mg QAM BILL Administration Atorvastatin Calcium 40 mg 04/26/20 09:00 04/29/20 07:45 Atorvastatin 40 Mg Tab PO 05/26/20 08:59 40 mg QAM BILL Administration Citalopram Hydrobromide 40 mg 04/26/20 09:00 04/29/20 07:45 Citalopram 40 Mg Tab PO 05/26/20 08:59 40 mg QAM BILL Administration Diltiazem HCl 240 mg 04/26/20 09:00 04/29/20 07:45 Diltiazem Hcl 240 Mg Capcr PO 05/26/20 08:59 240 mg QAM BILL Administration Gabapentin 300 mg 04/25/20 21:00 04/29/20 13:03 Gabapentin 300 Mg Cap PO 05/25/20 20:59 Not Given TID BILL Heparin Sodium/Dextrose 25,000 units in 500 mls @ 36 mls/hr 04/25/20 18:15 04/29/20 07:24 Heparin Sodium/Dextrose IV 05/25/20 18:14 Not Given .[id number] BILL Protocol 1,800 UNITS/HR Piperacillin Sod/Tazobactam 120 mls @ 28.75 mls/hr 04/25/20 23:00 04/29/20 11:10 Sod 4.5 gm/ Dextrose IV 05/02/20 22:59 Infused Q8H BILL Infusion Protocol Daptomycin 550 mg/ Syringe 11 mls @ 3.5 mls/min 04/26/20 18:00 04/28/20 18:15 IV 05/03/20 17:59 3.5 mls/min Q24H BILL Administration Protocol Insulin Aspart 0 units 04/25/20 18:30 04/29/20 11:41 Insulin Aspart 100 Units/Ml 3 Ml Pen SC 05/25/20 18:29 Not Given ACHS BILL Insulin Glargine 20 units 04/26/20 09:00 04/29/20 07:45 Insulin Glargine Solostar 100 Units/Ml 3 Ml Pen SC 05/26/20 08:59 20 units DAILY BILL Administration Isosorbide Mononitrate 30 mg 04/26/20 09:00 04/29/20 07:45 Isosorbide Beltrami Extended Rel 30 Mg Tabcr PO 05/26/20 08:59 30 mg QAM BILL Administration Loratadine 10 mg 04/26/20 09:00 04/29/20 07:45 Loratadine 10 Mg Tab PO 05/26/20 08:59 10 mg QAM BILL Administration Metoprolol Tartrate 50 mg 04/25/20 21:00 04/29/20 07:45 Metoprolol Tartrate 50 Mg Tab PO 05/25/20 20:59 50 mg BID BILL Administration Pantoprazole Sodium 40 mg 04/26/20 09:00 04/29/20 07:45 Pantoprazole 40 Mg Tab PO 05/26/20 08:59 40 mg QAM BILL Administration NPO Date Last Intake of Fluids: 04/29/20 Time Last Intake of Fluids: 00:01 Date Last Intake of Solids: 04/29/20 Time Last Intake of Solids: 00:01 Past Medical History Medical History (Updated 04/29/20 @ 14:49 by Dania Landaverde MD) Atrial fibrillation Atrial fibrillation with RVR CHF (congestive heart failure) Chronic anticoagulation Depression DM type 2 (diabetes mellitus, type 2) GERD (gastroesophageal reflux disease) History of CVA (cerebrovascular accident) "Reported events in 2013 and 2014. " History of uterine cancer HTN (hypertension) Left leg cellulitis SCOTT (obstructive sleep apnea) Osteomyelitis Exercise / Class Metabolic Activity III < 4 Walking/Shop/Light housework Positive for SOB denies CP Past Surgical History Surgical History (Updated 04/29/20 @ 14:47 by Dania Landaverde MD) H/O: hysterectomy History of hysterectomy Status post cardiac catheterization "Nov 2009 at [facility]; showed mild-moderate non-obstructive CAD." Past Anesthesia History No Hx of Anesthesia Complications History of PONV History of PONV Social History Smoking Status: Never smoker Do You Dip or Chew Tobacco: No Hx Alcohol Use: No Hx Substance Use: No Review of Systems Patient denies active symptoms of GERD. patient states she is able to lie flat Physical Exam Vital Signs Last Vital Signs Temp 36.6 C 04/29/20 14:35 Pulse 56 L 04/29/20 14:35 Resp 20 04/29/20 14:35 BP 150/63 H 04/29/20 14:35 Pulse Ox 93 04/29/20 14:35 Constitutional + obese ENMT Mouth: + edentulous; no TMJ abnormality and oral opening not small Thyromental Distance: > or= 3.5 Finger Breadths Mallampati Class: I Neck normal visual inspection; neck extension not limited Respiratory normal respiratory effort Auscultation: + wheezes Cardiovascular Rate/Rhythm: regular rate and regular rhythm Heart Sounds: + murmur Neurologic moves all extremities Psychiatric Orientation: alert and oriented x 3 Testing Laboratory Results 04/29/20 05:58 04/29/20 05:58 PT 12.6 Seconds (9.0-12.0) H 04/25/20 18:16 INR 1.3 (0.9-1.1) H 04/25/20 18:16 APTT 75.2 Seconds (21.0-31.0) H* 04/29/20 05:58 Hemoglobin A1c 7.3 % (4.5-5.6) H 04/25/20 18:19 04/25/20 18:19 Aerobic Blood Culture - Preliminary Blood No growth in Aerobic bottle after 48 hours. Anaerobic Blood Culture - Preliminary No growth in Anaerobic bottle after 48 hours. 04/25/20 18:16 Aerobic Blood Culture - Preliminary Blood No growth in Aerobic bottle after 48 hours. Anaerobic Blood Culture - Preliminary No growth in Anaerobic bottle after 48 hours. 04/25/20 18:00 Gram Stain - Final Foot,Left Wound Culture - Final Proteus mirabilis 04/29/20 04/29/20 04/29/20 11:55 07:35 05:59 POC Glucose 111 H 137 H 146 H
[2020-04-29] MEDS ORDERED: ALBUTEROL 0.083% NEBU SOLN 3 ML VIAL NEB STA (14:53)
[2020-04-29] MEDS ORDERED: fentaNYL citrate 100 MCG/2 ML VIAL IV PRN (14:54)
[2020-04-29] MEDS ORDERED: ePHEDrine sulfate 50 MG/ML AMP IV PRN (14:54)
[2020-04-29] MEDS ORDERED: ONDANSETRON INJ 2 MG/ML 2 ML VIAL IV PRN (14:54)
[2020-04-29] MEDS ORDERED: ATROPINE SULFATE 0.1 MG/ML 10ML SYR IV PRN (14:54)
--- NOTE | 2020-04-29 14:58 | History & Physical Bridge Note ---
Date of Service April 29, 2020 History & Physical Bridge Note I have examined the patient, reviewed the History & Physical and in the interval since the performance of the History & Physical I have noted the following changes of clinical significance: no changes noted
[2020-04-29] MEDS ORDERED: ONDANSETRON INJ 2 MG/ML 2 ML VIAL ONE (15:37)
[2020-04-29] MEDS ORDERED: VANCOMYCIN HCL 1000MG/20ML VIAL ONE (15:48)
[2020-04-29] MEDS ORDERED: BUPIVACAINE 0.5 % 5 MG/1 ML MPF 30ML VIAL ONE (15:48)
[2020-04-29] MEDS ORDERED: GENTAMICIN SULFATE 40 MG/ML 2 ML VIAL ONE (15:48)
--- NOTE | 2020-04-29 17:00 | Anesthesiology Progress Note ---
Date of Service April 29, 2020 Anesthesia Post Procedure Vital Signs Vital Signs: Temp Pulse Pulse Pulse Resp BP BP 04/29/20 16:50 63 20 123/61 04/29/20 16:40 61 20 115/57 L 04/29/20 16:31 36.3 C L 62 15 125/62 04/29/20 15:15 59 L 16 04/29/20 14:35 36.6 C 56 L 20 150/63 H 04/29/20 12:06 36.6 C 55 L 18 119/71 04/29/20 11:47 157/89 H 04/29/20 07:57 37.0 C 65 20 164/77 H 04/29/20 04:00 36.6 C 67 20 151/84 H 04/29/20 02:59 62 18 04/29/20 00:57 72 04/29/20 00:20 61 18 04/28/20 23:00 36.7 C 71 20 144/74 H 04/28/20 21:08 80 149/71 H 04/28/20 20:12 04/28/20 20:04 68 04/28/20 19:59 36.6 C 20 121/64 Pulse Ox 04/29/20 16:50 94 04/29/20 16:40 93 04/29/20 16:31 93 04/29/20 15:15 90 04/29/20 14:35 93 04/29/20 12:06 90 04/29/20 11:47 04/29/20 07:57 92 04/29/20 04:00 91 04/29/20 02:59 92 04/29/20 00:57 04/29/20 00:20 94 04/28/20 23:00 91 04/28/20 21:08 92 04/28/20 20:12 90 04/28/20 20:04 04/28/20 19:59 88 L Transfer of Care Handoff Completed per policy Notes Mental Status: alert / awake / arousable and participated in evaluation Nausea / Vomiting: adequately controlled Pain: adequately controlled Airway Patency, RR, SpO2: stable & adequate BP & HR: stable & adequate Hydration State: stable & adequate Anesthetic Complications: no major complications apparent and Pt Satisfied with anesthetic care
[2020-04-29] MEDS ORDERED: bisacodyL 10 MG SUPP PR PRN (17:41)
[2020-04-29] MEDS ORDERED: NALOXONE HCL 0.4 MG/1 ML VIAL/CARP IV PRN (17:41)
[2020-04-29] MEDS ORDERED: MAGNESIUM HYDROXIDE SUSP 30 ML UDC PO PRN (17:41)
[2020-04-29] MEDS ORDERED: SODIUM CHLORIDE 0.9% 1000ML 1,000 ML IV SCH (17:41)
[2020-04-29] MEDS ORDERED: METOCLOPRAMIDE HCL INJ 5 MG/ML 2 ML VIAL IV PRN (17:41)
[2020-04-29] MEDS ORDERED: oxyCODONE HCL IR 5 MG TAB (IMMEDIATE RELEASE) PO PRN (17:41)
[2020-04-29] MEDS ORDERED: HYDROmorphone INJ 0.5 MG/0.5 ML SYR IV PRN (17:41)
[2020-04-29] MEDS ORDERED: diphenhydrAMINE Capsule 25 MG CAP PO PRN (17:41)
--- NOTE | 2020-04-29 17:52 | Post Operative Brief Note ---
Immediate Post Op Note v1 Date of Surgery April 29, 2020 Pre & Post Diagnosis Operation Date: 04/29/20 13:35 Pre-Op Diagnosis: OSTEOMYELITIS OF LEFT FIFTH METATARSAL HEAD, OSTEOMYELITIS LEFT FIFTH PROXIMAL PHALANX, DIABETIC ULCER (3.5 X 3.0 X 1.5 CM), CELLULITIS LEFT FOOT Post-Op Diagnosis: OSTEOMYELITIS OF LEFT FIFTH METATARSAL HEAD, OSTEOMYELITIS LEFT FIFTH PROXIMAL PHALANX, DIABETIC ULCER (3.5 X 3.0 X 1.5 CM), abscess left foot , CELLULITIS LEFT FOOT I identified the patient and participated in the time-out.: Yes Procedure Operation Date: 04/29/20 13:35 Actual Procedures p Left foot 5th Metatarsal Head excisional arthroplasty, left foot fifth proximal phalanx Excisional Arthroplasty(Left) - Vik Lee DO s Left Foot Debridement Large Diabetic Ulcer including skin, subcutaneous tissue, fascia, tendon and muscle, debridement diabetic ulcer (2.5 x 3.0 x 1.5 cm), application of antibiotic Stimulan beads (Left) - Vik Lee DO Surgeon Vik Lee DO Senior Software Engineering Manager Hector Taylor PA-C Estimated Blood Loss 2 Findings Consistent with Post-Op Diagnosis Specimens Fifth metatarsal head and fifth proximal phalanx Anesthesia Type MAC Regional Complications none Disposition Accompanied Patient To Recovery: Yes Disposition: Recovery Room
[2020-04-29] MEDS: FUROSEMIDE 20 MG TAB PO SCH (18:18)
[2020-04-29] MEDS: DAPTOmycin 550 MG in SYRINGE 0 ML IV SCH (18:22)
[2020-04-29 18:37] LABS: Partial Thromboplastin Time 27.3 Seconds (21.0-31.0)
--- NOTE | 2020-04-29 19:36 | Billing Data ---
Date of Service April 29, 2020 Coding Level of Care Code 39809 Subseq Hosp Care Lvl 3
[2020-04-29] MEDS: SENNA 8.6 MG TAB PO SCH (20:34)
[2020-04-29] MEDS: DOCUSATE SODIUM 100 MG CAP PO SCH (20:34)
--- NOTE | 2020-04-29 20:44 | Operative Report (OR) ---
DATE OF OPERATION: 04/29/2020 PREOPERATIVE DIAGNOSES: 1. Left foot osteomyelitis of the fifth metatarsal head. 2. Left foot osteomyelitis of the fifth proximal phalanx. 3. Diabetic ulcer (3.5 x 3.0 x 1.5 cm), cellulitis of the left lower extremity and foot. POSTOPERATIVE DIAGNOSES: 1. Left foot osteomyelitis of the fifth metatarsal head. 2. Left foot osteomyelitis of the fifth proximal phalanx. 3. Diabetic ulcer (3.5 x 3.0 x 1.5 cm), cellulitis of the left lower extremity and foot. 4. Abscess, lateral distal foot. PROCEDURES PERFORMED: 1. Left foot resection arthroplasty, fifth metatarsal. 2. Left foot resection arthroplasty, fifth proximal phalanx. 3. Debridement, fifth metatarsal ulcer measuring 3.5 x 3.0 x 1.5 cm. 4. Implantation of antibiotic Stimulan beads. 5. Debridement of skin, subcutaneous tissue, fascia, tendon and muscle of the left foot. 6. Evacuation of abscess. SURGEON: Vik Lee DO. CARDIOLOGY CONSULTANT: Hector Taylor PA-C who was present for patient positioning, sterile prep and drape, management of retractors and instruments. He was present through the critical portions of the case including wound closure, application of sterile dressing and transport of the patient to recovery. ANESTHESIA: MAC, regional. SPECIMENS: Bone, fifth metatarsal head and proximal phalanx, left foot, fifth. DRAINS: None. COMPLICATIONS: None. BLOOD LOSS: 2 mL. PERTINENT HISTORY: This is a 64-year-old woman who has been diabetic for approximately 20 years. She presented initially to [facility] where she was stabilized, no surgeon was available to render care for the patient. She was then transferred to [facility], admitted to the hospitalist service, stabilized and then scheduled for surgery as indicated due to her MRI confirmed osteomyelitis of the fifth metatarsal head and fifth proximal phalanx, left foot with a large ulceration as noted above. All potential risks, benefits, complications, alternatives, rehab potential for incomplete relief of symptoms, need for further surgery, DVT, PE, , persistent pain, swelling, scarring, weakness, neurovascular injury, wound complications, need for further amputation and surgery were discussed with the patient. The patient decided to proceed with the procedure as indicated. DESCRIPTION OF PROCEDURE: The patient was taken to the operative suite, placed supine on the operating room table. After review of consent and identification of proper operative site, the patient was sedated. Left lower extremity had a tourniquet applied high on the left thigh over cast padding; however, the pneumatic tourniquet was not used during the case. Left lower extremity was then sterilely prepped and draped in usual fashion, elevated and partially exsanguinated with an Esmarch bandage from the level of the heel proximally. The tourniquet was applied over sterile surgical towel. Next, the 15 blade scalpel was used to make an incision on the dorsum of the left foot centered over the fifth metatarsophalangeal joint. The incision was carefully deepened through skin and subcutaneous tissue with a 15 blade scalpel. Meticulous hemostasis was achieved with electrocautery. Jordyn rakes were applied to retract soft tissue. The fifth extensor tendon was identified, freed with a tenotomy scissor, retracted, and protected with a Jordyn rake. Next, the dorsal joint capsule was then incised with a 15 blade scalpel. Of note, there was significant abscess, fluid pocket noted just medial to the fifth metatarsophalangeal joint, not previously appreciated on the MRI, which was then evacuated and soft tissue around it was then resected using a rongeur. Next, the bone was noted to be of particular weakness as evidenced by passage of the 15 blade scalpel directly into the metatarsal head without difficulty. This indicated obvious osteomyelitis and at this point, Hohmann retractors were placed medial and lateral to the fifth metatarsal and then oblique resection was then performed with a sagittal saw, excised in the entirety of the distal fifth metatarsal as evidenced by MRI suggesting osteomyelitis through at least the distal one-third of the fifth metatarsal. Next, attention was then directed toward the proximal phalanx of the fifth toe. Hohmann retractors were placed medial and lateral to the proximal phalanx after elevation, retraction, and protection of the extensor. The medial and lateral capsular ligaments were then freed to the base of the proximal phalanx and then sagittal saw was then used to resect the proximal aspect of the proximal phalanx, fifth toe. These bony fragments were then passed off as specimen. Next, a 15 blade scalpel was used to sharply debride the 3.5 x 3.0 x 1.5 cm plantar lateral ulceration centered over the fifth metatarsal head. Dissection and debridement consisted of skin, subcutaneous tissue, local fascia, tendon and flexor tendon remnant and muscle. The devitalized tissue as mentioned above was then sharply excised and the large curette was then used to curettage the remaining tissue until a more healthy base tissue with some punctate bleeding was noted. Next, a pulsatile lavage 3 liters with bacitracin was then used to cleanse the dorsal incision as well as the plantar ulceration until clear. Next, top gloves and top sheet were changed and 5 mL of Stimulan antibiotic laden calcium sulfate beads were created and then packed into the dorsal incision as well as in the plantar ulceration. The dorsal incision was then closed using 4-0 nylon. The plantar ulceration was then covered with an Acticoat Flex with boris to make a small bead pocket. A sterile compressive dressing was applied overwrapped with an Rui wrap. The tourniquet was released. The patient was awakened, normal hyperemic response returned to the toes. The patient was then taken to recovery in stable condition. I attest to the content of the Intraoperative Record and any orders documented therein. Any exception s are noted below.
[2020-04-30 01:35] LABS: Partial Thromboplastin Ratio 1.8
[2020-04-30 01:36] LABS: Partial Thromboplastin Time 47.3 Seconds (21.0-31.0)
--- NOTE | 2020-04-30 05:27 | Electrocardiogram Report ---
Test Reason : Blood Pressure : / mmHG Vent. Rate : 065 BPM Atrial Rate : 050 BPM P-R Int : 000 ms QRS Dur : 102 ms QT Int : 454 ms P-R-T Axes : 000 082 -36 degrees QTc Int : 472 ms Atrial fibrillation Septal infarct , age undetermined Nonspecific T wave abnormality Abnormal ECG When compared with ECG of 27-OCT-2016 06:28, Septal infarct is now Present Confirmed by Kodi Manuel ([id number]) on 04/30/2020 5:27:36 AM Referred By: Sheeba Valente Confirmed By:Kodi Manuel
[2020-04-30] MEDS: PIPERACILLIN/TAZOBACTAM 4.5 GM in DEXTROSE 5% 100 ML IV SCH ×3 (06:00→22:23)
[2020-04-30 07:02] LABS: Basophils # (auto) 0.02 K/uL (0-0.2); Basophils % (auto) 0.3 %; Eosinophils # (auto) 0.06 K/uL (0-0.5); Hematocrit (blood only) 32.6 % (37-47); Hemoglobin 9.8 g/dL (12.0-16.0); Immature Granulocytes # (auto) 0.01 K/uL (0.00-0.02); Immature Granulocytes % (auto) 0.2 %; Lymphocytes # (auto) 0.81 K/uL (1.2-3.4); Lymphocytes % (auto) 13.7 %; Mean Corpuscular Hemoglobin 25.9 pg (25-34); Mean Corpuscular Hgb Conc 30.1 g/dL (32-36); Mean Corpuscular Volume 86.2 fL (80-100); Monocytes # (auto) 0.31 K/uL (0.11-0.59); Monocytes % (auto) 5.2 %; Neutrophils # (auto) 4.72 K/uL (1.4-6.5); Neutrophils % (auto) 79.6 %; Platelet Count 256 K/uL (130-400); RDW Coefficient of Variation 15.6 % (11.5-14.5); RDW Standard Deviation 50.3 fL (36.4-46.3); Red Blood Count 3.78 M/uL (4.2-5.4); White Blood Count 5.93 K/uL (4.8-10.8)
[2020-04-30 07:24] LABS: Partial Thromboplastin Ratio 1.8
[2020-04-30 07:32] LABS: Partial Thromboplastin Time 48.4 Seconds (21.0-31.0)
[2020-04-30 07:34] LABS: BUN Creatinine Ratio 11.3 (10-20); Calcium 8.7 mg/dl (8.5-10.1); Creatinine Clr Calc Pharmacy 87.8 ml/min; Est GFR (African American) 73.9; Est GFR (Non-African American) 63.7; Potassium 4.4 mmol/L (3.5-5.1)
[2020-04-30] MEDS: HEPARIN SODIUM/DEXTROSE 25,000 UNITS/500 ML BAG IV SCH ×2 (08:30→22:23)
[2020-04-30] MEDS: INSULIN GLARGINE SOLOSTAR 100 UNITS/ML 3 ML PEN SC SCH (08:36)
[2020-04-30] MEDS: INSULIN ASPART 100 UNITS/ML 3 ML PEN SC SCH ×4 (08:36→19:56)
[2020-04-30] MEDS: dilTIAZem HCL 240 MG CAPCR PO SCH (08:42)
[2020-04-30] MEDS: ARIPiprazole 10 MG TAB PO SCH (08:42)
[2020-04-30] MEDS: CITALOPRAM 40 MG TAB PO SCH (08:43)
[2020-04-30] MEDS: LORATADINE 10 MG TAB PO SCH (08:43)
[2020-04-30] MEDS: ISOSORBIDE MONO EXTENDED REL 30 MG TABCR PO SCH (08:44)
[2020-04-30] MEDS: FUROSEMIDE 20 MG TAB PO SCH ×2 (08:44→17:16)
[2020-04-30] MEDS: ATORVASTATIN 40 MG TAB PO SCH (08:44)
[2020-04-30] MEDS: DOCUSATE SODIUM 100 MG CAP PO SCH ×2 (08:44→20:35)
[2020-04-30] MEDS: METOPROLOL TARTRATE 50 MG TAB PO SCH ×2 (08:45→20:35)
[2020-04-30] MEDS: PANTOprazole 40 MG TAB PO SCH (08:45)
[2020-04-30] MEDS: MULTIVITAMIN TAB PO SCH (08:45)
[2020-04-30] MEDS: GABAPENTIN 300 MG CAP PO SCH ×3 (08:45→20:35)
[2020-04-30] MEDS ORDERED: FUROSEMIDE 20 MG in SYRINGE 0 ML IV ONE (09:00)
[2020-04-30] MEDS: ACETAMINOPHEN 325 MG TAB PO PRN (09:49)
--- NOTE | 2020-04-30 10:06 | Hospitalist Progress Note ---
Date of Service April 30, 2020 Assessment & Plan (1) Osteomyelitis: 64-year-old female with a past medical history of atrial fibrillation on Xarelto anticoagulation, congestive heart failure, type 2 diabetes mellitus not on insulin, hypertension, SCOTT, GERD, CVA, and uterine plus endometrial cancer status post total hysterectomy who presents as a direct admission from [facility] for left lower extremity osteomyelitis with gas production. Left lower extremity osteomyelitis, diabetic foot ulcer with cellulitis s/p left foot resection and arthroplasty of the 5th metatarsal and 5th phalanx No leukocytosis, ESR 47, CRP 6.65, By report on pre-op CT fifth metatarsal evidence of osteomyelitis pre-op MRI with and without contrast with osteo seen at the 5th metatarsal and 5th proximal phalanx with cellulitis and no fluid collection Orthopedics consulted Patient nontoxic Continue Zosyn and Daptomycin, consider deescalating to oral agents Wound care consulted Type 2 diabetes mellitus A1c 7.3 Home glipizide held Converted to basal bolus, weight-based. Lantus 20 daily, CF 35, ratio 11 Glucose checks AC/at bedtime Diabetic diet Congestive heart failure TTE with EF 50-55% unchanged from 2017 BNP 2464 CXR with cardiomegaly and mild pulmonary edema Continue atorvastatin 40 mg daily Lisinopril held temporarily Continue metoprolol 50 mg tartrate twice daily Continue p.o. Lasix 20 mg twice daily - Given extra dose of 20 IV Lasix once A. fib on chronic Xarelto anticoagulation Patient irregularly irregular on exam Xarelto held in anticipation of potential surgical intervention this coming week Convert to heparin GTT while held Adequately rate controlled Hypertension Continue diltiazem 240 mg CD MAJO held as above Metoprolol as above Wheezing Unclear, patient reports uses Combivent up to four times daily as needed but does not the regular medications DuoNebs as needed Incentive spirometry Flutter valve Depression Continue aripiprazole 10 mg daily Continue citalopram 40 mg daily GERD Continue pantoprazole 40 mg daily Social Patient reports difficulties at home with self-care in addition to recent difficulties with paying bills/registering her car in addition to the loss of her job in the past month. Reports is difficult living condition at home, and may not have adequate resources to appropriately care for her medical condition at home alone at this time. Case management consulted. Infection control precautions - MRSA coverage and precautions due to prior cellulitis that did not resolve until treated with MRSA coverage within the last 30 days of admission DVT prophylaxis: Heparin Disposition: Medical with telemetry Diet: Diabetic diet CODE STATUS: Full code (2) DM type 2 (diabetes mellitus, type 2): (3) HTN (hypertension): (4) Atrial fibrillation: (5) CHF (congestive heart failure): (6) Chronic anticoagulation: (7) History of uterine cancer: (8) SCOTT (obstructive sleep apnea): (9) Depression: (10) GERD (gastroesophageal reflux disease): (11) History of CVA (cerebrovascular accident): (12) Atrial fibrillation with RVR: (13) Status post cardiac catheterization: (14) Left leg cellulitis: Admission and Anticipated Discharge Date Admission Date: April 25, 2020 Supervising Physician Co-Signing Physician Notes I personally examined the patient and verified all tripathi points of history and exam, discussed case, and agree with decision making with Dr Neely. Breathing feels better after Lasix. No other complaints at this time In general she is awake and alert pleasant no distress. HEENT normocephalic atraumatic mucous membranes moist. Breathing unlabored no accessory muscle use good effort, lungs are clear without rales rhonchi or wheezes. Skin shows no rashes no pallor or icterus. Diabetic foot ulcer with osteomyelitisnow status post surgical debridement, continue antibiotics for now, awaiting further input from orthopedics if ongoing treatment for osteomyelitis will be necessary, or more just for the surrounding soft tissueobviously continue current treatment for now. Ongoing wound care. Acute on chronic diastolic CHFimproved post Lasix. Continue med management DVT prophylaxisheparin for now, Xarelto resume in near future (in next day or two if there's not much bleeding from wound) Otherwise as above Subjective Deann Marti is doing well today. She did have some shortness of breath along with some cough. She did feel like she had increased fluid. She had no questions after talking today. Review of Systems Review of Systems: Constitutional: denies fever, chills Cardiac: denies chest pain, palpitations GI: denies nausea, vomiting Pulm.: admits slight cough and slight shortness of breath Physical Exam Constitutional: WD/WN, vitals as above Eyes: PERRL, conjunctivae normal, anicteric sclerae ENMT: external ear and nose normal, oropharynx normal Neck: normal visual inspection Respiratory: - slight wheeze on exam - good air movement in all robles - no acute distress Cardiovascular: RRR, no murmur, no edema Rate/Rhythm: + irregularly irregular Gastrointestinal (Abdomen): normal bowel sounds, soft, nontender, no hepatosplenomegaly Skin: - bandage over left foot with serosanguineous drainage - red lesion on the lower extremity to the mid wood Neurologic: no focal motor deficits Psychiatric: A+Ox3, euthymic affect Results & Data Results & Data ([facility]) Vital Signs (Past 12 Hours) Vital Signs Temp Pulse Pulse Pulse Resp BP BP 04/30/20 07:56 37 C 91 H 18 123/66 04/29/20 23:53 69 20 04/29/20 23:38 36.5 C 64 20 118/63 04/29/20 22:20 62 Pulse Ox 04/30/20 07:56 04/29/20 23:53 91 04/29/20 23:38 95 04/29/20 22:20 CBC Results Results Complete Blood Count Results: RBC 3.78 M/uL (4.2-5.4) L 04/30/20 WBC 5.93 K/uL (4.8-10.8) 04/30/20 Hgb 9.8 g/dL (12.0-16.0) L 04/30/20 Hct 32.6 % (37-47) L 04/30/20 Plt Count 256 K/uL (130-400) 04/30/20 Chemistry (BMP) Results BMP Results: Sodium 137 mmol/L (136-145) 04/30/20 Potassium 4.4 mmol/L (3.5-5.1) 04/30/20 Chloride 102 mmol/L (98-107) 04/30/20 BUN 11 mg/dl (7-18) 04/30/20 Creatinine 0.95 mg/dl (0.6-1.2) 04/30/20 Glucose 115 mg/dl (70-99) H 04/30/20 Resident Activity Tracking Resident Involvement: Resident Care Provided Care Provided: Adult [facility] Medicine
--- NOTE | 2020-04-30 16:35 | Orthopedic Progress Note ---
Date of Service April 30, 2020 Assessment & Plan (1) Osteomyelitis: POD #1 s/p 1. Left foot resection arthroplasty, fifth metatarsal. 2. Left foot resection arthroplasty, fifth proximal phalanx. 3. Debridement, fifth metatarsal ulcer measuring 3.5 x 3.0 x 1.5 cm. 4. Implantation of antibiotic Stimulan beads. 5. Debridement of skin, subcutaneous tissue, fascia, tendon and muscle of the left foot. 6. Evacuation of abscess Continue IV Zosyn and Daptomycin. Probably will require 6 wks of IV antibiotics upon d/c. NWB LLE at all times. Dressing changed today. D/C planning--uncertain at this time. Admission and Anticipated Discharge Date Admission Date: April 25, 2020 Subjective No left foot complaints. No pain in the foot. Has been NWB on the LLE since her procedure. Physical Exam Constitutional: WD/WN, vitals as above no acute distress Musculoskeletal: Left foot: Well approximated incision at the dorsal aspect of the foot over the 5th metatarsal. Sutures in place. Minimal draining, mild maceration. Plantar/lateral ulcer with sutures in place. Mild serosanguinous drainage. No erythema. Neurologic: + abnormal touch/pain/proprioception (Decrease sensation BLE consistent with neuropathy.) Psychiatric: A+Ox3, euthymic affect Speech: normal rate/rhythm/volume of speech Results & Data ([facility]) Vital Signs (Past 12 Hours) Vital Signs Temp Pulse Pulse Resp BP BP Pulse Ox 04/30/20 15:49 53 L 04/30/20 15:38 36.5 C 91 H 16 123/66 90 04/30/20 12:48 37.4 C 71 20 120/68 94 04/30/20 12:03 04/30/20 08:00 89 04/30/20 07:56 37 C 91 H 18 123/66 Pulse Ox Pulse Ox Pulse Ox 04/30/20 15:49 04/30/20 15:38 04/30/20 12:48 04/30/20 12:03 94 94 90 04/30/20 08:00 04/30/20 07:56
[2020-04-30] MEDS: DAPTOmycin 550 MG in SYRINGE 0 ML IV SCH (17:16)
--- NOTE | 2020-04-30 18:36 | Billing Data ---
Date of Service April 30, 2020 Coding Level of Care Code 77878 Subseq Hosp Care Lvl 3
[2020-04-30] MEDS: SENNA 8.6 MG TAB PO SCH (20:35)
[2020-05-01] MEDS: ALBUT/IPRATROP 3MG/0.5MG NEB 3 ML VIAL NEB PRN (03:58)
[2020-05-01] MEDS: PIPERACILLIN/TAZOBACTAM 4.5 GM in DEXTROSE 5% 100 ML IV SCH ×2 (06:26→14:14)
[2020-05-01 07:01] LABS: Basophils # (auto) 0.02 K/uL (0-0.2); Basophils % (auto) 0.4 %; Eosinophils # (auto) 0.08 K/uL (0-0.5); Eosinophils % (auto) 1.8 %; Hematocrit (blood only) 30.4 % (37-47); Hemoglobin 9.3 g/dL (12.0-16.0); Lymphocytes # (auto) 1.12 K/uL (1.2-3.4); Lymphocytes % (auto) 24.9 %; Mean Corpuscular Hemoglobin 26.3 pg (25-34); Mean Corpuscular Hgb Conc 30.6 g/dL (32-36); Mean Corpuscular Volume 85.9 fL (80-100); Mean Platelet Volume 9.1 fL (7.4-10.4); Monocytes # (auto) 0.38 K/uL (0.11-0.59); Monocytes % (auto) 8.5 %; Neutrophils # (auto) 2.89 K/uL (1.4-6.5); Neutrophils % (auto) 64.4 %; Platelet Count 198 K/uL (130-400); RDW Coefficient of Variation 15.5 % (11.5-14.5); RDW Standard Deviation 49.7 fL (36.4-46.3); Red Blood Count 3.54 M/uL (4.2-5.4); White Blood Count 4.49 K/uL (4.8-10.8)
[2020-05-01 07:28] LABS: Partial Thromboplastin Time 52.1 Seconds (21.0-31.0)
[2020-05-01 07:37] LABS: BUN Creatinine Ratio 13.4 (10-20); Creatinine Clr Calc Pharmacy 73.8 ml/min; Est GFR (African American) 59.9; Est GFR (Non-African American) 51.7; Potassium 4.3 mmol/L (3.5-5.1)
[2020-05-01] MEDS: MULTIVITAMIN TAB PO SCH (09:08)
[2020-05-01] MEDS: DOCUSATE SODIUM 100 MG CAP PO SCH ×3 (09:08→20:52)
[2020-05-01] MEDS: METOPROLOL TARTRATE 50 MG TAB PO SCH ×2 (09:08→20:50)
[2020-05-01] MEDS: LORATADINE 10 MG TAB PO SCH (09:08)
[2020-05-01] MEDS: dilTIAZem HCL 240 MG CAPCR PO SCH (09:09)
[2020-05-01] MEDS: PANTOprazole 40 MG TAB PO SCH (09:09)
[2020-05-01] MEDS: ISOSORBIDE MONO EXTENDED REL 30 MG TABCR PO SCH (09:09)
[2020-05-01] MEDS: CITALOPRAM 40 MG TAB PO SCH (09:10)
[2020-05-01] MEDS: ATORVASTATIN 40 MG TAB PO SCH (09:10)
[2020-05-01] MEDS: GABAPENTIN 300 MG CAP PO SCH ×3 (09:10→20:50)
[2020-05-01] MEDS: FUROSEMIDE 20 MG TAB PO SCH ×2 (09:11→16:31)
[2020-05-01] MEDS: ARIPiprazole 10 MG TAB PO SCH (09:11)
[2020-05-01] MEDS: INSULIN GLARGINE SOLOSTAR 100 UNITS/ML 3 ML PEN SC SCH (09:12)
[2020-05-01] MEDS: INSULIN ASPART 100 UNITS/ML 3 ML PEN SC SCH ×4 (09:13→21:11)
[2020-05-01] MEDS: HEPARIN SODIUM/DEXTROSE 25,000 UNITS/500 ML BAG IV SCH (10:31)
--- NOTE | 2020-05-01 13:38 | Orthopedic Progress Note ---
Date of Service May 01, 2020 Assessment & Plan (1) Osteomyelitis: POD #2 s/p 1. Left foot resection arthroplasty, fifth metatarsal. 2. Left foot resection arthroplasty, fifth proximal phalanx. 3. Debridement, fifth metatarsal ulcer measuring 3.5 x 3.0 x 1.5 cm. 4. Implantation of antibiotic Stimulan beads. 5. Debridement of skin, subcutaneous tissue, fascia, tendon and muscle of the left foot. 6. Evacuation of abscess Continue IV Zosyn and Daptomycin. Probably will require 6 wks of IV antibiotics upon d/c. NWB LLE at all times. Dressing kept in place today. Incision appears well approximated with sutures in place. Plan for dressing change tomorrow. D/C planning--uncertain at this time. Admission and Anticipated Discharge Date Admission Date: April 25, 2020 Subjective Doing well. No complaints. Foot is feeling good. Physical Exam Constitutional: WD/WN, vitals as above no acute distress Musculoskeletal: Left foot: Incision well approximated at dorsal foot. No erythema or drainage. Dressing C/D/I. Toes mobile with AROM. Neurologic: + abnormal touch/pain/proprioception (Decrease sensation BLE consistent with neuropathy.) Psychiatric: A+Ox3, euthymic affect Speech: normal rate/rhythm/volume of speech Results & Data ([facility]) Vital Signs (Past 12 Hours) Vital Signs Temp Pulse Pulse Resp BP Pulse Ox 05/01/20 12:01 36.6 C 63 18 114/61 97 05/01/20 08:04 37.4 C 72 18 109/62 92 05/01/20 03:58 60 18 90 05/01/20 03:03 36.8 C 70 20 111/57 L 91 05/01/20 02:31 74 20 93 05/01/20 01:38 90 05/01/20 01:36 86 L Laboratory Results Laboratory Tests 05/01/20 06:33 WBC 4.49 L RBC 3.54 L Hgb 9.3 L Hct 30.4 L
--- NOTE | 2020-05-01 15:28 | Hospitalist Progress Note ---
Date of Service May 01, 2020 Assessment & Plan (1) Osteomyelitis: 64-year-old female with a past medical history of atrial fibrillation on Xarelto anticoagulation, congestive heart failure, type 2 diabetes mellitus not on insulin, hypertension, SCOTT, GERD, CVA, and uterine plus endometrial cancer status post total hysterectomy who presents as a direct admission from [facility] for left lower extremity osteomyelitis with gas production. Left lower extremity osteomyelitis, diabetic foot ulcer with cellulitis s/p left foot resection and arthroplasty of the 5th metatarsal and 5th phalanx No leukocytosis, By report on pre-op CT fifth metatarsal evidence of osteomyelitis pre-op MRI with and without contrast with osteo seen at the 5th metatarsal and 5th proximal phalanx with cellulitis and no fluid collection Orthopedics consulted Patient nontoxic Anticipate 6 weeks IV antibiotics. Cefdinir + Metronidazole + Vancomycin - Pending PICC placement, consent completed. Wound care consulted - Anticipate d/c to rehab Type 2 diabetes mellitus A1c 7.3 Home glipizide held Converted to basal bolus, weight-based. Lantus 20 daily, CF 35, ratio 11 Glucose checks AC/at bedtime Diabetic diet Congestive heart failure TTE with EF 50-55% unchanged from 2017 CXR with cardiomegaly and mild pulmonary edema on admit, currently improved Continue atorvastatin 40 mg daily Lisinopril held temporarily Continue metoprolol 50 mg tartrate twice daily Continue p.o. Lasix 20 mg twice daily PRN A. fib on chronic Xarelto anticoagulation Patient irregularly irregular on exam Xarelto held in anticipation of potential surgical intervention this coming week Convert to heparin GTT while held. Convert back to DOAC on d/c. Adequately rate controlled Hypertension Continue diltiazem 240 mg CD MAJO held as above Metoprolol as above Wheezing Unclear, patient reports uses Combivent up to four times daily as needed but does not the regular medications DuoNebs as needed Incentive spirometry Flutter valve Depression Continue aripiprazole 10 mg daily Continue citalopram 40 mg daily GERD Continue pantoprazole 40 mg daily Social Patient reports difficulties at home with self-care in addition to recent difficulties with paying bills/registering her car in addition to the loss of her job in the past month. Reports is difficult living condition at home, and may not have adequate resources to appropriately care for her medical condition at home alone at this time. Case management consulted. Infection control precautions - MRSA coverage and precautions due to prior cellulitis that did not resolve until treated with MRSA coverage within the last 30 days of admission DVT prophylaxis: Heparin Disposition: Medical with telemetry Diet: Diabetic diet CODE STATUS: Full code (2) DM type 2 (diabetes mellitus, type 2): (3) HTN (hypertension): (4) Atrial fibrillation: (5) CHF (congestive heart failure): (6) Chronic anticoagulation: (7) History of uterine cancer: (8) SCOTT (obstructive sleep apnea): (9) Depression: (10) GERD (gastroesophageal reflux disease): (11) History of CVA (cerebrovascular accident): (12) Atrial fibrillation with RVR: (13) Status post cardiac catheterization: (14) Left leg cellulitis: Admission and Anticipated Discharge Date Admission Date: April 25, 2020 Supervising Physician Co-Signing Physician Notes I personally examined the patient and verified all tripathi points of history and exam, discussed case, and agree with decision making with Dr White. Feels good, no new complaints. Discussed PICC, she is okay with this. In general she is awake and alert pleasant no distress. HEENT normocephalic atraumatic mucous membranes moist. Breathing unlabored no accessory muscle use good effort, lungs are clear without rales rhonchi or wheezes. Skin shows no rashes no pallor or icterus. Diabetic foot ulcer with osteomyelitisnow status post surgical debridement, local wound care, PICC line for ongoing antibiotics. Acute on chronic diastolic CHFimproved post Lasix. Continue med management DVT prophylaxisheparin for now, Xarelto resume in near future (in next day or two if there's not much bleeding from wound) Dispositionanticipate SNF or rehab Otherwise as above Subjective Seen at bedside this morning. Nondistressed. Talking on phone with a friend. Reports she feels 'OK' and that her foot is not in pain. Denies chest pain, chest pressure, SOB, fevers, and chills. reports she knows she will like to go to rehab, and is interesting in getting better. No other questions or concerns at time of visit. Review of Systems Review of Systems: All systems reviewed & are unremarkable except as noted in Subjective Physical Exam Physical Exam: General: A&Ox3. NAD. Cooperative. HEENT: Atraumatic, normocephalic. Pulm: CTAB A&P. -wheezes, -rales, -rhonchi. Symmetrical chest rise. No increase work of breathing. No respiratory distress. Cardiac: ir-ir, -mrg. Radial pulses intact and symmetrical. Abdominal: Nontender, nondistended, soft. BS present. Ext: L foot with surgical dressing in place. 1+ pitting edema. No spreading erythema. decreased sensation to soft touch at the distally, but overall intact. PT pulses intact bilaterally. Dressing C/D/I with overlying MAJO. Results & Data Results & Data ([facility]) Vital Signs (Past 12 Hours) Vital Signs Temp Pulse Resp BP Pulse Ox 05/01/20 14:38 36.8 C 75 20 132/63 91 05/01/20 12:01 36.6 C 63 18 114/61 97 05/01/20 08:04 37.4 C 72 18 109/62 92 05/01/20 03:58 60 18 90 Resident Activity Tracking Resident Involvement: Resident Care Provided Care Provided: Adult Hospital Medicine
[2020-05-01] MEDS: metroNIDAZOLE 500 MG/100 ML BAG IV SCH (16:31)
[2020-05-01] MEDS: DAPTOmycin 550 MG in SYRINGE 0 ML IV SCH (17:43)
--- NOTE | 2020-05-01 19:00 | Billing Data ---
Date of Service May 01, 2020 Coding Level of Care Code 98008 Subseq Hosp Care Lvl 3
[2020-05-01] MEDS: CEFEPIME 2,000 MG in SYRINGE 0 ML IV SCH (20:49)
[2020-05-01] MEDS: SENNA 8.6 MG TAB PO SCH (20:50)
--- NOTE | 2020-05-01 20:53 | XRay Report ---
XR chest 1V portable CLINICAL HISTORY: PICC placement COMPARISON STUDY: 04/25/2020 FINDINGS: The heart is enlarged. There is mild central vascular prominence. Left hemidiaphragm is obs cured. This may indicate a left pleural effusion. There is been interval placement of a right-sided P ICC catheter. The tip is difficult to visualize due to the patient's large body habitus. The tip appe ars to extend to the level of the atriocaval junction.[ IMPRESSION: 1. Cardiomegaly and pulmonary vascular congestion 2. Suspected left pleural effusion with associated left basilar atelectasis/consolidation 3. Interval insertion of a right-sided PICC catheter. The tip is difficult to visualize due to the pa tient's large body habitus. The tip appears to terminate near the level of the atriocaval junction ACT 112: Negative or not required by law. Electronically signed by: Anurag Archibald M.D. 05/01/2020 8:51 PM
[2020-05-02] MEDS: HEPARIN SODIUM/DEXTROSE 25,000 UNITS/500 ML BAG IV SCH ×2 (00:27→14:39)
[2020-05-02] MEDS: metroNIDAZOLE 500 MG/100 ML BAG IV SCH ×3 (00:28→16:55)
[2020-05-02] MEDS: ACETAMINOPHEN 325 MG TAB PO PRN (00:33)
[2020-05-02 06:39] LABS: Basophils # (auto) 0.02 K/uL (0-0.2); Basophils % (auto) 0.4 %; Eosinophils # (auto) 0.09 K/uL (0-0.5); Hematocrit (blood only) 30.5 % (37-47); Hemoglobin 9.2 g/dL (12.0-16.0); Immature Granulocytes # (auto) 0.01 K/uL (0.00-0.02); Immature Granulocytes % (auto) 0.2 %; Lymphocytes # (auto) 1.21 K/uL (1.2-3.4); Lymphocytes % (auto) 26.6 %; Mean Corpuscular Hemoglobin 26.1 pg (25-34); Mean Corpuscular Hgb Conc 30.2 g/dL (32-36); Mean Corpuscular Volume 86.4 fL (80-100); Monocytes # (auto) 0.61 K/uL (0.11-0.59); Monocytes % (auto) 13.4 %; Neutrophils # (auto) 2.61 K/uL (1.4-6.5); Neutrophils % (auto) 57.4 %; Platelet Count 185 K/uL (130-400); RDW Coefficient of Variation 15.4 % (11.5-14.5); RDW Standard Deviation 49.1 fL (36.4-46.3); Red Blood Count 3.53 M/uL (4.2-5.4); White Blood Count 4.55 K/uL (4.8-10.8)
[2020-05-02 07:08] LABS: BUN Creatinine Ratio 15.4 (10-20); Calcium 9.4 mg/dl (8.5-10.1); Creatinine Clr Calc Pharmacy 96.7 ml/min; Est GFR (African American) 83.3; Est GFR (Non-African American) 71.9
[2020-05-02] MEDS: dilTIAZem HCL 240 MG CAPCR PO SCH (08:34)
[2020-05-02] MEDS: MULTIVITAMIN TAB PO SCH (08:34)
[2020-05-02] MEDS: ATORVASTATIN 40 MG TAB PO SCH (08:34)
[2020-05-02] MEDS: ISOSORBIDE MONO EXTENDED REL 30 MG TABCR PO SCH (08:34)
[2020-05-02] MEDS: ARIPiprazole 10 MG TAB PO SCH (08:34)
[2020-05-02] MEDS: FUROSEMIDE 20 MG TAB PO SCH ×2 (08:34→17:02)
[2020-05-02] MEDS: PANTOprazole 40 MG TAB PO SCH (08:34)
[2020-05-02] MEDS: CITALOPRAM 40 MG TAB PO SCH (08:34)
[2020-05-02] MEDS: LORATADINE 10 MG TAB PO SCH (08:34)
[2020-05-02] MEDS: GABAPENTIN 300 MG CAP PO SCH ×3 (08:35→20:12)
[2020-05-02] MEDS: METOPROLOL TARTRATE 50 MG TAB PO SCH ×2 (08:35→20:11)
[2020-05-02] MEDS: DOCUSATE SODIUM 100 MG CAP PO SCH ×2 (08:35→20:11)
[2020-05-02] MEDS: INSULIN GLARGINE SOLOSTAR 100 UNITS/ML 3 ML PEN SC SCH (08:41)
[2020-05-02] MEDS: INSULIN ASPART 100 UNITS/ML 3 ML PEN SC SCH ×4 (08:42→23:39)
[2020-05-02] MEDS: CEFEPIME 2,000 MG in SYRINGE 0 ML IV SCH ×2 (08:45→20:12)
[2020-05-02 08:59] LABS: Partial Thromboplastin Ratio 2.3
[2020-05-02 09:01] LABS: Partial Thromboplastin Time 60.6 Seconds (21.0-31.0)
--- NOTE | 2020-05-02 09:47 | Hospitalist Progress Note ---
Date of Service May 02, 2020 Assessment & Plan (1) Osteomyelitis: 64-year-old female with a past medical history of atrial fibrillation on Xarelto anticoagulation, congestive heart failure, type 2 diabetes mellitus not on insulin, hypertension, SCOTT, GERD, CVA, and uterine plus endometrial cancer status post total hysterectomy who presents as a direct admission from [facility] for left lower extremity osteomyelitis with gas production. Left lower extremity osteomyelitis, diabetic foot ulcer with cellulitis s/p left foot resection and arthroplasty of the 5th metatarsal and 5th phalanx No leukocytosis, By report on pre-op CT fifth metatarsal evidence of osteomyelitis pre-op MRI with and without contrast with osteo seen at the 5th metatarsal and 5th proximal phalanx with cellulitis and no fluid collection Orthopedics consulted Patient nontoxic Anticipate 6 weeks IV antibiotics. Cefdinir + Metronidazole + Vancomycin - Pending PICC placement, consent completed. Wound care consulted - Anticipate d/c to rehab. Bleeding from PICC peripheral IV site. - Relayed from overnight nurse that has had bleeding from RUE US guided IV site. She noted onset while having a BM and pushing with possible localized mechanical injury from nearby tissue causing small bleed; continue with bandage. PICC was placed last night without complications noted from IV team PICC placement note. Appears currently resolved with compression from bandage. - No active bleeding at bedside; hemodynamically stable - Platelets WNL, no active bleeding; is on Heparin but no current clinical signs that support DIC; continue to monitor site and if becomes more problematic with persistent oozing consider checking platelets for thrombocytopenia and if low consider workup for DIC with Fibrinogen (low in DIC); in DIC D-dimer is elevated but might be elevated from acute osteo and also PT/PTT should be elevated but values are confounded by being on Heparin. Type 2 diabetes mellitus A1c 7.3 Home glipizide held Converted to basal bolus, weight-based. Lantus 20 daily, CF 35, ratio 11 Glucose checks AC/at bedtime Diabetic diet Congestive heart failure TTE with EF 50-55% unchanged from 2017 CXR with cardiomegaly and mild pulmonary edema on admit, currently improved Continue atorvastatin 40 mg daily Lisinopril held temporarily Continue metoprolol 50 mg tartrate twice daily Continue p.o. Lasix 20 mg twice daily PRN A. fib on chronic Xarelto anticoagulation Patient irregularly irregular on exam Xarelto held in anticipation of potential surgical intervention this coming week Convert to heparin GTT while held. Convert back to DOAC on d/c. Adequately rate controlled Hypertension Continue diltiazem 240 mg CD MAJO held as above Metoprolol as above Wheezing Unclear, patient reports uses Combivent up to four times daily as needed but does not the regular medications DuoNebs as needed Incentive spirometry Flutter valve Depression Continue aripiprazole 10 mg daily Continue citalopram 40 mg daily GERD Continue pantoprazole 40 mg daily Social Patient reports difficulties at home with self-care in addition to recent difficulties with paying bills/registering her car in addition to the loss of her job in the past month. Reports is difficult living condition at home, and may not have adequate resources to appropriately care for her medical condition at home alone at this time. Case management consulted. Infection control precautions - MRSA coverage and precautions due to prior cellulitis that did not resolve until treated with MRSA coverage within the last 30 days of admission DVT prophylaxis: Heparin Disposition: Medical with telemetry, pending placement Diet: Diabetic diet CODE STATUS: Full code (2) DM type 2 (diabetes mellitus, type 2): (3) HTN (hypertension): (4) Atrial fibrillation: (5) CHF (congestive heart failure): (6) Chronic anticoagulation: (7) History of uterine cancer: (8) SCOTT (obstructive sleep apnea): (9) Depression: (10) GERD (gastroesophageal reflux disease): (11) History of CVA (cerebrovascular accident): (12) Atrial fibrillation with RVR: (13) Status post cardiac catheterization: (14) Left leg cellulitis: (15) Bleeding from peripherally inserted central venous catheter (PICC): Admission and Anticipated Discharge Date Admission Date: April 25, 2020 Supervising Physician Co-Signing Physician Notes I personally examined the patient and verified all tripathi points of history and exam, discussed case, and agree with decision making with Dr Villegas. Working with therapy, doing fairly well, definitely appears most appropriate for some type of rehab or subacute rehab setting after discharge, no new complaints. In general she is awake and alert pleasant no distress. HEENT normocephalic atraumatic mucous membranes moist. Breathing unlabored no accessory muscle use good effort, no conversational dyspnea. Skin shows no rashes no pallor or icterus. Diabetic foot ulcer with osteomyelitisnow status post surgical debridement, local wound care, PICC line for ongoing antibiotics. At this point likely to need another 5 or so weeks to round out 6 weeks total of IV antibiotics Acute on chronic diastolic CHFimproved post Lasix. Continue med management, clinically appears improved. Follow DVT prophylaxiswas on heparin, resume Xarelto. Dispositionanticipate SNF or rehab Otherwise as above Subjective Noted by overnight nurse that Deann had some mild bleeding from her RUE US guided line placement. There were no acute events reported overnight. She notes she feels generally significant improved from admission; endorses no chest pain or LE pain; tolerating micronesian toast this morning without difficulty. Notes she is happy that today is the first day of spring. Physical Exam Constitutional: WD/WN, vitals as above cooperative and comfortable pleasant Eyes: PERRL, conjunctivae normal, anicteric sclerae ENMT: external ear and nose normal, oropharynx normal Neck: trachea midline, no thyromegaly Respiratory: normal respiratory effort, lungs clear to auscultation Cardiovascular: Rate/Rhythm: regular rate and regular rhythm Gastrointestinal (Abdomen): Percussion/Palpation: abdomen soft; abdomen nontender Musculoskeletal: Head/Neck/Chest: normocephalic and head atraumatic Skin: LLE bandage appears clean dry and-.- intact; no surrounding appearance of erythema, increased warmth or signs of infection that supports inadequate treatment. RUE IV Site with dry bandage and no signs of active bleeding or oozing from site. Neurologic: moves all extremities and awake Psychiatric: A+Ox3, euthymic affect Eye Contact: good eye contact Results & Data Results & Data ([facility]) Vital Signs (Past 12 Hours) Vital Signs Temp Pulse Pulse Resp BP BP Pulse Ox 05/02/20 07:34 36.4 C L 62 19 135/70 97 05/02/20 07:17 58 L 05/02/20 03:38 36.5 C 55 L 16 115/67 98 05/02/20 03:17 60 18 96 05/02/20 00:24 68 16 94 05/01/20 23:12 37.1 C 77 16 126/72 96 05/01/20 22:19 76 Laboratory Results Laboratory Results - last 24 hr 05/01/20 05/01/20 05/01/20 11:47 16:34 20:56 WBC RBC Hgb Hct MCV MCH MCHC RDW Std Deviation RDW Coeff of [place] Plt Count MPV Immature Gran % (Auto) Neut % (Auto) Lymph % (Auto) [place] % (Auto) Eos % (Auto) Baso % (Auto) Neut # (Auto) Lymph # (Auto) [place] # (Auto) Eos # (Auto) Baso # (Auto) Immature Gran # (Auto) APTT PTT Ratio Sodium Potassium Chloride Carbon Dioxide Anion Gap BUN Creatinine Est Cr Clr Drug Dosing Est GFR ( Amer) Est GFR (Non-Af Amer) BUN/Creatinine Ratio Glucose POC Glucose 139 H 157 H 128 H Calcium 05/02/20 05/02/20 05/02/20 06:15 06:15 07:38 WBC 4.55 L RBC 3.53 L Hgb 9.2 L Hct 30.5 L MCV 86.4 MCH 26.1 MCHC 30.2 L RDW Std Deviation 49.1 H RDW Coeff of [place] 15.4 H Plt Count 185 MPV 9.0 Immature Gran % (Auto) 0.2 Neut % (Auto) 57.4 Lymph % (Auto) 26.6 [place] % (Auto) 13.4 Eos % (Auto) 2.0 Baso % (Auto) 0.4 Neut # (Auto) 2.61 Lymph # (Auto) 1.21 [place] # (Auto) 0.61 H Eos # (Auto) 0.09 Baso # (Auto) 0.02 Immature Gran # (Auto) 0.01 APTT PTT Ratio Sodium 134 L Potassium 4.0 Chloride 98 Carbon Dioxide 33 H Anion Gap 3.0 BUN 13 Creatinine 0.86 Est Cr Clr Drug Dosing 96.7 Est GFR ( Amer) 83.3 Est GFR (Non-Af Amer) 71.9 BUN/Creatinine Ratio 15.4 Glucose 114 H POC Glucose 117 H Calcium 9.4 05/02/20 08:19 WBC RBC Hgb Hct MCV MCH MCHC RDW Std Deviation RDW Coeff of [place] Plt Count MPV Immature Gran % (Auto) Neut % (Auto) Lymph % (Auto) [place] % (Auto) Eos % (Auto) Baso % (Auto) Neut # (Auto) Lymph # (Auto) [place] # (Auto) Eos # (Auto) Baso # (Auto) Immature Gran # (Auto) APTT 60.6 H* PTT Ratio 2.3 Sodium Potassium Chloride Carbon Dioxide Anion Gap BUN Creatinine Est Cr Clr Drug Dosing Est GFR ( Amer) Est GFR (Non-Af Amer) BUN/Creatinine Ratio Glucose POC Glucose Calcium Medications Administered Acetaminophen (Acetaminophen 325 Mg Tab) 650 mg PO Q4H PRN PRN Reason: Pain or Fever Stop: 05/25/20 16:49 Last Admin: 05/02/20 00:33 Dose: 650 mg Documented by: [id number] Admin: 04/30/20 09:49 Dose: 650 mg Documented by: [id number] Admin: 04/27/20 18:59 Dose: 650 mg Documented by: [id number] Admin: 04/27/20 12:15 Dose: 650 mg Documented by: [id number] Admin: 04/26/20 15:14 Dose: 650 mg Documented by: [id number] Albuterol (Albut/Ipratrop 3mg/0.5mg Neb 3 Ml Vial) 3 ml NEB Q4H PRN PRN Reason: Shortness of Breath/Wheezing Stop: 05/25/20 16:59 Last Admin: 05/01/20 03:58 Dose: 3 ml Documented by: [id number] Admin: 04/28/20 16:42 Dose: 3 ml Documented by: [id number] Aripiprazole (Aripiprazole 10 Mg Tab) 10 mg PO [facility] Stop: 05/26/20 08:59 Last Admin: 05/02/20 08:34 Dose: 10 mg Documented by: [id number] Admin: 05/01/20 09:11 Dose: 10 mg Documented by: [id number] Admin: 04/30/20 08:42 Dose: 10 mg Documented by: [id number] Admin: 04/29/20 07:44 Dose: 10 mg Documented by: [id number] Admin: 04/28/20 08:26 Dose: 10 mg Documented by: [id number] Admin: 04/27/20 08:03 Dose: 10 mg Documented by: [id number] Admin: 04/26/20 08:13 Dose: 10 mg Documented by: [id number] Atorvastatin Calcium (Atorvastatin 40 Mg Tab) [facility] Stop: 05/26/20 08:59 Last Admin: 05/02/20 08:34 Dose: 40 mg Documented by: [id number] Admin: 05/01/20 09:10 Dose: 40 mg Documented by: [id number] Admin: 04/30/20 08:44 Dose: 40 mg Documented by: [id number] Admin: 04/29/20 07:45 Dose: 40 mg Documented by: [id number] Admin: 04/28/20 08:26 Dose: 40 mg Documented by: [id number] Admin: 04/27/20 08:03 Dose: 40 mg Documented by: [id number] Admin: 04/26/20 08:12 Dose: 40 mg Documented by: [id number] Citalopram Hydrobromide (Citalopram 40 Mg Tab) 40 mg PO QAM BILL Stop: 05/26/20 08:59 Last Admin: 05/02/20 08:34 Dose: 40 mg Documented by: [id number] Admin: 05/01/20 09:10 Dose: 40 mg Documented by: [id number] Admin: 04/30/20 08:43 Dose: 40 mg Documented by: [id number] Admin: 04/29/20 07:45 Dose: 40 mg Documented by: [id number] Admin: 04/28/20 08:26 Dose: 40 mg Documented by: [id number] Admin: 04/27/20 08:03 Dose: 40 mg Documented by: [id number] Admin: 04/26/20 08:13 Dose: 40 mg Documented by: [id number] Diltiazem HCl (Diltiazem Hcl 240 Mg Capcr) 240 mg PO QAM [facility] Stop: 05/26/20 08:59 Last Admin: 05/02/20 08:34 Dose: 240 mg Documented by: [id number] Admin: 05/01/20 09:09 Dose: 240 mg Documented by: [id number] Admin: 04/30/20 08:42 Dose: 240 mg Documented by: [id number] Admin: 04/29/20 07:45 Dose: 240 mg Documented by: [id number] Admin: 04/28/20 08:26 Dose: 240 mg Documented by: [id number] Admin: 04/27/20 08:03 Dose: 240 mg Documented by: [id number] Admin: 04/26/20 08:12 Dose: 240 mg Documented by: [id number] Docusate Sodium (Docusate Sodium 100 Mg Cap) 100 mg PO BID BILL Stop: 05/29/20 20:59 Last Admin: 05/02/20 08:35 Dose: Not Given Documented by: [id number] Admin: 05/01/20 20:52 Dose: Not Given Documented by: [id number] Admin: 05/01/20 09:08 Dose: 100 mg Documented by: [id number] Admin: 04/30/20 20:35 Dose: Not Given Documented by: [id number] Admin: 04/30/20 08:44 Dose: 100 mg Documented by: [id number] Admin: 04/29/20 20:34 Dose: 100 mg Documented by: [id number] Furosemide (Furosemide 20 Mg Tab) 20 mg PO BID17 BILL Stop: 05/29/20 16:59 Last Admin: 05/02/20 08:34 Dose: 20 mg Documented by: [id number] Admin: 05/01/20 16:31 Dose: 20 mg Documented by: [id number] Admin: 05/01/20 09:11 Dose: 20 mg Documented by: [id number] Admin: 04/30/20 17:16 Dose: 20 mg Documented by: [id number] Admin: 04/30/20 08:44 Dose: 20 mg Documented by: [id number] Admin: 04/29/20 18:18 Dose: 20 mg Documented by: [id number] Gabapentin (Gabapentin 300 Mg Cap) 300 mg PO TID BILL Stop: 05/25/20 20:59 Last Admin: 05/02/20 08:35 Dose: 300 mg Documented by: [id number] Admin: 05/01/20 20:50 Dose: 300 mg Documented by: [id number] Admin: 05/01/20 14:13 Dose: 300 mg Documented by: [id number] Admin: 05/01/20 09:10 Dose: 300 mg Documented by: [id number] Admin: 04/30/20 20:35 Dose: 300 mg Documented by: [id number] Admin: 04/30/20 13:56 Dose: 300 mg Documented by: [id number] Admin: 04/30/20 08:45 Dose: 300 mg Documented by: [id number] Admin: 04/29/20 20:33 Dose: 300 mg Documented by: [id number] Admin: 04/29/20 13:03 Dose: Not Given Documented by: [id number] Admin: 04/29/20 07:44 Dose: 300 mg Documented by: [id number] Admin: 04/28/20 21:11 Dose: 300 mg Documented by: [id number] Admin: 04/28/20 14:00 Dose: 300 mg Documented by: [id number] Admin: 04/28/20 08:26 Dose: 300 mg Documented by: [id number] Admin: 04/27/20 21:13 Dose: 300 mg Documented by: [id number] Admin: 04/27/20 13:41 Dose: 300 mg Documented by: [id number] Admin: 04/27/20 08:03 Dose: 300 mg Documented by: [id number] Admin: 04/26/20 21:52 Dose: 300 mg Documented by: [id number] Admin: 04/26/20 12:28 Dose: 300 mg Documented by: [id number] Admin: 04/26/20 08:16 Dose: 300 mg Documented by: [id number] Admin: 04/25/20 21:26 Dose: 300 mg Documented by: [id number] Heparin Sodium (Beef Lung) (Heparin 10 Unit/Ml 5 Ml Flush) 5 ml FLUSH PRN PRN PRN Reason: Flush Stop: 06/01/20 00:24 Last Admin: 05/02/20 01:29 Dose: 5 ml Documented by: [id number] Heparin Sodium/Dextrose (Heparin Sodium/Dextrose) 25,000 units in 500 mls @ 36 mls/hr IV .[id number] [facility]; Protocol Stop: 05/25/20 18:14 Last Titration: 05/02/20 09:23 Dose: 1,800 units/hr, 36 mls/hr Documented by: [id number] Cosigned by: [id number] Admin: 05/02/20 00:27 Dose: 1,800 units/hr, 36 mls/hr Documented by: [id number] Cosigned by: [id number] Titration: 05/02/20 00:25 Dose: 1,800 units/hr, 36 mls/hr Documented by: [id number] Cosigned by: [id number] Admin: 05/01/20 10:31 Dose: 1,800 units/hr, 36 mls/hr Documented by: [id number] Cosigned by: [id number] Titration: 05/01/20 10:31 Dose: 1,800 units/hr, 36 mls/hr Documented by: [id number] Cosigned by: [id number] Titration: 04/30/20 22:50 Dose: 1,800 units/hr, 36 mls/hr Documented by: [id number] Cosigned by: [id number] Admin: 04/30/20 22:23 Dose: 1,800 units/hr, 36 mls/hr Documented by: [id number] Cosigned by: [id number] Titration: 04/30/20 22:23 Dose: 1,800 units/hr, 36 mls/hr Documented by: [id number] Cosigned by: [id number] Admin: 04/30/20 08:30 Dose: 1,800 units/hr, 36 mls/hr Documented by: [id number] Cosigned by: [id number] Titration: 04/30/20 08:30 Dose: 1,800 units/hr, 36 mls/hr Documented by: [id number] Cosigned by: [id number] Titration: 04/30/20 06:57 Dose: 1,800 units/hr, 36 mls/hr Documented by: [id number] Cosigned by: [id number] Titration: 04/30/20 01:55 Dose: 1,800 units/hr, 36 mls/hr Documented by: [id number] Cosigned by: [id number] Admin: 04/29/20 18:57 Dose: 1,800 units/hr, 36 mls/hr Documented by: [id number] Cosigned by: [id number] Admin: 04/29/20 07:24 Dose: Not Given Documented by: [id number] Admin: 04/29/20 07:24 Dose: Not Given Documented by: [id number] Admin: 04/29/20 07:23 Dose: Not Given Documented by: [id number] Admin: 04/29/20 07:23 Dose: Not Given Documented by: [id number] Titration: 04/29/20 07:07 Dose: 0 units/hr, 0 mls/hr Documented by: [id number] Cosigned by: [id number] Titration: 04/28/20 22:55 Dose: 1,800 units/hr, 36 mls/hr Documented by: [id number] Cosigned by: [id number] Titration: 04/28/20 16:54 Dose: 1,900 units/hr, 38 mls/hr Documented by: [id number] Cosigned by: [id number] Admin: 04/28/20 16:54 Dose: 1,800 units/hr, 36 mls/hr Documented by: [id number] Cosigned by: [id number] Titration: 04/28/20 09:27 Dose: 1,900 units/hr, 38 mls/hr Documented by: [id number] Cosigned by: [id number] Admin: 04/28/20 04:12 Dose: 2,000 units/hr, 40 mls/hr Documented by: [id number] Cosigned by: [id number] Titration: 04/28/20 04:12 Dose: 2,000 units/hr, 40 mls/hr Documented by: [id number] Cosigned by: [id number] Titration: 04/27/20 23:07 Dose: 2,000 units/hr, 40 mls/hr Documented by: [id number] Cosigned by: [id number] Admin: 04/27/20 15:41 Dose: 2,000 units/hr, 40 mls/hr Documented by: [id number] Cosigned by: [id number] Titration: 04/27/20 14:28 Dose: 2,000 units/hr, 40 mls/hr Documented by: [id number] Cosigned by: [id number] Admin: 04/27/20 01:58 Dose: 2,000 units/hr, 40 mls/hr Documented by: [id number] Cosigned by: [id number] Titration: 04/27/20 00:17 Dose: 2,000 units/hr, 40 mls/hr Documented by: [id number] Cosigned by: [id number] Titration: 04/26/20 17:36 Dose: 2,000 units/hr, 40 mls/hr Documented by: [id number] Cosigned by: [id number] Titration: 04/26/20 15:48 Dose: 1,800 units/hr, 36 mls/hr Documented by: [id number] Cosigned by: [id number] Titration: 04/26/20 13:45 Dose: 0 units/hr, 0 mls/hr Documented by: [id number] Cosigned by: [id number] Admin: 04/26/20 10:53 Dose: Not Given Documented by: [id number] Admin: 04/26/20 09:05 Dose: 1,800 units/hr, 36 mls/hr Documented by: [id number] Cosigned by: [id number] Titration: 04/26/20 09:05 Dose: 1,700 units/hr, 34 mls/hr Documented by: [id number] Cosigned by: [id number] Titration: 04/26/20 01:39 Dose: 1,700 units/hr, 34 mls/hr Documented by: [id number] Cosigned by: [id number] Admin: 04/25/20 19:02 Dose: 1,600 units/hr, 32 mls/hr Documented by: [id number] Cosigned by: [id number] Daptomycin 550 mg/ Syringe 11 mls @ 3.5 mls/min IV Q24H BILL; Protocol Stop: 05/03/20 17:59 Last Admin: 05/01/20 17:43 Dose: 3.5 mls/min Documented by: [id number] Admin: 04/30/20 17:16 Dose: 3.5 mls/min Documented by: [id number] Admin: 04/29/20 18:22 Dose: 3.5 mls/min Documented by: [id number] Admin: 04/28/20 18:15 Dose: 3.5 mls/min Documented by: [id number] Admin: 04/27/20 18:54 Dose: 3.5 mls/min Documented by: [id number] Admin: 04/26/20 17:14 Dose: 3.5 mls/min Documented by: [id number] Cefepime HCl 2,000 mg/ Syringe 20 mls @ 5 mls/min IV Q12H BILL; Protocol Stop: 05/08/20 20:59 Last Admin: 05/02/20 08:45 Dose: 5 mls/min Documented by: [id number] Admin: 05/01/20 20:49 Dose: 5 mls/min Documented by: [id number] Metronidazole (Flagyl) 500 mg in 100 mls @ 100 mls/hr IV Q8H BILL Stop: 05/08/20 15:29 Last Admin: 05/02/20 08:33 Dose: 100 mls/hr Documented by: [id number] Infusion: 05/02/20 01:28 Dose: 0 mls/hr Documented by: [id number] Admin: 05/02/20 00:28 Dose: 100 mls/hr Documented by: [id number] Infusion: 05/01/20 17:37 Dose: 0 mls/hr Documented by: [id number] Admin: 05/01/20 16:31 Dose: 100 mls/hr Documented by: [id number] Insulin Aspart (Insulin Aspart 100 Units/Ml 3 Ml Pen) 0 units SC ACHS BILL Stop: 05/25/20 18:29 Last Admin: 05/02/20 08:42 Dose: 4 units Documented by: [id number] Cosigned by: [id number] Admin: 05/01/20 21:11 Dose: Not Given Documented by: [id number] Admin: 05/01/20 17:42 Dose: 5 units Documented by: [id number] Cosigned by: [id number] Admin: 05/01/20 12:27 Dose: 5 units Documented by: [id number] Cosigned by: [id number] Admin: 05/01/20 09:13 Dose: 4 units Documented by: [id number] Cosigned by: [id number] Admin: 04/30/20 19:56 Dose: Not Given Documented by: [id number] Cosigned by: [id number] Admin: 04/30/20 17:14 Dose: 4 units Documented by: [id number] Cosigned by: [id number] Admin: 04/30/20 12:34 Dose: 4 units Documented by: [id number] Cosigned by: [id number] Admin: 04/30/20 08:36 Dose: 3 units Documented by: [id number] Cosigned by: [id number] Admin: 04/29/20 20:37 Dose: 3 units Documented by: [id number] Cosigned by: [id number] Admin: 04/29/20 17:59 Dose: Not Given Documented by: [id number] Admin: 04/29/20 11:41 Dose: Not Given Documented by: [id number] Admin: 04/29/20 07:43 Dose: Not Given Documented by: [id number] Admin: 04/28/20 21:11 Dose: 1 units Documented by: [id number] Cosigned by: [id number] Admin: 04/28/20 16:54 Dose: 6 units Documented by: [id number] Cosigned by: [id number] Admin: 04/28/20 12:12 Dose: 3 units Documented by: [id number] Cosigned by: [id number] Admin: 04/28/20 08:25 Dose: 3 units Documented by: [id number] Cosigned by: [id number] Admin: 04/27/20 21:30 Dose: Not Given Documented by: [id number] Cosigned by: [id number] Admin: 04/27/20 17:35 Dose: 4 units Documented by: [id number] Cosigned by: [id number] Admin: 04/27/20 12:13 Dose: 4 units Documented by: [id number] Cosigned by: [id number] Admin: 04/27/20 08:04 Dose: 3 units Documented by: [id number] Cosigned by: [id number] Admin: 04/26/20 20:41 Dose: Not Given Documented by: [id number] Cosigned by: [id number] Admin: 04/26/20 17:20 Dose: 5 units Documented by: [id number] Cosigned by: [id number] Admin: 04/26/20 12:26 Dose: 1 units Documented by: [id number] Cosigned by: [id number] Admin: 04/26/20 08:13 Dose: 3 units Documented by: [id number] Cosigned by: [id number] Admin: 04/25/20 21:25 Dose: 2 units Documented by: [id number] Cosigned by: [id number] Admin: 04/25/20 18:26 Dose: 5 units Documented by: [id number] Cosigned by: [id number] Insulin Glargine (Insulin Glargine Solostar 100 Units/Ml 3 Ml Pen) 20 units SC DAILY BILL Stop: 05/26/20 08:59 Last Admin: 05/02/20 08:41 Dose: 20 units Documented by: [id number] Cosigned by: [id number] Admin: 05/01/20 09:12 Dose: 20 units Documented by: [id number] Cosigned by: [id number] Admin: 04/30/20 08:36 Dose: 20 units Documented by: [id number] Cosigned by: [id number] Admin: 04/29/20 07:45 Dose: 20 units Documented by: [id number] Cosigned by: [id number] Admin: 04/28/20 08:25 Dose: 20 units Documented by: [id number] Cosigned by: [id number] Admin: 04/27/20 08:04 Dose: 20 units Documented by: [id number] Cosigned by: [id number] Admin: 04/26/20 08:15 Dose: 20 units Documented by: [id number] Cosigned by: [id number] Isosorbide Mononitrate (Isosorbide [place] Extended Rel 30 Mg Tabcr) 30 mg PO QAM BILL Stop: 05/26/20 08:59 Last Admin: 05/02/20 08:34 Dose: 30 mg Documented by: [id number] Admin: 05/01/20 09:09 Dose: 30 mg Documented by: [id number] Admin: 04/30/20 08:44 Dose: 30 mg Documented by: [id number] Admin: 04/29/20 07:45 Dose: 30 mg Documented by: [id number] Admin: 04/28/20 08:26 Dose: 30 mg Documented by: [id number] Admin: 04/27/20 08:03 Dose: 30 mg Documented by: [id number] Admin: 04/26/20 08:13 Dose: 30 mg Documented by: [id number] Loratadine (Loratadine 10 Mg Tab) 10 mg PO QAM [facility] Stop: 05/26/20 08:59 Last Admin: 05/02/20 08:34 Dose: 10 mg Documented by: [id number] Admin: 05/01/20 09:08 Dose: 10 mg Documented by: [id number] Admin: 04/30/20 08:43 Dose: 10 mg Documented by: [id number] Admin: 04/29/20 07:45 Dose: 10 mg Documented by: [id number] Admin: 04/28/20 08:26 Dose: 10 mg Documented by: [id number] Admin: 04/27/20 08:03 Dose: 10 mg Documented by: [id number] Admin: 04/26/20 08:13 Dose: 10 mg Documented by: [id number] Metoclopramide HCl (Metoclopramide Hcl Inj 5 Mg/Ml 2 Ml Vial) 10 mg IV Q6H PRN PRN Reason: Nausea And Vomiting Stop: 05/29/20 17:40 Last Admin: 04/30/20 09:49 Dose: 10 mg Documented by: [id number] Metoprolol Tartrate (Metoprolol Tartrate 50 Mg Tab) 50 mg PO BID [facility] Stop: 05/25/20 20:59 Last Admin: 05/02/20 08:35 Dose: 50 mg Documented by: [id number] Admin: 05/01/20 20:50 Dose: 50 mg Documented by: [id number] Admin: 05/01/20 09:08 Dose: 50 mg Documented by: [id number] Admin: 04/30/20 20:35 Dose: 50 mg Documented by: [id number] Admin: 04/30/20 08:45 Dose: 50 mg Documented by: [id number] Admin: 04/29/20 20:41 Dose: 50 mg Documented by: [id number] Admin: 04/29/20 07:45 Dose: 50 mg Documented by: [id number] Admin: 04/28/20 21:09 Dose: 50 mg Documented by: [id number] Admin: 04/28/20 08:26 Dose: 50 mg Documented by: [id number] Admin: 04/27/20 20:52 Dose: 50 mg Documented by: [id number] Admin: 04/27/20 08:03 Dose: 50 mg Documented by: [id number] Admin: 04/26/20 21:51 Dose: 50 mg Documented by: [id number] Admin: 04/26/20 08:16 Dose: 50 mg Documented by: [id number] Admin: 04/25/20 21:26 Dose: 50 mg Documented by: [id number] Multivitamins (Multivitamin Tab) [facility] [place] Stop: 05/30/20 08:59 Last Admin: 05/02/20 08:34 Dose: 1 tab Documented by: [id number] Admin: 05/01/20 09:08 Dose: 1 tab Documented by: [id number] Admin: 04/30/20 08:45 Dose: 1 tab Documented by: [id number] Pantoprazole Sodium (Pantoprazole 40 Mg Tab) 40 mg [facility] Stop: 05/26/20 08:59 Last Admin: 05/02/20 08:34 Dose: 40 mg Documented by: [id number] Admin: 05/01/20 09:09 Dose: 40 mg Documented by: [id number] Admin: 04/30/20 08:45 Dose: 40 mg Documented by: [id number] Admin: 04/29/20 07:45 Dose: 40 mg Documented by: [id number] Admin: 04/28/20 08:26 Dose: 40 mg Documented by: [id number] Admin: 04/27/20 08:03 Dose: 40 mg Documented by: [id number] Admin: 04/26/20 08:13 Dose: 40 mg Documented by: [id number] Sennosides (Senna 8.6 Mg Tab) 17.2 mg PO [facility] Stop: 05/29/20 20:59 Last Admin: 05/01/20 20:50 Dose: Not Given Documented by: [id number] Admin: 04/30/20 20:35 Dose: Not Given Documented by: [id number] Admin: 04/29/20 20:34 Dose: 17.2 mg Documented by: [id number] Resident Activity Tracking Resident Involvement: Resident Care Provided Care Provided: Adult Hospital Medicine
--- NOTE | 2020-05-02 10:38 | Orthopedic Progress Note ---
Date of Service May 02, 2020 Assessment & Plan (1) Left leg cellulitis: Postop day #3 status post irrigation debridement of left foot osteomyelitis by Dr. Lee. Patient seems to be doing well. Follow-up with Dr. Lee as an outpatient. Orthopedics will sign off at this time, please c all with questions. Admission and Anticipated Discharge Date Admission Date: April 25, 2020 Subjective Patient doing well. No complaints. Denies any pain in her left foot. Physical Exam Physical Exam: Left foot dressings clean, dry, and intact. She does have some erythema and swelling tracking up the lower leg, but she reports that this is significantly improved with the past several days. Results & Data ([facility]) Vital Signs (Past 12 Hours) Vital Signs Temp Pulse Pulse Resp BP BP Pulse Ox 05/02/20 07:34 36.4 C L 62 19 135/70 97 05/02/20 07:17 58 L 05/02/20 03:38 36.5 C 55 L 16 115/67 98 05/02/20 03:17 60 18 96 05/02/20 00:24 68 16 94 05/01/20 23:12 37.1 C 77 16 126/72 96
--- NOTE | 2020-05-02 15:45 | Billing Data ---
Date of Service May 02, 2020 Coding Level of Care Code 50281 Subseq Hosp Care Lvl 3
[2020-05-02] MEDS: DAPTOmycin 550 MG in SYRINGE 0 ML IV SCH (17:02)
[2020-05-02] MEDS: SENNA 8.6 MG TAB PO SCH (20:11)
[2020-05-02 22:57] LABS: BUN Creatinine Ratio 13.6 (10-20); Calcium 8.9 mg/dl (8.5-10.1); Creatinine Clr Calc Pharmacy 97.8 ml/min; Est GFR (African American) 84.5; Est GFR (Non-African American) 72.9; Magnesium 2.1 mg/dl (1.8-2.4); Potassium 4.3 mmol/L (3.5-5.1)
[2020-05-02 23:02] LABS: Phosphorus 3.5 mg/dl (2.5-4.9); Troponin I 0.044 ng/ml (0-0.045)
[2020-05-03] MEDS: metroNIDAZOLE 500 MG/100 ML BAG IV SCH ×4 (00:07→23:26)
[2020-05-03] MEDS: SENNA 8.6 MG TAB PO SCH ×2 (00:16→20:18)
[2020-05-03] MEDS: DOCUSATE SODIUM 100 MG CAP PO SCH ×3 (00:16→20:18)
[2020-05-03] MEDS: HEPARIN SODIUM/DEXTROSE 25,000 UNITS/500 ML BAG IV SCH (06:28)
[2020-05-03 07:16] LABS: Partial Thromboplastin Ratio 1.5; Partial Thromboplastin Time 40.1 Seconds (21.0-31.0)
--- NOTE | 2020-05-03 07:22 | Hospitalist Progress Note ---
Date of Service May 03, 2020 Assessment & Plan (1) Osteomyelitis: 64-year-old female with a past medical history of atrial fibrillation on Xarelto anticoagulation, congestive heart failure, type 2 diabetes mellitus not on insulin, hypertension, SCOTT, GERD, CVA, and uterine plus endometrial cancer status post total hysterectomy who presents as a direct admission from [facility] for left lower extremity osteomyelitis with gas production. Left lower extremity osteomyelitis, diabetic foot ulcer with cellulitis s/p left foot resection and arthroplasty of the 5th metatarsal and 5th phalanx No leukocytosis, By report on pre-op CT fifth metatarsal evidence of osteomyelitis pre-op MRI with and without contrast with osteo seen at the 5th metatarsal and 5th proximal phalanx with cellulitis and no fluid collection Orthopedics consulted Patient nontoxic Anticipate 6 weeks IV antibiotics. Cefdinir + Metronidazole + Vancomycin - PICC in place, RUE Wound care - Anticipate d/c to rehab. Nonsustained Vtach - Ectopy noted on cardiac monitoring last night, reported as 17 beat run of vtach, asymptomatic. Unsure of validity. - Regardless, Less than 30 sec, unsustained, aysymptomatic, will ensure electrolytes are WNL on BMP, otherwise no further workup warranted at this time, continue cardiac monitoring. Bleeding from PICC peripheral IV site. - Resolved - Concern per nursing from overnight nurse relayed yesterday morning has been resolved. - No active bleeding at bedside; hemodynamically stable Type 2 diabetes mellitus A1c 7.3 Home glipizide held Converted to basal bolus, weight-based. Lantus 20 daily, CF 35, ratio 11 Glucose checks AC/at bedtime Diabetic diet Congestive heart failure TTE with EF 50-55% unchanged from 2017 CXR with cardiomegaly and mild pulmonary edema on admit, currently improved Continue atorvastatin 40 mg daily Lisinopril held temporarily Continue metoprolol 50 mg tartrate twice daily Continue p.o. Lasix 20 mg twice daily PRN A. fib on chronic Xarelto anticoagulation Patient irregularly irregular on exam Xarelto held in anticipation of potential surgical intervention Was on heparin GTT while held. Heparin stopped. Will start back on home Xarelto this AM in anticipation for dispo early this week. Adequately rate controlled Hypertension Continue diltiazem 240 mg CD MAJO held as above Metoprolol as above Wheezing Unclear, patient reports uses Combivent up to four times daily as needed but does not the regular medications DuoNebs as needed Incentive spirometry Flutter valve Depression Continue aripiprazole 10 mg daily Continue citalopram 40 mg daily GERD Continue pantoprazole 40 mg daily Social Patient reports difficulties at home with self-care in addition to recent difficulties with paying bills/registering her car in addition to the loss of her job in the past month. Reports is difficult living condition at home, and may not have adequate resources to appropriately care for her medical condition at home alone at this time. Case management consulted. Infection control precautions - MRSA coverage and precautions due to prior cellulitis that did not resolve until treated with MRSA coverage within the last 30 days of admission DVT prophylaxis: Heparin Disposition: Medical with telemetry, pending placement Diet: Diabetic diet CODE STATUS: Full code (2) DM type 2 (diabetes mellitus, type 2): (3) HTN (hypertension): (4) Atrial fibrillation: (5) CHF (congestive heart failure): (6) Chronic anticoagulation: (7) History of uterine cancer: (8) SCOTT (obstructive sleep apnea): (9) Depression: (10) GERD (gastroesophageal reflux disease): (11) History of CVA (cerebrovascular accident): (12) Atrial fibrillation with RVR: (13) Status post cardiac catheterization: (14) Left leg cellulitis: (15) Bleeding from peripherally inserted central venous catheter (PICC): Admission and Anticipated Discharge Date Admission Date: April 25, 2020 Supervising Physician Co-Signing Physician Notes I personally examined the patient and verified all tripathi points of history and exam, discussed case, and agree with decision making with Dr Villegas. Feeling okay, everything going well, no new complaints, basically awaiting placement at this time. In general she is awake and alert pleasant no distress. HEENT normocephalic atraumatic mucous membranes moist. Breathing unlabored no accessory muscle use good effort, no conversational dyspnea. Skin shows no rashes no pallor or icterus. Diabetic foot ulcer with osteomyelitisnow status post surgical debridement, local wound care, PICC line for ongoing antibiotics. At this point likely to need another 5 or so weeks to round out 6 weeks total of IV antibioticscontinue current regimen Acute on chronic diastolic CHFimproved post Lasix. Continue med management, clinically appears improved. Followbut has been clinically stable DVT prophylaxiswas on heparin, now back on Xarelto as as part of her home regimen Dispositionanticipate SNF or rehab once approvals and bed availability has been procured Otherwise as above Subjective Noted at around 9:30pm last night to have a 17 beat run unsustained vtach, was found per nursing reaching over bed rail for object and was asymptomatic. She notes she was reaching overbed rail to get item when nursing came into room to check on her because of rhythm on monitor; she notes she had no acute symptoms at that time, no chest pain, dizziness, shortness of breath. No acute complaint s or concerns this morning, enjoyed romansh toast for breakfast again. She notes that with bandage change yesterday that appearance of area around wound looked improve. Physical Exam Constitutional: WD/WN, vitals as above cooperative and comfortable Eyes: PERRL, conjunctivae normal, anicteric sclerae ENMT: external ear and nose normal, oropharynx normal Neck: trachea midline, no thyromegaly Respiratory: no respiratory distress, no labored breathing, does not use accessory muscles, no cough and not tachypneic mild faint expiratory wheeze to right anterior lung field diffusely Cardiovascular: Rate/Rhythm: regular rate and regular rhythm Gastrointestinal (Abdomen): Percussion/Palpation: abdomen soft; abdomen nontender Musculoskeletal: Head/Neck/Chest: normocephalic and head atraumatic Neurologic: moves all extremities and awake Psychiatric: A+Ox3, euthymic affect Eye Contact: good eye contact Results & Data Results & Data ([facility]) Vital Signs (Past 12 Hours) Vital Signs Temp Pulse Pulse Resp BP Pulse Ox 05/03/20 03:37 67 22 94 05/03/20 03:24 36.8 C 63 20 107/58 L 96 05/02/20 23:10 84 24 93 05/02/20 22:59 37.1 C 85 18 128/60 93 05/02/20 20:35 36.8 C 96 H 18 131/69 92 05/02/20 19:32 36.9 C 101 H 20 142/71 H 93 Laboratory Results Laboratory Results - last 24 hr 05/02/20 05/02/20 05/02/20 07:38 08:19 11:42 APTT 60.6 H* PTT Ratio 2.3 Sodium Potassium Chloride Carbon Dioxide Anion Gap BUN Creatinine Est Cr Clr Drug Dosing Est GFR ( Amer) Est GFR (Non-Af Amer) BUN/Creatinine Ratio Glucose POC Glucose 117 H 163 H Calcium Phosphorus Magnesium Troponin I 05/02/20 05/02/20 05/02/20 16:27 20:08 22:08 APTT PTT Ratio Sodium 133 L Potassium 4.3 Chloride 96 L Carbon Dioxide 34 H Anion Gap 3.0 BUN 12 Creatinine 0.85 Est Cr Clr Drug Dosing 97.8 Est GFR ( Amer) 84.5 Est GFR (Non-Af Amer) 72.9 BUN/Creatinine Ratio 13.6 Glucose 138 H POC Glucose 136 H 177 H Calcium 8.9 Phosphorus 3.5 Magnesium 2.1 Troponin I 0.044 05/03/20 06:47 APTT 40.1 H PTT Ratio 1.5 Sodium Potassium Chloride Carbon Dioxide Anion Gap BUN Creatinine Est Cr Clr Drug Dosing Est GFR ( Amer) Est GFR (Non-Af Amer) BUN/Creatinine Ratio Glucose POC Glucose Calcium Phosphorus Magnesium Troponin I Medications Administered Acetaminophen (Acetaminophen 325 Mg Tab) 650 mg PO Q4H PRN PRN Reason: Pain or Fever Stop: 05/25/20 16:49 Last Admin: 05/02/20 00:33 Dose: 650 mg Documented by: [id number] Admin: 04/30/20 09:49 Dose: 650 mg Documented by: [id number] Admin: 04/27/20 18:59 Dose: 650 mg Documented by: [id number] Admin: 04/27/20 12:15 Dose: 650 mg Documented by: [id number] Admin: 04/26/20 15:14 Dose: 650 mg Documented by: [id number] Albuterol (Albut/Ipratrop 3mg/0.5mg Neb 3 Ml Vial) 3 ml NEB Q4H PRN PRN Reason: Shortness of Breath/Wheezing Stop: 05/25/20 16:59 Last Admin: 05/01/20 03:58 Dose: 3 ml Documented by: [id number] Admin: 04/28/20 16:42 Dose: 3 ml Documented by: [id number] Aripiprazole (Aripiprazole 10 Mg Tab) 10 mg PO QAM [facility] Stop: 05/26/20 08:59 Last Admin: 05/02/20 08:34 Dose: 10 mg Documented by: [id number] Admin: 05/01/20 09:11 Dose: 10 mg Documented by: [id number] Admin: 04/30/20 08:42 Dose: 10 mg Documented by: [id number] Admin: 04/29/20 07:44 Dose: 10 mg Documented by: [id number] Admin: 04/28/20 08:26 Dose: 10 mg Documented by: [id number] Admin: 04/27/20 08:03 Dose: 10 mg Documented by: [id number] Admin: 04/26/20 08:13 Dose: 10 mg Documented by: [id number] Atorvastatin Calcium (Atorvastatin 40 Mg Tab) 40 mg PO QAM BILL Stop: 05/26/20 08:59 Last Admin: 05/02/20 08:34 Dose: 40 mg Documented by: [id number] Admin: 05/01/20 09:10 Dose: 40 mg Documented by: [id number] Admin: 04/30/20 08:44 Dose: 40 mg Documented by: [id number] Admin: 04/29/20 07:45 Dose: 40 mg Documented by: [id number] Admin: 04/28/20 08:26 Dose: 40 mg Documented by: [id number] Admin: 04/27/20 08:03 Dose: 40 mg Documented by: [id number] Admin: 04/26/20 08:12 Dose: 40 mg Documented by: [id number] Citalopram Hydrobromide (Citalopram 40 Mg Tab) 40 mg PO QAM BILL Stop: 05/26/20 08:59 Last Admin: 05/02/20 08:34 Dose: 40 mg Documented by: [id number] Admin: 05/01/20 09:10 Dose: 40 mg Documented by: [id number] Admin: 04/30/20 08:43 Dose: 40 mg Documented by: [id number] Admin: 04/29/20 07:45 Dose: 40 mg Documented by: [id number] Admin: 04/28/20 08:26 Dose: 40 mg Documented by: [id number] Admin: 04/27/20 08:03 Dose: 40 mg Documented by: [id number] Admin: 04/26/20 08:13 Dose: 40 mg Documented by: [id number] Diltiazem HCl (Diltiazem Hcl 240 Mg Capcr) 240 mg PO QAM BILL Stop: 05/26/20 08:59 Last Admin: 05/02/20 08:34 Dose: 240 mg Documented by: [id number] Admin: 05/01/20 09:09 Dose: 240 mg Documented by: [id number] Admin: 04/30/20 08:42 Dose: 240 mg Documented by: [id number] Admin: 04/29/20 07:45 Dose: 240 mg Documented by: [id number] Admin: 04/28/20 08:26 Dose: 240 mg Documented by: [id number] Admin: 04/27/20 08:03 Dose: 240 mg Documented by: [id number] Admin: 04/26/20 08:12 Dose: 240 mg Documented by: [id number] Docusate Sodium (Docusate Sodium 100 Mg Cap) 100 mg PO BID BILL Stop: 05/29/20 20:59 Last Admin: 05/03/20 00:16 Dose: Not Given Documented by: [id number] Admin: 05/02/20 08:35 Dose: Not Given Documented by: [id number] Admin: 05/01/20 20:52 Dose: Not Given Documented by: [id number] Admin: 05/01/20 09:08 Dose: 100 mg Documented by: [id number] Admin: 04/30/20 20:35 Dose: Not Given Documented by: [id number] Admin: 04/30/20 08:44 Dose: 100 mg Documented by: [id number] Admin: 04/29/20 20:34 Dose: 100 mg Documented by: [id number] Furosemide (Furosemide 20 Mg Tab) 20 mg PO BID17 BILL Stop: 05/29/20 16:59 Last Admin: 05/02/20 17:02 Dose: 20 mg Documented by: [id number] Admin: 05/02/20 08:34 Dose: 20 mg Documented by: [id number] Admin: 05/01/20 16:31 Dose: 20 mg Documented by: [id number] Admin: 05/01/20 09:11 Dose: 20 mg Documented by: [id number] Admin: 04/30/20 17:16 Dose: 20 mg Documented by: [id number] Admin: 04/30/20 08:44 Dose: 20 mg Documented by: [id number] Admin: 04/29/20 18:18 Dose: 20 mg Documented by: [id number] Gabapentin (Gabapentin 300 Mg Cap) 300 mg PO TID BILL Stop: 05/25/20 20:59 Last Admin: 05/02/20 20:12 Dose: 300 mg Documented by: [id number] Admin: 05/02/20 13:42 Dose: 300 mg Documented by: [id number] Admin: 05/02/20 08:35 Dose: 300 mg Documented by: [id number] Admin: 05/01/20 20:50 Dose: 300 mg Documented by: [id number] Admin: 05/01/20 14:13 Dose: 300 mg Documented by: [id number] Admin: 05/01/20 09:10 Dose: 300 mg Documented by: [id number] Admin: 04/30/20 20:35 Dose: 300 mg Documented by: [id number] Admin: 04/30/20 13:56 Dose: 300 mg Documented by: [id number] Admin: 04/30/20 08:45 Dose: 300 mg Documented by: [id number] Admin: 04/29/20 20:33 Dose: 300 mg Documented by: [id number] Admin: 04/29/20 13:03 Dose: Not Given Documented by: [id number] Admin: 04/29/20 07:44 Dose: 300 mg Documented by: [id number] Admin: 04/28/20 21:11 Dose: 300 mg Documented by: [id number] Admin: 04/28/20 14:00 Dose: 300 mg Documented by: [id number] Admin: 04/28/20 08:26 Dose: 300 mg Documented by: [id number] Admin: 04/27/20 21:13 Dose: 300 mg Documented by: [id number] Admin: 04/27/20 13:41 Dose: 300 mg Documented by: [id number] Admin: 04/27/20 08:03 Dose: 300 mg Documented by: [id number] Admin: 04/26/20 21:52 Dose: 300 mg Documented by: [id number] Admin: 04/26/20 12:28 Dose: 300 mg Documented by: [id number] Admin: 04/26/20 08:16 Dose: 300 mg Documented by: [id number] Admin: 04/25/20 21:26 Dose: 300 mg Documented by: [id number] Heparin Sodium (Beef Lung) (Heparin 10 Unit/Ml 5 Ml Flush) 5 ml FLUSH PRN PRN PRN Reason: Flush Stop: 06/01/20 00:24 Last Admin: 05/02/20 01:29 Dose: 5 ml Documented by: [id number] Daptomycin 550 mg/ Syringe 11 mls @ 3.5 mls/min IV Q24H BILL; Protocol Stop: 05/03/20 17:59 Last Admin: 05/02/20 17:02 Dose: 3.5 mls/min Documented by: [id number] Admin: 05/01/20 17:43 Dose: 3.5 mls/min Documented by: [id number] Admin: 04/30/20 17:16 Dose: 3.5 mls/min Documented by: [id number] Admin: 04/29/20 18:22 Dose: 3.5 mls/min Documented by: [id number] Admin: 04/28/20 18:15 Dose: 3.5 mls/min Documented by: [id number] Admin: 04/27/20 18:54 Dose: 3.5 mls/min Documented by: [id number] Admin: 04/26/20 17:14 Dose: 3.5 mls/min Documented by: [id number] Cefepime HCl 2,000 mg/ Syringe 20 mls @ 5 mls/min IV Q12H BILL; Protocol Stop: 05/08/20 20:59 Last Admin: 05/02/20 20:12 Dose: 5 mls/min Documented by: [id number] Admin: 05/02/20 08:45 Dose: 5 mls/min Documented by: [id number] Admin: 05/01/20 20:49 Dose: 5 mls/min Documented by: [id number] Metronidazole (Flagyl) 500 mg in 100 mls @ 100 mls/hr IV Q8H BILL Stop: 05/08/20 15:29 Last Infusion: 05/03/20 01:10 Dose: 0 mls/hr Documented by: [id number] Admin: 05/03/20 00:07 Dose: 100 mls/hr Documented by: [id number] Infusion: 05/02/20 18:17 Dose: 0 mls/hr Documented by: [id number] Admin: 05/02/20 16:55 Dose: 100 mls/hr Documented by: [id number] Infusion: 05/02/20 09:33 Dose: 0 mls/hr Documented by: [id number] Admin: 05/02/20 08:33 Dose: 100 mls/hr Documented by: [id number] Infusion: 05/02/20 01:28 Dose: 0 mls/hr Documented by: [id number] Admin: 05/02/20 00:28 Dose: 100 mls/hr Documented by: [id number] Infusion: 05/01/20 17:37 Dose: 0 mls/hr Documented by: [id number] Admin: 05/01/20 16:31 Dose: 100 mls/hr Documented by: [id number] Insulin Aspart (Insulin Aspart 100 Units/Ml 3 Ml Pen) 0 units SC ACHS BILL Stop: 05/25/20 18:29 Last Admin: 05/02/20 23:39 Dose: 1 units Documented by: [id number] Cosigned by: [id number] Admin: 05/02/20 16:55 Dose: 5 units Documented by: [id number] Cosigned by: [id number] Admin: 05/02/20 11:54 Dose: 5 units Documented by: [id number] Cosigned by: [id number] Admin: 05/02/20 08:42 Dose: 4 units Documented by: [id number] Cosigned by: [id number] Admin: 05/01/20 21:11 Dose: Not Given Documented by: [id number] Admin: 05/01/20 17:42 Dose: 5 units Documented by: [id number] Cosigned by: [id number] Admin: 05/01/20 12:27 Dose: 5 units Documented by: [id number] Cosigned by: [id number] Admin: 05/01/20 09:13 Dose: 4 units Documented by: [id number] Cosigned by: [id number] Admin: 04/30/20 19:56 Dose: Not Given Documented by: [id number] Cosigned by: [id number] Admin: 04/30/20 17:14 Dose: 4 units Documented by: [id number] Cosigned by: [id number] Admin: 04/30/20 12:34 Dose: 4 units Documented by: [id number] Cosigned by: [id number] Admin: 04/30/20 08:36 Dose: 3 units Documented by: [id number] Cosigned by: [id number] Admin: 04/29/20 20:37 Dose: 3 units Documented by: [id number] Cosigned by: [id number] Admin: 04/29/20 17:59 Dose: Not Given Documented by: [id number] Admin: 04/29/20 11:41 Dose: Not Given Documented by: [id number] Admin: 04/29/20 07:43 Dose: Not Given Documented by: [id number] Admin: 04/28/20 21:11 Dose: 1 units Documented by: [id number] Cosigned by: [id number] Admin: 04/28/20 16:54 Dose: 6 units Documented by: [id number] Cosigned by: [id number] Admin: 04/28/20 12:12 Dose: 3 units Documented by: [id number] Cosigned by: [id number] Admin: 04/28/20 08:25 Dose: 3 units Documented by: [id number] Cosigned by: [id number] Admin: 04/27/20 21:30 Dose: Not Given Documented by: [id number] Cosigned by: [id number] Admin: 04/27/20 17:35 Dose: 4 units Documented by: [id number] Cosigned by: [id number] Admin: 04/27/20 12:13 Dose: 4 units Documented by: [id number] Cosigned by: [id number] Admin: 04/27/20 08:04 Dose: 3 units Documented by: [id number] Cosigned by: [id number] Admin: 04/26/20 20:41 Dose: Not Given Documented by: [id number] Cosigned by: [id number] Admin: 04/26/20 17:20 Dose: 5 units Documented by: [id number] Cosigned by: [id number] Admin: 04/26/20 12:26 Dose: 1 units Documented by: [id number] Cosigned by: [id number] Admin: 04/26/20 08:13 Dose: 3 units Documented by: [id number] Cosigned by: [id number] Admin: 04/25/20 21:25 Dose: 2 units Documented by: [id number] Cosigned by: [id number] Admin: 04/25/20 18:26 Dose: 5 units Documented by: [id number] Cosigned by: [id number] Insulin Glargine (Insulin Glargine Solostar 100 Units/Ml 3 Ml Pen) 20 units SC DAILY BILL Stop: 05/26/20 08:59 Last Admin: 05/02/20 08:41 Dose: 20 units Documented by: [id number] Cosigned by: [id number] Admin: 05/01/20 09:12 Dose: 20 units Documented by: [id number] Cosigned by: [id number] Admin: 04/30/20 08:36 Dose: 20 units Documented by: [id number] Cosigned by: [id number] Admin: 04/29/20 07:45 Dose: 20 units Documented by: [id number] Cosigned by: [id number] Admin: 04/28/20 08:25 Dose: 20 units Documented by: [id number] Cosigned by: [id number] Admin: 04/27/20 08:04 Dose: 20 units Documented by: [id number] Cosigned by: [id number] Admin: 04/26/20 08:15 Dose: 20 units Documented by: [id number] Cosigned by: [id number] Isosorbide Mononitrate (Isosorbide Wetzel Extended Rel 30 Mg Tabcr) [facility] [place] [facility] [place]: 05/26/20 08:59 Last Admin: 05/02/20 08:34 Dose: 30 mg Documented by: [id number] Admin: 05/01/20 09:09 Dose: 30 mg Documented by: [id number] Admin: 04/30/20 08:44 Dose: 30 mg Documented by: [id number] Admin: 04/29/20 07:45 Dose: 30 mg Documented by: [id number] Admin: 04/28/20 08:26 Dose: 30 mg Documented by: [id number] Admin: 04/27/20 08:03 Dose: 30 mg Documented by: [id number] Admin: 04/26/20 08:13 Dose: 30 mg Documented by: [id number] Loratadine (Loratadine 10 Mg Tab) 10 mg PO [facility] Stop: 05/26/20 08:59 Last Admin: 05/02/20 08:34 Dose: 10 mg Documented by: [id number] Admin: 05/01/20 09:08 Dose: 10 mg Documented by: [id number] Admin: 04/30/20 08:43 Dose: 10 mg Documented by: [id number] Admin: 04/29/20 07:45 Dose: 10 mg Documented by: [id number] Admin: 04/28/20 08:26 Dose: 10 mg Documented by: [id number] Admin: 04/27/20 08:03 Dose: 10 mg Documented by: [id number] Admin: 04/26/20 08:13 Dose: 10 mg Documented by: [id number] Metoclopramide HCl (Metoclopramide Hcl Inj 5 Mg/Ml 2 Ml Vial) 10 mg IV Q6H PRN PRN Reason: Nausea And Vomiting Stop: 05/29/20 17:40 Last Admin: 04/30/20 09:49 Dose: 10 mg Documented by: [id number] Metoprolol Tartrate (Metoprolol Tartrate 50 Mg Tab) 50 mg PO BID [facility] Stop: 05/25/20 20:59 Last Admin: 05/02/20 20:11 Dose: 50 mg Documented by: [id number] Admin: 05/02/20 08:35 Dose: 50 mg Documented by: [id number] Admin: 05/01/20 20:50 Dose: 50 mg Documented by: [id number] Admin: 05/01/20 09:08 Dose: 50 mg Documented by: [id number] Admin: 04/30/20 20:35 Dose: 50 mg Documented by: [id number] Admin: 04/30/20 08:45 Dose: 50 mg Documented by: [id number] Admin: 04/29/20 20:41 Dose: 50 mg Documented by: [id number] Admin: 04/29/20 07:45 Dose: 50 mg Documented by: [id number] Admin: 04/28/20 21:09 Dose: 50 mg Documented by: [id number] Admin: 04/28/20 08:26 Dose: 50 mg Documented by: [id number] Admin: 04/27/20 20:52 Dose: 50 mg Documented by: [id number] Admin: 04/27/20 08:03 Dose: 50 mg Documented by: [id number] Admin: 04/26/20 21:51 Dose: 50 mg Documented by: [id number] Admin: 04/26/20 08:16 Dose: 50 mg Documented by: [id number] Admin: 04/25/20 21:26 Dose: 50 mg Documented by: [id number] Multivitamins (Multivitamin Tab) 1 tab PO QAM BILL Stop: 05/30/20 08:59 Last Admin: 05/02/20 08:34 Dose: 1 tab Documented by: [id number] Admin: 05/01/20 09:08 Dose: 1 tab Documented by: [id number] Admin: 04/30/20 08:45 Dose: 1 tab Documented by: [id number] Pantoprazole Sodium (Pantoprazole 40 Mg Tab) 40 mg PO QAM BILL Stop: 05/26/20 08:59 Last Admin: 05/02/20 08:34 Dose: 40 mg Documented by: [id number] Admin: 05/01/20 09:09 Dose: 40 mg Documented by: [id number] Admin: 04/30/20 08:45 Dose: 40 mg Documented by: [id number] Admin: 04/29/20 07:45 Dose: 40 mg Documented by: [id number] Admin: 04/28/20 08:26 Dose: 40 mg Documented by: [id number] Admin: 04/27/20 08:03 Dose: 40 mg Documented by: [id number] Admin: 04/26/20 08:13 Dose: 40 mg Documented by: [id number] Sennosides (Senna 8.6 Mg Tab) 17.2 mg PO HS BILL Stop: 05/29/20 20:59 Last Admin: 05/03/20 00:16 Dose: Not Given Documented by: [id number] Admin: 05/01/20 20:50 Dose: Not Given Documented by: [id number] Admin: 04/30/20 20:35 Dose: Not Given Documented by: [id number] Admin: 04/29/20 20:34 Dose: 17.2 mg Documented by: [id number] Resident Activity Tracking Resident Involvement: Resident Care Provided Care Provided: Adult [facility] Medicine
[2020-05-03 07:48] LABS: BUN Creatinine Ratio 15.7 (10-20); Calcium 8.9 mg/dl (8.5-10.1); Creatinine Clr Calc Pharmacy 113.6 ml/min; Est GFR (African American) 98.3; Est GFR (Non-African American) 84.8; Potassium 4.2 mmol/L (3.5-5.1)
[2020-05-03 07:49] LABS: Hematocrit (blood only) 30.4 % (37-47); Hemoglobin 9.1 g/dL (12.0-16.0); Mean Corpuscular Hemoglobin 25.9 pg (25-34); Mean Corpuscular Hgb Conc 29.9 g/dL (32-36); Mean Corpuscular Volume 86.6 fL (80-100); Mean Platelet Volume 9.2 fL (7.4-10.4); Platelet Count 190 K/uL (130-400); RDW Coefficient of Variation 15.4 % (11.5-14.5); Red Blood Count 3.51 M/uL (4.2-5.4); White Blood Count 5.61 K/uL (4.8-10.8)
[2020-05-03] MEDS: CEFEPIME 2,000 MG in SYRINGE 0 ML IV SCH ×2 (08:24→20:20)
[2020-05-03] MEDS: CITALOPRAM 40 MG TAB PO SCH (08:25)
[2020-05-03] MEDS: ISOSORBIDE MONO EXTENDED REL 30 MG TABCR PO SCH (08:25)
[2020-05-03] MEDS: ARIPiprazole 10 MG TAB PO SCH (08:25)
[2020-05-03] MEDS: GABAPENTIN 300 MG CAP PO SCH ×3 (08:25→20:18)
[2020-05-03] MEDS: dilTIAZem HCL 240 MG CAPCR PO SCH (08:25)
[2020-05-03] MEDS: RIVAROXABAN 20 MG TAB PO SCH (08:25)
[2020-05-03] MEDS: METOPROLOL TARTRATE 50 MG TAB PO SCH ×2 (08:26→20:18)
[2020-05-03] MEDS: MULTIVITAMIN TAB PO SCH (08:26)
[2020-05-03] MEDS: PANTOprazole 40 MG TAB PO SCH (08:26)
[2020-05-03] MEDS: LORATADINE 10 MG TAB PO SCH (08:26)
[2020-05-03] MEDS: ATORVASTATIN 40 MG TAB PO SCH (08:26)
[2020-05-03] MEDS: FUROSEMIDE 20 MG TAB PO SCH ×2 (08:26→17:27)
[2020-05-03] MEDS: INSULIN GLARGINE SOLOSTAR 100 UNITS/ML 3 ML PEN SC SCH (08:27)
[2020-05-03] MEDS: INSULIN ASPART 100 UNITS/ML 3 ML PEN SC SCH ×4 (08:27→21:57)
--- NOTE | 2020-05-03 17:12 | Billing Data ---
Date of Service May 03, 2020 Coding Level of Care Code 47780 Subseq Hosp Care Lvl 3
[2020-05-03] MEDS: DAPTOmycin 550 MG in SYRINGE 0 ML IV SCH (17:41)
[2020-05-03] MEDS: ACETAMINOPHEN 325 MG TAB PO PRN (23:26)
--- NOTE | 2020-05-04 05:03 | Hospitalist Progress Note ---
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 Left lower extremity osteomyelitis, diabetic foot ulcer with cellulitis s/p left foot resection and arthroplasty of the 5th metatarsal and phalanx No leukocytosis, By report on pre-op CT fifth metatarsal evidence of osteomyelitis pre-op MRI with and without contrast with osteo seen at the 5th metatarsal and 5th proximal phalanx with cellulitis and no fluid collection Orthopedics consulted, will follow up outpatient Patient nontoxic Anticipate total of 6 weeks IV antibiotics. Cefdinir + Metronidazole + Vancomycin (transitioned from Daptomycin) - PICC in place, RUE Wound care - Anticipate d/c to rehab. Nonsustained Vtach - Ectopy noted on cardiac monitoring last night, reported as 17 beat run of vtach, asymptomatic. Unsure of validity. - Regardless, Less than 30 sec, unsustained, asymptomatic, will ensure electrolytes are WNL on BMP, otherwise no further workup warranted at this time, continue cardiac monitoring. Bleeding from PICC peripheral IV site. - Resolved - Concern per nursing from overnight nurse relayed yesterday morning has been resolved. - No active bleeding at bedside; hemodynamically stable Type 2 diabetes mellitus A1c 7.3 Home glipizide held Converted to basal bolus, weight-based. Lantus 20 daily, CF 35, ratio 11 Glucose checks AC/at bedtime Diabetic diet Congestive heart failure TTE with EF 50-55% unchanged from 2017 CXR with cardiomegaly and mild pulmonary edema on admit, currently improved Continue atorvastatin 40 mg daily Lisinopril held temporarily Continue metoprolol 50 mg tartrate twice daily Continue p.o. Lasix 20 mg twice daily PRN A. fib on chronic Xarelto anticoagulation Patient irregularly irregular on exam Xarelto held in anticipation of potential surgical intervention Was on heparin GTT while held. Heparin stopped. Will start back on home Xarelto this AM in anticipation for dispo early this week. Adequately rate controlled Hypertension Continue diltiazem 240 mg CD MAJO held as above Metoprolol as above Wheezing Unclear, patient reports uses Combivent up to four times daily as needed but does not the regular medications DuoNebs as needed Incentive spirometry Flutter valve Depression Continue aripiprazole 10 mg daily Continue citalopram 40 mg daily GERD Continue pantoprazole 40 mg daily Social Patient reports difficulties at home with self-care in addition to recent difficulties with paying bills/registering her car in addition to the loss of her job in the past month. Reports is difficult living condition at home, and may not have adequate resources to appropriately care for her medical condition at home alone at this time. Case management consulted. Infection control precautions - MRSA coverage and precautions due to prior cellulitis that did not resolve until treated with MRSA coverage within the last 30 days of admission DVT prophylaxis: Heparin Disposition: Medical with telemetry, pending placement Diet: Diabetic diet CODE STATUS: Full code (2) DM type 2 (diabetes mellitus, type 2): (3) HTN (hypertension): (4) Atrial fibrillation: (5) CHF (congestive heart failure): (6) Chronic anticoagulation: (7) History of uterine cancer: (8) SCOTT (obstructive sleep apnea): (9) Depression: (10) GERD (gastroesophageal reflux disease): (11) History of CVA (cerebrovascular accident): (12) Atrial fibrillation with RVR: (13) Status post cardiac catheterization: (14) Left leg cellulitis: (15) Bleeding from peripherally inserted central venous catheter (PICC): Admission and Anticipated Discharge Date Admission Date: April 25, 2020 Supervising Physician Co-Signing Physician Notes I also saw the patient confirmed tripathi portions of the history and physical exam ination. Agree with the impression and plan as noted in the resident documentation. Upon our exam this morning, the patient without complaint. She is in good spirits. She is hopeful for a transfer to a rehabilitation facility -and at that time of our examination this was the plan although shortly thereafter was informed by case management that she has not been accepted yet. 115/65, 67, 22, 36.7 C, 93% on 4 L via nasal cannula. Pleasant alert. No acute distress. Nontoxic appearance. Heart regular Lungs are clear Data Blood cell count 4.72, hemoglobin 9.8, platelet count 188. BUN 13, creatinine 0.78 Impression and plan Diabetic foot ulcer with osteomyelitis, status post surgical debridement and placement of PICC line for long-term antibiotics Acute on chronic diastolic heart failure, improved, clinically appears euvolemic Continue current care and work with case management for placement. Subjective Deann Marti was doing well today. She did not have any pain overnight. She was feeling somewhat fluid positive. She did not have any questions after our conversation this morning. Review of Systems Review of Systems: Constitutional: denies fever, chills Cardiac: denies chest pain, palpitations GI: denies nausea, vomiting Pulm.: admits slight cough and slight shortness of breath Physical Exam Constitutional: WD/WN, vitals as above Eyes: PERRL, conjunctivae normal, anicteric sclerae ENMT: external ear and nose normal, oropharynx normal Neck: normal visual inspection Respiratory: - slight wheeze on exam - good air movement in all robles - no acute distress Cardiovascular: RRR, no murmur, no edema Rate/Rhythm: + irregularly irregular Gastrointestinal (Abdomen): normal bowel sounds, soft, nontender, no hepatosplenomegaly Skin: - bandage over left foot with serosanguineous drainage - red lesion on the lower extremity to the mid wood Neurologic: no focal motor deficits Psychiatric: A+Ox3, euthymic affect Results & Data Results & Data ([facility]) Vital Signs (Past 12 Hours) Vital Signs Temp Pulse Pulse Resp BP Pulse Ox 05/04/20 02:51 36.5 C 59 L 18 116/65 93 05/03/20 23:31 36.6 C 67 18 111/64 91 05/03/20 23:07 66 12 91 05/03/20 22:20 65 05/03/20 20:24 94 05/03/20 19:15 36.5 C 76 18 111/62 96 CBC Results Results Complete Blood Count Results: RBC 3.74 M/uL (4.2-5.4) L 05/04/20 WBC 4.72 K/uL (4.8-10.8) L 05/04/20 Hgb 9.8 g/dL (12.0-16.0) L 05/04/20 Hct 32.5 % (37-47) L 05/04/20 Plt Count 188 K/uL (130-400) 05/04/20 Chemistry (BMP) Results BMP Results: Sodium 136 mmol/L (136-145) 05/04/20 Potassium 4.3 mmol/L (3.5-5.1) 05/04/20 Chloride 99 mmol/L (98-107) 05/04/20 BUN 13 mg/dl (7-18) 05/04/20 Creatinine 0.78 mg/dl (0.6-1.2) 05/04/20 Glucose 92 mg/dl (70-99) 05/04/20 Resident Activity Tracking Resident Involvement: Resident Care Provided Care Provided: [facility]
[2020-05-04 06:53] LABS: Basophils # (auto) 0.02 K/uL (0-0.2); Basophils % (auto) 0.4 %; Eosinophils # (auto) 0.15 K/uL (0-0.5); Eosinophils % (auto) 3.2 %; Hematocrit (blood only) 32.5 % (37-47); Hemoglobin 9.8 g/dL (12.0-16.0); Immature Granulocytes # (auto) 0.01 K/uL (0.00-0.02); Immature Granulocytes % (auto) 0.2 %; Lymphocytes # (auto) 0.89 K/uL (1.2-3.4); Lymphocytes % (auto) 18.9 %; Mean Corpuscular Hemoglobin 26.2 pg (25-34); Mean Corpuscular Hgb Conc 30.2 g/dL (32-36); Mean Corpuscular Volume 86.9 fL (80-100); Monocytes # (auto) 0.38 K/uL (0.11-0.59); Monocytes % (auto) 8.1 %; Neutrophils # (auto) 3.27 K/uL (1.4-6.5); Neutrophils % (auto) 69.2 %; Platelet Count 188 K/uL (130-400); RDW Coefficient of Variation 15.3 % (11.5-14.5); RDW Standard Deviation 49.3 fL (36.4-46.3); Red Blood Count 3.74 M/uL (4.2-5.4); White Blood Count 4.72 K/uL (4.8-10.8)
[2020-05-04 07:26] LABS: BUN Creatinine Ratio 16.9 (10-20); Calcium 9.1 mg/dl (8.5-10.1); Creatinine Clr Calc Pharmacy 109.1 ml/min; Est GFR (African American) 93.8; Est GFR (Non-African American) 80.9; Potassium 4.3 mmol/L (3.5-5.1)
[2020-05-04] MEDS: metroNIDAZOLE 500 MG/100 ML BAG IV SCH ×3 (07:33→23:40)
[2020-05-04] MEDS: CEFEPIME 2,000 MG in SYRINGE 0 ML IV SCH ×2 (08:44→21:23)
[2020-05-04] MEDS: CITALOPRAM 40 MG TAB PO SCH (08:45)
[2020-05-04] MEDS: ISOSORBIDE MONO EXTENDED REL 30 MG TABCR PO SCH (08:45)
[2020-05-04] MEDS: METOPROLOL TARTRATE 50 MG TAB PO SCH ×2 (08:45→21:23)
[2020-05-04] MEDS: dilTIAZem HCL 240 MG CAPCR PO SCH (08:45)
[2020-05-04] MEDS: LORATADINE 10 MG TAB PO SCH (08:46)
[2020-05-04] MEDS: ATORVASTATIN 40 MG TAB PO SCH (08:46)
[2020-05-04] MEDS: GABAPENTIN 300 MG CAP PO SCH ×3 (08:46→21:23)
[2020-05-04] MEDS: PANTOprazole 40 MG TAB PO SCH (08:46)
[2020-05-04] MEDS: DOCUSATE SODIUM 100 MG CAP PO SCH ×2 (08:46→21:23)
[2020-05-04] MEDS: FUROSEMIDE 20 MG TAB PO SCH ×2 (08:47→17:30)
[2020-05-04] MEDS: MULTIVITAMIN TAB PO SCH (08:47)
[2020-05-04] MEDS: ARIPiprazole 10 MG TAB PO SCH (08:47)
[2020-05-04] MEDS: RIVAROXABAN 20 MG TAB PO SCH (08:48)
[2020-05-04] MEDS: INSULIN GLARGINE SOLOSTAR 100 UNITS/ML 3 ML PEN SC SCH (08:49)
[2020-05-04] MEDS: INSULIN ASPART 100 UNITS/ML 3 ML PEN SC SCH ×4 (08:50→21:24)
[2020-05-04] MEDS: ACETAMINOPHEN 325 MG TAB PO PRN (09:41)
[2020-05-04] MEDS ORDERED: VANCOMYCIN CONSULT ACTIVE PRN (14:41)
[2020-05-04] MEDS ORDERED: VANCOMYCIN HCL 2,750 MG in SODIUM CHLORIDE 0.9% 500 ML IV STA (14:49)
--- NOTE | 2020-05-04 14:55 | Pharmacy Report ---
Pharmacy Abx Initial Consult - Date of Service May 04, 2020 - Pharmacy Dosing Scope Date of Consult: 05/04/20 Consultation requested by: Dr. Neely Pharmacy is consulted to initiate Vancomycin IV dosing therapy, order appropriate labs and adjust drug dose/frequency. - Subjective The patient is a 64 year old F admitted on 04/25/20 15:10. - Objective Height: 5 ft 8 in Weight: 138.2 kg Vital Signs (Past 12hrs): Vital Signs Temp Pulse Pulse Resp BP BP Pulse Ox 05/04/20 11:22 36.4 C L 60 20 124/71 91 05/04/20 08:03 36.6 C 64 20 139/81 97 05/04/20 07:00 36.3 C L 54 L 80 20 139/87 93 05/04/20 03:25 63 20 93 Lab Results (24hrs): Laboratory Tests (24 Hours) 05/04/20 05/04/20 06:25 06:25 WBC 4.72 L Neut # (Auto) 3.27 Creatinine 0.78 Est Cr Clr Drug Dosing 109.1 Micro Results: 04/25/20 18:19 Aerobic Blood Culture - Final Blood No growth in Aerobic bottle after 5 days. Anaerobic Blood Culture - Final No growth in Anaerobic bottle after 5 days. 04/25/20 18:16 Aerobic Blood Culture - Final Blood No growth in Aerobic bottle after 5 days. Anaerobic Blood Culture - Final No growth in Anaerobic bottle after 5 days. 04/25/20 18:00 Gram Stain - Final Foot,Left Wound Culture - Final Proteus mirabilis - Risk Factors for Resistance * Current hospitalization > 5 days - Assessment & Plan Assessment 64 year old F admitted on 04/25/20 for cellulitis * Osteomyelitis could not be ruled out so she will receive 6 weeks of antibiotics * Being discharged with a PICC line and facility would not accept patient with cost of previous abx regimen (dapto + cefepime + flagyl) * Therefore, daptomycin has been changed to vancomycin for cost reasons * Left foot culture grew Proteus mirabilis but patient did not improve until MRSA coverage was added so staying with current regimen * S/p resection of L 5th metatarsal Plan Vancomycin for treatment of Osteomyelitis Vancomycin IV * Loading dose: 2750 mg (20 mg/kg) * Maintenance dose: 1500 mg IV (10 mg/kg) every 12 hours * Goal trough level: 15 to 20 mcg/mL * Trough level ordered for Monday prior to 4th maintenance dose to represent steady state levels * A less than traditional dose and extended dosing interval have been selected due to likelihood of drug accumulation in obese patient. Cefepime (not a pharmacy consult) * 2 g IV every 12 hours * Appropriate but would increase to every 8 hours if targeting Pseudomonas Metronidazole * 500 mg IV every 8 hours * Appropriate Pharmacy will continue to follow and will adjust dose/frequency as necessary. Thank you.
[2020-05-04] MEDS ORDERED: FUROSEMIDE 20 MG in SYRINGE 0 ML IV ONE (15:00)
[2020-05-04] MEDS: SENNA 8.6 MG TAB PO SCH ×2 (21:23→21:31)
--- NOTE | 2020-05-05 07:12 | Discharge Summary ---
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 Mery reports that her symptoms began in October with increased swelling in her legs bilaterally. She reports her legs were "leaking "and "I was in CHF ". She eventually presented to her primary care physician in December who diagnosed her with superimposed cellulitis and placed her on 7 days of ciprofloxacin. She reports she did not improve and a few days later went to the emergency department who performed a swab and culture and put her on another medicine of which she is unsure the name but thinks it might have been clindamycin. She reports she did not have resolution of her symptoms and on March 08 went to [facility] emergency department and was placed on "a blue pill that covered for MRSA that you had to take 4 times a day "for 10 days and had resolution of her cellulitis over the next 10 days. Despite resolution of her cellulitis, at the end of February she noticed that she developed left foot pain which gradually worsened and felt like "walking on glass "she feels this symptom gradually worsened and on this past , 2 days prior to presentation to the hospital, was trying to look at her foot when a ulcer seem to rupture and 1/2 teaspoon of purulent white pus "gush "from the outside of the left foot. She reports she felt better after that, and her foot "decreased in size by 50% ", but was advised on Monday to seek additional medical attention. She presented to [facility] who placed her on IV antibiotics and on imaging had concern for gas producing infection and osteomyelitis and transferred her to [facility] for further care. The case was discussed with Dr. Lee prior to [facility] who agreed to see the patient following transfer. In addition to the above Mery reports that she has had shaking chills for the past 2 months which only resolved after antibiotics were begun at [place] 2 days ago. She does not think she had a temperature at any point. She endorses chronic shortness of breath Which is worse laying flat at night. She sleeps on one pillow older than half in order to prop herself up. She reports she is supposed to use CPAP at night, but her multi has had to do it so she has not been able to use it lately. She endorses chronic numbness due to neuropathy in both her feet bilaterally. She reports over the previous few months she has just globally become weaker, and reports while she has not fallen she finds it harder and harder to walk around to maintain her strength and needs increasing mechanical assistance to walk. No bowel or bladder retention/incontinence, her legs do not give out, she just feels she is progressively becoming very weak. Medications: Medication list reviewed. She has a medication list with her which she reports is up-to-date other than a recent addition of 10 mg daily of aripiprazole for depression in addition to her sertraline. Medications: Atorvastatin 40 daily, Cartia XT 240 mg daily, citalopram 40 mg daily, furosemide 40 mg daily as needed, glipizide 10 mg twice daily, isosorbide mononitrate 30 mg every morning, lisinopril 20 mg twice daily, metoprolol 50 mg twice daily, pantoprazole 40 mg daily, potassium chloride 20 M EQ twice daily, gabapentin 300 mg 3 times daily, loratadine 10 mg daily, Combivent 1 puff up to 4 times daily as needed, Xarelto 20 mg daily. Surgical history: Reviewed. Status post hysterectomy. Allergies: Erythromycin hives, codeine nausea. Denies other medication allergies. Social: Reports she lives in a home alone, increasing difficulty performing activities of daily living. Reports "I struggle lately, and think I need some help ". Tobacco: Denies current and former use Alcohol: Reports no alcohol use since age 41 Recreational drug use: Denies CODE STATUS: Full code Discharge Data Allergies Allergy/AdvReac Type Severity Reaction Status Date / Time codeine Allergy Unknown unsure Unverified 10/25/16 14:51 erythromycin base Allergy Unknown unsure Unverified 10/25/16 14:51 Consultations 04/26/20 08:12 Consult Case Management - Discharge Planning Routine 04/27/20 13:16 Consult Orthopedic Surgery Routine 04/29/20 17:41 Consult Case Management - Discharge Planning Routine Procedures Performed Operation Date: 04/29/20 13:35 Actual Procedures p Left 5th Metatarsal Head and proximal phalanx Excisional Arthroplasty(Left) - Vik Lee DO s Left Foot Debridement Large Diabetic Ulcer including skin, subqu, fascia and m uscle measuring 3.5*3cm, application of stimulan beads (Left) - Vik Lee DO Ordered Studies 04/26/20 09:00 MR foot LT wo/w con Routine Discharge Plan Discharge Items Patient Disposition: Transfer Inpatient Rehab Fac Reason For Visit: OSTEOMYLITIS OF LT FOOT Discharge Diagnosis: Osteomyelitis of left foot Activity: Resume your previous activity Non-emergency contact: Primary Care Provider Call non-emergency contact if: your temperature is above 101 Follow-up/Referrals: Jairo Gill [Primary Care Provider] - Diet: Carb Consistent or DM2 Addtl Attending Provider Instructions: 64-year-old female with a past medical history of atrial fibrillation on Xarelto anticoagulation, congestive heart failure, type 2 diabetes mellitus not on insulin, hypertension, SCOTT, GERD, CVA, and 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 Left lower extremity osteomyelitis, diabetic foot ulcer with cellulitis s/p left foot resection and arthroplasty of the 5th metatarsal and 5th phalanx By report on pre-op CT fifth metatarsal evidence of osteomyelitis pre-op MRI with and without contrast with osteo seen at the 5th metatarsal and 5th proximal phalanx with cellulitis and no fluid collection s/p resection by orthopedics with Dr. Lee, will follow up outpatient continue 5 weeks IV antibiotics. Cefepime + Metronidazole + Vancomycin (started 05/04 will need to monitor levels) - PICC in place, RUE Wound care Nonsustained Vtach - Ectopy noted on cardiac monitoring - Less than 30 sec, unsustained, asymptomatic Type 2 diabetes mellitus A1c 7.3 continue home oral agents Congestive heart failure TTE with EF 50-55% unchanged from 2017 CXR with cardiomegaly and mild pulmonary edema on admit, currently improved Continue atorvastatin 40 mg daily Lisinopril held temporarily Continue metoprolol 50 mg tartrate twice daily Continue p.o. Lasix 40 mg twice daily A. fib on chronic Xarelto anticoagulation Patient irregularly irregular on exam Adequately rate controlled -continue Xarelto Hypertension Continue diltiazem 240 mg CD Metoprolol as above Wheezing Unclear, patient reports uses Combivent up to four times daily as needed but does not the regular medications DuoNebs as needed consider outpatient PFT's Depression Continue aripiprazole 10 mg daily Continue citalopram 40 mg daily GERD Continue pantoprazole 40 mg daily Social Patient reports difficulties at home with self-care in addition to recent difficulties with paying bills/registering her car in addition to the loss of her job in the past month. Reports difficult living condition at home, and may not have adequate resources to appropriately care for her medical condition at home alone at this time. Infection control precautions - MRSA coverage and precautions due to prior cellulitis that did not resolve until treated with MRSA coverage within the last 30 days of admission Follow Up: Dr. Lee with Orthopedics Pending Studies at Discharge: No Stand-Alone Forms: My [facility] Skilled Items Patient informed of condition?: Yes DNR: No Discharge Level of Care: Acute rehab Communicable Disease: No Discharge Prognosis: Stable Lines: PICC Urinary Catheter: No Medications and DC Order Prescriptions: New daptomycin [Cubicin] 500 mg Recon Soln 500 mg Not Applicable UD PRN (Reason: osteomyelitis) 35 Days Qty: 0 RF: 0 furosemide 20 mg Tablet 40 mg PO [id number] Qty: 30 RF: 0 Continued Pantoprazole (Protonix) 40 MG tablet 40 mg PO DAILY Qty: 30 RF: 0 Citalopram (Citalopram Hydrobromide) 40 MG tablet 40 mg PO DAILY 90 Days Qty: 90 RF: 3 Gabapentin (Neurontin) 300 MG capsule 300 mg PO TID Qty: 0 RF: 0 RIVAROXABAN (XARELTO) 20 MG tablet 20 mg PO DAILY Qty: 0 RF: 0 Fish Oil ([place]-3) 1 EA capsule 1 cap PO DAILY Qty: 0 RF: 0 CHOLECALCIFEROL (VITAMIN D3) 1,000 UNIT tablet 1,000 inter.unit PO DAILY 90 Days Qty: 0 RF: 3 Multivitamin tablet 1 tab PO DAILY Qty: 0 RF: 0 FERROUS FUMARATE (IRON) 18 MG tablet 65 mg PO DAILY Qty: 0 RF: 0 CINNAMON 500 MG capsule 375 mg PO DAILY Qty: 0 RF: 0 CYANOCOBALAMIN (VITAMIN B 12) 250 MCG IGOR 500 mcg PO DAILY Qty: 0 RF: 0 Loratadine (Claritin) 10 MG tablet 10 mg PO DAILY Qty: 0 RF: 0 MELATONIN (GNP MELATONIN MAXIMUM STR) 5 MG tablet 5 mg PO HS Qty: 0 RF: 0 GLIPIZIDE (GLUCOTROL) 10 MG tablet 10 mg PO BID Qty: 0 RF: 0 Metoprolol Tartrate (Lopressor) (Lopressor) 50 MG tablet 50 mg PO BID Qty: 0 RF: 0 Potassium Ext Rel (Klor-Con) 20 MEQ [id number] 20 meq PO BID Qty: 0 RF: 0 ATORVASTATIN (LIPITOR) 40 MG tablet 1 tab PO DAILY Qty: 0 RF: 0 Lisinopril 20 MG tablet 1 tab PO DAILY Qty: 0 RF: 0 IPRATROPIUM-ALBUTEROL (COMBIVENT RESPIMAT) 1 AER AER 1 puff Inhalation QID PRN (Reason: SOB/Wheezing) Qty: 1 RF: 1 Discontinued Furosemide 20 MG tablet 40 mg PO BID PRN (Reason: Fluid Retention) RF: 0 Krames/Other Patient Handouts: Managing Type 2 Diabetes, Managing Diabetes: The A1C Test Admission Data Admit Date/Time: 04/25/20 15:10 Attending Provider: Keyshawn Todd Admit Provider: Sheeba Valente Primary Care Provider: Jairo Gill Other Providers: Sheeba Valente ; Janna Leal ; Vik Lee ; [facility] CBC Results Results Complete Blood Count Results: RBC 3.74 M/uL (4.2-5.4) L 05/04/20 WBC 4.72 K/uL (4.8-10.8) L 05/04/20 Hgb 9.8 g/dL (12.0-16.0) L 05/04/20 Hct 32.5 % (37-47) L 05/04/20 Plt Count 188 K/uL (130-400) 05/04/20 Chemistry (BMP) Results BMP Results: Sodium 136 mmol/L (136-145) 05/04/20 Potassium 4.3 mmol/L (3.5-5.1) 05/04/20 Chloride 99 mmol/L (98-107) 05/04/20 BUN 13 mg/dl (7-18) 05/04/20 Creatinine 0.78 mg/dl (0.6-1.2) 05/04/20 Glucose 92 mg/dl (70-99) 05/04/20
[2020-05-05 07:16] LABS: Basophils # (auto) 0.02 K/uL (0-0.2); Basophils % (auto) 0.4 %; Eosinophils # (auto) 0.17 K/uL (0-0.5); Eosinophils % (auto) 3.4 %; Hematocrit (blood only) 31.9 % (37-47); Hemoglobin 9.7 g/dL (12.0-16.0); Immature Granulocytes # (auto) 0.01 K/uL (0.00-0.02); Immature Granulocytes % (auto) 0.2 %; Lymphocytes # (auto) 0.72 K/uL (1.2-3.4); Lymphocytes % (auto) 14.4 %; Mean Corpuscular Hemoglobin 26.4 pg (25-34); Mean Corpuscular Hgb Conc 30.4 g/dL (32-36); Mean Corpuscular Volume 86.9 fL (80-100); Mean Platelet Volume 9.2 fL (7.4-10.4); Monocytes # (auto) 0.49 K/uL (0.11-0.59); Monocytes % (auto) 9.8 %; Neutrophils # (auto) 3.58 K/uL (1.4-6.5); Neutrophils % (auto) 71.8 %; Platelet Count 194 K/uL (130-400); RDW Coefficient of Variation 15.3 % (11.5-14.5); Red Blood Count 3.67 M/uL (4.2-5.4); White Blood Count 4.99 K/uL (4.8-10.8)
[2020-05-05] MEDS: metroNIDAZOLE 500 MG/100 ML BAG IV SCH ×3 (07:49→23:44)
[2020-05-05] MEDS: GABAPENTIN 300 MG CAP PO SCH ×3 (07:50→20:59)
[2020-05-05] MEDS: DOCUSATE SODIUM 100 MG CAP PO SCH ×2 (07:51→20:59)
[2020-05-05] MEDS: INSULIN GLARGINE SOLOSTAR 100 UNITS/ML 3 ML PEN SC SCH (07:52)
[2020-05-05] MEDS: METOPROLOL TARTRATE 50 MG TAB PO SCH ×2 (07:54→21:00)
[2020-05-05] MEDS: ISOSORBIDE MONO EXTENDED REL 30 MG TABCR PO SCH (07:54)
[2020-05-05] MEDS: dilTIAZem HCL 240 MG CAPCR PO SCH (07:55)
[2020-05-05] MEDS: FUROSEMIDE 20 MG TAB PO SCH ×2 (07:55→17:10)
[2020-05-05] MEDS: ARIPiprazole 10 MG TAB PO SCH (07:56)
[2020-05-05] MEDS: MULTIVITAMIN TAB PO SCH (07:56)
[2020-05-05] MEDS: PANTOprazole 40 MG TAB PO SCH (07:56)
[2020-05-05] MEDS: CITALOPRAM 40 MG TAB PO SCH (07:56)
[2020-05-05] MEDS: ATORVASTATIN 40 MG TAB PO SCH (07:56)
[2020-05-05] MEDS: LORATADINE 10 MG TAB PO SCH (07:56)
[2020-05-05] MEDS: RIVAROXABAN 20 MG TAB PO SCH (07:56)
[2020-05-05] MEDS: INSULIN ASPART 100 UNITS/ML 3 ML PEN SC SCH ×4 (07:57→21:01)
[2020-05-05 08:00] LABS: BUN Creatinine Ratio 21.2 (10-20); Calcium 9.3 mg/dl (8.5-10.1); Creatinine Clr Calc Pharmacy 120.6 ml/min; Est GFR (African American) 106.9; Est GFR (Non-African American) 92.2; Potassium 4.2 mmol/L (3.5-5.1)
--- NOTE | 2020-05-05 08:06 | Hospitalist Progress Note ---
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 Left lower extremity osteomyelitis, diabetic foot ulcer with cellulitis s/p left foot resection and arthroplasty of the 5th metatarsal and phalanx No leukocytosis, By report on pre-op CT fifth metatarsal evidence of osteomyelitis pre-op MRI with and without contrast with osteo seen at the 5th metatarsal and 5th proximal phalanx with cellulitis and no fluid collection Orthopedics consulted, will follow up outpatient Patient nontoxic Anticipate total of 6 weeks IV antibiotics. Cefepime + Metronidazole + Vancomycin (transitioned from Daptomycin) - PICC in place, RUE Wound care - Anticipate d/c to rehab. Nonsustained Vtach - Ectopy noted on cardiac monitoring last night, reported as 17 beat run of vtach, asymptomatic. Unsure of validity. - Regardless, Less than 30 sec, unsustained, asymptomatic, will ensure electrolytes are WNL on BMP, otherwise no further workup warranted at this time, continue cardiac monitoring. Bleeding from PICC peripheral IV site. - Resolved - Concern per nursing from overnight nurse relayed yesterday morning has been resolved. - No active bleeding at bedside; hemodynamically stable Type 2 diabetes mellitus A1c 7.3 Home glipizide held Converted to basal bolus, weight-based. Lantus 20 daily, CF 35, ratio 11 Glucose checks AC/at bedtime Diabetic diet Congestive heart failure TTE with EF 50-55% unchanged from 2017 CXR with cardiomegaly and mild pulmonary edema on admit, currently improved Continue atorvastatin 40 mg daily Lisinopril held temporarily Continue metoprolol 50 mg tartrate twice daily Continue p.o. Lasix 20 mg twice daily A. fib on chronic Xarelto anticoagulation Patient irregularly irregular on exam Xarelto held in anticipation of potential surgical intervention started back on home Xarelto this AM Adequately rate controlled Hypertension Continue diltiazem 240 mg CD MAJO held as above Metoprolol as above Wheezing Unclear, patient reports uses Combivent up to four times daily as needed but does not the regular medications DuoNebs as needed Incentive spirometry Flutter valve - may benefit from outpatient PFT's Depression Continue aripiprazole 10 mg daily Continue citalopram 40 mg daily GERD Continue pantoprazole 40 mg daily Social Patient reports difficulties at home with self-care in addition to recent difficulties with paying bills/registering her car in addition to the loss of her job in the past month. Reports is difficult living condition at home, and may not have adequate resources to appropriately care for her medical condition at home alone at this time. Case management consulted. Infection control precautions - MRSA coverage and precautions due to prior cellulitis that did not resolve until treated with MRSA coverage within the last 30 days of admission DVT prophylaxis: Heparin Disposition: Medical with telemetry, pending placement Diet: Diabetic diet CODE STATUS: Full code (2) DM type 2 (diabetes mellitus, type 2): (3) HTN (hypertension): (4) Atrial fibrillation: (5) CHF (congestive heart failure): (6) Chronic anticoagulation: (7) History of uterine cancer: (8) SCOTT (obstructive sleep apnea): (9) Depression: (10) GERD (gastroesophageal reflux disease): (11) History of CVA (cerebrovascular accident): (12) Atrial fibrillation with RVR: (13) Status post cardiac catheterization: (14) Left leg cellulitis: (15) Bleeding from peripherally inserted central venous catheter (PICC): Admission and Anticipated Discharge Date Admission Date: April 25, 2020 Supervising Physician Co-Signing Physician Notes Attending attestation I also saw the patient confirmed tripathi portions of the history and physical examination. Agree with the impression and plan as noted in the resident documentation. Upon our exam this morning, the patient without complaint. The patient has been accepted at a facility although insurance authorization is sti ll pending. Exam 107/60, 53, 20, 36.4, 95% on nasal cannula 4 L/min Pleasant alert. No acute distress. Nontoxic appearance. Heart regular Lungs are clear Data Blood blood cell count 4.99, hemoglobin 9.7. BUN 15, creatinine 0.70 Impression and plan Diabetic foot ulcer with osteomyelitis, status post surgical debridement and placement of PICC line for long-term antibiotics Acute on chronic diastolic heart failure, improved, clinically appears euvolemic Continue current care and work with case management for placement. Subjective Doing well today, she did not have any questions for us today. She was pain free. Review of Systems Review of Systems: Constitutional: denies fevers, chills Cardiac: denies chest pain, palpitations Pulm.: denies cough, shortness of breath Physical Exam Constitutional: WD/WN, vitals as above Eyes: PERRL, conjunctivae normal, anicteric sclerae ENMT: external ear and nose normal, oropharynx normal Neck: normal visual inspection Respiratory: - slight wheeze on exam - good air movement in all robles - no acute distress Cardiovascular: RRR, no murmur, no edema Rate/Rhythm: + irregularly irregular Gastrointestinal (Abdomen): normal bowel sounds, soft, nontender, no hepatosplenomegaly Skin: - bandage over left foot with serosanguineous drainage - red lesion on the lower extremity to the mid wood Neurologic: no focal motor deficits Psychiatric: A+Ox3, euthymic affect Results & Data Results & Data ([facility]) Vital Signs (Past 12 Hours) Vital Signs Temp Pulse Pulse Resp BP BP Pulse Ox 05/05/20 07:30 36.6 C 57 L 18 128/76 96 05/05/20 05:44 60 05/05/20 04:15 59 L 94 05/05/20 03:14 36.5 C 58 L 19 105/65 97 05/04/20 23:36 136/76 05/04/20 23:30 36.5 C 61 18 146/83 H 96 05/04/20 23:25 18 CBC Results Results Complete Blood Count Results: RBC 3.67 M/uL (4.2-5.4) L 05/05/20 WBC 4.99 K/uL (4.8-10.8) 05/05/20 Hgb 9.7 g/dL (12.0-16.0) L 05/05/20 Hct 31.9 % (37-47) L 05/05/20 Plt Count 194 K/uL (130-400) 05/05/20 Chemistry (BMP) Results BMP Results: Sodium 136 mmol/L (136-145) 05/05/20 Potassium 4.2 mmol/L (3.5-5.1) 05/05/20 Chloride 97 mmol/L (98-107) L 05/05/20 BUN 15 mg/dl (7-18) 05/05/20 Creatinine 0.70 mg/dl (0.6-1.2) 05/05/20 Glucose 92 mg/dl (70-99) 05/05/20 Resident Activity Tracking Resident Involvement: Resident Care Provided Care Provided: Adult Hospital Medicine
[2020-05-05] MEDS: CEFEPIME 2,000 MG in SYRINGE 0 ML IV SCH ×3 (08:49→23:44)
[2020-05-05] MEDS: VANCOMYCIN HCL 1,500 MG in SODIUM CHLORIDE 0.9% 500 ML IV SCH ×2 (09:42→20:59)
[2020-05-05] MEDS: ACETAMINOPHEN 325 MG TAB PO PRN (17:35)
[2020-05-05] MEDS: SENNA 8.6 MG TAB PO SCH (21:00)
[2020-05-06 06:18] LABS: Basophils # (auto) 0.02 K/uL (0-0.2); Basophils % (auto) 0.4 %; Eosinophils # (auto) 0.13 K/uL (0-0.5); Eosinophils % (auto) 2.7 %; Hematocrit (blood only) 31.8 % (37-47); Hemoglobin 9.4 g/dL (12.0-16.0); Immature Granulocytes # (auto) 0.01 K/uL (0.00-0.02); Immature Granulocytes % (auto) 0.2 %; Lymphocytes % (auto) 16.7 %; Mean Corpuscular Hemoglobin 25.8 pg (25-34); Mean Corpuscular Hgb Conc 29.6 g/dL (32-36); Mean Corpuscular Volume 87.1 fL (80-100); Mean Platelet Volume 9.6 fL (7.4-10.4); Monocytes # (auto) 0.38 K/uL (0.11-0.59); Monocytes % (auto) 7.9 %; Neutrophils # (auto) 3.45 K/uL (1.4-6.5); Neutrophils % (auto) 72.1 %; Platelet Count 186 K/uL (130-400); RDW Coefficient of Variation 15.4 % (11.5-14.5); RDW Standard Deviation 49.8 fL (36.4-46.3); Red Blood Count 3.65 M/uL (4.2-5.4); White Blood Count 4.79 K/uL (4.8-10.8)
[2020-05-06 06:43] LABS: BUN Creatinine Ratio 24.3 (10-20); Calcium 8.9 mg/dl (8.5-10.1); Creatinine Clr Calc Pharmacy 121.7 ml/min; Est GFR (African American) 107.4; Est GFR (Non-African American) 92.6; Potassium 4.3 mmol/L (3.5-5.1)
[2020-05-06] MEDS: CEFEPIME 2,000 MG in SYRINGE 0 ML IV SCH (08:12)
[2020-05-06] MEDS: VANCOMYCIN HCL 1,500 MG in SODIUM CHLORIDE 0.9% 500 ML IV SCH (08:12)
[2020-05-06] MEDS: RIVAROXABAN 20 MG TAB PO SCH (08:13)
[2020-05-06] MEDS: CITALOPRAM 40 MG TAB PO SCH (08:13)
[2020-05-06] MEDS: FUROSEMIDE 20 MG TAB PO SCH (08:13)
[2020-05-06] MEDS: dilTIAZem HCL 240 MG CAPCR PO SCH (08:13)
[2020-05-06] MEDS: ATORVASTATIN 40 MG TAB PO SCH (08:14)
[2020-05-06] MEDS: ARIPiprazole 10 MG TAB PO SCH (08:14)
[2020-05-06] MEDS: ISOSORBIDE MONO EXTENDED REL 30 MG TABCR PO SCH (08:14)
[2020-05-06] MEDS: DOCUSATE SODIUM 100 MG CAP PO SCH (08:15)
[2020-05-06] MEDS: METOPROLOL TARTRATE 50 MG TAB PO SCH (08:15)
[2020-05-06] MEDS: LORATADINE 10 MG TAB PO SCH (08:16)
[2020-05-06] MEDS: GABAPENTIN 300 MG CAP PO SCH (08:16)
[2020-05-06] MEDS: PANTOprazole 40 MG TAB PO SCH (08:16)
[2020-05-06] MEDS: MULTIVITAMIN TAB PO SCH (08:17)
[2020-05-06] MEDS: INSULIN GLARGINE SOLOSTAR 100 UNITS/ML 3 ML PEN SC SCH (08:18)
[2020-05-06] MEDS: INSULIN ASPART 100 UNITS/ML 3 ML PEN SC SCH ×2 (08:20→12:03)
[2020-05-06] MEDS ORDERED: metroNIDAZOLE 500 MG TAB PO SCH (09:00)
[2020-05-06] MEDS: ACETAMINOPHEN 325 MG TAB PO PRN (09:09)
[2020-05-06] MEDS ORDERED: DICLOFENAC SOD 1% GEL 100 GM TUBE EXT PRN (10:04)
[2020-05-06] MEDS ORDERED: VANCOMYCIN TROUGH ONE ×2 (11:30→20:30)
--- NOTE | 2020-05-06 12:59 | Discharge Summary ---
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 for left lower extremity osteomyelitis with gas production. Mery reports that her symptoms began in October with increased swelling in her legs bilaterally. She reports her legs were "leaking "and "I was in CHF ". She eventually presented to her primary care physician in December who diagnosed her with superimposed cellulitis and placed her on 7 days of ciprofloxacin. She reports she did not improve and a few days later went to the emergency department who performed a swab and culture and put her on another medicine of which she is unsure the name but thinks it might have been clindamycin. She reports she did not have resolution of her symptoms and on March 08 went to [facility] emergency department and was placed on "a blue pill that covered for MRSA that you had to take 4 times a day "for 10 days and had resolution of her cellulitis over the next 10 days. Despite resolution of her cellulitis, at the end of February she noticed that she developed left foot pain which gradually worsened and felt like "walking on glass "she feels this symptom gradually worsened and on this past , 2 days prior to presentation to the hospital, was trying to look at her foot when a ulcer seem to rupture and 1/2 teaspoon of purulent white pus "gush "from the outside of the left foot. She reports she felt better after that, and her foot "decreased in size by 50% ", but was advised on Monday to seek additional medical attention. She presented to [facility] who placed her on IV antibiotics and on imaging had concern for gas producing infection and osteomyelitis and transferred her to [facility] for further care. The case was discussed with Dr. Lee prior to [facility] who agreed to see the patient following transfer. In addition to the above Mery reports that she has had shaking chills for the past 2 months which only resolved after antibiotics were begun at [facility] 2 days ago. She does not think she had a temperature at any point. She endorses chronic shortness of breath Which is worse laying flat at night. She sleeps on one pillow older than half in order to prop herself up. She reports she is supposed to use CPAP at night, but her multi has had to do it so she has not been able to use it lately. She endorses chronic numbness due to neuropathy in both her feet bilaterally. She reports over the previous few months she has just globally become weaker, and reports while she has not fallen she finds it harder and harder to walk around to maintain her strength and needs increasing mechanical assistance to walk. No bowel or bladder retention/incontinence, her legs do not give out, she just feels she is progressively becoming very weak. Medications: Medication list reviewed. She has a medication list with her which she reports is up-to-date other than a recent addition of 10 mg daily of aripiprazole for depression in addition to her sertraline. Medications: Atorvastatin 40 daily, Cartia XT 240 mg daily, citalopram 40 mg daily, furosemide 40 mg daily as needed, glipizide 10 mg twice daily, isosorbide mononitrate 30 mg every morning, lisinopril 20 mg twice daily, metoprolol 50 mg twice daily, pantoprazole 40 mg daily, potassium chloride 20 M EQ twice daily, gabapentin 300 mg 3 times daily, loratadine 10 mg daily, Combivent 1 puff up to 4 times daily as needed, Xarelto 20 mg daily. Surgical history: Reviewed. Status post hysterectomy. Allergies: Erythromycin hives, codeine nausea. Denies other medication allergies. Social: Reports she lives in a home alone, increasing difficulty performing activities of daily living. Reports "I struggle lately, and think I need some help ". Tobacco: Denies current and former use Alcohol: Reports no alcohol use since age 41 Recreational drug use: Denies CODE STATUS: Full code Allergies Admission Exam Per Admitting Provider General: A&Ox3. NAD. Cooperative. Skin warm and dry. See extremity exam below. HEENT: Atraumatic, normocephalic. Visual acuity grossly intact. Pupils equal and reactive to light. Pulm: Trace end expiratory wheezes, moderate air movement. No increased work of breathing. No respiratory distress. Bibasilar crackles. Cardiac: Regular rhythm, systolic murmur present. Radial pulses intact and symmetrical. Abdominal: Obese, nontender, nondistended, soft. BS present. Extremities: Left lower extremity: Left lower extremity edematous with chronic venous stasis changes through the calf. Increased erythema compared to the right ascending to a few centimeters below the knee, marked with marking pen. No additional overlying warmth or tenderness. Left foot swollen, 3 cm diameter ulceration at lateral distal fifth PIP/MTP junction with tracking and underlying necrosis. Patient with reduced sensation of the foot globally. PT pulses not able to be appreciated. Right lower extremity: Mild pitting edema, less than left. No overlying cellulitis. Sensation decreased to soft touch over the foot and distal lower extremity. PT pulse intact but difficult to appreciate due to swelling. Small surface ~2mm superficial grade I ulceration at dorsal midfoot. Ankle plantarflexion/dorsiflexion intact bilaterally without pain. Carrot Harvester strength, elbow flexion/extension, shoulder internal rotation/external rotation 4+/5 bilaterally. Principal Diagnosis osteomyelitis Discharge Exam Constitutional: WD/WN, vitals as above Eyes: PERRL, conjunctivae normal, anicteric sclerae ENMT: external ear and nose normal, oropharynx normal Neck: normal visual inspection Respiratory: - slight wheeze on expiration - good air movement in all robles - no acute distress Cardiovascular: RRR, no murmur, no edema Rate/Rhythm: + irregularly irregular Gastrointestinal (Abdomen): normal bowel sounds, soft, nontender, no hepatosplenomegaly Skin: - bandage over left foot c/d/i - dry red lesion on the lower extremity to the mid wood, nTTP Neurologic: no focal motor deficits Psychiatric: A+Ox3, euthymic affect Discharge Data Allergies Allergy/AdvReac Type Severity Reaction Status Date / Time codeine Allergy Unknown unsure Unverified 10/25/16 14:51 erythromycin base Allergy Unknown unsure Unverified 10/25/16 14:51 Consultations 04/26/20 08:12 Consult Case Management - Discharge Planning Routine 04/27/20 13:16 Consult Orthopedic Surgery Routine 04/29/20 17:41 Consult Case Management - Discharge Planning Routine Procedures Performed Operation Date: 04/29/20 13:35 Actual Procedures p Left 5th Metatarsal Head and proximal phalanx Excisional Arthroplasty(Left) - Vik Lee DO s Left Foot Debridement Large Diabetic Ulcer including skin, subqu, fascia and muscle measuring 3.5*3cm, application of stimulan beads (Left) - Vik Lee DO Ordered Studies 04/26/20 09:00 MR foot LT wo/w con Routine Hospital Course (1) Osteomyelitis: 64-year-old female with a past medical history of atrial fibrillation on Xarelto anticoagulation, congestive heart failure, type 2 diabe dylan mellitus not on insulin, hypertension, SCOTT, GERD, CVA, and 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 for left lower extremity osteomyelitis with gas production now s/p resection. Left lower extremity osteomyelitis, diabetic foot ulcer with cellulitis s/p left foot resection and arthroplasty of the 5th metatarsal and 5th phalanx pre-op MRI with and without contrast with osteo seen at the 5th metatarsal and 5th proximal phalanx with cellulitis and no fluid collection s/p resection by orthopedics with Dr. Lee, will follow up outpatient continue 5 weeks IV antibiotics. IV Cefepime [2g q8h]+ IV Vancomycin (started 05/04) [maintenance dose 1,500 with goal trough 15-20]+ PO Metronidazole - PICC in place, RUE Nonsustained Vtach - Ectopy noted on cardiac monitoring - Less than 30 sec, unsustained, asymptomatic Type 2 diabetes mellitus A1c 7.3 continue home oral agents Congestive heart failure TTE with EF 50-55% unchanged from 2017 CXR with cardiomegaly and mild pulmonary edema on admit, currently improved Continue atorvastatin 40 mg daily Lisinopril held Continue Metoprolol tartrate 50 mg twice daily Continue p.o. Lasix 40 mg twice daily A. fib on chronic Xarelto anticoagulation Patient irregularly irregular on exam continue metoprolol, adequately rate controlled -continue Xarelto Hypertension Continue diltiazem 240 mg CD Metoprolol as above Wheezing Unclear, patient reports uses Combivent up to four times daily as needed but does not the regular medications DuoNebs as needed consider outpatient PFT's Depression Continue aripiprazole 10 mg daily Continue citalopram 40 mg daily GERD Continue pantoprazole 40 mg daily Right knee pain - Continue Voltaren gel Social Patient reports difficulties at home with self-care in addition to recent difficulties with paying bills/registering her car in addition to the loss of her job in the past month. Reports difficult living condition at home, and may not have adequate resources to appropriately care for her medical condition at home alone at this time. Infection control precautions - MRSA coverage and precautions due to prior cellulitis that did not resolve until treated with MRSA coverage within the last 30 days of admission Follow Up: Dr. Lee with Orthopedics Total Time Total Time Spent Total Time Spent (In Minutes): 15 Total Time Includes: Examination of the Patient and Discharge Planning Discharge Plan Discharge Items Patient Disposition: Transfer Half-Way Fac Reason For Visit: OSTEOMYLITIS OF LT FOOT Discharge Diagnosis: Osteomyelitis of left foot Activity: Resume your previous activity Non-emergency contact: Primary Care Provider Call non-emergency contact if: your temperature is above 101 Follow-up/Referrals: Jairo Gill [Primary Care Provider] - Diet: Carb Consistent or DM2 Addtl Attending Provider Instructions: 64-year-old female with a past medical history of atrial fibrillation on Xarelto anticoagulation, congestive heart failure, type 2 diabetes mellitus not on insulin, hypertension, SCOTT, GERD, CVA, and 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 for left lower extremity osteomyelitis with gas production now s/p resection. Left lower extremity osteomyelitis, diabetic foot ulcer with cellulitis s/p left foot resection and arthroplasty of the 5th metatarsal and 5th phalanx pre-op MRI with and without contrast with osteo seen at the 5th metatarsal and 5th proximal phalanx with cellulitis and no fluid collection s/p resection by orthopedics with Dr. Lee, will follow up outpatient continue 5 weeks IV antibiotics. IV Cefepime [2g q8h]+ IV Vancomycin (started 05/04) [maintenance dose 1,500 with goal trough 15-20]+ PO Metronidazole - PICC in place, RUE Nonsustained Vtach - Ectopy noted on cardiac monitoring - Less than 30 sec, unsustained, asymptomatic Type 2 diabetes mellitus A1c 7.3 continue home oral agents Congestive heart failure TTE with EF 50-55% unchanged from 2017 CXR with cardiomegaly and mild pulmonary edema on admit, currently improved Continue atorvastatin 40 mg daily Lisinopril held Continue Metoprolol tartrate 50 mg twice daily Continue p.o. Lasix 40 mg twice daily A. fib on chronic Xarelto anticoagulation Patient irregularly irregular on exam continue metoprolol, adequately rate controlled -continue Xarelto Hypertension Continue diltiazem 240 mg CD Metoprolol as above Wheezing Unclear, patient reports uses Combivent up to four times daily as needed but does not the regular medications DuoNebs as needed consider outpatient PFT's Depression Continue aripiprazole 10 mg daily Continue citalopram 40 mg daily GERD Continue pantoprazole 40 mg daily Right knee pain - Continue Voltaren gel Social Patient reports difficulties at home with self-care in addition to recent difficulties with paying bills/registering her car in addition to the loss of her job in the past month. Reports difficult living condition at home, and may not have adequate resources to appropriately care for her medical condition at home alone at this time. Infection control precautions - MRSA coverage and precautions due to prior cellulitis that did not resolve until treated with MRSA coverage within the last 30 days of admission Follow Up: Dr. Lee with Orthopedics Pending Studies at Discharge: No Stand-Alone Forms: My [facility] Skilled Items Patient informed of condition?: Yes DNR: No Discharge Level of Care: Acute rehab Communicable Disease: No Discharge Prognosis: Stable Lines: PICC Urinary Catheter: No Medications and DC Order Prescriptions: New cefepime 2 gram recon soln 2 g IV Q12H 35 Days Qty: 70 RF: 0 vancomycin 1,000 mg recon soln 1,500 mg IV Q12H 35 Days Qty: 70 RF: 0 metronidazole [Flagyl] 500 mg tablet 500 mg PO Q8H 35 Days Qty: 105 RF: 0 Continued Pantoprazole (Protonix) 40 MG tablet 40 mg PO DAILY Qty: 30 RF: 0 Citalopram (Citalopram Hydrobromide) 40 MG tablet 40 mg PO DAILY 90 Days Qty: 90 RF: 3 Gabapentin (Neurontin) 300 MG capsule 300 mg PO TID Qty: 0 RF: 0 RIVAROXABAN (XARELTO) 20 MG tablet 20 mg PO DAILY Qty: 0 RF: 0 Fish Oil (Langston-3) 1 EA capsule 1 cap PO DAILY Qty: 0 RF: 0 CHOLECALCIFEROL (VITAMIN D3) 1,000 UNIT tablet 1,000 inter.unit PO DAILY 90 Days Qty: 0 RF: 3 Multivitamin tablet 1 tab PO DAILY Qty: 0 RF: 0 FERROUS FUMARATE (IRON) 18 MG tablet 65 mg PO DAILY Qty: 0 RF: 0 CINNAMON 500 MG capsule 375 mg PO DAILY Qty: 0 RF: 0 CYANOCOBALAMIN (VITAMIN B 12) 250 MCG IGOR 500 mcg PO DAILY Qty: 0 RF: 0 Loratadine (Claritin) 10 MG tablet 10 mg PO DAILY Qty: 0 RF: 0 MELATONIN (GNP MELATONIN MAXIMUM STR) 5 MG tablet 5 mg PO HS Qty: 0 RF: 0 GLIPIZIDE (GLUCOTROL) 10 MG tablet 10 mg PO BID Qty: 0 RF: 0 Metoprolol Tartrate (Lopressor) (Lopressor) 50 MG tablet 50 mg PO BID Qty: 0 RF: 0 Potassium Ext Rel (Klor-Con) 20 MEQ [id number] 20 meq PO BID Qty: 0 RF: 0 ATORVASTATIN (LIPITOR) 40 MG tablet 1 tab PO DAILY Qty: 0 RF: 0 Lisinopril 20 MG tablet 1 tab PO DAILY Qty: 0 RF: 0 IPRATROPIUM-ALBUTEROL (COMBIVENT RESPIMAT) 1 AER AER 1 puff Inhalation QID PRN (Reason: SOB/Wheezing) Qty: 1 RF: 1 Furosemide 20 MG tablet 40 mg PO BID PRN (Reason: Fluid Retention) RF: 0 Discharge Orders: Discharge Order (Routine); Ordered 05/06/20 Ordered By: Arnol Oh/Other Patient Handouts: Managing Type 2 Diabetes, Managing Diabetes: The A1C Test Admission Data Admit Date/Time: 04/25/20 15:10 Attending Provider: Keyshawn Todd Admit Provider: Sheeba Valente Primary Care Provider: Jairo Gill Other Providers: Sheeba Valente ; Janna Leal ; Vik Lee ; Samantha Tubbs Other Interventions: Discharge Summary Assessment (RN) Last Done: 05/06/20 12:16 Supervising Physician Co-Signing Physician Notes Attending attestation I also saw the patient confirmed tripathi portions of the history and physical examination. Agree with the impression and plan as noted in the resident documentation. Upon our exam this morning, the patient without complaint. Discharge is planned for later today and the patient is quite pleased with where she is going as she had a family member in the same facility for physical therapy. Exam 125/73, 62, 18. Temperature 36.4, 96%. Pleasant alert. No acute distress. Nontoxic appearance. Heart regular Lungs are clear Impression and plan Diabetic foot ulcer with osteomyelitis, status post surgical debridement and placement of PICC line for long-term antibiotics Acute on chronic diastolic heart failure, improved, clinically appears euvolemic Resident Activity Tracking Resident Involvement: Resident Care Provided Care Provided: Adult [facility] Medicine CBC Results Results Complete Blood Count Results: RBC 3.65 M/uL (4.2-5.4) L 05/06/20 WBC 4.79 K/uL (4.8-10.8) L 05/06/20 Hgb 9.4 g/dL (12.0-16.0) L 05/06/20 Hct 31.8 % (37-47) L 05/06/20 Plt Count 186 K/uL (130-400) 05/06/20 Chemistry (BMP) Results BMP Results: Sodium 138 mmol/L (136-145) 05/06/20 Potassium 4.3 mmol/L (3.5-5.1) 05/06/20 Chloride 99 mmol/L (98-107) 05/06/20 BUN 17 mg/dl (7-18) 05/06/20 Creatinine 0.69 mg/dl (0.6-1.2) 05/06/20 Glucose 94 mg/dl (70-99) 05/06/20
== END 2020-05-06 13:23 | DRG 616 ==
LOC: SUATTDRO 15:10 → 2W 15:10

== ENCOUNTER 2020-05-19 21:38 | Inpatient (IN) ==
[2020-05-19 22:51] LABS: Basophils # (auto) 0.03 K/uL (0-0.2); Basophils % (auto) 0.5 %; Eosinophils # (auto) 0.21 K/uL (0-0.5); Eosinophils % (auto) 3.3 %; Hematocrit (blood only) 35.1 % (37-47); Hemoglobin 10.3 g/dL (12.0-16.0); Immature Granulocytes # (auto) 0.01 K/uL (0.00-0.02); Immature Granulocytes % (auto) 0.2 %; Lymphocytes # (auto) 0.64 K/uL (1.2-3.4); Lymphocytes % (auto) 10.1 %; Mean Corpuscular Hemoglobin 26.5 pg (25-34); Mean Corpuscular Hgb Conc 29.3 g/dL (32-36); Mean Corpuscular Volume 90.2 fL (80-100); Mean Platelet Volume 9.3 fL (7.4-10.4); Monocytes # (auto) 0.35 K/uL (0.11-0.59); Monocytes % (auto) 5.5 %; Neutrophils # (auto) 5.11 K/uL (1.4-6.5); Neutrophils % (auto) 80.4 %; Platelet Count 139 K/uL (130-400); RDW Standard Deviation 53.1 fL (36.4-46.3); Red Blood Count 3.89 M/uL (4.2-5.4); White Blood Count 6.35 K/uL (4.8-10.8)
[2020-05-19 23:12] LABS: BUN Creatinine Ratio 21.8 (10-20); Calcium 8.8 mg/dl (8.5-10.1); Creatinine Clr Calc Pharmacy 103.6 ml/min; Est GFR (African American) 84.5; Est GFR (Non-African American) 72.9
[2020-05-19 23:17] LABS: Albumin Globulin Ratio 0.7 (0.9-2); Bilirubin,Total 0.5 mg/dl (0.2-1); Globulin 4.3 gm/dl (2.5-4.0); Phosphorus 3.5 mg/dl (2.5-4.9); Total Protein 7.3 gm/dl (6.4-8.2); Troponin I 0.018 ng/ml (0-0.045)
[2020-05-19] MEDS ORDERED: FUROSEMIDE 40 MG/4 ML VIAL IV STA (23:27)
[2020-05-19 23:33] LABS: Influenza A virus by PCR Negative (Neg); Influenza B virus by PCR Negative (Neg); RSV by PCR Negative (Neg); SARS CoV2 RNA(COVID-19) InHosp NEGATIVE (Negative)
--- NOTE | 2020-05-19 23:58 | Emergency Department Note ---
Impression & Plan CHF (congestive heart failure), Atrial fibrillation, Chronic anticoagulation, Hypoxia ED Provider Note NAME: ROMELIA STEVENSON AGE: 64 SEX: F ARRIVES VIA: Ambulance INFORMANT: Patient, ED PROVIDER(S): Rupesh Kevin MD CHIEF COMPLAINT: Edema, Shortness of breath. PLAN: Disposition: Admit MEDICAL DECISION MAKING: The patient is a pleasant 64-year-old woman with a past medical history of atrial fibrillation on Xarelto, CHF, COPD, SCTOT, type 2 diabetes, hypertension, hyperlipidemia, GERD, history of CVA who presents emergency department with worsening bilateral lower extremity edema and fluid retention with weight gain of 20 pounds over the past week in the setting of her report that she had not received her Lasix at her nursing home facility at [place] which occurs in the setting of being admitted to [facility] from 04/25-05/06 for osteomyelitis/cellulitis where she was status post left foot resection a rthroplasty of the fifth metatarsal and fifth phalanx discharged on IV antibiotics with PICC line in place. Patient reports prior to the retaining of fluid she reports she was feeling well and saw her orthopedic surgeon's office today at [facility] and they were pleased with her foot. She is still to remain weightbearing at this time. She reports she was placed on oxygen because of increased shortness of breath related to fluid retention. She reports she is normally on CPAP but has been unable to tolerate this because of her shortness of breath and is not on oxygen at her nursing home facility normally. On arrival the patient is mildly dyspneic but no acute distress, afebrile with heart rate in the 100s and vital signs otherwise stable. She is on 4 L nasal cannula with O2 saturation of 99%. On exam the patient has diminished breath sounds at the bases with intermittent wheeze. She appears volume overloaded with distended abdomen which is nontender and 2+ bilateral lower extremity pitting edema. WBC in place within normal limits. H/H 10.3/35.1 similar to prior values. Chemistry without metabolic acidosis. Bicarb 39 similar to prior values and likely reflecting component of chronic hypercapnia. BNP 3500 and increased from prior and in setting of the patient's report of weight gain and fluid retention. Troponin 0.018, within normal limits. COVID-19 PCR negative. Influenza and RSV PCR also negative. EKG shows afib without overt acute ischemia. Chest x-ray per my preliminary view shows symmetric bilateral patchy opacities suspicious for pulmonary edema. Given the patient's worsening fluid retention with associated hypoxia reasonable admit the patient further management. The patient is agreement with this. Case was discussed with Dr. Carlos, [facility] hospitalist, who will evaluate the patient for admission. Triage Nursing notes reviewed and agree them. Additional history obtained from Prior medical records reviewed Vital Signs: reviewed and remarkable for no significant abnormalities Differential diagnosis: Reactive airway disease, pneumonia, pneumothorax, COPD, CHF, infections, cardiac ischemia, pulmonary embolism, musculoskeletal, gastrointestinal, as well as other pathologies. ER treatment provided: See below. Diagnostics interpreted by me: ECG: Atrial fibrillation with RVR, 109 bpm, no ectopy, no overt ST elevation or depression, QTC 433, QRS 96 Cardiac Monitoring: An order for continuous cardiac monitoring was placed and demonstrated Atrial fibrillation with RVR, 109 bpm, no ectopy. Laboratory studies: See below Imaging studies: Chest x-ray: per my preliminary view shows symmetric bilateral patchy opacities suspicious for pulmonary edema. Consultation(s): Case was discussed with Dr. Carlos, [facility] hospitalist, who will evaluate the patient for admission. HPI: The patient is a pleasant 64-year-old woman with a past medical history of atrial fibrillation on Xarelto, CHF, COPD, SCOTT, type 2 diabetes, hypertension, hyperlipidemia, GERD, history of CVA who presents emergency department with worsening bilateral lower extremity edema and fluid retention with weight gain of 20 pounds over the past week in the setting of her report that she had not received her Lasix at her nursing home facility at [place] which occurs in the setting of being admitted to [facility] from 04/25-05/06 for osteomyelitis/cellulitis where she was status post left foot resection arthroplasty of the fifth metatarsal and fifth phalanx discharged on IV antibiotics with PICC line in place. Patient reports prior to the retaining of fluid she reports she was feeling well and saw her orthopedic surgeon's office today at [facility] and they were pleased with her foot. She is still to remain weightbearing at this time. She reports she was placed on oxygen because of increased shortness of breath related to fluid retention. She reports she is normally on CPAP but has been unable to tolerate this because of her shortness of breath and is not on oxygen at her nursing home facility normally. ROS: See above HPI for pertinent positives & negatives. A total of 10 systems reviewed and were otherwise negative. PAST MEDICAL HISTORY:See Below PAST SURGICAL HISTORY:See Below FAMILY HISTORY:See Below SOCIAL HISTORY:See Below HOME MEDICATIONS:See Below ALLERGIES:See Below VITALS:See Below PHYSICAL EXAMINATION: GENERAL: Awake, alert, fatigued-appearing, in no distress HENT: Normocephalic, atraumatic. Oropharynx unremarkable. EYES: Normal conjunctiva. Sclera non-icteric. NECK: Supple. No nuchal rigidity. FROM. No JVD. RESPIRATORY: Diminshed at the bases with scant intermittent wheeze, mildly dyspneic without significant increased work of breathing. CARDIAC: Regular rate, irregular rhythm. Extremities warm and well perfused. Pulses equal. ABDOMEN: Mild distension but soft. No tenderness to palpation. No rebound or gua rding. No masses. RECTAL: Deferred. MUSCULOSKELETAL: Chest examination reveals no tenderness. The back is symmetrical on inspection without obvious abnormality. There is no CVA tenderness to palpation. No joint edema. LOWER EXTREMITIES: Calves are equal size bilaterally and non-tender. 2+ bilateral lower extremity pitting edema. No discoloration. NEURO: Normal sensorium. No sensory or motor deficits noted. SKIN: No rash or jaundice noted. Rupesh Kevin MD Past Med/Surg History Medical History Atrial fibrillation Atrial fibrillation with RVR CHF (congestive heart failure) Chronic anticoagulation Depression DM type 2 (diabetes mellitus, type 2) GERD (gastroesophageal reflux disease) History of CVA (cerebrovascular accident) "Reported events in 2013 and 2014. " History of uterine cancer HTN (hypertension) Left leg cellulitis SCOTT (obstructive sleep apnea) Osteomyelitis Surgical History H/O: hysterectomy History of hysterectomy Status post cardiac catheterization "Nov 2009 at [facility]; showed mild-moderate non-obstructive CAD." Social History Smoking Status: Never smoker Second Hand Exposure: Yes; Hx Alcohol Use: No Hx Substance Use: No Preferred Language: Greek Communication Ability: Effective Lead Recreation Assistant Required: No Beliefs That Will Affect Care: None marital status: Single Current Living Situation: Alone and Rehab Feels Safe at Home: Yes Assistive Devices: Denture - Upper, Denture - Lower and Glasses Allergies Allergies Allergy/AdvReac Type Severity Reaction Status Date / Time codeine Allergy Unknown unsure Verified 05/19/20 23:18 erythromycin base Allergy Unknown unsure Verified 05/19/20 23:18 Home Meds Home Medications Medication Instructions Recorded Confirmed Lactobacillus acidophilus 10,000 mmu cells PO QAM 05/19/20 05/19/20 [Probiotic] acetaminophen [Tylenol] 650 mg PO Q4H PRN 05/19/20 05/19/20 cefepime 2 g IV Q12H 05/19/20 05/19/20 cholecalciferol (vitamin D3) 25 mcg PO QAM 05/19/20 05/19/20 [Vitamin D3] cinnamon bark [Cinnamon] 1,000 mg PO QAM 05/19/20 05/19/20 citalopram [Celexa] 40 mg PO QAM 05/19/20 05/19/20 cyanocobalamin (vitamin B-12) 500 mcg PO QAM 05/19/20 05/19/20 [Vitamin B-12] diclofenac sodium [Voltaren] 4 g TOPICAL BID 05/19/20 05/19/20 ferrous fumarate 63 mg PO QAM 05/19/20 05/19/20 furosemide [Lasix] 40 mg PO QAM 05/19/20 05/19/20 gabapentin 300 mg PO TID 05/19/20 05/19/20 glipizide 5 mg PO BID17 05/19/20 05/19/20 ipratropium-albuterol [Combivent 1 puff INHALATION Q6H PRN 05/19/20 05/19/20 Respimat] lisinopril 20 mg PO QAM 05/19/20 05/19/20 loratadine [Claritin] 10 mg PO HS 05/19/20 05/19/20 melatonin 5 mg PO HS 05/19/20 05/19/20 metoprolol tartrate 50 mg PO BID 05/19/20 05/19/20 metronidazole [Flagyl] 500 mg PO Q8H 05/19/20 05/19/20 multivitamin 1 tab PO QAM 05/19/20 05/19/20 omega-3 fatty acids 1,000 mg PO QAM 05/19/20 05/19/20 pantoprazole [Protonix] 40 mg PO DAILYBB 05/19/20 05/19/20 potassium chloride [Klor-Con M20] 20 meq PO BID 05/19/20 05/19/20 rivaroxaban [Xarelto] 20 mg PO PM 05/19/20 05/19/20 vancomycin in dextrose 5 % 1,500 mg IV Q12H 05/19/20 05/20/20 Results & Data (ED) Vital Signs Vital Signs - 24 hr 05/19/20 21:44 05/19/20 21:55 05/19/20 22:00 Temperature 36.8 C Temperature Source Oral Pulse Rate 103 H 96 H Pulse Rate from SpO2 Sensor 101 H Pulse Rhythm Irregular Pulse Strength Normal Respiratory Rate 20 20 Respiratory Effort / Characteristics Non-Labored Non-Labored Respiratory Depth Normal Normal Respiratory Pattern Regular Tachypnea Blood Pressure 159/108 H 148/97 H Blood Pressure Mean 125 114 Blood Pressure Position Sitting Pulse Oximetry 100 100 Oxygen Delivery Method Nasal Cannula Oxygen Flow Rate 4 Sepsis Recent Fever Within 48 Hours No Sepsis New/Unexplained Change in Mental Status No Sepsis Action Taken by Nursing No Action Required 05/19/20 22:30 05/19/20 22:31 05/19/20 22:59 Temperature Temperature Source Pulse Rate 106 H 98 H Pulse Rate from SpO2 Sensor 111 H 103 H Pulse Rhythm Irregular Pulse Strength Respiratory Rate 18 22 Respiratory Effort / Characteristics Respiratory Depth Respiratory Pattern Blood Pressure Blood Pressure Mean Blood Pressure Position Pulse Oximetry 100 100 99 Oxygen Delivery Method Nasal Cannula Oxygen Flow Rate 4 Sepsis Recent Fever Within 48 Hours Sepsis New/Unexplained Change in Mental Status Sepsis Action Taken by Nursing 05/19/20 23:00 05/19/20 23:30 05/20/20 00:00 Temperature Temperature Source Pulse Rate 96 H 105 H 94 H Pulse Rate from SpO2 Sensor 105 H 108 H 106 H Pulse Rhythm Pulse Strength Respiratory Rate 21 16 23 Respiratory Effort / Characteristics Respiratory Depth Respiratory Pattern Blood Pressure 151/87 H 140/79 Blood Pressure Mean 108 99 Blood Pressure Position Pulse Oximetry 99 99 98 Oxygen Delivery Method Oxygen Flow Rate Sepsis Recent Fever Within 48 Hours Sepsis New/Unexplained Change in Mental Status Sepsis Action Taken by Nursing Laboratory Data Attestation: I reviewed the patient's lab results. Result diagrams: 05/19/20 22:42 05/19/20 22:42 Lab Results 05/19/20 05/19/2021 Range/Units 22:42 22:42 22:43 WBC 6.35 (4.8-10.8) K/uL RBC 3.89 L (4.2-5.4) M/uL Hgb 10.3 L (12.0-16.0) g/dL Hct 35.1 L (37-47) % MCV 90.2 (80-100) fL MCH 26.5 (25-34) pg MCHC 29.3 L (32-36) g/dL RDW Std Deviation 53.1 H (36.4-46.3) fL RDW Coeff of Catrachita 16.0 H (11.5-14.5) % Plt Count 139 (130-400) K/uL MPV 9.3 (7.4-10.4) fL Immature Gran % (Auto) 0.2 % Neut % (Auto) 80.4 % Lymph % (Auto) 10.1 % [place] % (Auto) 5.5 % Eos % (Auto) 3.3 % Baso % (Auto) 0.5 % Neut # (Auto) 5.11 (1.4-6.5) K/uL Lymph # (Auto) 0.64 L (1.2-3.4) K/uL [place] # (Auto) 0.35 (0.11-0.59) K/uL Eos # (Auto) 0.21 (0-0.5) K/uL Baso # (Auto) 0.03 (0-0.2) K/uL Immature Gran # (Auto) 0.01 (0.00-0.02) K/uL Sodium 139 (136-145) mmol/L Potassium 4.0 (3.5-5.1) mmol/L Chloride 100 (98-107) mmol/L Carbon Dioxide 39 H (21-32) mmol/L Anion Gap 0 L (3-11) BUN 19 H (7-18) mg/dl Creatinine 0.85 (0.6-1.2) mg/dl Est Cr Clr Drug Dosing 103.6 ml/min Est GFR ( Amer) 84.5 Est GFR (Non-Af Amer) 72.9 BUN/Creatinine Ratio 21.8 H (10-20) Glucose 140 H (70-99) mg/dl Calcium 8.8 (8.5-10.1) mg/dl Phosphorus 3.5 (2.5-4.9) mg/dl Magnesium 2.0 (1.8-2.4) mg/dl Total Bilirubin 0.5 (0.2-1) mg/dl AST 11 L (15-37) U/L ALT 11 L (12-78) U/L Alkaline Phosphatase 94 (45-117) U/L Troponin I 0.018 (0-0.045) ng/ml NT-Pro-B Natriuret Pep 3530 H (0-900) pg/ml Total Protein 7.3 (6.4-8.2) gm/dl Albumin 3.0 L (3.4-5.0) gm/dl Globulin 4.3 H (2.5-4.0) gm/dl Albumin/Globulin Ratio 0.7 L (0.9-2) Lipase 75 (73-393) U/L COVID-19 Eval Order CovFluRsv at [facility] SARS-CoV-2 (PCR) (Negative) Influenza Type A (PCR) (Neg) Influenza Type B (PCR) (Neg) RSV (RT-PCR) (Neg) 05/19/20 Range/Units 22:43 WBC (4.8-10.8) K/uL RBC (4.2-5.4) M/uL Hgb (12.0-16.0) g/dL Hct (37-47) % MCV (80-100) fL MCH (25-34) pg MCHC (32-36) g/dL RDW Std Deviation (36.4-46.3) fL RDW Coeff of Catrachita (11.5-14.5) % Plt Count (130-400) K/uL MPV (7.4-10.4) fL Immature Gran % (Auto) % Neut % (Auto) % Lymph % (Auto) % [place] % (Auto) % Eos % (Auto) % Baso % (Auto) % Neut # (Auto) (1.4-6.5) K/uL Lymph # (Auto) (1.2-3.4) K/uL [place] # (Auto) (0.11-0.59) K/uL Eos # (Auto) (0-0.5) K/uL Baso # (Auto) (0-0.2) K/uL Immature Gran # (Auto) (0.00-0.02) K/uL Sodium (136-145) mmol/L Potassium (3.5-5.1) mmol/L Chloride (98-107) mmol/L Carbon Dioxide (21-32) mmol/L Anion Gap (3-11) BUN (7-18) mg/dl Creatinine (0.6-1.2) mg/dl Est Cr Clr Drug Dosing ml/min Est GFR ( Amer) Est GFR (Non-Af Amer) BUN/Creatinine Ratio (10-20) Glucose (70-99) mg/dl Calcium (8.5-10.1) mg/dl Phosphorus (2.5-4.9) mg/dl Magnesium (1.8-2.4) mg/dl Total Bilirubin (0.2-1) mg/dl AST (15-37) U/L ALT (12-78) U/L Alkaline Phosphatase (45-117) U/L Troponin I (0-0.045) ng/ml NT-Pro-B Natriuret Pep (0-900) pg/ml Total Protein (6.4-8.2) gm/dl Albumin (3.4-5.0) gm/dl Globulin (2.5-4.0) gm/dl Albumin/Globulin Ratio (0.9-2) Lipase (73-393) U/L COVID-19 Eval Order SARS-CoV-2 (PCR) NEGATIVE (Negative) Influenza Type A (PCR) Negative (Neg) Influenza Type B (PCR) Negative (Neg) RSV (RT-PCR) Negative (Neg) Administered Medications Discontinued Medications Furosemide (Furosemide 40 Mg/4 Ml Vial) 40 mg IV NOW STA Stop: 05/19/20 23:28 Last Admin: 05/19/20 23:50 Dose: 40 mg Documented by: [id number] Discharge Plan Visit Data Chief Complaint: Swelling/Edema to Extremity Stated Complaint: SOB, EDEMA ED Provider: Rupesh Kevin Discharge Problem: CHF (congestive heart failure), Atrial fibrillation, Chronic anticoagulation, Hypoxia Patient Disposition: Admitted As Inpatient Discharge Instructions Interventions: ED Discharge Assessment Last Done: 05/20/20 01:15 Discharge Problem: CHF (congestive heart failure) Qualifiers: Heart failure type: unspecified Heart failure chronicity: unspecified Qualified Code(s): I50.9 - Heart failure, unspecified Atrial fibrillation Qualifiers: Atrial fibrillation type: permanent Qualified Code(s): I48.21 - Permanent atrial fibrillation
--- NOTE | 2020-05-20 00:27 | History & Physical Report ---
Date of Service May 20, 2020 Assessment & Plan (1) CHF (congestive heart failure): 64yo female presenting with 1 week of progressive SOB/COLLINS/edema and orthopnea in setting of missing her scheduled Lasix dosing as well as salt intake. Echo from 04/26/20 with normal LV function EF of 50-55%, mild MR and mild TR. Suspect CHF exacerbation -Admit to medical with telemetry -Lasix 40mg IV BID -I/O monitoring -Daily weights -BMP q 12 hours - monitor electrolytes and renal function -Low Na diet Present on Admission?: Yes (2) Hypoxia: Most likely in setting of CHF exacerbation, pulmonary edema. Presently on NC x 4 liters -Wean supplemental O2 as tolerated Present on Admission?: Yes (3) Osteomyelitis: LLE osteomyelitis s/p surgical excision of left 5th MT and phalanx. -Continue Cefepime 2gm IV q 12 -Continue Vancomycin 1500mg po BID - trough level per pharmacy -Continue Flagyl 500mg po TID Antibiotics started on 05/04/20 - to continue x 5 week course Present on Admission?: Yes (4) GERD (gastroesophageal reflux disease): Chronic -Continue Protonix 40mg po daily Present on Admission?: Yes (5) Depression: Chronic. Stable -Continue Celexa 40mg po qAM Present on Admission?: Yes (6) SCOTT (obstructive sleep apnea): Chronic -Continue CPAP 8cm H2O qHS Present on Admission?: Yes (7) HTN (hypertension): Chronic -Continue Lisinopril -Continue Metoprolol -Continue to monitor Present on Admission?: Yes (8) DM type 2 (diabetes mellitus, type 2): BS stable. Last A1=7.3 -Hold oral agents -Lantus 8 u BID -ISS - goal blood sugar 100 - 140 -Continue Neurontin 300mg po TID for neuropathy Present on Admission?: Yes (9) Atrial fibrillation: Rate controlled. Anticoagulated with Rivaroxaban -Continue metoprolol -Continue Rivaroxaban F/E/N - Lasix as above - 40mg IV BID, monitor diuretic effect, electrolytes WNL, Low Na diet as tolerated Ppx - Rivaraxaban Code - DNR/DNI per discussion with patient Dispo - Admit to medical with telemetry Present on Admission?: Yes History of Present Illness Chief Complaint: CHF exacerbation Primary Care Provider: Jairo Marti is a 64yo female presenting with volume overload secondary to CHF exacerbation. Patient was recently admitted to [facility] on 05/06/20 from [facility] for LLE cellulitis/osteomyelitis with gas producing organism. She had excision of the left 5th metatarsal head and proximal phalanx excised and diabetic ulcer debridement on 04/29/[address] Lee. Patient was discharged to [facility] on 05/06/20 on IV antibiotics. She was instructed to continue Vancomycin, Cefepime and Flagyl x 5 week course. Patient states that she was not receiving her Lasix as prescribed at [place]. She is to take 40mg po BID as needed for weight gain and swelling. She states that she missed several days of Lasix and when she started taking it again it was only 40mg daily. She also reports being on a regular diet at the longterm - eating salty foods such as hot dogs and macaroni and cheese. Patient reports progressive edema over the last week as well as SOB, COLLINS and Orthopnea. She states she has gained 23# in the last 6 days. Her dry weight is somewhere around 281#. Patient is not on O2 at home during the day but is now on 4L by [place]. She has had occasional palpitations as well as diarrhea and chest pressure. Cough productive for yellow sputum. Otherwise, no complaints. ER Course: Lasix 40mg IV Allergies Allergy/AdvReac Type Severity Reaction Status Date / Time codeine Allergy Unknown unsure Verified 05/19/20 23:18 erythromycin base Allergy Unknown unsure Verified 05/19/20 23:18 Home Medications Medication Instructions Recorded Confirmed Type Lactobacillus acidophilus 10,000 mmu cells PO QAM 05/19/20 05/19/20 History [Probiotic] acetaminophen [Tylenol] 650 mg PO Q4H PRN 05/19/20 05/19/20 History cefepime 2 g IV Q12H 05/19/20 05/19/20 History cholecalciferol (vitamin D3) 25 mcg PO QAM 05/19/20 05/19/20 History [Vitamin D3] cinnamon bark [Cinnamon] 1,000 mg PO QAM 05/19/20 05/19/20 History citalopram [Celexa] 40 mg PO QAM 05/19/20 05/19/20 History cyanocobalamin (vitamin B-12) 500 mcg PO QAM 05/19/20 05/19/20 History [Vitamin B-12] diclofenac sodium [Voltaren] 4 g TOPICAL BID 05/19/20 05/19/20 History ferrous fumarate 63 mg PO QAM 05/19/20 05/19/20 History furosemide [Lasix] 40 mg PO QAM 05/19/20 05/19/20 History gabapentin 300 mg PO TID 05/19/20 05/19/20 History glipizide 5 mg PO BID17 05/19/20 05/19/20 History ipratropium-albuterol [Combivent 1 puff INHALATION Q6H PRN 05/19/20 05/19/20 History Respimat] lisinopril 20 mg PO QAM 05/19/20 05/19/20 History loratadine [Claritin] 10 mg PO HS 05/19/20 05/19/20 History melatonin 5 mg PO HS 05/19/20 05/19/20 History metoprolol tartrate 50 mg PO BID 05/19/20 05/19/20 History metronidazole [Flagyl] 500 mg PO Q8H 05/19/20 05/19/20 History multivitamin 1 tab PO QAM 05/19/20 05/19/20 History omega-3 fatty acids 1,000 mg PO QAM 05/19/20 05/19/20 History pantoprazole [Protonix] 40 mg PO DAILYBB 05/19/20 05/19/20 History potassium chloride [Klor-Con M20] 20 meq PO BID 05/19/20 05/19/20 History rivaroxaban [Xarelto] 20 mg PO PM 05/19/20 05/19/20 History vancomycin in dextrose 5 % 2 g IV DAILY 05/19/20 05/19/20 History Past Med/Surg History Medical History Atrial fibrillation Atrial fibrillation with RVR CHF (congestive heart failure) Chronic anticoagulation Depression DM type 2 (diabetes mellitus, type 2) GERD (gastroesophageal reflux disease) History of CVA (cerebrovascular accident) "Reported events in 2013 and 2014. " History of uterine cancer HTN (hypertension) Left leg cellulitis SCOTT (obstructive sleep apnea) Osteomyelitis Surgical History H/O: hysterectomy History of hysterectomy Status post cardiac catheterization "Nov 2009 at [facility]; showed mild-moderate non-obstructive CAD." Social History Smoking Status: Never smoker Second Hand Exposure: Yes; Hx Alcohol Use: No Hx Substance Use: No Preferred Language: Kyrgyz Communication Ability: Effective Gelatin Powder Mixer Required: No Beliefs That Will Affect Care: None marital status: Single Current Living Situation: Alone and Rehab Feels Safe at Home: Yes Assistive Devices: Denture - Upper, Denture - Lower and Glasses Review of Systems Review of Systems: All systems reviewed & are unremarkable except as noted in HPI & below Physical Exam Physical Exam: General: patient resting comfortably, NAD, non-toxic in appearance, AA&O x 4 Skin: warm, dry, intact, no rashes or lesions HEENT: NC/AT, PERRL, EOMI, anicteric sclera, conjunctiva without injection, external ear normal to inspection and nontender, nares patent, moist mucus membranes, dentition intact, no oropharyngeal lesions, neck supple, trachea midline, no LAD, no thyromegaly, +JVD noted on left Heart: +S1/S2, irregularly irregular, no m/r/g Lungs: equal air entry bilaterally, +crackles in bilateral LE Abd: +BS, soft, NT/ND, no masses/organomegaly/ascites, +abdominal wall edema Ext: warm, 2+ pulses in UE/LE bilaterally, no clubbing/cyanosis, 3+ edema of bilateral LE, chronic venous stasis changes of bilateral LE, LLE with dressing in place Neuro: nonfocal, patient AA&O x 4, speech intact, no facial droop, moving all extremities on command with equal strength 5/5 Results & Data Results & Data ([facility]) Vital Signs (Past 12 Hours) Vital Signs Temp Pulse Resp BP Pulse Ox 05/19/20 23:30 105 H 16 151/87 H 99 05/19/20 23:00 96 H 21 99 05/19/20 22:59 99 05/19/20 22:31 98 H 22 100 05/19/20 22:30 106 H 18 100 05/19/20 22:00 96 H 20 148/97 H 100 05/19/20 21:44 36.8 C 103 H 20 159/108 H 100 Laboratory Results Lab Results 05/19/20 05/19/20 05/19/20 Range/Units 22:42 22:42 22:43 WBC 6.35 (4.8-10.8) K/uL RBC 3.89 L (4.2-5.4) M/uL Hgb 10.3 L (12.0-16.0) g/dL Hct 35.1 L (37-47) % MCV 90.2 (80-100) fL MCH 26.5 (25-34) pg MCHC 29.3 L (32-36) g/dL RDW Std Deviation 53.1 H (36.4-46.3) fL RDW Coeff of Catrachita 16.0 H (11.5-14.5) % Plt Count 139 (130-400) K/uL MPV 9.3 (7.4-10.4) fL Immature Gran % (Auto) 0.2 % Neut % (Auto) 80.4 % Lymph % (Auto) 10.1 % [place] % (Auto) 5.5 % Eos % (Auto) 3.3 % Baso % (Auto) 0.5 % Neut # (Auto) 5.11 (1.4-6.5) K/uL Lymph # (Auto) 0.64 L (1.2-3.4) K/uL [place] # (Auto) 0.35 (0.11-0.59) K/uL Eos # (Auto) 0.21 (0-0.5) K/uL Baso # (Auto) 0.03 (0-0.2) K/uL Immature Gran # (Auto) 0.01 (0.00-0.02) K/uL Sodium 139 (136-145) mmol/L Potassium 4.0 (3.5-5.1) mmol/L Chloride 100 (98-107) mmol/L Carbon Dioxide 39 H (21-32) mmol/L Anion Gap 0 L (3-11) BUN 19 H (7-18) mg/dl Creatinine 0.85 (0.6-1.2) mg/dl Est Cr Clr Drug Dosing 103.6 ml/min Est GFR ( Amer) 84.5 Est GFR (Non-Af Amer) 72.9 BUN/Creatinine Ratio 21.8 H (10-20) Glucose 140 H (70-99) mg/dl POC Glucose (70-99) mg/dl Calcium 8.8 (8.5-10.1) mg/dl Phosphorus 3.5 (2.5-4.9) mg/dl Magnesium 2.0 (1.8-2.4) mg/dl Total Bilirubin 0.5 (0.2-1) mg/dl AST 11 L (15-37) U/L ALT 11 L (12-78) U/L Alkaline Phosphatase 94 (45-117) U/L Troponin I 0.018 (0-0.045) ng/ml NT-Pro-B Natriuret Pep 3530 H (0-900) pg/ml Total Protein 7.3 (6.4-8.2) gm/dl Albumin 3.0 L (3.4-5.0) gm/dl Globulin 4.3 H (2.5-4.0) gm/dl Albumin/Globulin Ratio 0.7 L (0.9-2) Lipase 75 (73-393) U/L COVID-19 Eval Order CovFluRsv at [facility] SARS-CoV-2 (PCR) (Negative) Influenza Type A (PCR) (Neg) Influenza Type B (PCR) (Neg) RSV (RT-PCR) (Neg) 05/19/20 05/20/20 Range/Units 22:43 01:15 WBC (4.8-10.8) K/uL RBC (4.2-5.4) M/uL Hgb (12.0-16.0) g/dL Hct (37-47) % MCV (80-100) fL MCH (25-34) pg MCHC (32-36) g/dL RDW Std Deviation (36.4-46.3) fL RDW Coeff of Catrachita (11.5-14.5) % Plt Count (130-400) K/uL MPV (7.4-10.4) fL Immature Gran % (Auto) % Neut % (Auto) % Lymph % (Auto) % [place] % (Auto) % Eos % (Auto) % Baso % (Auto) % Neut # (Auto) (1.4-6.5) K/uL Lymph # (Auto) (1.2-3.4) K/uL [place] # (Auto) (0.11-0.59) K/uL Eos # (Auto) (0-0.5) K/uL Baso # (Auto) (0-0.2) K/uL Immature Gran # (Auto) (0.00-0.02) K/uL Sodium (136-145) mmol/L Potassium (3.5-5.1) mmol/L Chloride (98-107) mmol/L Carbon Dioxide (21-32) mmol/L Anion Gap (3-11) BUN (7-18) mg/dl Creatinine (0.6-1.2) mg/dl Est Cr Clr Drug Dosing ml/min Est GFR ( Amer) Est GFR (Non-Af Amer) BUN/Creatinine Ratio (10-20) Glucose (70-99) mg/dl POC Glucose 142 H (70-99) mg/dl Calcium (8.5-10.1) mg/dl Phosphorus (2.5-4.9) mg/dl Magnesium (1.8-2.4) mg/dl Total Bilirubin (0.2-1) mg/dl AST (15-37) U/L ALT (12-78) U/L Alkaline Phosphatase (45-117) U/L Troponin I (0-0.045) ng/ml NT-Pro-B Natriuret Pep (0-900) pg/ml Total Protein (6.4-8.2) gm/dl Albumin (3.4-5.0) gm/dl Globulin (2.5-4.0) gm/dl Albumin/Globulin Ratio (0.9-2) Lipase (73-393) U/L COVID-19 Eval Order SARS-CoV-2 (PCR) NEGATIVE (Negative) Influenza Type A (PCR) Negative (Neg) Influenza Type B (PCR) Negative (Neg) RSV (RT-PCR) Negative (Neg) PG Care Time/CCT Total # of Minutes Spent Total Time Spent with Patient: Total time spent is greater than 50% in coordination of care (as documented) at patient's floor/unit and/or counseling patient: Coding Level of Care Code 10747 Initial Inpt Care Lvl 3 Diagnoses CHF (congestive heart failure) I50.9 Heart failure chronicity: unspecified Heart failure type: unspecified Hypoxia R09.02 Osteomyelitis M86.9 Osteomyelitis type: unspecified type Osteomyelitis location: unspecified site GERD (gastroesophageal reflux disease) K21.9 Esophagitis presence: esophagitis presence not specified Depression F32.9 Depression Type: major depressive disorder Major depression recurrence: unspecified whether recurrent Active/Remission status: remission status unspecified SCOTT (obstructive sleep apnea) G47.33 HTN (hypertension) I10 Hypertension type: essential hypertension DM type 2 (diabetes mellitus, type 2) E11.9 Diabetes mellitus terminal gauger insulin use: without terminal gauger use Diabetes mellitus complication status: without complication Atrial fibrillation I48.21 Atrial fibrillation type: permanent (1) GERD (gastroesophageal reflux disease) Esophagitis presence: esophagitis presence not specified Qualified Code(s): K21.9 - Gastro-esophageal reflux disease without esophagitis (2) Depression Depression Type: major depressive disorder Major depression recurrence: unspecified whether recurrent Active/Remission status: remission status unspecified Qualified Code(s): F32.9 - Major depressive disorder, single episode, unspecified (3) HTN (hypertension) Hypertension type: essential hypertension Qualified Code(s): I10 - Essential (primary) hypertension (4) DM type 2 (diabetes mellitus, type 2) Diabetes mellitus custodial insulin use: without terminal gauger use Diabetes mellitus complication status: without complication Qualified Code(s): E11.9 - Type 2 diabetes mellitus without complications (5) Atrial fibrillation Atrial fibrillation type: permanent Qualified Code(s): I48.21 - Permanent atrial fibrillation (6) CHF (congestive heart failure) Heart failure chronicity: unspecified Heart failure type: unspecified Qualified Code(s): I50.9 - Heart failure, unspecified (7) Osteomyelitis Osteomyelitis type: unspecified type Osteomyelitis location: unspecified site Qualified Code(s): M86.9 - Osteomyelitis, unspecified
[2020-05-20] MEDS ORDERED: DEXTROSE 50% 50 ML SYRINGE IV PRN (01:17)
[2020-05-20] MEDS ORDERED: GLUCAGON FOR INJ 1 MG VIAL SQ PRN (01:17)
[2020-05-20] MEDS ORDERED: NON-FORMULARY MEDICATION (Cefepime [Cefepime] 2 gram Recon Soln) IV SCH (01:17)
[2020-05-20] MEDS ORDERED: CARBOHYDRATES FOR HYPOGLYCEMIA PO PRN (01:17)
[2020-05-20] MEDS ORDERED: GLUCOSE 10 TABS/TUBE PO PRN (01:17)
[2020-05-20] MEDS ORDERED: ONDANSETRON INJ 2 MG/ML 2 ML VIAL IV PRN (01:17)
[2020-05-20] MEDS ORDERED: GLUCOSE 40% GEL 15 GM TUBE PO PRN (01:17)
[2020-05-20] MEDS ORDERED: MELATONIN 3 MG TAB PO PRN (01:53)
[2020-05-20] MEDS ORDERED: VANCOMYCIN CONSULT ACTIVE PRN (02:49)
[2020-05-20] MEDS: FUROSEMIDE 40 MG in SYRINGE 0 ML IV SCH ×2 (05:02→17:11)
[2020-05-20] MEDS: PANTOprazole 40 MG TAB PO SCH (05:02)
[2020-05-20] MEDS: metroNIDAZOLE 500 MG TAB PO SCH ×3 (05:02→20:44)
--- NOTE | 2020-05-20 06:52 | XRay Report ---
XR chest 1V portable CLINICAL HISTORY: Atypical chest pain COMPARISON STUDY: 05/01/2020 FINDINGS: The heart is enlarged. There is a right-sided PICC catheter, the tip of which projects over the expected atriocaval junction. There is diffuse elevation of interstitium. Findings are consisten t with pulmonary edema. Small pleural effusions are visualized. IMPRESSION: 1. Cardiomegaly and pulmonary edema pattern with small bilateral pleural effusions. ACT 112: Negative or not required by law. Electronically signed by: Anurag Archibald M.D. 05/20/2020 6:51 AM
[2020-05-20 08:16] LABS: Calcium 8.9 mg/dl (8.5-10.1); Creatinine Clr Calc Pharmacy 111.1 ml/min; Est GFR (African American) 93.8; Est GFR (Non-African American) 80.9
[2020-05-20] MEDS: INSULIN GLARGINE SOLOSTAR 100 UNITS/ML 3 ML PEN SC SCH ×2 (08:37→20:42)
[2020-05-20] MEDS: INSULIN ASPART 100 UNITS/ML 3 ML PEN SC SCH ×4 (08:37→20:29)
[2020-05-20] MEDS: CEFEPIME 2,000 MG in SYRINGE 0 ML IV SCH ×2 (08:37→20:42)
[2020-05-20] MEDS: lisinopril 20 MG TAB PO SCH (08:38)
[2020-05-20] MEDS: ADVANCED PROBIOTIC 1250 MG CAPSULE PO SCH (08:38)
[2020-05-20] MEDS: CITALOPRAM 40 MG TAB PO SCH (08:38)
[2020-05-20] MEDS: CYANOCOBALAMIN 500 MCG TABLET (VITAMIN B-12) PO SCH (08:38)
[2020-05-20] MEDS: GABAPENTIN 300 MG CAP PO SCH ×3 (08:38→20:44)
[2020-05-20] MEDS: METOPROLOL TARTRATE 50 MG TAB PO SCH ×2 (08:39→20:44)
[2020-05-20] MEDS: DICLOFENAC SOD 1% GEL 100 GM TUBE EXT SCH ×2 (08:39→20:43)
[2020-05-20] MEDS: VANCOMYCIN HCL 1,500 MG in SODIUM CHLORIDE 0.9% 500 ML IV SCH ×2 (08:42→20:42)
--- NOTE | 2020-05-20 12:31 | Hospitalist Progress Note ---
Date of Service May 20, 2020 Assessment & Plan (1) CHF (congestive heart failure): 64yo female presenting with 1 week of progressive SOB/COLLINS/edema and orthopnea in setting of missing her scheduled Lasix dosing as well as salt intake. Echo from 04/26/20 with normal LV function EF of 50-55%, mild MR and mild TR. Suspect CHF exacerbation Improving already with IV Lasix -Admit to medical with telemetry -Continue Lasix 40mg IV BID -I/O monitoring, institute fluid restriction 1500 mL/day -Daily weights -BMP q 12 hours - monitor electrolytes and renal function -Low Na diet (2) Hypoxia: Most likely in setting of CHF exacerbation, pulmonary edema. Initially was requiring 4 liters nasal cannula and now weaned to room air (3) Osteomyelitis: LLE osteomyelitis s/p surgical excision of left 5th MT and phalanx. -Continue Cefepime 2gm IV q 12 -Continue Vancomycin 1500mg IV BID - trough level per pharmacy -Continue Flagyl 500mg po TID Antibiotics started on 05/04/20 - to continue x 5 week course Has PICC in the right upper extremity (4) GERD (gastroesophageal reflux disease): Chronic -Continue Protonix 40mg po daily (5) Depression: Chronic. Stable -Continue Celexa 40mg po qAM (6) SCOTT (obstructive sleep apnea): Chronic -Continue CPAP 8cm H2O qHS (7) HTN (hypertension): Chronic, BPs are controlled -Continue Lisinopril -Continue Metoprolol -Continue to monitor (8) DM type 2 (diabetes mellitus, type 2): BS stable. Last A1=7.3 -Hold oral agents -Lantus 8 u BID -ISS - goal blood sugar 100 - 140 -Continue Neurontin 300mg po TID for neuropathy (9) Atrial fibrillation: Rate controlled. Anticoagulated with Rivaroxaban -Continue metoprolol -Continue Rivaroxaban F/E/N - Lasix as above - 40mg IV BID, monitor diuretic effect, electrolytes WNL, Low Na diet as tolerated Ppx -Xarelto Code - DNR/DNI as per discussion with patient Dispo -continued stay medical with telemetry, eventually will need PT/OT and return to [facility] facility Admission and Anticipated Discharge Date Admission Date: May 20, 2020 Subjective Patient feels much better. Much less short of breath but still has some abdominal distention and leg swelling. Feels her hand and arm swelling has gone down Denies chest pain Review of Systems Review of Systems: All systems reviewed & are unremarkable except as noted in HPI & below Physical Exam Constitutional: WD/WN, vitals as above + obese Eyes: + anicteric sclerae Neck: trachea midline, no thyromegaly Respiratory: normal respiratory effort Auscultation: + diminished lung sounds (At bases bilaterally); no crackles and no wheezes Cardiovascular: Rate/Rhythm: regular rate and + irregularly irregular Heart Sounds: no murmur Extremities: + edema (3+ pitting edema to the thighs bilaterally, no edema in the hands) Chest (Breasts): Chest: normal inspection of chest Gastrointestinal (Abdomen): normal bowel sounds, soft, nontender, no hepatosplenomegaly (With mild distention) Musculoskeletal: Extremities: + extremities abnormal to inspection (Left foot with dressing in place clean dry and intact), no cyanosis and no clubbing Skin: no rashes, warm and dry Neurologic: moves all extremities and awake; no focal motor deficits Psychiatric: A+Ox3, euthymic affect Results & Data Results & Data ([facility]) Vital Signs (Past 12 Hours) Vital Signs Temp Pulse Pulse Resp BP Pulse Ox 05/20/20 11:46 36.5 C 70 19 137/83 96 05/20/20 07:40 36.2 C L 89 20 144/72 H 90 05/20/20 07:10 71 05/20/20 05:24 84 05/20/20 02:19 73 16 95 05/20/20 01:26 36.6 C 18 127/80 99 Laboratory Results 05/20/20 05/20/20 05/20/20 Range/Units 12:04 11:31 07:18 WBC (4.8-10.8) K/uL RBC (4.2-5.4) M/uL Hgb (12.0-16.0) g/dL Hct (37-47) % MCV (80-100) fL MCH (25-34) pg MCHC (32-36) g/dL RDW Std Deviation (36.4-46.3) fL RDW Coeff of Catrachita (11.5-14.5) % Plt Count (130-400) K/uL MPV (7.4-10.4) fL Immature Gran % (Auto) % Neut % (Auto) % Lymph % (Auto) % [place] % (Auto) % Eos % (Auto) % Baso % (Auto) % Neut # (Auto) (1.4-6.5) K/uL Lymph # (Auto) (1.2-3.4) K/uL [place] # (Auto) (0.11-0.59) K/uL Eos # (Auto) (0-0.5) K/uL Baso # (Auto) (0-0.2) K/uL Immature Gran # (Auto) (0.00-0.02) K/uL Sodium (136-145) mmol/L Potassium (3.5-5.1) mmol/L Chloride (98-107) mmol/L Carbon Dioxide (21-32) mmol/L Anion Gap (3-11) BUN (7-18) mg/dl Creatinine (0.6-1.2) mg/dl Est Cr Clr Drug Dosing ml/min Est GFR ( Amer) Est GFR (Non-Af Amer) BUN/Creatinine Ratio (10-20) Glucose (70-99) mg/dl POC Glucose 113 H 121 H (70-99) mg/dl Calcium (8.5-10.1) mg/dl Phosphorus (2.5-4.9) mg/dl Magnesium (1.8-2.4) mg/dl Total Bilirubin (0.2-1) mg/dl AST (15-37) U/L ALT (12-78) U/L Alkaline Phosphatase (45-117) U/L Troponin I (0-0.045) ng/ml NT-Pro-B Natriuret Pep (0-900) pg/ml Total Protein (6.4-8.2) gm/dl Albumin (3.4-5.0) gm/dl Globulin (2.5-4.0) gm/dl Albumin/Globulin Ratio (0.9-2) Lipase (73-393) U/L Random Vancomycin 17.9 mcg/ml COVID-19 Eval Order SARS-CoV-2 (PCR) (Negative) Influenza Type A (PCR) (Neg) Influenza Type B (PCR) (Neg) RSV (RT-PCR) (Neg) 05/20/20 05/20/20 05/20/20 Range/Units 07:18 07:06 01:15 WBC (4.8-10.8) K/uL RBC (4.2-5.4) M/uL Hgb (12.0-16.0) g/dL Hct (37-47) % MCV (80-100) fL MCH (25-34) pg MCHC (32-36) g/dL RDW Std Deviation (36.4-46.3) fL RDW Coeff of Catrachita (11.5-14.5) % Plt Count (130-400) K/uL MPV (7.4-10.4) fL Immature Gran % (Auto) % Neut % (Auto) % Lymph % (Auto) % [place] % (Auto) % Eos % (Auto) % Baso % (Auto) % Neut # (Auto) (1.4-6.5) K/uL Lymph # (Auto) (1.2-3.4) K/uL [place] # (Auto) (0.11-0.59) K/uL Eos # (Auto) (0-0.5) K/uL Baso # (Auto) (0-0.2) K/uL Immature Gran # (Auto) (0.00-0.02) K/uL Sodium 140 (136-145) mmol/L Potassium 4.0 (3.5-5.1) mmol/L Chloride 100 (98-107) mmol/L Carbon Dioxide 40 H (21-32) mmol/L Anion Gap 1.0 L (3-11) BUN 18 (7-18) mg/dl Creatinine 0.78 (0.6-1.2) mg/dl Est Cr Clr Drug Dosing 111.1 ml/min Est GFR ( Amer) 93.8 Est GFR (Non-Af Amer) 80.9 BUN/Creatinine Ratio 23.0 H (10-20) Glucose 102 H (70-99) mg/dl POC Glucose 117 H 142 H (70-99) mg/dl Calcium 8.9 (8.5-10.1) mg/dl Phosphorus (2.5-4.9) mg/dl Magnesium (1.8-2.4) mg/dl Total Bilirubin (0.2-1) mg/dl AST (15-37) U/L ALT (12-78) U/L Alkaline Phosphatase (45-117) U/L Troponin I (0-0.045) ng/ml NT-Pro-B Natriuret Pep (0-900) pg/ml Total Protein (6.4-8.2) gm/dl Albumin (3.4-5.0) gm/dl Globulin (2.5-4.0) gm/dl Albumin/Globulin Ratio (0.9-2) Lipase (73-393) U/L Random Vancomycin mcg/ml COVID-19 Eval Order SARS-CoV-2 (PCR) (Negative) Influenza Type A (PCR) (Neg) Influenza Type B (PCR) (Neg) RSV (RT-PCR) (Neg) 05/19/20 05/19/20 05/19/20 Range/Units 22:43 22:43 22:42 WBC (4.8-10.8) K/uL RBC (4.2-5.4) M/uL Hgb (12.0-16.0) g/dL Hct (37-47) % MCV (80-100) fL MCH (25-34) pg MCHC (32-36) g/dL RDW Std Deviation (36.4-46.3) fL RDW Coeff of Catrachita (11.5-14.5) % Plt Count (130-400) K/uL MPV (7.4-10.4) fL Immature Gran % (Auto) % Neut % (Auto) % Lymph % (Auto) % [place] % (Auto) % Eos % (Auto) % Baso % (Auto) % Neut # (Auto) (1.4-6.5) K/uL Lymph # (Auto) (1.2-3.4) K/uL [place] # (Auto) (0.11-0.59) K/uL Eos # (Auto) (0-0.5) K/uL Baso # (Auto) (0-0.2) K/uL Immature Gran # (Auto) (0.00-0.02) K/uL Sodium 139 (136-145) mmol/L Potassium 4.0 (3.5-5.1) mmol/L Chloride 100 (98-107) mmol/L Carbon Dioxide 39 H (21-32) mmol/L Anion Gap 0 L (3-11) BUN 19 H (7-18) mg/dl Creatinine 0.85 (0.6-1.2) mg/dl Est Cr Clr Drug Dosing 103.6 ml/min Est GFR ( Amer) 84.5 Est GFR (Non-Af Amer) 72.9 BUN/Creatinine Ratio 21.8 H (10-20) Glucose 140 H (70-99) mg/dl POC Glucose (70-99) mg/dl Calcium 8.8 (8.5-10.1) mg/dl Phosphorus 3.5 (2.5-4.9) mg/dl Magnesium 2.0 (1.8-2.4) mg/dl Total Bilirubin 0.5 (0.2-1) mg/dl AST 11 L (15-37) U/L ALT 11 L (12-78) U/L Alkaline Phosphatase 94 (45-117) U/L Troponin I 0.018 (0-0.045) ng/ml NT-Pro-B Natriuret Pep 3530 H (0-900) pg/ml Total Protein 7.3 (6.4-8.2) gm/dl Albumin 3.0 L (3.4-5.0) gm/dl Globulin 4.3 H (2.5-4.0) gm/dl Albumin/Globulin Ratio 0.7 L (0.9-2) Lipase 75 (73-393) U/L Random Vancomycin mcg/ml COVID-19 Eval Order CovFluRsv at [facility] SARS-CoV-2 (PCR) NEGATIVE (Negative) Influenza Type A (PCR) Negative (Neg) Influenza Type B (PCR) Negative (Neg) RSV (RT-PCR) Negative (Neg) 05/19/20 Range/Units 22:42 WBC 6.35 (4.8-10.8) K/uL RBC 3.89 L (4.2-5.4) M/uL Hgb 10.3 L (12.0-16.0) g/dL Hct 35.1 L (37-47) % MCV 90.2 (80-100) fL MCH 26.5 (25-34) pg MCHC 29.3 L (32-36) g/dL RDW Std Deviation 53.1 H (36.4-46.3) fL RDW Coeff of Catrachita 16.0 H (11.5-14.5) % Plt Count 139 (130-400) K/uL MPV 9.3 (7.4-10.4) fL Immature Gran % (Auto) 0.2 % Neut % (Auto) 80.4 % Lymph % (Auto) 10.1 % [place] % (Auto) 5.5 % Eos % (Auto) 3.3 % Baso % (Auto) 0.5 % Neut # (Auto) 5.11 (1.4-6.5) K/uL Lymph # (Auto) 0.64 L (1.2-3.4) K/uL [place] # (Auto) 0.35 (0.11-0.59) K/uL Eos # (Auto) 0.21 (0-0.5) K/uL Baso # (Auto) 0.03 (0-0.2) K/uL Immature Gran # (Auto) 0.01 (0.00-0.02) K/uL Sodium (136-145) mmol/L Potassium (3.5-5.1) mmol/L Chloride (98-107) mmol/L Carbon Dioxide (21-32) mmol/L Anion Gap (3-11) BUN (7-18) mg/dl Creatinine (0.6-1.2) mg/dl Est Cr Clr Drug Dosing ml/min Est GFR ( Amer) Est GFR (Non-Af Amer) BUN/Creatinine Ratio (10-20) Glucose (70-99) mg/dl POC Glucose (70-99) mg/dl Calcium (8.5-10.1) mg/dl Phosphorus (2.5-4.9) mg/dl Magnesium (1.8-2.4) mg/dl Total Bilirubin (0.2-1) mg/dl AST (15-37) U/L ALT (12-78) U/L Alkaline Phosphatase (45-117) U/L Troponin I (0-0.045) ng/ml NT-Pro-B Natriuret Pep (0-900) pg/ml Total Protein (6.4-8.2) gm/dl Albumin (3.4-5.0) gm/dl Globulin (2.5-4.0) gm/dl Albumin/Globulin Ratio (0.9-2) Lipase (73-393) U/L Random Vancomycin mcg/ml COVID-19 Eval Order SARS-CoV-2 (PCR) (Negative) Influenza Type A (PCR) (Neg) Influenza Type B (PCR) (Neg) RSV (RT-PCR) (Neg) PG Care Time/CCT Total # of Minutes Spent Total Time Spent with Patient: Total time spent is greater than 50% in coordination of care (as documented) at patient's floor/unit and/or counseling patient: Coding Level of Care Code None Diagnoses CHF (congestive heart failure) I50.9 Heart failure chronicity: unspecified Heart failure type: unspecified Hypoxia R09.02 Osteomyelitis M86.9 Osteomyelitis type: unspecified type Osteomyelitis location: unspecified site GERD (gastroesophageal reflux disease) K21.9 Esophagitis presence: esophagitis presence not specified Depression F32.9 Depression Type: major depressive disorder Major depression recurrence: unspecified whether recurrent Active/Remission status: remission status unspecified SCOTT (obstructive sleep apnea) G47.33 HTN (hypertension) I10 Hypertension type: essential hypertension DM type 2 (diabetes mellitus, type 2) E11.9 Diabetes mellitus longwall foreman insulin use: without longwall foreman use Diabetes mellitus complication status: without complication Atrial fibrillation I48.21 Atrial fibrillation type: permanent (1) CHF (congestive heart failure) Heart failure chronicity: unspecified Heart failure type: unspecified Qualified Code(s): I50.9 - Heart failure, unspecified (2) Osteomyelitis Osteomyelitis type: unspecified type Osteomyelitis location: unspecified site Qualified Code(s): M86.9 - Osteomyelitis, unspecified (3) GERD (gastroesophageal reflux disease) Esophagitis presence: esophagitis presence not specified Qualified Code(s): K21.9 - Gastro-esophageal reflux disease without esophagitis (4) Depression Depression Type: major depressive disorder Major depression recurrence: unspecified whether recurrent Active/Remission status: remission status unspecified Qualified Code(s): F32.9 - Major depressive disorder, single episode, unspecified (5) HTN (hypertension) Hypertension type: essential hypertension Qualified Code(s): I10 - Essential (primary) hypertension (6) DM type 2 (diabetes mellitus, type 2) Diabetes mellitus longwall foreman insulin use: without longwall foreman use Diabetes mellitus complication status: without complication Qualified Code(s): E11.9 - Type 2 diabetes mellitus without complications (7) Atrial fibrillation Atrial fibrillation type: permanent Qualified Code(s): I48.21 - Permanent atrial fibrillation
--- NOTE | 2020-05-20 12:59 | Electrocardiogram Report ---
Test Reason : Blood Pressure : / mmHG Vent. Rate : 109 BPM Atrial Rate : 170 BPM P-R Int : 000 ms QRS Dur : 096 ms QT Int : 322 ms P-R-T Axes : 000 106 012 degrees QTc Int : 433 ms Atrial fibrillation with rapid ventricular response Rightward axis Abnormal ECG When compared with ECG of 28-APR-2020 18:19, Vent. rate has increased BY 44 BPM Criteria for Septal infarct are no longer Present Confirmed by Remyundo Putnam ([id number]) on 05/20/2020 12:58:41 PM Referred By: REFERRED SELF Confirmed By:Reymundo Putnam
--- NOTE | 2020-05-20 15:33 | Pharmacy Report ---
Pharmacy Abx Dose Short Note - Date of Service May 20, 2020 - Assessment & Plan Assessment * 64 year old F receiving Vancomycin/Cefepime for treatment of osteomyelitis. * Pt's abx were started on 05/04 and are to continue for a 5-week course. * Patient's reported outpt Vancomycin dose is 1500mg IV q12h. A random vanc level was obtained this morning (17.9mcg/mL) indicating that it was appropriate for re-dose. Home dose continued and will re-evaluate a trough level tomorrow, to ensure that this dose is appropriate, since we are unsure when she had her last outpt dose. Plan Vancomycin * Random level: 17.9 mcg/mL * Continue dose of 1500 mg IV every 12 hours * Goal trough level for osteomyelitis: 18 to 22 mcg/mL * Trough level ordered for: 05/21/20 prior to the dose at 0900 Pharmacy will continue to follow and will adjust dose/frequency as necessary. Thank you.
[2020-05-20 17:07] LABS: BUN Creatinine Ratio 21.6 (10-20); Calcium 8.8 mg/dl (8.5-10.1); Creatinine Clr Calc Pharmacy 92.2 ml/min; Est GFR (African American) 74.8; Est GFR (Non-African American) 64.6; Potassium 4.3 mmol/L (3.5-5.1)
[2020-05-20] MEDS: LORATADINE 10 MG TAB PO SCH (20:44)
[2020-05-20] MEDS: RIVAROXABAN 20 MG TAB PO SCH (20:44)
[2020-05-21] MEDS: ACETAMINOPHEN 325 MG TAB PO PRN (00:40)
[2020-05-21] MEDS: metroNIDAZOLE 500 MG TAB PO SCH ×3 (05:37→22:08)
[2020-05-21] MEDS: FUROSEMIDE 40 MG in SYRINGE 0 ML IV SCH ×2 (05:37→17:08)
[2020-05-21] MEDS: PANTOprazole 40 MG TAB PO SCH (05:37)
[2020-05-21] MEDS: lisinopril 20 MG TAB PO SCH (08:20)
[2020-05-21] MEDS: METOPROLOL TARTRATE 50 MG TAB PO SCH ×2 (08:20→20:10)
[2020-05-21] MEDS: ADVANCED PROBIOTIC 1250 MG CAPSULE PO SCH (08:20)
[2020-05-21] MEDS: CYANOCOBALAMIN 500 MCG TABLET (VITAMIN B-12) PO SCH (08:20)
[2020-05-21] MEDS: GABAPENTIN 300 MG CAP PO SCH ×3 (08:20→20:11)
[2020-05-21] MEDS: CITALOPRAM 40 MG TAB PO SCH (08:20)
[2020-05-21] MEDS: INSULIN GLARGINE SOLOSTAR 100 UNITS/ML 3 ML PEN SC SCH ×2 (08:20→20:11)
[2020-05-21] MEDS: INSULIN ASPART 100 UNITS/ML 3 ML PEN SC SCH ×4 (08:21→20:12)
[2020-05-21] MEDS: DICLOFENAC SOD 1% GEL 100 GM TUBE EXT SCH ×2 (08:24→20:12)
[2020-05-21] MEDS ORDERED: VANCOMYCIN TROUGH ONE (08:30)
[2020-05-21] MEDS: CEFEPIME 2,000 MG in SYRINGE 0 ML IV SCH ×2 (08:38→20:09)
[2020-05-21 09:36] LABS: BUN Creatinine Ratio 19.8 (10-20); Calcium 8.7 mg/dl (8.5-10.1); Creatinine Clr Calc Pharmacy 83.9 ml/min; Est GFR (African American) 67.8; Est GFR (Non-African American) 58.5
[2020-05-21 09:37] LABS: Ferritin 58.7 ng/ml (8-388)
[2020-05-21 09:38] LABS: Hematocrit (blood only) 32.9 % (37-47); Hemoglobin 9.4 g/dL (12.0-16.0); Mean Corpuscular Hgb Conc 28.6 g/dL (32-36); Mean Corpuscular Volume 90.9 fL (80-100); Mean Platelet Volume 9.6 fL (7.4-10.4); Platelet Count 137 K/uL (130-400); RDW Coefficient of Variation 16.3 % (11.5-14.5); RDW Standard Deviation 54.3 fL (36.4-46.3); Red Blood Count 3.62 M/uL (4.2-5.4); White Blood Count 4.51 K/uL (4.8-10.8)
[2020-05-21] MEDS: acetaZOLAMIDE 250 MG TAB PO SCH ×2 (09:41→20:11)
[2020-05-21] MEDS: VANCOMYCIN HCL 1,500 MG in SODIUM CHLORIDE 0.9% 500 ML IV SCH (09:42)
[2020-05-21 09:47] LABS: Basophils # (auto) 0.02 K/uL (0-0.2); Basophils % (auto) 0.4 %; Eosinophils # (auto) 0.16 K/uL (0-0.5); Eosinophils % (auto) 3.5 %; Folate (Folic Acid) 11.6 ng/ml (>5.38); Immature Granulocytes # (auto) 0.01 K/uL (0.00-0.02); Immature Granulocytes % (auto) 0.2 %; Lymphocytes # (auto) 0.65 K/uL (1.2-3.4); Lymphocytes % (auto) 14.4 %; Monocytes % (auto) 6.7 %; Neutrophils # (auto) 3.37 K/uL (1.4-6.5); Neutrophils % (auto) 74.8 %
--- NOTE | 2020-05-21 09:52 | Pharmacy Report ---
Pharmacy Abx Dose Short Note - Date of Service May 21, 2020 - Assessment & Plan Assessment * 64 year old F receiving Vancomycin/Cefepime for treatment of osteomyelitis. * Pt's abx were started on 05/04 and are to continue for a 5-week course. * Patient's reported outpt Vancomycin dose is 1500mg IV q12h. A random vanc level was obtained yesterday morning (17.9mcg/mL) indicating that it was appropriate for re-dose and outpatient dose was continued. * Slight increase in SCr today from 0.85--> 1.02mg/dl Plan Vancomycin * Trough level today: 23.8 mcg/mL * Decrease dose to 1250 mg IV every 12 hours at this time * Goal trough level for osteomyelitis: 18 to 22 mcg/mL * Trough level ordered for: 05/23/20 prior to the dose at 1000 and continue to follow renal function Pharmacy will continue to follow and will adjust dose/frequency as necessary. Thank you.
[2020-05-21] MEDS: VANCOMYCIN HCL 1,250 MG in SODIUM CHLORIDE 0.9% 250 ML IV SCH ×2 (10:23→22:08)
[2020-05-21 16:57] LABS: BUN Creatinine Ratio 23.5 (10-20); Calcium 8.8 mg/dl (8.5-10.1); Est GFR (African American) 70.3; Est GFR (Non-African American) 60.6; Potassium 3.9 mmol/L (3.5-5.1)
--- NOTE | 2020-05-21 19:26 | Hospitalist Progress Note ---
Date of Service May 21, 2020 Assessment & Plan (1) CHF (congestive heart failure): 64yo female presenting with 1 week of progressive SOB/COLLINS/edema and orthopnea in setting of missing her scheduled Lasix dosing as well as salt intake. Echo from 04/26/20 with normal LV function EF of 50-55%, mild MR and mild TR. Suspect acute on chronic diastolic CHF exacerbation Continues to improve each day symptomatically and is now down 7 kg since admission. Is developing a contraction alkalosis likely from IV Lasix -Continue Lasix 40mg IV BID for today and then hold for contraction alkalosis -Start Diamox 250 mg p.o. twice daily x3 days -I/O monitoring, continue fluid restriction 1500 mL/day, low-sodium diet -Daily weights -Follow BMP in the morning (2) Hypoxia: Reports she has chronic respiratory failure with hypoxia only in the last month since her foot surgery Is on 4 L chronically but I feel she can be weaned down from this With serum bicarbonate rising, could also have some chronic CO2 retention from obesity hypoventilation syndrome Does have a "foggy" sensation today perhaps from rising serum bicarbonate or CO2? Will wean down oxygen to keep pulse ox only greater than 92% Continue CPAP at night (3) Osteomyelitis: LLE osteomyelitis s/p surgical excision of left 5th MT and phalanx. -Continue Cefepime 2gm IV q 12 -Continue Vancomycin 1500mg IV BID - trough level per pharmacy -Continue Flagyl 500mg po TID Antibiotics started on 05/04/20 - to continue x 5 week course which will end on 06/08/2020 Has PICC in the right upper extremity (4) GERD (gastroesophageal reflux disease): Chronic -Continue Protonix 40mg po daily (5) Depression: Chronic. Stable -Continue Celexa 40mg po qAM (6) SCOTT (obstructive sleep apnea): Chronic -Continue CPAP 8cm H2O qHS (7) HTN (hypertension): Chronic, BPs are controlled -Continue Lisinopril -Continue Metoprolol -Continue to monitor (8) DM type 2 (diabetes mellitus, type 2): BS stable. Last A1=7.3 Blood sugars here very well controlled -Hold oral agents from home -Continue Lantus 8 u BID -ISS - goal blood sugar 100 - 140 -Continue Neurontin 300mg po TID for neuropathy (9) Atrial fibrillation: Chronic atrial fibrillation Rate controlled. Anticoagulated with Rivaroxaban -Continue metoprolol -Continue Rivaroxaban (10) DVT prophylaxis: Xarelto Code - DNR/DNI as per discussion with patient Dispo -continued stay medical with telemetry, eventually will need PT/OT and return to half-way facility Admission and Anticipated Discharge Date Admission Date: May 20, 2020 Subjective Patient reports feeling better the than when she came in, less short of breath and feels her swelling is going down. She does feel a little bit foggy today. No dizziness or lightheadedness. She has been using CPAP here but reports she has not been using it as an outpatient prior to arrival. Telemetry with atrial fibrillation with rates in the 60s 80s, PVCs Review of Systems Review of Systems: All systems reviewed & are unremarkable except as noted in HPI & below Physical Exam Constitutional: WD/WN, vitals as above + obese Eyes: + anicteric sclerae Neck: trachea midline, no thyromegaly Respiratory: normal respiratory effort Auscultation: + diminished lung sounds (At bases bilaterally); no crackles and no wheezes Cardiovascular: Rate/Rhythm: regular rate and + irregularly irregular Heart Sounds: no murmur Extremities: + edema (2+ pitting edema to the thighs bilaterally, improved) Chest (Breasts): Chest: normal inspection of chest Gastrointestinal (Abdomen): normal bowel sounds, soft, nontender, no hepatosplenomegaly (With mild distention) Musculoskeletal: Extremities: + extremities abnormal to inspection (Left foot with dressing in place clean dry and intact), no cyanosis and no clubbing Skin: no rashes, warm and dry Neurologic: moves all extremities and awake; no focal motor deficits Psychiatric: A+Ox3, euthymic affect Results & Data Results & Data ([facility]) Vital Signs (Past 12 Hours) Vital Signs Temp Pulse Pulse Resp BP Pulse Ox 05/21/20 15:53 36.4 C L 65 22 152/84 H 97 05/21/20 15:00 73 05/21/20 11:17 36.6 C 65 18 118/71 98 05/21/20 07:40 69 Laboratory Results 05/21/20 05/21/20 05/21/20 Range/Units 20:11 16:52 16:15 WBC (4.8-10.8) K/uL RBC (4.2-5.4) M/uL Hgb (12.0-16.0) g/dL Hct (37-47) % MCV (80-100) fL MCH (25-34) pg MCHC (32-36) g/dL RDW Std Deviation (36.4-46.3) fL RDW Coeff of [place] (11.5-14.5) % Plt Count (130-400) K/uL MPV (7.4-10.4) fL Immature Gran % (Auto) % Neut % (Auto) % Lymph % (Auto) % [place] % (Auto) % Eos % (Auto) % Baso % (Auto) % Neut # (Auto) (1.4-6.5) K/uL Lymph # (Auto) (1.2-3.4) K/uL [place] # (Auto) (0.11-0.59) K/uL Eos # (Auto) (0-0.5) K/uL Baso # (Auto) (0-0.2) K/uL Immature Gran # (Auto) (0.00-0.02) K/uL Sodium 140 (136-145) mmol/L Potassium 3.9 (3.5-5.1) mmol/L Chloride 99 (98-107) mmol/L Carbon Dioxide 41 H* (21-32) mmol/L Anion Gap 0 L (3-11) BUN 23 H (7-18) mg/dl Creatinine 0.99 (0.6-1.2) mg/dl Est Cr Clr Drug Dosing 87.0 ml/min Est GFR ( Amer) 70.3 Est GFR (Non-Af Amer) 60.6 BUN/Creatinine Ratio 23.5 H (10-20) Glucose 125 H (70-99) mg/dl POC Glucose 124 H 121 H (70-99) mg/dl Calcium 8.8 (8.5-10.1) mg/dl Magnesium (1.8-2.4) mg/dl Iron (35-150) mcg/dl TIBC (250-450) mcg/dl Transferrin (200-360) mg/dl Transferrin % Sat (15-50) % Ferritin (8-388) ng/ml Vitamin B12 (193-986) pg/ml Folate (>5.38) ng/ml Vancomycin Trough (See Comment) mcg/ml 05/21/20 05/21/20 05/21/20 Range/Units 11:40 08:34 08:34 WBC 4.51 L (4.8-10.8) K/uL RBC 3.62 L (4.2-5.4) M/uL Hgb 9.4 L (12.0-16.0) g/dL Hct 32.9 L (37-47) % MCV 90.9 (80-100) fL MCH 26.0 (25-34) pg MCHC 28.6 L (32-36) g/dL RDW Std Deviation 54.3 H (36.4-46.3) fL RDW Coeff of [place] 16.3 H (11.5-14.5) % Plt Count 137 (130-400) K/uL MPV 9.6 (7.4-10.4) fL Immature Gran % (Auto) 0.2 % Neut % (Auto) 74.8 % Lymph % (Auto) 14.4 % [place] % (Auto) 6.7 % Eos % (Auto) 3.5 % Baso % (Auto) 0.4 % Neut # (Auto) 3.37 (1.4-6.5) K/uL Lymph # (Auto) 0.65 L (1.2-3.4) K/uL [place] # (Auto) 0.30 (0.11-0.59) K/uL Eos # (Auto) 0.16 (0-0.5) K/uL Baso # (Auto) 0.02 (0-0.2) K/uL Immature Gran # (Auto) 0.01 (0.00-0.02) K/uL Sodium (136-145) mmol/L Potassium (3.5-5.1) mmol/L Chloride (98-107) mmol/L Carbon Dioxide (21-32) mmol/L Anion Gap (3-11) BUN (7-18) mg/dl Creatinine (0.6-1.2) mg/dl Est Cr Clr Drug Dosing ml/min Est GFR ( Amer) Est GFR (Non-Af Amer) BUN/Creatinine Ratio (10-20) Glucose (70-99) mg/dl POC Glucose 110 H (70-99) mg/dl Calcium (8.5-10.1) mg/dl Magnesium (1.8-2.4) mg/dl Iron (35-150) mcg/dl TIBC (250-450) mcg/dl Transferrin (200-360) mg/dl Transferrin % Sat (15-50) % Ferritin (8-388) ng/ml Vitamin B12 386 (193-986) pg/ml Folate 11.60 (>5.38) ng/ml Vancomycin Trough (See Comment) mcg/ml 05/21/20 05/21/20 05/21/20 Range/Units 08:34 08:34 07:52 WBC (4.8-10.8) K/uL RBC (4.2-5.4) M/uL Hgb (12.0-16.0) g/dL Hct (37-47) % MCV (80-100) fL MCH (25-34) pg MCHC (32-36) g/dL RDW Std Deviation (36.4-46.3) fL RDW Coeff of [place] (11.5-14.5) % Plt Count (130-400) K/uL MPV (7.4-10.4) fL Immature Gran % (Auto) % Neut % (Auto) % Lymph % (Auto) % [place] % (Auto) % Eos % (Auto) % Baso % (Auto) % Neut # (Auto) (1.4-6.5) K/uL Lymph # (Auto) (1.2-3.4) K/uL [place] # (Auto) (0.11-0.59) K/uL Eos # (Auto) (0-0.5) K/uL Baso # (Auto) (0-0.2) K/uL Immature Gran # (Auto) (0.00-0.02) K/uL Sodium 140 (136-145) mmol/L Potassium 4.0 (3.5-5.1) mmol/L Chloride 98 (98-107) mmol/L Carbon Dioxide 41 H* (21-32) mmol/L Anion Gap 1.0 L (3-11) BUN 20 H (7-18) mg/dl Creatinine 1.02 (0.6-1.2) mg/dl Est Cr Clr Drug Dosing 83.9 ml/min Est GFR ( Amer) 67.8 Est GFR (Non-Af Amer) 58.5 BUN/Creatinine Ratio 19.8 (10-20) Glucose 139 H (70-99) mg/dl POC Glucose 100 H (70-99) mg/dl Calcium 8.7 (8.5-10.1) mg/dl Magnesium 2.0 (1.8-2.4) mg/dl Iron 45 (35-150) mcg/dl TIBC 294 (250-450) mcg/dl Transferrin 241 (200-360) mg/dl Transferrin % Sat 13 L (15-50) % Ferritin 58.7 (8-388) ng/ml Vitamin B12 (193-986) pg/ml Folate (>5.38) ng/ml Vancomycin Trough 23.8 (See Comment) mcg/ml PG Care Time/CCT Total # of Minutes Spent Total Time Spent with Patient: Total time spent is greater than 50% in coordination of care (as documented) at patient's floor/unit and/or counseling patient: Coding Level of Care Code 88711 Subseq Hosp Care Lvl 3 Diagnoses CHF (congestive heart failure) I50.9 Heart failure chronicity: unspecified Heart failure type: unspecified Hypoxia R09.02 Osteomyelitis M86.9 Osteomyelitis location: unspecified site Osteomyelitis type: unspecified type GERD (gastroesophageal reflux disease) K21.9 Esophagitis presence: esophagitis presence not specified Depression F32.9 Active/Remission status: remission status unspecified Depression Type: major depressive disorder Major depression recurrence: unspecified whether recurrent SCOTT (obstructive sleep apnea) G47.33 HTN (hypertension) I10 Hypertension type: essential hypertension DM type 2 (diabetes mellitus, type 2) E11.9 Diabetes mellitus complication status: without complication Diabetes mellitus [facility] insulin use: without [facility] use Atrial fibrillation I48.21 Atrial fibrillation type: permanent DVT prophylaxis Z29.9 (1) DM type 2 (diabetes mellitus, type 2) Diabetes mellitus complication status: without complication 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 insulin use: without [facility] use Qualified Code(s): E11.9 - Type 2 diabetes mellitus without complications (2) CHF (congestive heart failure) Heart failure chronicity: unspecified Heart failure type: unspecified Qualified Code(s): I50.9 - Heart failure, unspecified (3) Atrial fibrillation Atrial fibrillation type: permanent Qualified Code(s): I48.21 - Permanent atrial fibrillation (4) Depression Active/Remission status: remission status unspecified Depression Type: major depressive disorder Major depression recurrence: unspecified whether recurrent Qualified Code(s): F32.9 - Major depressive disorder, single episode, unspecified (5) GERD (gastroesophageal reflux disease) Esophagitis presence: esophagitis presence not specified Qualified Code(s): K 21.9 - Gastro-esophageal reflux disease without esophagitis (6) HTN (hypertension) Hypertension type: essential hypertension Qualified Code(s): I10 - Essential (primary) hypertension (7) Osteomyelitis Osteomyelitis location: unspecified site Osteomyelitis type: unspecified type Qualified Code(s): M86.9 - Osteomyelitis, unspecified
[2020-05-21] MEDS: RIVAROXABAN 20 MG TAB PO SCH (20:10)
[2020-05-21] MEDS: LORATADINE 10 MG TAB PO SCH (20:11)
[2020-05-22] MEDS: metroNIDAZOLE 500 MG TAB PO SCH ×3 (06:18→21:07)
[2020-05-22] MEDS: PANTOprazole 40 MG TAB PO SCH (06:18)
[2020-05-22 07:55] LABS: Albumin Globulin Ratio 0.7 (0.9-2); BUN Creatinine Ratio 23.8 (10-20); Bilirubin,Total 0.5 mg/dl (0.2-1); Calcium 8.7 mg/dl (8.5-10.1); Creatinine Clr Calc Pharmacy 82.1 ml/min; Est GFR (African American) 66.2; Est GFR (Non-African American) 57.1; Globulin 4.4 gm/dl (2.5-4.0); Magnesium 2.2 mg/dl (1.8-2.4); Potassium 3.7 mmol/L (3.5-5.1); Total Protein 7.4 gm/dl (6.4-8.2)
[2020-05-22] MEDS: INSULIN ASPART 100 UNITS/ML 3 ML PEN SC SCH ×4 (08:33→21:05)
[2020-05-22] MEDS: INSULIN GLARGINE SOLOSTAR 100 UNITS/ML 3 ML PEN SC SCH ×2 (08:34→21:04)
[2020-05-22] MEDS: CYANOCOBALAMIN 500 MCG TABLET (VITAMIN B-12) PO SCH (08:37)
[2020-05-22] MEDS: CITALOPRAM 40 MG TAB PO SCH (08:37)
[2020-05-22] MEDS: METOPROLOL TARTRATE 50 MG TAB PO SCH ×2 (08:37→21:04)
[2020-05-22] MEDS: GABAPENTIN 300 MG CAP PO SCH ×3 (08:37→21:05)
[2020-05-22] MEDS: acetaZOLAMIDE 250 MG TAB PO SCH ×2 (08:37→21:03)
[2020-05-22] MEDS: ADVANCED PROBIOTIC 1250 MG CAPSULE PO SCH (08:37)
[2020-05-22] MEDS: lisinopril 20 MG TAB PO SCH (08:37)
[2020-05-22] MEDS: DICLOFENAC SOD 1% GEL 100 GM TUBE EXT SCH ×2 (08:37→21:06)
[2020-05-22] MEDS ORDERED: ALTEPLASE, RECOMBINANT 1 MG/ML 2ML VIAL INSTIL ONE (08:45)
[2020-05-22] MEDS: CEFEPIME 2,000 MG in SYRINGE 0 ML IV SCH ×2 (08:47→21:25)
[2020-05-22 08:51] LABS: Allen Test Pos (Pos); Base Excess ABG 14.3 mEq/L (-9-1.8); HCO3 ABG 43 mmol/L (19-24); PCO2 ABG 83 mmHg (35-46); PO2 ABG 76 mmHg (80-95); pH ABG 7.33 (7.35-7.45)
[2020-05-22] MEDS: VANCOMYCIN HCL 1,250 MG in SODIUM CHLORIDE 0.9% 250 ML IV SCH ×2 (10:12→21:24)
[2020-05-22] MEDS: ACETAMINOPHEN 325 MG TAB PO PRN (14:59)
[2020-05-22] MEDS ORDERED: NURSING DECISION MEDICATION ONE (18:23)
[2020-05-22] MEDS ORDERED: MICONAZOLE NITRATE POWDER 43 GM EXT PRN (18:52)
--- NOTE | 2020-05-22 20:15 | Hospitalist Progress Note ---
Date of Service May 22, 2020 Assessment & Plan (1) CHF (congestive heart failure): This patient is a 64yo female presenting with 1 week of progressive SOB/COLLINS/edema and orthopnea in setting of missing her scheduled Lasix dosing as well as salt intake. Echo from 04/26/20 with normal LV function EF of 50-55%, mild MR and mild TR. Here with acute on chronic diastolic CHF exacerbation Continues to improve each day symptomatically and is now down 7 kg since admission. Is developing elevated serum bicarbonate from CO2 retention/obesity hypoventilation syndrome but also could be some contraction alkalosis likely from IV Lasix Hypoxia is significantly improved, weaned down to 2.5 L nasal cannula -Hold Lasix 40mg IV BID for today, but may be able to restart tomorrow as she is still volume overloaded -Continue Diamox 250 mg p.o. twice daily x3 days -I/O monitoring, continue fluid restriction 1500 mL/day, low-sodium diet -Daily weights -Follow BMP in the morning (2) Hypoxia: Reports she has chronic respiratory failure with hypoxia only in the last month since her foot surgery Is on 4 L chronically but I feel she can be weaned down from this-has been weaned down to 2.5 L today and is doing well with this With serum bicarbonate rising, could also have some chronic CO2 retention from obesity hypoventilation syndrome Does have a "foggy" sensation and was a little more lethargic on the morning of 05/22-with rising serum bicarbonate-ABG checked which was abnormal at 7.3 / on 2 L Will wean down oxygen to keep pulse ox only greater than 92% Start BiPAP 14/5 for several hours during the day on 05/22, and will use with all naps and at bedtime Follow BMP in the morning (3) Osteomyelitis: LLE osteomyelitis s/p surgical excision of left 5th MT and phalanx. Wound is healing, afebrile, doing well Remains nonweightbearing on the left lower extremity -Continue Cefepime 2gm IV q 12 -Continue Vancomycin 1500mg IV BID - trough level per pharmacy -Continue Flagyl 500mg po TID Antibiotics started on 05/04/20 - to continue x 5 week course which will end on 06/08/2020 Has PICC in the right upper extremity-needs Cathflo today (4) GERD (gastroesophageal reflux disease): Chronic -Continue Protonix 40mg po daily (5) Depression: Chronic. Stable -Continue Celexa 40mg po qAM (6) SCOTT (obstructive sleep apnea): Chronic -Typically on CPAP 8cm H2O qHS, but will switch to BiPAP as above (7) HTN (hypertension): Chronic, BPs are controlled -Continue Lisinopril -Continue Metoprolol -Continue to monitor (8) DM type 2 (diabetes mellitus, type 2): BS stable. Last A1=7.3 Blood sugars here very well controlled -Hold oral agents from home -Continue Lantus 8 u BID -ISS - goal blood sugar 100 - 140 -Continue Neurontin 300mg po TID for neuropathy (9) Atrial fibrillation: Chronic atrial fibrillation Rate controlled. Anticoagulated with Rivaroxaban -Continue metoprolol -Continue Rivaroxaban (10) Hypercapnia: As noted above, with increasing mild lethargy and foggy sensation Starting BiPAP (11) DVT prophylaxis: Xarelto Code - DNR/DNI as per discussion with patient Dispo -continued stay medical with telemetry, appreciate PT/OT evaluations with recommendation to return to [facility] Admission and Anticipated Discharge Date Admission Date: May 20, 2020 Subjective Patient continued to feel sort of out of it and was a bit lethargic this morning. ABG was obtained which showed acute on chronic respiratory acidosis. Her serum bicarbonate was up to 42. She has never been diagnosed with obesity hypoventilation syndrome, but is obese, was started on oxygen last admission and has been on 4 L with oxygen levels of 98% while here. Advised nurse to wean down the oxygen. We applied BiPAP for several hours and she had improved mentation. She is agreeable to wearing BiPAP for all naps and at bedtime. Otherwise, denies shortness of breath and is feeling improved since admission. She had a loose bowel movement today and last evening, C. difficile was sent by nursing staff. Denies chest pain. No pain in the foot. Telemetry with atrial fibrillation with rates in the 40s to 70s. Review of Systems Review of Systems: All systems reviewed & are unremarkable except as noted in HPI & below Physical Exam Constitutional: WD/WN, vitals as above + obese Eyes: + anicteric sclerae ENMT: Ears: no hearing impairment Neck: trachea midline, no thyromegaly + abnormal visual inspection (Obese) Respiratory: normal respiratory effort Auscultation: + diminished lung sounds (At bases bilaterally); no crackles and no wheezes Cardiovascular: Rate/Rhythm: regular rate and + irregularly irregular Heart Sounds: no murmur Extremities: + edema (2+ pitting edema to the thighs bilaterally, improved) Chest (Breasts): Chest: normal inspection of chest Gastrointestinal (Abdomen): normal bowel sounds, soft, nontender, no hepatosplenomegaly (With mild distention) Musculoskeletal: Extremities: + extremities abnormal to inspection (Left foot with dressing in place clean dry and intact), no cyanosis and no clubbing Skin: no rashes, warm and dry Neurologic: moves all extremities and awake; no focal motor deficits Psychiatric: A+Ox3, euthymic affect Results & Data Results & Data ([facility]) Vital Signs (Past 12 Hours) Vital Signs Temp Pulse Pulse Resp BP Pulse Ox 05/22/20 19:58 36.7 C 81 18 125/76 94 05/22/20 15:17 36.6 C 66 20 129/74 94 05/22/20 14:55 65 20 96 05/22/20 11:15 36.4 C L 61 18 114/73 97 05/22/20 09:56 68 22 94 Laboratory Results 05/22/20 05/22/20 05/22/20 Range/Units 20:57 16:26 11:39 ABG pH (7.35-7.45) ABG pCO2 (35-46) mmHg ABG pO2 (80-95) mmHg ABG HCO3 (19-24) mmol/L ABG O2 Saturation (90-95) % ABG Base Excess (-9-1.8) mEq/L Quintin Test (Pos) Barometric Pressure mm/Hg Oxygen Given Sodium (136-145) mmol/L Potassium (3.5-5.1) mmol/L Chloride (98-107) mmol/L Carbon Dioxide (21-32) mmol/L Anion Gap (3-11) BUN (7-18) mg/dl Creatinine (0.6-1.2) mg/dl Est Cr Clr Drug Dosing ml/min Est GFR ( Amer) Est GFR (Non-Af Amer) BUN/Creatinine Ratio (10-20) Glucose (70-99) mg/dl POC Glucose 149 H 119 H 107 H (70-99) mg/dl Calcium (8.5-10.1) mg/dl Magnesium (1.8-2.4) mg/dl Total Bilirubin (0.2-1) mg/dl AST (15-37) U/L ALT (12-78) U/L Alkaline Phosphatase (45-117) U/L Total Protein (6.4-8.2) gm/dl Albumin (3.4-5.0) gm/dl Globulin (2.5-4.0) gm/dl Albumin/Globulin Ratio (0.9-2) Stl C. diff Tox B Gene (Neg) 05/22/20 05/22/20 05/22/20 Range/Units 08:29 07:55 06:29 ABG pH 7.33 L (7.35-7.45) ABG pCO2 83 H (35-46) mmHg ABG pO2 76 L (80-95) mmHg ABG HCO3 43 H (19-24) mmol/L ABG O2 Saturation 92.0 (90-95) % ABG Base Excess 14.3 H (-9-1.8) mEq/L Quintin Test Pos (Pos) Barometric Pressure 732.7 mm/Hg Oxygen Given 2L Sodium 140 (136-145) mmol/L Potassium 3.7 (3.5-5.1) mmol/L Chloride 98 (98-107) mmol/L Carbon Dioxide 42 H* (21-32) mmol/L Anion Gap 1.0 L (3-11) BUN 25 H (7-18) mg/dl Creatinine 1.04 (0.6-1.2) mg/dl Est Cr Clr Drug Dosing 82.1 ml/min Est GFR ( Amer) 66.2 Est GFR (Non-Af Amer) 57.1 BUN/Creatinine Ratio 23.8 H (10-20) Glucose 96 (70-99) mg/dl POC Glucose 104 H (70-99) mg/dl Calcium 8.7 (8.5-10.1) mg/dl Magnesium 2.2 (1.8-2.4) mg/dl Total Bilirubin 0.5 (0.2-1) mg/dl AST 10 L (15-37) U/L ALT 11 L (12-78) U/L Alkaline Phosphatase 80 (45-117) U/L Total Protein 7.4 (6.4-8.2) gm/dl Albumin 3.0 L (3.4-5.0) gm/dl Globulin 4.4 H (2.5-4.0) gm/dl Albumin/Globulin Ratio 0.7 L (0.9-2) Stl C. diff Tox B Gene (Neg) 05/22/20 Range/Units 06:25 ABG pH (7.35-7.45) ABG pCO2 (35-46) mmHg ABG pO2 (80-95) mmHg ABG HCO3 (19-24) mmol/L ABG O2 Saturation (90-95) % ABG Base Excess (-9-1.8) mEq/L Quintin Test (Pos) Barometric Pressure mm/Hg Oxygen Given Sodium (136-145) mmol/L Potassium (3.5-5.1) mmol/L Chloride (98-107) mmol/L Carbon Dioxide (21-32) mmol/L Anion Gap (3-11) BUN (7-18) mg/dl Creatinine (0.6-1.2) mg/dl Est Cr Clr Drug Dosing ml/min Est GFR ( Amer) Est GFR (Non-Af Amer) BUN/Creatinine Ratio (10-20) Glucose (70-99) mg/dl POC Glucose (70-99) mg/dl Calcium (8.5-10.1) mg/dl Magnesium (1.8-2.4) mg/dl Total Bilirubin (0.2-1) mg/dl AST (15-37) U/L ALT (12-78) U/L Alkaline Phosphatase (45-117) U/L Total Protein (6.4-8.2) gm/dl Albumin (3.4-5.0) gm/dl Globulin (2.5-4.0) gm/dl Albumin/Globulin Ratio (0.9-2) Stl C. diff Tox B Gene Negative Cdiff Gene (Neg) PG Care Time/CCT Total # of Minutes Spent Total Time Spent with Patient: Total time spent is greater than 50% in coordination of care (as documented) at patient's floor/unit and/or counseling patient: Coding Level of Care Code 03006 Subseq Hosp Care Lvl 3 Diagnoses CHF (congestive heart failure) I50.9 Heart failure chronicity: unspecified Heart failure type: unspecified Hypoxia R09.02 Osteomyelitis M86.9 Osteomyelitis location: unspecified site Osteomyelitis type: unspecified type GERD (gastroesophageal reflux disease) K21.9 Esophagitis presence: esophagitis presence not specified Depression F32.9 Active/Remission status: remission status unspecified Depression Type: major depressive disorder Major depression recurrence: unspecified whether recurrent SCOTT (obstructive sleep apnea) G47.33 HTN (hypertension) I10 Hypertension type: essential hypertension DM type 2 (diabetes mellitus, type 2) E11.9 Diabetes mellitus complication status: without complication Diabetes mellitus care home 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 Atrial fibrillation I48.21 Atrial fibrillation type: permanent Hypercapnia R06.89 DVT prophylaxis Z29.9 (1) DM type 2 (diabetes mellitus, type 2) Diabetes mellitus complication status: without complication 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 Qualified Code(s): E11.9 - Type 2 diabetes mellitus without complications (2) CHF (congestive heart failure) Heart failure chronicity: unspecified Heart failure type: unspecified Qualified Code(s): I50.9 - Heart failure, unspecified (3) Atrial fibrillation Atrial fibrillation type: permanent Qualified Code(s): I48.21 - Permanent atrial fibrillation (4) Depression Active/Remission status: remission status unspecified Depression Type: major depressive disorder Major depression recurrence: unspecified whether recurrent Qualified Code(s): F32.9 - Major depressive disorder, single episode, unspecified (5) GERD (gastroesophageal reflux disease) Esophagitis presence: esophagitis presence not specified Qualified Code(s): K21.9 - Gastro-esophageal reflux disease without esophagitis (6) HTN (hypertension) Hypertension type: essential hypertension Qualified Code(s): I10 - Essential (primary) hypertension (7) Osteomyelitis Osteomyelitis location: unspecified site Osteomyelitis type: unspecified type Qualified Code(s): M86.9 - Osteomyelitis, unspecified
[2020-05-22] MEDS: LORATADINE 10 MG TAB PO SCH (21:02)
[2020-05-22] MEDS: MICONAZOLE NITRATE POWDER 43 GM EXT SCH (21:03)
[2020-05-22] MEDS: RIVAROXABAN 20 MG TAB PO SCH (21:07)
[2020-05-23] MEDS: metroNIDAZOLE 500 MG TAB PO SCH ×3 (05:29→21:30)
[2020-05-23] MEDS: PANTOprazole 40 MG TAB PO SCH (05:30)
[2020-05-23 07:29] LABS: Basophils # (auto) 0.04 K/uL (0-0.2); Basophils % (auto) 0.8 %; Eosinophils # (auto) 0.21 K/uL (0-0.5); Eosinophils % (auto) 4.4 %; Hematocrit (blood only) 30.3 % (37-47); Hemoglobin 8.9 g/dL (12.0-16.0); Immature Granulocytes # (auto) 0.01 K/uL (0.00-0.02); Immature Granulocytes % (auto) 0.2 %; Lymphocytes # (auto) 0.48 K/uL (1.2-3.4); Lymphocytes % (auto) 10.1 %; Mean Corpuscular Hemoglobin 26.2 pg (25-34); Mean Corpuscular Hgb Conc 29.4 g/dL (32-36); Mean Corpuscular Volume 89.1 fL (80-100); Mean Platelet Volume 9.5 fL (7.4-10.4); Monocytes # (auto) 0.35 K/uL (0.11-0.59); Monocytes % (auto) 7.4 %; Neutrophils # (auto) 3.65 K/uL (1.4-6.5); Neutrophils % (auto) 77.1 %; Platelet Count 145 K/uL (130-400); RDW Coefficient of Variation 16.4 % (11.5-14.5); RDW Standard Deviation 53.7 fL (36.4-46.3); White Blood Count 4.74 K/uL (4.8-10.8)
[2020-05-23 07:36] LABS: Base Excess ABG 11.6 mEq/L (-9-1.8); HCO3 ABG 41 mmol/L (19-24); Oxygen Saturation ABG 95.4 % (90-95); PCO2 ABG 87 mmHg (35-46); PO2 ABG 86 mmHg (80-95); pH ABG 7.29 (7.35-7.45)
[2020-05-23 07:40] LABS: Allen Test Pos (Pos)
[2020-05-23 07:57] LABS: BUN Creatinine Ratio 32.5 (10-20); Calcium 8.7 mg/dl (8.5-10.1); Creatinine Clr Calc Pharmacy 98.6 ml/min; Est GFR (African American) 82.2; Est GFR (Non-African American) 70.9; Magnesium 2.2 mg/dl (1.8-2.4); Potassium 3.7 mmol/L (3.5-5.1)
[2020-05-23 08:07] LABS: Thyroid Stimulating Hormone 1.13 uIu/ml (0.300-4.500)
[2020-05-23] MEDS: lisinopril 20 MG TAB PO SCH (08:20)
[2020-05-23] MEDS: acetaZOLAMIDE 250 MG TAB PO SCH (08:20)
[2020-05-23] MEDS: CITALOPRAM 40 MG TAB PO SCH (08:20)
[2020-05-23] MEDS: METOPROLOL TARTRATE 50 MG TAB PO SCH ×2 (08:20→19:50)
[2020-05-23] MEDS: ADVANCED PROBIOTIC 1250 MG CAPSULE PO SCH (08:20)
[2020-05-23] MEDS: GABAPENTIN 300 MG CAP PO SCH ×3 (08:20→19:51)
[2020-05-23] MEDS: CYANOCOBALAMIN 500 MCG TABLET (VITAMIN B-12) PO SCH (08:20)
[2020-05-23] MEDS: INSULIN ASPART 100 UNITS/ML 3 ML PEN SC SCH ×4 (08:21→19:52)
[2020-05-23] MEDS: INSULIN GLARGINE SOLOSTAR 100 UNITS/ML 3 ML PEN SC SCH ×2 (08:21→19:49)
[2020-05-23] MEDS: MICONAZOLE NITRATE POWDER 43 GM EXT SCH ×2 (08:22→19:49)
[2020-05-23] MEDS: DICLOFENAC SOD 1% GEL 100 GM TUBE EXT SCH ×2 (08:23→19:52)
[2020-05-23] MEDS: CEFEPIME 2,000 MG in SYRINGE 0 ML IV SCH ×2 (08:33→19:48)
[2020-05-23] MEDS ORDERED: VANCOMYCIN TROUGH ONE (09:30)
[2020-05-23] MEDS: VANCOMYCIN HCL 1,250 MG in SODIUM CHLORIDE 0.9% 250 ML IV SCH (10:08)
[2020-05-23] MEDS: ACETAMINOPHEN 325 MG TAB PO PRN (12:31)
--- NOTE | 2020-05-23 15:28 | Hospitalist Progress Note ---
Date of Service May 23, 2020 Assessment & Plan (1) CHF (congestive heart failure): This patient is a 64yo female presenting with 1 week of progressive SOB/COLLINS/edema and orthopnea in setting of missing her scheduled Lasix dosing as well as salt intake. Echo from 04/26/20 with normal LV function EF of 50-55%, mild MR and mild TR. Here with acute on chronic diastolic CHF exacerbation Has improved symptomatically with her breathing, however continues with significant lower extremity edema. And is now down 7 kg since admission but has not decreased in the last 2 days. Has elevated serum bicarbonate from CO2 retention/obesity hypoventilation syndrome but also could be some contraction alkalosis likely from IV Lasix Hypoxia is significantly improved, weaned down to 2.5 L nasal cannula -Restart Lasix 40mg IV BID -Pulmonology recommended discontinuing Diamox 250 mg p.o. twice daily which she did receive for 2 days -I/O monitoring, continue fluid restriction 1500 mL/day, low-sodium diet -Daily weights -Follow BMP in the morning (2) Hypercapnia: Developed increasing mild lethargy and foggy sensation, sensation of not being quite right ABG on 05/22 showed 7.3 3/83/76 on 2 L She was placed on BiPAP for a few hours on 05/22 during the day and then all night and ABG on the morning of 05/23 was slightly worse at 7.29/87/86 on 2 L nasal cannula Placed on continuous BiPAP throughout the day on 05/23 Consulted pulmonology-recommends discontinuation of Diamox, continued BiPAP, changes in BiPAP settings to be discussed with RT, and VBG in the morning. Ideally he needs to review her outpatient sleep studies and compliance data to consider whether she is a long-term BiPAP candidate or if she should just remain on CPAP. Also recommended weight loss and follow-up with her previous sleep provider in [place]. He also thought that a contraction alkalosis with Lasix may be beneficial in improving the patient's pH over time, and that additional imaging studies or sniff test at this point in time would be unlikely to alter her management. -We will continue BiPAP 26/06 with naps and at bedtime and recommend this upon discharge to the residential facility -Needs weight loss -Restart Lasix 40 mg IV twice daily (3) Obesity hypoventilation syndrome: As above (4) Hypoxia: Reports she has chronic respiratory failure with hypoxia only in the last month since her foot surgery Is on 4 L chronically since last admission but I feel she can be weaned down from this-has been weaned down to 2.5 L and is doing well with this With serum bicarbonate rising, could also have some chronic CO2 retention from obesity hypoventilation syndrome as above (5) Osteomyelitis: LLE osteomyelitis s/p surgical excision of left 5th MT and phalanx during admission in 04/2020. Wound is healing, afebrile, doing well Remains nonweightbearing on the left lower extremity Grew Proteus from the wound, but because she had a gas-forming suspected organism and large abscess, she is on broad-spectrum antibiotics to include coverage for anaerobes Vancomycin has been difficult to dose and she is morbidly obese. Discussed with pharmacist and will change to daptomycin on 05/23 -Discontinue vancomycin -Continue Cefepime 2gm IV q 12 -Start daptomycin -Continue Flagyl 500mg po TID Antibiotics started on 05/04/20 - to continue x 5 week course which will end on 06/08/2020 Has PICC in the right upper extremity (6) GERD (gastroesophageal reflux disease): Chronic -Continue Protonix 40mg po daily (7) Depression: Chronic. Stable -Continue Celexa 40mg po qAM (8) SCOTT (obstructive sleep apnea): Chronic -Typically on CPAP 8cm H2O qHS, but will switch to BiPAP as above (9) HTN (hypertension): Chronic, BPs are controlled -Continue Lisinopril -Continue Metoprolol -Continue to monitor (10) DM type 2 (diabetes mellitus, type 2): BS stable. Last A1=7.3 Blood sugars here very well controlled -Hold oral agents from home -Continue Lantus 8 u BID -ISS - goal blood sugar 100 - 140 -Continue Neurontin 300mg po TID for neuropathy (11) Atrial fibrillation: Chronic atrial fibrillation Rate controlled. Anticoagulated with Rivaroxaban -Continue metoprolol -Continue Rivaroxaban (12) Anemia: Hemoglobin slightly down from previous today at 8.9, is normocytic Iron studies show mildly low iron saturation at 13%, B12 and folate are normal -Start ferrous sulfate 325 mg p.o. twice daily -Follow CBC -Outpatient follow-up with PCP to see if needs EGD/colonoscopy if has not had one recently (13) DVT prophylaxis: Xarelto Code - DNR/DNI as per discussion with patient Dispo -continued stay medical with telemetry, appreciate PT/OT evaluations with recommendation to return to residential facility Admission and Anticipated Discharge Date Admission Date: May 20, 2020 Subjective Patient continues to complain of feeling foggy and just not quite like herself today. Her ABG showed worsening hypercapnia this morning and I placed her on BiPAP for the majority of the day. When I checked on her in the afternoon, she was continuing to feel similar to previous. I discussed her case with pulmonology at the bedside. She denies chest pain or shortness of breath. She was weaned down to 2.5 L nasal cannula prior to going on the BiPAP. She is having incontinence to loose stool. Telemetry with atrial fibrillation with rates in the 40s overnight to 80s during the day Review of Systems Review of Systems: All systems reviewed & are unremarkable except as noted in HPI & below Physical Exam Constitutional: WD/WN, vitals as above + obese Eyes: + anicteric sclerae ENMT: Ears: no hearing impairment Neck: trachea midline, no thyromegaly + abnormal visual inspection (Obese) Respiratory: normal respiratory effort Auscultation: + diminished lung sounds (At bases bilaterally); no crackles and no wheezes Cardiovascular: Rate/Rhythm: regular rate and + irregularly irregular Heart Sounds: no murmur Extremities: + edema (2+ pitting edema to the thighs bilaterally not improved from yesterday) Chest (Breasts): Chest: normal inspection of chest Gastrointestinal (Abdomen): normal bowel sounds, soft, nontender, no hepat osplenomegaly (With mild distention) Musculoskeletal: Extremities: + extremities abnormal to inspection (Left foot with dressing in place clean dry and intact), no cyanosis and no clubbing Skin: no rashes, warm and dry Neurologic: moves all extremities and awake; no focal motor deficits Psychiatric: A+Ox3, euthymic affect Results & Data Results & Data ([facility]) Vital Signs (Past 12 Hours) Vital Signs Temp Pulse Pulse Resp BP Pulse Ox 05/23/20 15:26 36.5 C 72 20 115/73 92 05/23/20 11:50 36.1 C L 60 20 120/68 94 05/23/20 10:25 63 21 92 05/23/20 09:00 96 05/23/20 07:15 60 05/23/20 07:08 36.6 C 62 18 123/78 97 05/23/20 04:33 36.6 C 70 18 122/73 95 Laboratory Results 05/23/20 05/23/20 05/23/20 Range/Units 19:42 16:39 12:05 WBC (4.8-10.8) K/uL RBC (4.2-5.4) M/uL Hgb (12.0-16.0) g/dL Hct (37-47) % MCV (80-100) fL MCH (25-34) pg MCHC (32-36) g/dL RDW Std Deviation (36.4-46.3) fL RDW Coeff of [place]ita (11.5-14.5) % Plt Count (130-400) K/uL MPV (7.4-10.4) fL Immature Gran % (Auto) % Neut % (Auto) % Lymph % (Auto) % [place] % (Auto) % Eos % (Auto) % Baso % (Auto) % Neut # (Auto) (1.4-6.5) K/uL Lymph # (Auto) (1.2-3.4) K/uL [place] # (Auto) (0.11-0.59) K/uL Eos # (Auto) (0-0.5) K/uL Baso # (Auto) (0-0.2) K/uL Immature Gran # (Auto) (0.00-0.02) K/uL ABG pH (7.35-7.45) ABG pCO2 (35-46) mmHg ABG pO2 (80-95) mmHg ABG HCO3 (19-24) mmol/L ABG O2 Saturation (90-95) % ABG Base Excess (-9-1.8) mEq/L Quintin Test (Pos) Barometric Pressure mm/Hg Oxygen Given Sodium (136-145) mmol/L Potassium (3.5-5.1) mmol/L Chloride (98-107) mmol/L Carbon Dioxide (21-32) mmol/L Anion Gap (3-11) BUN (7-18) mg/dl Creatinine (0.6-1.2) mg/dl Est Cr Clr Drug Dosing ml/min Est GFR ( Amer) Est GFR (Non-Af Amer) BUN/Creatinine Ratio (10-20) Glucose (70-99) mg/dl POC Glucose 125 H 119 H 119 H (70-99) mg/dl Calcium (8.5-10.1) mg/dl Magnesium (1.8-2.4) mg/dl TSH (0.300-4.500) uIu/ml Vancomycin Trough (See Comment) mcg/ml 05/23/20 05/23/20 05/23/20 Range/Units 09:21 07:32 07:11 WBC (4.8-10.8) K/uL RBC (4.2-5.4) M/uL Hgb (12.0-16.0) g/dL Hct (37-47) % MCV (80-100) fL MCH (25-34) pg MCHC (32-36) g/dL RDW Std Deviation (36.4-46.3) fL RDW Coeff of [place]ita (11.5-14.5) % Plt Count (130-400) K/uL MPV (7.4-10.4) fL Immature Gran % (Auto) % Neut % (Auto) % Lymph % (Auto) % [place] % (Auto) % Eos % (Auto) % Baso % (Auto) % Neut # (Auto) (1.4-6.5) K/uL Lymph # (Auto) (1.2-3.4) K/uL [place] # (Auto) (0.11-0.59) K/uL Eos # (Auto) (0-0.5) K/uL Baso # (Auto) (0-0.2) K/uL Immature Gran # (Auto) (0.00-0.02) K/uL ABG pH 7.29 L (7.35-7.45) ABG pCO2 87 H (35-46) mmHg ABG pO2 86 (80-95) mmHg ABG HCO3 41 H (19-24) mmol/L ABG O2 Saturation 95.4 H (90-95) % ABG Base Excess 11.6 H (-9-1.8) mEq/L Quintin Test Pos (Pos) Barometric Pressure 731.7 mm/Hg Oxygen Given room air Sodium (136-145) mmol/L Potassium (3.5-5.1) mmol/L Chloride (98-107) mmol/L Carbon Dioxide (21-32) mmol/L Anion Gap (3-11) BUN (7-18) mg/dl Creatinine (0.6-1.2) mg/dl Est Cr Clr Drug Dosing ml/min Est GFR ( Amer) Est GFR (Non-Af Amer) BUN/Creatinine Ratio (10-20) Glucose (70-99) mg/dl POC Glucose 99 (70-99) mg/dl Calcium (8.5-10.1) mg/dl Magnesium (1.8-2.4) mg/dl TSH (0.300-4.500) uIu/ml Vancomycin Trough 24.0 (See Comment) mcg/ml 05/23/20 05/23/20 Range/Units 07:11 07:11 WBC 4.74 L (4.8-10.8) K/uL RBC 3.40 L (4.2-5.4) M/uL Hgb 8.9 L (12.0-16.0) g/dL Hct 30.3 L (37-47) % MCV 89.1 (80-100) fL MCH 26.2 (25-34) pg MCHC 29.4 L (32-36) g/dL RDW Std Deviation 53.7 H (36.4-46.3) fL RDW Coeff of Catrachita 16.4 H (11.5-14.5) % Plt Count 145 (130-400) K/uL MPV 9.5 (7.4-10.4) fL Immature Gran % (Auto) 0.2 % Neut % (Auto) 77.1 % Lymph % (Auto) 10.1 % [place] % (Auto) 7.4 % Eos % (Auto) 4.4 % Baso % (Auto) 0.8 % Neut # (Auto) 3.65 (1.4-6.5) K/uL Lymph # (Auto) 0.48 L (1.2-3.4) K/uL [place] # (Auto) 0.35 (0.11-0.59) K/uL Eos # (Auto) 0.21 (0-0.5) K/uL Baso # (Auto) 0.04 (0-0.2) K/uL Immature Gran # (Auto) 0.01 (0.00-0.02) K/uL ABG pH (7.35-7.45) ABG pCO2 (35-46) mmHg ABG pO2 (80-95) mmHg ABG HCO3 (19-24) mmol/L ABG O2 Saturation (90-95) % ABG Base Excess (-9-1.8) mEq/L Quintin Test (Pos) Barometric Pressure mm/Hg Oxygen Given Sodium 140 (136-145) mmol/L Potassium 3.7 (3.5-5.1) mmol/L Chloride 99 (98-107) mmol/L Carbon Dioxide 40 H (21-32) mmol/L Anion Gap 1.0 L (3-11) BUN 28 H (7-18) mg/dl Creatinine 0.87 (0.6-1.2) mg/dl Est Cr Clr Drug Dosing 98.6 ml/min Est GFR ( Amer) 82.2 Est GFR (Non-Af Amer) 70.9 BUN/Creatinine Ratio 32.5 H (10-20) Glucose 95 (70-99) mg/dl POC Glucose (70-99) mg/dl Calcium 8.7 (8.5-10.1) mg/dl Magnesium 2.2 (1.8-2.4) mg/dl TSH 1.130 (0.300-4.500) uIu/ml Vancomycin Trough (See Comment) mcg/ml PG Care Time/CCT Total # of Minutes Spent Total Time Spent with Patient: Total time spent is greater than 50% in coordination of care (as documented) at patient's floor/unit and/or counseling patient: Coding Level of Care Code 03009 Subseq Hosp Care Lvl 3 Diagnoses CHF (congestive heart failure) I50.9 Heart failure chronicity: unspecified Heart failure type: unspecified Hypercapnia R06.89 Obesity hypoventilation syndrome E66.2 Hypoxia R09.02 Osteomyelitis M86.9 Osteomyelitis location: unspecified site Osteomyelitis type: unspecified type GERD (gastroesophageal reflux disease) K21.9 Esophagitis presence: esophagitis presence not specified Depression F32.9 Active/Remission status: remission status unspecified Depression Type: major depressive disorder Major depression recurrence: unspecified whether recurrent SCOTT (obstructive sleep apnea) G47.33 HTN (hypertension) I10 Hypertension type: essential hypertension DM type 2 (diabetes mellitus, type 2) E11.9 Diabetes mellitus complication status: without complication Diabetes mellitus care home insulin use: without termite renewal inspector use Atrial fibrillation I48.21 Atrial fibrillation type: permanent Anemia D64.9 DVT prophylaxis Z29.9 (1) DM type 2 (diabetes mellitus, type 2) Diabetes mellitus complication status: without complication Diabetes mellitus care home insulin use: without care home use Qualified Code(s): E11.9 - Type 2 diabetes mellitus without complications (2) CHF (congestive heart failure) Heart failure chronicity: unspecified Heart failure type: unspecified Qualif ied Code(s): I50.9 - Heart failure, unspecified (3) Atrial fibrillation Atrial fibrillation type: permanent Qualified Code(s): I48.21 - Permanent atrial fibrillation (4) Depression Active/Remission status: remission status unspecified Depression Type: major depressive disorder Major depression recurrence: unspecified whether recurrent Qualified Code(s): F32.9 - Major depressive disorder, single episode, unspecified (5) GERD (gastroesophageal reflux disease) Esophagitis presence: esophagitis presence not specified Qualified Code(s): K21.9 - Gastro-esophageal reflux disease without esophagitis (6) HTN (hypertension) Hypertension type: essential hypertension Qualified Code(s): I10 - Essential (primary) hypertension (7) Osteomyelitis Osteomyelitis location: unspecified site Osteomyelitis type: unspecified type Qualified Code(s): M86.9 - Osteomyelitis, unspecified
[2020-05-23] MEDS: DAPTOmycin 575 MG in SYRINGE 0 ML IV SCH (15:43)
--- NOTE | 2020-05-23 16:08 | Pulmonary Consultation ---
Date of Consultation May 23, 2020 Assessment & Plan (1) Hypercapnic respiratory failure: (2) Obesity hypoventilation syndrome: (3) Sleep apnea: Impression: 64-year-old female with history of sleep disordered breathing of unknown severity supposed to be on some form of nocturnal noninvasive positive pressure ventilation admitted with fluid overload and found to have acute on chronic hypercarbic respiratory failure. She has been started on Diamox which may actually be worsening her pH control as it would impede the ability to have renal compensation for her chronic respiratory acidosis. It is hard to ascertain whether or not she has an elevated right hemidiaphragm as most of her films are difficult to interpret but in 2017 it appeared to be in normal position. Recommendations: 1. Acute on chronic hypercarbic respiratory failure: Would discontinue Diamox as losing bicarb in the kidney will likely result in worsening of the patient's pH and no significant improvement in her overall PCO2. Contraction alkalosis with Lasix may actually be beneficial in improving the patient's pH over time. Would not recommend additional imaging studies or sniff test at this point time as it is unlikely to alter management. 2. Would continue BiPAP for now. Will discuss with respiratory therapy and try and target and ST mode with a tidal volume of around 450. We will follow up with venous blood gas in the morning. Ideally would need to review her outpatient sleep studies and compliance data to determine whether or not a long- term BiPAP is needed or whether or not the patient can simply be treated with CPAP. 3. Weight loss recommended. 4. Patient will need to follow-up with her previous sleep providers in [place] and get established with a new [employer] company when she is able to go home. History of Present Illness Attending Physician: Sheeba Valente MD History of Present Illness Asked by hospitalist to assist in evaluation of this patient with hypercarbic respiratory failure. History is obtained from discussion with the patient as well as review the electronic medical record. Patient is a 64-year-old female who apparently had a sleep study performed in [place] several years ago. She is followed by a sleep physician there. She was prescribed CPAP at unknown settings. She has not been compliant with that is she states her [employer] company is no longer in business and her dog chewed up her hoses. She has been in and out of rehab with a variety of medical issues. She was admitted to the hospital for 7 with what she describes as a 27 pound weight gain over several days. She was diuresed aggressively but due to concerns about her mental status a blood gas was obtained which demonstrated acute on chronic hypercarbic respiratory failure and prompted a pulmonary consultation. The patient when I evaluated her was currently on BiPAP. She is awake alert and conversant although she does describe her mental status as somewhat foggy. She is tolerating the device well. Allergies Allergy/AdvReac Type Severity Reaction Status Date / Time codeine Allergy Unknown unsure Verified 05/19/20 23:18 erythromycin base Allergy Unknown unsure Verified 05/19/20 23:18 Home Medications Medication Instructions Recorded Confirmed Type Lactobacillus acidophilus 10,000 mmu cells PO QAM 05/19/20 05/19/20 History [Probiotic] acetaminophen [Tylenol] 650 mg PO Q4H PRN 05/19/20 05/19/20 History cefepime 2 g IV Q12H 05/19/20 05/19/20 History cholecalciferol (vitamin D3) 25 mcg PO QAM 05/19/20 05/19/20 History [Vitamin D3] cinnamon bark [Cinnamon] 1,000 mg PO QAM 05/19/20 05/19/20 History citalopram [Celexa] 40 mg PO QAM 05/19/20 05/19/20 History cyanocobalamin (vitamin B-12) 500 mcg PO QAM 05/19/20 05/19/20 History [Vitamin B-12] diclofenac sodium [Voltaren] 4 g TOPICAL BID 05/19/20 05/19/20 History ferrous fumarate 63 mg PO QAM 05/19/20 05/19/20 History furosemide [Lasix] 40 mg PO QAM 05/19/20 05/19/20 History gabapentin 300 mg PO TID 05/19/20 05/19/20 History glipizide 5 mg PO BID17 05/19/20 05/19/20 History ipratropium-albuterol [Combivent 1 puff INHALATION Q6H PRN 05/19/20 05/19/20 History Respimat] lisinopril 20 mg PO QAM 05/19/20 05/19/20 History loratadine [Claritin] 10 mg PO HS 05/19/20 05/19/20 History melatonin 5 mg PO HS 05/19/20 05/19/20 History metoprolol tartrate 50 mg PO BID 05/19/20 05/19/20 History metronidazole [Flagyl] 500 mg PO Q8H 05/19/20 05/19/20 History multivitamin 1 tab PO QAM 05/19/20 05/19/20 History omega-3 fatty acids 1,000 mg PO QAM 05/19/20 05/19/20 History pantoprazole [Protonix] 40 mg PO DAILYBB 05/19/20 05/19/20 History potassium chloride [Klor-Con M20] 20 meq PO BID 05/19/20 05/19/20 History rivaroxaban [Xarelto] 20 mg PO PM 05/19/20 05/19/20 History vancomycin in dextrose 5 % 1,500 mg IV Q12H 05/19/20 05/20/20 History Patient History Medical History Atrial fibrillation Atrial fibrillation with RVR CHF (congestive heart failure) Chronic anticoagulation Depression DM type 2 (diabetes mellitus, type 2) GERD (gastroesophageal reflux disease) History of CVA (cerebrovascular accident) "Reported events in 2013 and 2014. " History of uterine cancer HTN (hypertension) Left leg cellulitis SCOTT (obstructive sleep apnea) Osteomyelitis Surgical History H/O: hysterectomy History of hysterectomy Status post cardiac catheterization "Nov 2009 at [facility]; showed mild-moderate non-obstructive CAD." Social History Smoking Status: Never smoker Second Hand Exposure: Yes; Hx Alcohol Use: No Hx Substance Use: No Preferred Language: Georgian Communication Ability: Effective Guide Visitor Required: No Beliefs That Will Affect Care: None marital status: Single Current Living Situation: Alone and Rehab Feels Safe at Home: Yes Assistive Devices: Denture - Upper, Denture - Lower and Glasses Review of Systems Review of Systems: Please refer to admission H&P. No additions or deletions Physical Exam Constitutional: WD/WN, vitals as above + obese Eyes: + anicteric sclerae ENMT: Ears: no hearing impairment Neck: trachea midline, no thyromegaly + abnormal visual inspection (Obese) Respiratory: normal respiratory effort Auscultation: + diminished lung sounds (At bases bilaterally); no crackles and no wheezes Cardiovascular: Rate/Rhythm: regular rate and + irregularly irregular Heart Sounds: no murmur Extremities: + edema (2+ pitting edema to the thighs bilaterally, improved) Chest (Breasts): Chest: normal inspection of chest Gastrointestinal (Abdomen): normal bowel sounds, soft, nontender, no hep atosplenomegaly (With mild distention) Musculoskeletal: Extremities: + extremities abnormal to inspection (Left foot with dressing in place clean dry and intact), no cyanosis and no clubbing Skin: no rashes, warm and dry Neurologic: moves all extremities and awake; no focal motor deficits Psychiatric: A+Ox3, euthymic affect Results & Data Results & Data ([facility]) Vital Signs (Past 12 Hours) Vital Signs Temp Pulse Pulse Resp BP Pulse Ox 05/23/20 15:26 36.5 C 72 20 115/73 92 05/23/20 15:00 64 05/23/20 11:50 36.1 C L 60 20 120/68 94 05/23/20 10:25 63 21 92 05/23/20 09:00 96 05/23/20 07:15 60 05/23/20 07:08 36.6 C 62 18 123/78 97 05/23/20 04:33 36.6 C 70 18 122/73 95 Laboratory Results 05/23/20 07:11 05/23/20 07:11 05/22/20 05/23/20 08:29 07:11 ABG pH 7.33 L 7.29 L ABG pCO2 83 H 87 H ABG pO2 76 L 86 ABG HCO3 43 H 41 H ABG O2 Saturation 92.0 95.4 H ABG Base Excess 14.3 H 11.6 H PG Care Time/CCT Total # of Minutes Spent Total Time Spent with Patient: Total time spent is greater than 50% in coordination of care (as documented) at patient's floor/unit and/or counseling patient: Coding Level of Care Code 84437 Inpt Consult Level 4 Diagnoses Hypercapnic respiratory failure J96.92 Obesity hypoventilation syndrome E66.2 Sleep apnea G47.30 Time Spent (min) 50
[2020-05-23] MEDS: LORATADINE 10 MG TAB PO SCH (19:49)
[2020-05-23] MEDS: RIVAROXABAN 20 MG TAB PO SCH (19:53)
[2020-05-23] MEDS ORDERED: FUROSEMIDE 40 MG in SYRINGE 0 ML IV ONE (20:30)
[2020-05-24] MEDS: PANTOprazole 40 MG TAB PO SCH (05:01)
[2020-05-24] MEDS: metroNIDAZOLE 500 MG TAB PO SCH ×3 (05:01→20:53)
[2020-05-24 06:14] LABS: Basophils # (auto) 0.02 K/uL (0-0.2); Basophils % (auto) 0.4 %; Eosinophils % (auto) 3.9 %; Hematocrit (blood only) 30.7 % (37-47); Immature Granulocytes # (auto) 0.01 K/uL (0.00-0.02); Immature Granulocytes % (auto) 0.2 %; Lymphocytes # (auto) 0.44 K/uL (1.2-3.4); Lymphocytes % (auto) 8.5 %; Mean Corpuscular Hemoglobin 26.5 pg (25-34); Mean Corpuscular Hgb Conc 29.3 g/dL (32-36); Mean Corpuscular Volume 90.3 fL (80-100); Mean Platelet Volume 9.5 fL (7.4-10.4); Monocytes # (auto) 0.49 K/uL (0.11-0.59); Monocytes % (auto) 9.5 %; Neutrophils # (auto) 4.02 K/uL (1.4-6.5); Neutrophils % (auto) 77.5 %; Platelet Count 138 K/uL (130-400); RDW Coefficient of Variation 16.5 % (11.5-14.5); RDW Standard Deviation 54.7 fL (36.4-46.3); White Blood Count 5.18 K/uL (4.8-10.8)
[2020-05-24 06:18] LABS: Base Excess VBG 11.8 mEq/L; Oxygen Saturation VBG 70.3 %; pH VBG 7.31 (7.36-7.41)
[2020-05-24 06:33] LABS: BUN Creatinine Ratio 35.6 (10-20); Calcium 8.8 mg/dl (8.5-10.1); Creatinine Clr Calc Pharmacy 95.6 ml/min; Est GFR (African American) 78.9; Potassium 3.6 mmol/L (3.5-5.1)
[2020-05-24] MEDS: FERROUS SULFATE 325 MG TAB PO SCH ×2 (08:04→17:47)
[2020-05-24] MEDS: INSULIN GLARGINE SOLOSTAR 100 UNITS/ML 3 ML PEN SC SCH ×2 (08:05→20:44)
[2020-05-24] MEDS: INSULIN ASPART 100 UNITS/ML 3 ML PEN SC SCH ×4 (08:05→20:46)
[2020-05-24] MEDS: CITALOPRAM 40 MG TAB PO SCH (08:05)
[2020-05-24] MEDS: DICLOFENAC SOD 1% GEL 100 GM TUBE EXT SCH ×2 (08:06→20:46)
[2020-05-24] MEDS: GABAPENTIN 300 MG CAP PO SCH ×3 (08:06→20:45)
[2020-05-24] MEDS: METOPROLOL TARTRATE 50 MG TAB PO SCH ×2 (08:06→20:47)
[2020-05-24] MEDS: CYANOCOBALAMIN 500 MCG TABLET (VITAMIN B-12) PO SCH (08:06)
[2020-05-24] MEDS: ADVANCED PROBIOTIC 1250 MG CAPSULE PO SCH (08:06)
[2020-05-24] MEDS: FUROSEMIDE 40 MG in SYRINGE 0 ML IV SCH ×2 (08:06→17:46)
[2020-05-24] MEDS: lisinopril 20 MG TAB PO SCH (08:06)
[2020-05-24] MEDS: CEFEPIME 2,000 MG in SYRINGE 0 ML IV SCH ×2 (08:15→20:43)
[2020-05-24] MEDS: MICONAZOLE NITRATE POWDER 43 GM EXT SCH ×2 (09:06→20:44)
[2020-05-24] MEDS: ACETAMINOPHEN 325 MG TAB PO PRN (09:06)
--- NOTE | 2020-05-24 10:35 | Pulmonology Progress Note ---
Date of Service May 24, 2020 Assessment & Plan (1) Hypercapnic respiratory failure: (2) Obesity hypoventilation syndrome: (3) Sleep apnea: Impression: 64-year-old female with history of sleep disordered breathing of unknown severity supposed to be on some form of nocturnal noninvasive po sitive pressure ventilation admitted with fluid overload and found to have acute on chronic hypercarbic respiratory failure. She has been started on Diamox which may actually be worsening her pH control as it would impede the ability to have renal compensation for her chronic respiratory acidosis. It is hard to ascertain whether or not she has an elevated right hemidiaphragm as most of her films are difficult to interpret but in 2017 it appeared to be in normal position. Recommendations: 1. Acute on chronic hypercarbic respiratory failure: Would avoid Diamox as losing bicarb in the kidney will likely result in worsening of the patient's pH and no significant improvement in her overall PCO2. Contraction alkalosis with Lasix may actually be beneficial in improving the patient's pH over time. Would only consider Diamox if the patient's pH becomes alkalemia. Would not recommend additional imaging studies or sniff test at this point time as it is unlikely to alter management. Additional evaluation including pulmonary function tests and assessment of respiratory muscle strength including MEP/MIP/MVV could be considered. 2. Would continue nocturnal positive airway pressure. Her gas and clinical status appear to be improving. She will need to follow-up in the outpatient setting as noted below 3. Weight loss recommended. 4. Patient will need to follow-up with her previous sleep providers in [place] and get established with a new [employer] company when she is able to go home. At this point time the patient appears stable to clinically improved. Pulmonary will sign off at this point time. Feel free to contact us if we can be of additional assistance. Admission and Anticipated Discharge Date Admission Date: May 20, 2020 Subjective Patient seen and examined. EMR reviewed. The patient is seen sitting up and eating. She used her noninvasive positive pressure ventilation overnight and tolerated it well. She states she still feels foggy but appears awake alert and appropriate this morning. Review of Systems Review of Systems: All systems reviewed & are unremarkable except as noted in HPI & below Physical Exam Constitutional: WD/WN, vitals as above + obese Eyes: + anicteric sclerae ENMT: Ears: no hearing impairment Neck: trachea midline, no thyromegaly + abnormal visual inspection (Obese) Respiratory: normal respiratory effort Auscultation: + diminished lung sounds (At bases bilaterally); no crackles and no wheezes Cardiovascular: Rate/Rhythm: regular rate and + irregularly irregular Heart Sounds: no murmur Extremities: + edema (2+ pitting edema to the thighs bilaterally, improved) Chest (Breasts): Chest: normal inspection of chest Gastrointestinal (Abdomen): normal bowel sounds, soft, nontender, no hepatosplenomegaly (With mild distention) Musculoskeletal: Extremities: + extremities abnormal to inspection (Left foot with dressing in place clean dry and intact), no cyanosis and no clubbing Skin: no rashes, warm and dry Neurologic: moves all extremities and awake; no focal motor deficits Psychiatric: A+Ox3, euthymic affect Results & Data Results & Data ([facility]) Vital Signs (Past 12 Hours) Vital Signs Temp Pulse Pulse Resp BP Pulse Ox 05/24/20 07:44 36.8 C 68 18 132/76 93 05/24/20 04:10 36.5 C 60 19 133/65 97 05/24/20 03:16 58 L 20 94 05/24/20 00:42 70 18 97 05/24/20 00:18 67 05/24/20 00:10 36.5 C 64 18 125/65 95 Laboratory Results 05/24/20 05:46 05/24/20 05:46 Venous blood gas this morning 7.31/82 PG Care Time/CCT Total # of Minutes Spent Total Time Spent with Patient: Total time spent is greater than 50% in coordination of care (as documented) at patient's floor/unit and/or counseling patient: Coding Level of Care Code 00531 Subseq Hosp Care Lvl 2 Diagnoses Hypercapnic respiratory failure J96.92 Obesity hypoventilation syndrome E66.2 Sleep apnea G47.30
--- NOTE | 2020-05-24 16:26 | Hospitalist Progress Note ---
Date of Service May 24, 2020 Assessment & Plan (1) CHF (congestive heart failure): This patient is a 64yo female presenting with 1 week of progressive SOB/COLLINS/edema and orthopnea in setting of missing her scheduled Lasix dosing as well as salt intake. Echo from 04/26/20 with normal LV function EF of 50-55%, mild MR and mild TR. Here with acute on chronic diastolic CHF exacerbation Has improved symptomatically with her breathing, however continues with significant lower extremity edema. And is now down 7 kg since admission but has not decreased in the last 2 days. Has elevated serum bicarbonate from CO2 retention/obesity hypoventilation syndrome Hypoxia is significantly improved, weaned down to 2.5 L nasal cannula -continue Lasix 40mg IV BID (held for one day when serum HCO3 was rising due to concern for contraction alkalosis however was from compensation for respiratory acidosis) -I/O monitoring, continue fluid restriction 1500 mL/day, low-sodium diet -Daily weights -Follow BMP in the morning (2) Hypercapnia: Developed increasing mild lethargy and foggy sensation, sensation of not being quite right ABG on 05/22 showed 7.33/83/76 on 2 L She was placed on BiPAP for a few hours on 05/22 during the day and then all night and ABG on the morning of 05/23 was slightly worse at 7.29/87/86 on 2 L nasal cannula Placed on continuous BiPAP throughout the day on 05/23 and qhs VBG 05/24 improved at 7.31/82 and symptomatically somewhat improved. Certainly is mentating and alert, awake, just slightly mentally "foggy" Consulted pulmonology-recommends discontinuation of Diamox (received 2 days worth), continued BiPAP hs. Ideally he needs to review her outpatient sleep studies and compliance data to consider whether she is a long-term BiPAP candidate or if she should just remain on CPAP. Also recommended weight loss and follow-up with her previous sleep provider in [place]. He also thought that a contraction alkalosis with Lasix may be beneficial in improving the patient's pH over time, and that additional imaging studies or sniff test at this point in time would be unlikely to alter her management. Signed off. -We will continue BiPAP 26/06 with naps and at bedtime and recommend this upon discharge to the intermediate facility-Rx written for this and given to Power Plant Inspector -Needs weight loss -cont Lasix 40 mg IV twice daily -follow VBG again in AM (3) Obesity hypoventilation syndrome: As above (4) Hypoxia: Reports she has chronic respiratory failure with hypoxia only in the last month since her foot surgery Is on 4 L chronically since last admission but I feel she can be weaned down from this-has been weaned down to 2.5 L and is doing well with this-recommend O2 2.5LNC continuous at discharge With serum bicarbonate rising, could also have some chronic CO2 retention from obesity hypoventilation syndrome as above (5) Osteomyelitis: LLE osteomyelitis s/p surgical excision of left 5th MT and phalanx during admission in 04/2020. Wound is healing, afebrile, doing well Remains nonweightbearing on the left lower extremity Grew Proteus from the wound, but because she had a gas-forming suspected organism and large abscess, she is on broad-spectrum antibiotics to include coverage for anaerobes Vancomycin has been difficult to dose and she is morbidly obese. Discussed with pharmacist and changed to daptomycin on 05/23 -Discontinued vancomycin -Continue Cefepime 2gm IV q 12 -continue daptomycin 575mg IV qday -OF NOTE THIS IS A CHANGE FROM PREVIOUS ABX SHE WAS ON AT [facility] AND MAY NEED TO BE APPROVED BY SNF -Continue Flagyl 500mg po TID Antibiotics started on 05/04/20 - to continue x 5 week course which will end on 06/08/2020 Has PICC in the right upper extremity (6) GERD (gastroesophageal reflux disease): Chronic -Continue Protonix 40mg po daily (7) Depression: Chronic. Stable -Continue Celexa 40mg po qAM (8) SCOTT (obstructive sleep apnea): Chronic -Typically on CPAP 8cm H2O qHS, but will switch to BiPAP as above (9) HTN (hypertension): Chronic, BPs are controlled -Continue Lisinopril -Continue Metoprolol -Continue to monitor (10) DM type 2 (diabetes mellitus, type 2): BS stable. Last A1=7.3 Blood sugars here very well controlled -Hold oral agents from home -Continue Lantus 8 u BID -ISS - goal blood sugar 100 - 140 -Continue Neurontin 300mg po TID for neuropathy (11) Atrial fibrillation: Chronic atrial fibrillation Rate controlled. Anticoagulated with Rivaroxaban -Continue metoprolol -Continue Rivaroxaban (12) Anemia: Hemoglobin slightly down from previous today at 8.9, is normocytic Iron studies show mildly low iron saturation at 13%, B12 and folate are normal -Started ferrous sulfate 325 mg p.o. twice daily -Follow CBC -Outpatient follow-up with PCP to see if needs EGD/colonoscopy if has not had one recently (13) DVT prophylaxis: Xarelto Code - DNR/DNI as per discussion with patient Dispo -continued stay medical with telemetry, appreciate PT/OT evaluations with recommendation to return to intermediate facility. May be ready for discharge in the next 1-2 days (Monday or Monday) if can get more volume off and CO2 improved Admission and Anticipated Discharge Date Admission Date: May 20, 2020 Subjective Pt still feels tired but overall better. Tolerated BiPAP most of the day yesterday and last night. No SOB or chest pain. Is eating, no nausea. Tele with Afib, PVCs, rates 60-70s Review of Systems Review of Systems: All systems reviewed & are unremarkable except as noted in HPI & below Physical Exam Constitutional: WD/WN, vitals as above + obese Eyes: + anicteric sclerae ENMT: Ears: no hearing impairment Neck: trachea midline, no thyromegaly + abnormal visual inspection (Obese) Respiratory: normal respiratory effort Auscultation: + diminished lung sounds (At bases bilaterally) and + crackles (bibasilar); no wheezes Cardiovascular: Rate/Rhythm: regular rate and + irregularly irregular Heart Sounds: no murmur Extremities: + edema (2+ pitting edema to the thighs bilaterally not improved from yesterday) Chest (Breasts): Chest: normal inspection of chest Gastrointestinal (Abdomen): normal bowel sounds, soft, nontender, no hepatosplenomegaly (With mild distention) Musculoskeletal: Extremities: + extremities abnormal to inspection (Left foot with dressing in place clean dry and intact), no cyanosis and no clubbing Skin: no rashes, warm and dry Neurologic: moves all extremities and awake; no focal motor deficits Psychiatric: A+Ox3, euthymic affect Results & Data Results & Data ([facility]) Vital Signs (Past 12 Hours) Vital Signs Temp Pulse Pulse Resp BP Pulse Ox 05/24/20 16:00 36.7 C 77 18 143/87 H 93 05/24/20 15:10 70 05/24/20 11:33 36.7 C 67 18 125/73 97 05/24/20 08:00 59 L 05/24/20 07:44 36.8 C 68 18 132/76 93 Laboratory Results 05/24/20 05/24/20 05/24/20 Range/Units 12:16 07:53 05:46 WBC (4.8-10.8) K/uL RBC (4.2-5.4) M/uL Hgb (12.0-16.0) g/dL Hct (37-47) % MCV (80-100) fL MCH (25-34) pg MCHC (32-36) g/dL RDW Std Deviation (36.4-46.3) fL RDW Coeff of Catrachita (11.5-14.5) % Plt Count (130-400) K/uL MPV (7.4-10.4) fL Immature Gran % (Auto) % Neut % (Auto) % Lymph % (Auto) % [place] % (Auto) % Eos % (Auto) % Baso % (Auto) % Neut # (Auto) (1.4-6.5) K/uL Lymph # (Auto) (1.2-3.4) K/uL [place] # (Auto) (0.11-0.59) K/uL Eos # (Auto) (0-0.5) K/uL Baso # (Auto) (0-0.2) K/uL Immature Gran # (Auto) (0.00-0.02) K/uL VBG pH 7.31 L (7.36-7.41) VBG pCO2 82 H (38-50) mmHg VBG pO2 39 mmHg VBG HCO3 40 mmol/L VBG O2 Saturation 70.3 % VBG Base Excess 11.8 mEq/L Barometric Pressure 720.2 mm/Hg Sodium (136-145) mmol/L Potassium (3.5-5.1) mmol/L Chloride (98-107) mmol/L Carbon Dioxide (21-32) mmol/L Anion Gap (3-11) BUN (7-18) mg/dl Creatinine (0.6-1.2) mg/dl Est Cr Clr Drug Dosing ml/min Est GFR ( Amer) Est GFR (Non-Af Amer) BUN/Creatinine Ratio (10-20) Glucose (70-99) mg/dl POC Glucose 116 H 122 H (70-99) mg/dl Calcium (8.5-10.1) mg/dl 05/24/20 05/24/20 05/23/20 Range/Units 05:46 05:46 19:42 WBC 5.18 (4.8-10.8) K/uL RBC 3.40 L (4.2-5.4) M/uL Hgb 9.0 L (12.0-16.0) g/dL Hct 30.7 L (37-47) % MCV 90.3 (80-100) fL MCH 26.5 (25-34) pg MCHC 29.3 L (32-36) g/dL RDW Std Deviation 54.7 H (36.4-46.3) fL RDW Coeff of Catrachita 16.5 H (11.5-14.5) % Plt Count 138 (130-400) K/uL MPV 9.5 (7.4-10.4) fL Immature Gran % (Auto) 0.2 % Neut % (Auto) 77.5 % Lymph % (Auto) 8.5 % [place] % (Auto) 9.5 % Eos % (Auto) 3.9 % Baso % (Auto) 0.4 % Neut # (Auto) 4.02 (1.4-6.5) K/uL Lymph # (Auto) 0.44 L (1.2-3.4) K/uL [place] # (Auto) 0.49 (0.11-0.59) K/uL Eos # (Auto) 0.20 (0-0.5) K/uL Baso # (Auto) 0.02 (0-0.2) K/uL Immature Gran # (Auto) 0.01 (0.00-0.02) K/uL VBG pH (7.36-7.41) VBG pCO2 (38-50) mmHg VBG pO2 mmHg VBG HCO3 mmol/L VBG O2 Saturation % VBG Base Excess mEq/L Barometric Pressure mm/Hg Sodium 139 (136-145) mmol/L Potassium 3.6 (3.5-5.1) mmol/L Chloride 99 (98-107) mmol/L Carbon Dioxide 39 H (21-32) mmol/L Anion Gap 1.0 L (3-11) BUN 32 H (7-18) mg/dl Creatinine 0.90 (0.6-1.2) mg/dl Est Cr Clr Drug Dosing 95.6 ml/min Est GFR ( Amer) 78.9 Est GFR (Non-Af Amer) 68.0 BUN/Creatinine Ratio 35.6 H (10-20) Glucose 102 H (70-99) mg/dl POC Glucose 125 H (70-99) mg/dl Calcium 8.8 (8.5-10.1) mg/dl 05/23/20 Range/Units 16:39 WBC (4.8-10.8) K/uL RBC (4.2-5.4) M/uL Hgb (12.0-16.0) g/dL Hct (37-47) % MCV (80-100) fL MCH (25-34) pg MCHC (32-36) g/dL RDW Std Deviation (36.4-46.3) fL RDW Coeff of Catrachita (11.5-14.5) % Plt Count (130-400) K/uL MPV (7.4-10.4) fL Immature Gran % (Auto) % Neut % (Auto) % Lymph % (Auto) % [place] % (Auto) % Eos % (Auto) % Baso % (Auto) % Neut # (Auto) (1.4-6.5) K/uL Lymph # (Auto) (1.2-3.4) K/uL [place] # (Auto) (0.11-0.59) K/uL Eos # (Auto) (0-0.5) K/uL Baso # (Auto) (0-0.2) K/uL Immature Gran # (Auto) (0.00-0.02) K/uL VBG pH (7.36-7.41) VBG pCO2 (38-50) mmHg VBG pO2 mmHg VBG HCO3 mmol/L VBG O2 Saturation % VBG Base Excess mEq/L Barometric Pressure mm/Hg Sodium (136-145) mmol/L Potassium (3.5-5.1) mmol/L Chloride (98-107) mmol/L Carbon Dioxide (21-32) mmol/L Anion Gap (3-11) BUN (7-18) mg/dl Creatinine (0.6-1.2) mg/dl Est Cr Clr Drug Dosing ml/min Est GFR ( Amer) Est GFR (Non-Af Amer) BUN/Creatinine Ratio (10-20) Glucose (70-99) mg/dl POC Glucose 119 H (70-99) mg/dl Calcium (8.5-10.1) mg/dl PG Care Time/CCT Total # of Minutes Spent Total Time Spent with Patient: Total time spent is greater than 50% in coordination of care (as documented) at patient's floor/unit and/or counseling patient: Coding Level of Care Code 96099 Subseq Hosp Care Lvl 3 Diagnoses CHF (congestive heart failure) I50.9 Heart failure chronicity: unspecified Heart failure type: unspecified Hypercapnia R06.89 Obesity hypoventilation syndrome E66.2 Hypoxia R09.02 Osteomyelitis M86.9 Osteomyelitis type: unspecified type Osteomyelitis location: unspecified site GERD (gastroesophageal reflux disease) K21.9 Esophagitis presence: esophagitis presence not specified Depression F32.9 Depression Type: major depressive disorder Major depression recurrence: unspecified whether recurrent Active/Remission status: remission status unspecified SCOTT (obstructive sleep apnea) G47.33 HTN (hypertension) I10 Hypertension type: essential hypertension DM type 2 (diabetes mellitus, type 2) E11.9 Diabetes mellitus intermediate accountant insulin use: without intermediate accountant use Diabetes mellitus complication status: without complication Atrial fibrillation I48.21 Atrial fibrillation type: permanent Anemia D64.9 DVT prophylaxis Z29.9 (1) CHF (congestive heart failure) Heart failure chronicity: unspecified Heart failure type: unspecified Qualified Code(s): I50.9 - Heart failure, unspecified (2) Osteomyelitis Osteomyelitis type: unspecified type Osteomyelitis location: unspecified site Qualified Code(s): M86.9 - Osteomyelitis, unspecified (3) GERD (gastroesophageal reflux disease) Esophagitis presence: esophagitis presence not specified Qualified Code(s): K21.9 - Gastro-esophageal reflux disease without esophagitis (4) Depression Depression Type: major depressive disorder Major depression recurrence: unspecified whether recurrent Active/Remission status: remission status unspecified Qualified Code(s): F32.9 - Major depressive disorder, single episode, unspecified (5) HTN (hypertension) Hypertension type: essential hypertension Qualified Code(s): I10 - Essential (primary) hypertension (6) DM type 2 (diabetes mellitus, type 2) Diabetes mellitus intermediate accountant insulin use: without fdc use Diabetes isaura weir complication status: without complication Qualified Code(s): E11.9 - Type 2 diabetes mellitus without complications (7) Atrial fibrillation Atrial fibrillation type: permanent Qualified Code(s): I48.21 - Permanent atrial fibrillation
[2020-05-24] MEDS: DAPTOmycin 575 MG in SYRINGE 0 ML IV SCH (17:45)
[2020-05-24] MEDS: LORATADINE 10 MG TAB PO SCH (20:43)
[2020-05-24] MEDS: RIVAROXABAN 20 MG TAB PO SCH (20:45)
[2020-05-25 05:57] LABS: Basophils # (auto) 0.02 K/uL (0-0.2); Basophils % (auto) 0.4 %; Eosinophils # (auto) 0.17 K/uL (0-0.5); Eosinophils % (auto) 3.7 %; Hematocrit (blood only) 31.3 % (37-47); Hemoglobin 9.3 g/dL (12.0-16.0); Lymphocytes # (auto) 0.52 K/uL (1.2-3.4); Lymphocytes % (auto) 11.2 %; Mean Corpuscular Hemoglobin 26.7 pg (25-34); Mean Corpuscular Hgb Conc 29.7 g/dL (32-36); Mean Corpuscular Volume 89.9 fL (80-100); Mean Platelet Volume 9.5 fL (7.4-10.4); Monocytes # (auto) 0.47 K/uL (0.11-0.59); Monocytes % (auto) 10.1 %; Neutrophils # (auto) 3.47 K/uL (1.4-6.5); Neutrophils % (auto) 74.6 %; Platelet Count 132 K/uL (130-400); RDW Coefficient of Variation 16.4 % (11.5-14.5); RDW Standard Deviation 54.5 fL (36.4-46.3); Red Blood Count 3.48 M/uL (4.2-5.4); White Blood Count 4.65 K/uL (4.8-10.8)
[2020-05-25 05:59] LABS: Base Excess VBG 13.8 mEq/L; pH VBG 7.28 (7.36-7.41)
[2020-05-25] MEDS: metroNIDAZOLE 500 MG TAB PO SCH ×3 (06:09→21:58)
[2020-05-25 06:29] LABS: BUN Creatinine Ratio 36.7 (10-20); Creatinine Clr Calc Pharmacy 89.6 ml/min; Est GFR (African American) 72.9; Est GFR (Non-African American) 62.9; Magnesium 2.2 mg/dl (1.8-2.4); Potassium 3.7 mmol/L (3.5-5.1)
[2020-05-25] MEDS: PANTOprazole 40 MG TAB PO SCH (06:41)
--- NOTE | 2020-05-25 07:28 | Hospitalist Progress Note ---
Date of Service May 25, 2020 Assessment & Plan (1) CHF (congestive heart failure): This patient is a 64yo female presenting with 1 week of progressive SOB/COLLINS/edema and orthopnea in setting of missing her scheduled Lasix dosing as well as salt intake. Echo from 04/26/20 with normal LV function EF of 50-55%, mild MR and mild TR. Here with acute on chronic diastolic CHF exacerbation Has improved symptomatically with her breathing, however continues with significant lower extremity edema. And is now down 7 kg since admission, is net -4.7 L this admission on I's and O's Has elevated serum bicarbonate from CO2 retention/obesity hypoventilation syndrome Hypoxia is significantly improved, weaned down to 2.5-3 L nasal cannula -continue Lasix 40mg IV BID (held for one day when serum HCO3 was rising due to concern for contraction alkalosis however was from compensation for respiratory acidosis) -I/O monitoring, continue fluid restriction 1500 mL/day, low-sodium diet -Daily weights -Follow BMP in the morning (2) Hypercapnia: Developed increasing mild lethargy and foggy sensation, sensation of not being quite right on 05/22 ABG on 05/22 showed 7.33/83/76 on 2 L She was placed on BiPAP for a few hours on 05/22 during the day and then all night and ABG on the morning of 05/23 was slightly worse at 7.29/87/86 on 2 L nasal cannula Placed on continuous BiPAP throughout the day on 05/23 and qhs VBG 05/24 improved at 7.31/82 and symptomatically somewhat improved. Repeat VBG on 05/25 worse again at 7.28/94 Certainly is mentating and alert, awake, just slightly mentally "foggy" Consulted pulmonology-recommends discontinuation of Diamox (received 2 days worth), continued BiPAP hs. Ideally he needs to review her outpatient sleep studies and compliance data to consider whether she is a long-term BiPAP candidate or if she should just remain on CPAP. Also recommended weight loss and follow-up with her previous sleep provider in [place]. He also thought that a contraction alkalosis with Lasix may be beneficial in improving the patient's pH over time, and that additional imaging studies or sniff test at this point in time would be unlikely to alter her management. Signed off. I asked pulmonology to round on her again today given worsening hypercapnia -We will continue BiPAP 14/5 continuously for today but can be removed for meals, continue at bedtime and recommend this upon discharge to the [facility] facility-Rx written for this and given to [employer] -Needs weight loss -cont Lasix 40 mg IV twice daily -follow VBG again in AM -Asked nurse to wean O2 down to keep only greater than 92% -Appreciate any further pulmonology recommendations (3) Obesity hypoventilation syndrome: As above (4) Hypoxia: Reports she has chronic respiratory failure with hypoxia only in the last month since her foot surgery Is on 4 L chronically since last admission but I feel she can be weaned down from this-has been weaned down to 2.5-3 L and is doing well with this Chest x-ray repeated on 05/25 shows improved/less pulmonary edema and improved pleural effusions With serum bicarbonate rising, could also have some chronic CO2 retention from obesity hypoventilation syndrome as above (5) Osteomyelitis: LLE osteomyelitis s/p surgical excision of left 5th MT and phalanx during admission in 04/2020. Wound is healing, afebrile, doing well Remains nonweightbearing on the left lower extremity Grew Proteus from the wound, but because she had a gas-forming suspected orga nism and large abscess, she is on broad-spectrum antibiotics to include coverage for anaerobes Vancomycin has been difficult to dose and she is morbidly obese. Discussed with pharmacist and changed to daptomycin on 05/23 -Discontinued vancomycin that she was on prior to admission -Continue Cefepime 2gm IV q 12 -continue daptomycin 575mg IV qday -OF NOTE THIS IS A CHANGE FROM PREVIOUS ABX SHE WAS ON AT [facility] AND MAY NEED TO BE APPROVED BY [facility] -Continue Flagyl 500mg po TID Antibiotics started on 05/04/20 - to continue x 5 week course which will end on 06/08/2020 Has PICC in the right upper extremity-chest x-ray now appears PICC is in the right atrium-have asked IV team to back this out 1 cm (6) GERD (gastroesophageal reflux disease): Chronic -Continue Protonix 40mg po daily (7) Depression: Chronic. Stable -Continue Celexa 40mg po qAM (8) SOCTT (obstructive sleep apnea): Chronic -Typically on CPAP 8cm H2O qHS, but switched to BiPAP as above (9) HTN (hypertension): Chronic, BPs are controlled -Continue Lisinopril -Continue Metoprolol -Continue to monitor (10) DM type 2 (diabetes mellitus, type 2): BS stable. Last A1=7.3 Blood sugars here very well controlled -Hold oral agents from home -Continue Lantus 8 u BID -ISS - goal blood sugar 100 - 140 -Continue Neurontin 300mg po TID for neuropathy (11) Atrial fibrillation: Chronic atrial fibrillation Rate controlled. Anticoagulated with Rivaroxaban -Continue metoprolol -Continue Rivaroxaban (12) Anemia: Hemoglobin stable around 9, is normocytic Iron studies show mildly low iron saturation at 13%, B12 and folate are normal -Started ferrous sulfate 325 mg p.o. twice daily -Follow CBC -Outpatient follow-up with PCP to see if needs EGD/colonoscopy if has not had one recently (13) DVT prophylaxis: Xarelto Code - DNR/DNI as per discussion with patient Dispo -continued stay medical with telemetry, appreciate PT/OT evaluations with recommendation to return to [facility] facility. May be ready for discharge in the next 1-2 days if can get more volume off and CO2 improved Admission and Anticipated Discharge Date Admission Date: May 20, 2020 Subjective Patient was on BiPAP through the night and her oxygen was on 4 L despite having a pulse ox of 99%. Advised nurse to wean down today and she has her down to 3 L now. Patient reports continued feeling of just being a little bit cloudy or foggy, but otherwise seems to be mentating well. She is eating and drinking. Has no chest pain or shortness of breath. VBG this morning was worse than previous at 7. Review of Systems Review of Systems: All systems reviewed & are unremarkable except as noted in HPI & below Physical Exam Constitutional: WD/WN, vitals as above + obese Eyes: + anicteric sclerae ENMT: Ears: no hearing impairment Neck: trachea midline, no thyromegaly + abnormal visual inspection (Obese) Respiratory: normal respiratory effort Auscultation: + diminished lung sounds (At bases bilaterally); no wheezes Cardiovascular: Rate/Rhythm: regular rate and + irregularly irregular Heart Sounds: no murmur Extremities: + edema (2-3+ pitting woody edema to the thighs bilaterally ) Chest (Breasts): Chest: normal inspection of chest Gastrointestinal (Abdomen): normal bowel sounds, soft, nontender, no hepatosplenomegaly (With mild distention) Musculoskeletal: Extremities: + extremities abnormal to inspection (Left foot with dressing in place clean dry and intact), no cyanosis and no clubbing Skin: no rashes, warm and dry Neurologic: moves all extremities and awake; no focal motor deficits Psychiatric: A+Ox3, euthymic affect Results & Data Results & Data ([facility]) Vital Signs (Past 12 Hours) Vital Signs Temp Pulse Pulse Resp BP Pulse Ox 05/25/20 07:22 36.6 C 64 20 132/73 98 05/25/20 04:00 36.5 C 66 18 136/84 99 05/25/20 03:15 60 18 99 05/24/20 23:53 36.7 C 68 18 124/76 97 05/24/20 22:21 80 21 95 Laboratory Results 05/25/20 05:47 05/25/20 05:47 Diagnostic Findings Chest X-Ray 05/25/20 07:54 XR chest 1V portable HISTORY: Hypoxia. Congestive heart failure. COMPARISON: Chest 05/19/2020. FINDINGS: Slight improvement in the mild interstitial pulmonary edema and small bilateral pleural effusions. The heart remains mildly enlarged. A right PICC terminates in the right atrium. No pneumothorax. No new focal lung consolidations. IMPRESSION: 1. Slight improvement in the pulmonary edema. 2. Cardiomegaly and small bilateral pleural effusions are again noted. 3. The right PICC terminates in the right atrium. ACT 112: Negative or not required by law. Electronically signed by: Rick Gay M.D. 05/25/2020 10:50 AM PG Care Time/CCT Total # of Minutes Spent Total Time Spent with Patient: Total time spent is greater than 50% in coordination of care (as documented) at patient's floor/unit and/or counseling patient: Coding Level of Care Code 99441 Subseq Hosp Care Lvl 3 Diagnoses CHF (congestive heart failure) I50.9 Heart failure chronicity: unspecified Heart failure type: unspecified Hypercapnia R06.89 Obesity hypoventilation syndrome E66.2 Hypoxia R09.02 Osteomyelitis M86.9 Osteomyelitis location: unspecified site Osteomyelitis type: unspecified type GERD (gastroesophageal reflux disease) K21.9 Esophagitis presence: esophagitis presence not specified Depression F32.9 Active/Remission status: remission status unspecified Depression Type: major depressive disorder Major depression recurrence: unspecified whether recurrent SCOTT (obstructive sleep apnea) G47.33 HTN (hypertension) I10 Hypertension type: essential hypertension DM type 2 (diabetes mellitus, type 2) E11.9 Diabetes mellitus complication status: without complication Diabetes mellitus [employer] insulin use: without mcc use Atrial fibrillation I48.21 Atrial fibrillation type: permanent Anemia D64.9 DVT prophylaxis Z29.9 (1) DM type 2 (diabetes mellitus, type 2) Diabetes mellitus complication status: without complication Diabetes mellitus mcc insulin use: without [employer] use Qualified Code(s): E11.9 - Type 2 diabetes mellitus without complications (2) CHF (congestive heart failure) Heart failure chronicity: unspecified Heart failure type: unspecified Qu alified Code(s): I50.9 - Heart failure, unspecified (3) Atrial fibrillation Atrial fibrillation type: permanent Qualified Code(s): I48.21 - Permanent atrial fibrillation (4) Depression Active/Remission status: remission status unspecified Depression Type: major depressive disorder Major depression recurrence: unspecified whether recurrent Qualified Code(s): F32.9 - Major depressive disorder, single episode, unspecified (5) GERD (gastroesophageal reflux disease) Esophagitis presence: esophagitis presence not specified Qualified Code(s): K21.9 - Gastro-esophageal reflux disease without esophagitis (6) HTN (hypertension) Hypertension type: essential hypertension Qualified Code(s): I10 - Essential (primary) hypertension (7) Osteomyelitis Osteomyelitis location: unspecified site Osteomyelitis type: unspecified type Qualified Code(s): M86.9 - Osteomyelitis, unspecified
[2020-05-25] MEDS: INSULIN ASPART 100 UNITS/ML 3 ML PEN SC SCH ×4 (08:11→21:02)
[2020-05-25] MEDS: CITALOPRAM 40 MG TAB PO SCH (08:11)
[2020-05-25] MEDS: FERROUS SULFATE 325 MG TAB PO SCH ×2 (08:11→16:49)
[2020-05-25] MEDS: MICONAZOLE NITRATE POWDER 43 GM EXT SCH ×2 (08:11→21:00)
[2020-05-25] MEDS: CEFEPIME 2,000 MG in SYRINGE 0 ML IV SCH ×2 (08:11→19:34)
[2020-05-25] MEDS: GABAPENTIN 300 MG CAP PO SCH ×3 (08:12→20:59)
[2020-05-25] MEDS: ADVANCED PROBIOTIC 1250 MG CAPSULE PO SCH (08:12)
[2020-05-25] MEDS: CYANOCOBALAMIN 500 MCG TABLET (VITAMIN B-12) PO SCH (08:12)
[2020-05-25] MEDS: METOPROLOL TARTRATE 50 MG TAB PO SCH ×2 (08:12→20:58)
[2020-05-25] MEDS: INSULIN GLARGINE SOLOSTAR 100 UNITS/ML 3 ML PEN SC SCH ×2 (08:12→21:02)
[2020-05-25] MEDS: DICLOFENAC SOD 1% GEL 100 GM TUBE EXT SCH ×2 (08:12→20:58)
[2020-05-25] MEDS: FUROSEMIDE 40 MG in SYRINGE 0 ML IV SCH ×2 (08:12→14:18)
[2020-05-25] MEDS: lisinopril 20 MG TAB PO SCH (08:13)
--- NOTE | 2020-05-25 10:51 | XRay Report ---
XR chest 1V portable HISTORY: Hypoxia. Congestive heart failure. COMPARISON: Chest 05/19/2020. FINDINGS: Slight improvement in the mild interstitial pulmonary edema and small bilateral pleural eff usions. The heart remains mildly enlarged. A right PICC terminates in the right atrium. No pneumothor ax. No new focal lung consolidations. IMPRESSION: 1. Slight improvement in the pulmonary edema. 2. Cardiomegaly and small bilateral pleural effusions are again noted. 3. The right PICC terminates in the right atrium. ACT 112: Negative or not required by law. Electronically signed by: Rick Gay M.D. 05/25/2020 10:50 AM
--- NOTE | 2020-05-25 14:10 | XRay Report ---
XR chest 1V portable HISTORY: 64 years-old Female Confirm PICC placement (catheter adjusted) status post placement of a r ight-sided PICC COMPARISON: Chest radiograph of same day at 10:23 AM TECHNIQUE: Portable AP view the chest FINDINGS: Exam is mildly limited secondary to patient positioning. Cardiac silhouette is enlarged. Right-sided PICC redemonstrated with distal tip overlying the expected location of the right atrium. Unchanged pu lmonary edema with small pleural effusions and bibasilar opacities. Degenerative changes of the shoul ders and spine. IMPRESSION: 1. Right-sided PICC distal tip overlies the right atrium. 2. Cardiomegaly with unchanged pulmonary edema. 3. Small pleural effusions with bibasilar opacities redemonstrated. ACT 112: Negative or not required by law. The above report was generated using voice recognition software. It may contain grammatical, syntax o r spelling errors. Electronically signed by: Julius Brothers M.D. 05/25/2020 2:08 PM
--- NOTE | 2020-05-25 16:01 | Critical Care Progress Note ---
Date of Service May 25, 2020 Assessment & Plan (1) Hypercapnic respiratory failure: (2) Obesity hypoventilation syndrome: (3) Sleep apnea: Impression: 64-year-old female with history of sleep disordered breathing of unknown severity supposed to be on some form of nocturnal noninvasive po sitive pressure ventilation admitted with fluid overload and found to have acute on chronic hypercarbic respiratory failure. Recommendations: 1. Acute on chronic hypercarbic respiratory failure: Continue with BiPAP nightly and anytime sleeping. I have held her Lasix dose this evening as her serum bicarbonate is increasing substantially. Can consider restarting oral diuretic therapy tomorrow. She should follow-up with her outpatient vascular manager/sleep doctor in [place]. Recommend physical therapy and Occupational Therapy. Weight loss recommended. This was discussed with bedside nursing and the hospitalist. Admission and Anticipated Discharge Date Admission Date: May 20, 2020 Subjective Patient seen and examined this afternoon. She is awake and lucid. She denies any significant shortness of breath today. She is currently on 3 L of oxygen. She has normally on 4 L of oxygen. He denies any chest pain. She has been using her BiPAP at night. She notes that she [facility]. She notes that she has had progressive lower extremity edema over the last several weeks. Review of Systems Review of Systems: All systems reviewed & are unremarkable except as noted in HPI & below Physical Exam Constitutional: WD/WN, vitals as above + obese Eyes: + anicteric sclerae ENMT: Ears: no hearing impairment Neck: trachea midline, no thyromegaly + abnormal visual inspection (Obese) Respiratory: normal respiratory effort Auscultation: + diminished lung sounds (At bases bilaterally); no crackles and no wheezes Cardiovascular: Rate/Rhythm: regular rate and + irregularly irregular Heart Sounds: no murmur Extremities: + edema (2+ pitting edema to the thighs bilaterally, improved) Chest (Breasts): Chest: normal inspection of chest Gastrointestinal (Abdomen): normal bowel sounds, soft, nontender, no hepatosplenomegaly (With mild distention) Musculoskeletal: Extremities: + extremities abnormal to inspection (Left foot with dressing in place clean dry and intact), no cyanosis and no clubbing Skin: no rashes, warm and dry Neurologic: moves all extremities and awake; no focal motor deficits Psychiatric: A+Ox3, euthymic affect Results & Data Results & Data ([facility]) Vital Signs (Past 12 Hours) Vital Signs Temp Pulse Pulse Resp BP Pulse Ox 05/25/20 14:59 97.7 F 76 18 151/78 H 95 05/25/20 08:00 65 05/25/20 07:22 97.9 F 64 20 132/73 98 05/25/20 04:00 97.7 F 66 18 136/84 99 I reviewed the vital signs, labs and imaging Coding Level of Care Code 27082 Subseq Hosp Care Lvl 3 Diagnoses Hypercapnic respiratory failure J96.92 Obesity hypoventilation syndrome E66.2 Sleep apnea G47.30
[2020-05-25] MEDS: DAPTOmycin 575 MG in SYRINGE 0 ML IV SCH (16:48)
[2020-05-25] MEDS ORDERED: SALINE NASAL 225 SPRAYS, GENTAMICIN SULFATE 60 MG, BARCODE IDENTIFIER 0 EA PRN (20:50)
[2020-05-25] MEDS ORDERED: SODIUM CHLORIDE 0.65% NA SOLN 45 ML (OCEAN) ONE (20:52)
[2020-05-25] MEDS: RIVAROXABAN 20 MG TAB PO SCH (20:58)
[2020-05-25] MEDS: LORATADINE 10 MG TAB PO SCH (20:58)
[2020-05-25] MEDS: ACETAMINOPHEN 325 MG TAB PO PRN (21:07)
[2020-05-25] MEDS ORDERED: SODIUM CHLORIDE 0.65% NA SOLN 45 ML (OCEAN) PRN (21:20)
[2020-05-26] MEDS: metroNIDAZOLE 500 MG TAB PO SCH ×3 (05:31→20:23)
[2020-05-26] MEDS: PANTOprazole 40 MG TAB PO SCH (05:31)
[2020-05-26] MEDS: ACETAMINOPHEN 325 MG TAB PO PRN ×2 (05:31→12:47)
[2020-05-26 06:26] LABS: Basophils # (auto) 0.01 K/uL (0-0.2); Basophils % (auto) 0.2 %; Eosinophils # (auto) 0.21 K/uL (0-0.5); Eosinophils % (auto) 3.5 %; Hematocrit (blood only) 31.2 % (37-47); Hemoglobin 9.2 g/dL (12.0-16.0); Immature Granulocytes # (auto) 0.01 K/uL (0.00-0.02); Immature Granulocytes % (auto) 0.2 %; Lymphocytes # (auto) 0.65 K/uL (1.2-3.4); Mean Corpuscular Hemoglobin 26.1 pg (25-34); Mean Corpuscular Hgb Conc 29.5 g/dL (32-36); Mean Corpuscular Volume 88.6 fL (80-100); Mean Platelet Volume 9.5 fL (7.4-10.4); Monocytes # (auto) 0.38 K/uL (0.11-0.59); Monocytes % (auto) 6.4 %; Neutrophils # (auto) 4.67 K/uL (1.4-6.5); Neutrophils % (auto) 78.7 %; Platelet Count 132 K/uL (130-400); RDW Coefficient of Variation 16.7 % (11.5-14.5); RDW Standard Deviation 53.6 fL (36.4-46.3); Red Blood Count 3.52 M/uL (4.2-5.4); White Blood Count 5.93 K/uL (4.8-10.8)
[2020-05-26 06:31] LABS: Base Excess VBG 14.6 mEq/L; pH VBG 7.35 (7.36-7.41)
[2020-05-26 07:06] LABS: BUN Creatinine Ratio 49.9 (10-20); Calcium 8.7 mg/dl (8.5-10.1); Creatinine Clr Calc Pharmacy 118.4 ml/min; Est GFR (African American) 103.3; Est GFR (Non-African American) 89.1; Potassium 3.7 mmol/L (3.5-5.1)
[2020-05-26] MEDS: CEFEPIME 2,000 MG in SYRINGE 0 ML IV SCH ×2 (08:28→20:02)
[2020-05-26] MEDS: INSULIN ASPART 100 UNITS/ML 3 ML PEN SC SCH ×4 (08:28→20:22)
[2020-05-26] MEDS: DICLOFENAC SOD 1% GEL 100 GM TUBE EXT SCH ×2 (08:28→20:04)
[2020-05-26] MEDS: INSULIN GLARGINE SOLOSTAR 100 UNITS/ML 3 ML PEN SC SCH ×2 (08:29→20:20)
[2020-05-26] MEDS: lisinopril 20 MG TAB PO SCH (08:30)
[2020-05-26] MEDS: ADVANCED PROBIOTIC 1250 MG CAPSULE PO SCH (08:30)
[2020-05-26] MEDS: CYANOCOBALAMIN 500 MCG TABLET (VITAMIN B-12) PO SCH (08:30)
[2020-05-26] MEDS: FERROUS SULFATE 325 MG TAB PO SCH ×2 (08:30→17:47)
[2020-05-26] MEDS: GABAPENTIN 300 MG CAP PO SCH ×3 (08:30→20:03)
[2020-05-26] MEDS: MICONAZOLE NITRATE POWDER 43 GM EXT SCH ×2 (08:31→20:03)
[2020-05-26] MEDS: CITALOPRAM 40 MG TAB PO SCH (08:31)
[2020-05-26] MEDS: METOPROLOL TARTRATE 50 MG TAB PO SCH ×2 (08:31→20:03)
--- NOTE | 2020-05-26 17:23 | Hospitalist Progress Note ---
Date of Service May 26, 2020 Assessment & Plan (1) Hypercapnic respiratory failure: (2) CHF (congestive heart failure): Echocardiogram 04/26/2020 with normal left ventricular systolic function. LVEF 50 to 55%. Mild mitral regurgitation. Mild tricuspid regurgitation. Unchanged from 10/27/2016 Currently 4.6 L negative with fluid output Continue diuresis with furosemide twice daily Continue fluid restriction at 1500 cc daily Trend proBNP Follow and replete electrolytes secondary diuresis (3) Osteomyelitis: LLE osteomyelitis s/p surgical excision of left 5th MT and phalanx during admission in 04/2020. Wound is healing, afebrile, doing well Remains nonweightbearing on the left lower extremity Grew Proteus from the wound, but because she had a gas-forming suspected organism and large abscess, she is on broad-spectrum antibiotics to include coverage for anaerobes Vancomycin changed to daptomycin on 05/23/2020 Continues on cefepime 2 g IV every 12 hours Continues on Flagyl 500 mg p.o. twice daily Patient to continue 5-week course of ABX which will end on 06/08/2020 PICC line successfully placed in the right upper extremity. (4) DM type 2 (diabetes mellitus, type 2): Most recent hemoglobin A1c was 7.3% Home oral agents held Continue with Lantus twice daily and NovoLog sliding scale insulin Patient does have neuropathy. We will continue Neurontin 300 mg p.o. 3 times daily (5) Atrial fibrillation: Chronic and on long-term anticoagulation Patient continues to be rate controlled Continue metoprolol as well as rivaroxaban Continue on medical telemetry (6) Chronic anticoagulation: Chronically on rivaroxaban for atrial fibrillation as above (7) HTN (hypertension): Continue on home doses of metoprolol and lisinopril Hemodynamically stable Continue on medical telemetry (8) GERD (gastroesophageal reflux disease): No complaints of GERD-like symptoms Continue pantoprazole (9) Anemia: Continue ferrous sulfate at 325 mg p.o. twice daily This was started this admission when patient showed mildly lowest iron saturation of 13% No active bleeding Hemoglobin stable (10) DVT prophylaxis: Continue long-term anticoagulation with rivaroxaban for atrial fibrillation Ambulate as tolerated Out of bed to chair as tolerated Admission and Anticipated Discharge Date Admission Date: May 20, 2020 Subjective Attending: Dr. Johnson Patient seen at bedside in room 277-1. Upon entering, she was wearing the BiPAP. There was an appropriate seal on the mask. She was in no respiratory distress and was tolerating the mask quite well. She states that she has some minimal discomfort but overall is getting used to the mask. She does have a production recorder in [place] that she follows with and states that she has not seen him for quite some time. We discussed need for follow-up. She agrees. She denies any fever, chills, sweats, rigors. She has no significant cough or sputum production. Overall she is tolerating the BiPAP well and has no other acute complaints at this time. Review of Systems Review of Systems: All systems reviewed & are unremarkable except as noted in Subjective Physical Exam Physical Exam: GENERAL : No acute distress. Patient is pleasant EYES: No icterus, gaze conjugate NOSE: No evidence of epistaxis. MOUTH: No lesions or candidiasis. Mucosa dry. Dentures in place. NECK: Supple LUNGS: Diminished breath sounds throughout. No appreciation of significant bronchospasm, rales, rhonchi. HEART: Regular, rate controlled ABDOMEN: Soft, NT, ND, BS Present EXTREMITIES: No LE edema, pedal pulses intact and equal bilaterally NEURO: A&OX3 Results & Data Results & Data ([facility]) Vital Signs (Past 12 Hours) Vital Signs Temp Pulse Pulse Resp BP Pulse Ox 05/26/20 15:25 36.8 C 71 18 146/82 H 93 05/26/20 15:24 69 05/26/20 11:09 36.5 C 62 18 133/74 92 05/26/20 07:49 69 05/26/20 07:15 36.6 C 65 18 126/50 L 94 Laboratory Results 05/26/20 06:10 05/26/20 06:10 05/22/20 05/23/20 05/24/20 08:29 07:11 05:46 ABG pH 7.33 L 7.29 L ABG pCO2 83 H 87 H ABG pO2 76 L 86 ABG HCO3 43 H 41 H ABG O2 Saturation 92.0 95.4 H ABG Base Excess 14.3 H 11.6 H VBG pH 7.31 L VBG pCO2 82 H VBG pO2 39 VBG HCO3 40 VBG O2 Saturation 70.3 VBG Base Excess 11.8 05/25/20 05/26/20 05:47 06:10 ABG pH ABG pCO2 ABG pO2 ABG HCO3 ABG O2 Saturation ABG Base Excess VBG pH 7.28 L 7.35 L VBG pCO2 94 H 79 H VBG pO2 44 36 VBG HCO3 43 43 VBG O2 Saturation 75.0 68.0 VBG Base Excess 13.8 14.6 Diagnostic Findings XR chest 1V portable HISTORY: 64 years-old Female Confirm PICC placement (catheter adjusted) status post placement of a right-sided PICC COMPARISON: Chest radiograph of same day at 10:23 AM TECHNIQUE: Portable AP view the chest FINDINGS: Exam is mildly limited secondary to patient positioning. Cardiac silhouette is enlarged. Right-sided PICC redemonstrated with distal tip overlying the expected location of the right atrium. Unchanged pulmonary edema with small pleural effusions and bibasilar opacities. Degenerative changes of the shoulders and spine. IMPRESSION: 1. Right-sided PICC distal tip overlies the right atrium. 2. Cardiomegaly with unchanged pulmonary edema. 3. Small pleural effusions with bibasilar opacities redemonstrated. ACT 112: Negative or not required by law. The above report was generated using voice recognition software. It may contain grammatical, syntax or spelling errors. Electronically signed by: Julius Brothers M.D. 05/25/2020 2:08 PM PG Care Time/CCT Total # of Minutes Spent Total Time Spent with Patient: Total time spent is greater than 50% in coordination of care (as documented) at patient's floor/unit and/or counseling patient: 30 minutes Coding Level of Care Code 70064 Subseq Hosp Care Lvl 2 Diagnoses Hypercapnic respiratory failure J96.92 CHF (congestive heart failure) I50.9 Heart failure chronicity: unspecified Heart failure type: unspecified Osteomyelitis M86.9 DM type 2 (diabetes mellitus, type 2) E11.9 Diabetes mellitus nursing home insulin use: without nursing home use Diabetes mellitus complication status: without complication Atrial fibrillation I48.21 Atrial fibrillation type: permanent Chronic anticoagulation Z79.01 HTN (hypertension) I10 Hypertension type: essential hypertension GERD (gastroesophageal reflux disease) K21.9 Esophagitis presence: esophagitis presence not specified Anemia D64.9 DVT prophylaxis Z29.9 Time Spent (min) 30 (1) CHF (congestive heart failure) Heart failure chronicity: unspecified Heart failure type: unspecified Qualified Code(s): I50.9 - Heart failure, unspecified (2) DM type 2 (diabetes mellitus, type 2) Diabetes mellitus nursing home insulin use: without nursing home use Diabetes mellitus complication status: without complication Qualified Code(s): E11.9 - Type 2 diabetes mellitus without complications (3) Atrial fibrillation Atrial fibrillation type: permanent Qualified Code(s): I48.21 - Permanent atrial fibrillation (4) HTN (hypertension) Hypertension type: essential hypertension Qualified Code(s): I10 - Essential (primary) hypertension (5) GERD (gastroesophageal reflux disease) Esophagitis presence: esophagitis presence not specified Qualified Code(s): K21.9 - Gastro-esophageal reflux disease without esophagitis
[2020-05-26] MEDS: DAPTOmycin 575 MG in SYRINGE 0 ML IV SCH (17:47)
[2020-05-26] MEDS: LORATADINE 10 MG TAB PO SCH (20:02)
[2020-05-26] MEDS: RIVAROXABAN 20 MG TAB PO SCH (20:04)
[2020-05-27] MEDS: ACETAMINOPHEN 325 MG TAB PO PRN (03:37)
[2020-05-27] MEDS: metroNIDAZOLE 500 MG TAB PO SCH ×2 (06:09→13:41)
[2020-05-27] MEDS: PANTOprazole 40 MG TAB PO SCH (06:10)
[2020-05-27 06:17] LABS: Base Excess VBG 16.7 mEq/L; pH VBG 7.39 (7.36-7.41)
[2020-05-27 06:54] LABS: BUN Creatinine Ratio 59.9 (10-20); Calcium 9.6 mg/dl (8.5-10.1); Est GFR (African American) 111.2; Potassium 3.5 mmol/L (3.5-5.1)
[2020-05-27] MEDS: DICLOFENAC SOD 1% GEL 100 GM TUBE EXT SCH (08:09)
[2020-05-27] MEDS: MICONAZOLE NITRATE POWDER 43 GM EXT SCH (08:09)
[2020-05-27] MEDS: GABAPENTIN 300 MG CAP PO SCH ×2 (08:10→13:41)
[2020-05-27] MEDS: lisinopril 20 MG TAB PO SCH (08:10)
[2020-05-27] MEDS: CYANOCOBALAMIN 500 MCG TABLET (VITAMIN B-12) PO SCH (08:10)
[2020-05-27] MEDS: CEFEPIME 2,000 MG in SYRINGE 0 ML IV SCH (08:10)
[2020-05-27] MEDS: ADVANCED PROBIOTIC 1250 MG CAPSULE PO SCH (08:10)
[2020-05-27] MEDS: METOPROLOL TARTRATE 50 MG TAB PO SCH (08:11)
[2020-05-27] MEDS: FERROUS SULFATE 325 MG TAB PO SCH (08:11)
[2020-05-27] MEDS: CITALOPRAM 40 MG TAB PO SCH (08:11)
[2020-05-27] MEDS: INSULIN GLARGINE SOLOSTAR 100 UNITS/ML 3 ML PEN SC SCH (08:11)
[2020-05-27] MEDS: INSULIN ASPART 100 UNITS/ML 3 ML PEN SC SCH ×2 (08:12→11:57)
--- NOTE | 2020-05-27 13:24 | Discharge Summary ---
Date of Service May 27, 2020 Admission HPI Per Admitting Provider Deann Marti is a 64yo female presenting with volume overload secondary to CHF exacerbation. Patient was recently admitted to [facility] on 05/06/20 from [facility] for LLE cellulitis/osteomyelitis with gas producing organism. She had excision of the left 5th metatarsal head and proximal phalanx excised and diabetic ulcer debridement on 04/29/[address] Lee. Patient was discharged to [facility] on 05/06/20 on IV antibiotics. She was instructed to continue Vancomycin, Cefepime and Flagyl x 5 week course. Patient states that she was not receiving her Lasix as prescribed at [facility]. She is to take 40mg po BID as needed for weight gain and swelling. She states that she missed several days of Lasix and when she started taking it again it was only 40mg daily. She also [facility] - eating salty foods such as hot dogs and macaroni and cheese. Patient reports progressive edema over the last week as well as SOB, COLLINS and Orthopnea. She states she has gained 23# in the last 6 days. Her dry weight is somewhere around 281#. Patient is not on O2 at home during the day but is now on 4L by MN. She has had occasional palpitations as well as diarrhea and chest pressure. Cough productive for yellow sputum. Otherwise, no complaints. ER Course: Lasix 40mg IV Admission Exam Per Admitting Provider General: patient resting comfortably, NAD, non-toxic in appearance, AA&O x 4 Skin: warm, dry, intact, no rashes or lesions HEENT: NC/AT, PERRL, EOMI, anicteric sclera, conjunctiva without injection, external ear normal to inspection and nontender, nares patent, moist mucus membranes, dentition intact, no oropharyngeal lesions, neck supple, trachea midline, no LAD, no thyromegaly, +JVD noted on left Heart: +S1/S2, irregularly irregular, no m/r/g Lungs: equal air entry bilaterally, +crackles in bilateral LE Abd: +BS, soft, NT/ND, no masses/organomegaly/ascites, +abdominal wall edema Ext: warm, 2+ pulses in UE/LE bilaterally, no clubbing/cyanosis, 3+ edema of bilateral LE, chronic venous stasis changes of bilateral LE, LLE with dressing in place Neuro: nonfocal, patient AA&O x 4, speech intact, no facial droop, moving all extremities on command with equal strength 5/5 Principal Diagnosis Congestive heart failure Hypercapnic respiratory failure Osteomyelitis (bone infection) Discharge Exam GENERAL : No acute distress EYES: No icterus, gaze conjugate NOSE: No evidence of epistaxis MOUTH: No lesions or candidiasis NECK: Supple LUNGS: Fine bibasilar crackles. No rhonchi. No bronchospasm. HEART: Regular, rate controlled ABDOMEN: Soft, NT, ND, BS Present EXTREMITIES: No LE edema, pedal pulses intactAnd equal bilaterally. Dressing is in place on left lower extremity.Good capillary refill to all toes. Good sensation to left toes 1 through 4. Decreased sensation in the fifth digit of the left foot. NEURO: A&OX3 Discharge Data Allergies Allergy/AdvReac Type Severity Reaction Status Date / Time codeine Allergy Unknown unsure Verified 05/19/20 23:18 erythromycin base Allergy Unknown unsure Verified 05/19/20 23:18 Consultations 05/19/20 23:27 ED Decision to Admit Stat 05/23/20 08:28 Consult Pulmonology Routine Hospital Course (1) Hypercapnic respiratory failure: (2) CHF (congestive heart failure): This patient is a 64yo female presenting with 1 week of progressive SOB/COLLINS/edema and orthopnea in setting of missing her scheduled Lasix dosing as well as salt intake. Echo from 04/26/20 with normal LV function EF of 50-55%, mild MR and mild TR. Here with acute on chronic diastolic CHF exacerbation Has improved symptomatically with her breathing, however continues with significant lower extremity edema. And is now down 7 kg since admission, is net -4.7 L this admission on I's and O's Has elevated serum bicarbonate from CO2 retention/obesity hypoventilation syndrome Hypoxia is significantly improved, weaned down to 2.5-3 L nasal cannula -continue Lasix 40mg IV BID (held for one day when serum HCO3 was rising due to concern for contraction alkalosis however was from compensation for respiratory acidosis) -I/O monitoring, continue fluid restriction 1500 mL/day, low-sodium diet -Daily weights -Follow BMP in the morning (3) Osteomyelitis: LLE osteomyelitis s/p surgical excision of left 5th MT and phalanx during admission in 04/2020. Wound is healing, afebrile, doing well Remains nonweightbearing on the left lower extremity Grew Proteus from the wound, but because she had a gas-forming suspected organism and large abscess, she is on broad-spectrum antibiotics to include coverage for anaerobes Vancomycin changed to daptomycin 575 mg IV daily on 05/23/2020 Continues on cefepime 2 g IV every 12 hours Continues on Flagyl 500 mg p.o. twice daily Patient to continue 5-week course of ABX which will end on 06/08/2020 PICC line successfully placed in the right upper extremity. (4) DM type 2 (diabetes mellitus, type 2): BS stable. Last A1=7.3 Blood sugars here very well controlled -Hold oral agents from home -Continue Lantus 8 u BID -ISS - goal blood sugar 100 - 140 -Continue Neurontin 300mg po TID for neuropathy (5) Atrial fibrillation: Chronic atrial fibrillation Rate controlled. Anticoagulated with Rivaroxaban -Continue metoprolol -Continue Rivaroxaban (6) Chronic anticoagulation: Chronically on rivaroxaban for atrial fibrillation as above (7) HTN (hypertension): Chronic, BPs are controlled -Continue Lisinopril -Continue Metoprolol -Continue to monitor (8) GERD (gastroesophageal reflux disease): Chronic -Continue Protonix 40mg po daily (9) Anemia: Hemoglobin stable around 9, is normocytic Iron studies show mildly low iron saturation at 13%, B12 and folate are normal -Started ferrous sulfate 325 mg p.o. twice daily -Follow CBC -Outpatient follow-up with PCP to see if needs EGD/colonoscopy if has not had one recently (10) DVT prophylaxis: Continue long-term anticoagulation with rivaroxaban for atrial fibrillation Ambulate as tolerated Out of bed to chair as tolerated (11) Hypercapnia: Developed increasing mild lethargy and foggy sensation, sensation of not being quite right on 05/22 ABG on 05/22 showed 7.33/83/76 on 2 L She was placed on BiPAP for a few hours on 05/22 during the day and then all night and ABG on the morning of 05/23 was slightly worse at 7.29/87/86 on 2 L nasal cannula Placed on continuous BiPAP throughout the day on 05/23 and qhs VBG 05/24 improved at 7.31/82 and symptomatically somewhat improved. Repeat VBG on 05/25 worse again at 7.28/94 Certainly is mentating and alert, awake, just slightly mentally "foggy" Consulted pulmonology-recommends discontinuation of Diamox (received 2 days worth), continued BiPAP hs. Ideally he needs to review her outpatient sleep studies and compliance data to consider whether she is a long-term BiPAP candidate or if she should just remain on CPAP. Also recommended weight loss and follow-up with her previous sleep provider in [place]. He also thought that a contraction alkalosis with Lasix may be beneficial in improving the patient's pH over time, and that additional imaging studies or sniff test at this point in time would be unlikely to alter her management. Signed off. I asked pulmonology to round on her again today given worsening hypercapnia -We will continue BiPAP /5 continuously for today but can be removed for meals, continue at bedtime and recommend this upon discharge to the alf facility-Rx written for this and given to [employer] -Needs weight loss -cont Lasix 40 mg IV twice daily -follow VBG again in AM -Asked nurse to wean O2 down to keep only greater than 92% -Appreciate any further pulmonology recommendations (12) Obesity hypoventilation syndrome: As above (13) Hypoxia: Reports she has chronic respiratory failure with hypoxia only in the last month since her foot surgery Is on 4 L chronically since last admission but I feel she can be weaned down from this-has been weaned down to 2.5-3 L and is doing well with this Chest x-ray repeated on 05/25 shows improved/less pulmonary edema and improved pleural effusions With serum bicarbonate rising, could also have some chronic CO2 retention from obesity hypoventilation syndrome as above (14) Depression: Chronic. Stable -Continue Celexa 40mg po qAM (15) SCOTT (obstructive sleep apnea): Chronic -Typically on CPAP 8cm H2O qHS, but switched to BiPAP as above Total Time Total Time Spent Total Time Spent (In Minutes): 40 Discharge Plan Discharge Items Patient Disposition: Transfer [facility] Reason For Visit: EDEMA, SOB, CHF EXACERBATION Discharge Diagnosis: CHF exacerbation Hypercapnic respiratory failure Activity: Resume your previous activity Lifting: Gradually increase as tolerated Bathing: No limitations Exercise/Sports: Gradually increase as tolerated Weightbearing: Full weightbearing Non-emergency contact: Primary Care Provider Call non-emergency contact if: your symptoms worsen, your pain is not controlled and your temperature is above 101 Follow-up/Referrals: Jairo Gill [Primary Care Provider] - Diet: Carb Consistent or DM2, Heart Healthy and Low Sodium (2gm) Addtl Attending Provider Instructions: You were admitted with shortness of breath and congestive heart failure exacerbation. You responded well to diuretics. You should continue with all your medications as ordered. Please make sure you follow your standing weight and contact your primary care provider should you notice weight gain which may be related to fluid. You also should continue to use your CPAP at least 4 hours nightly and during the day with naps. Try to get out of bed to a chair and move about as possible. Continue to work on weight loss with reduced calories and any exercise including upper arm exercises that he can do.Focus on small goals of 1 to 5 pounds for weight loss.Try not to get frustrated but stay encouraged with your progress. Pending Studies at Discharge: No Stand-Alone Forms: My [facility] Skilled Items Patient informed of condition?: Yes DNR: Yes Discharge Level of Care: Skilled Communicable Disease: No Discharge Prognosis: Improving Lines: None Urinary Catheter: No Medications and DC Order Prescriptions: New ferrous sulfate 325 mg (65 mg iron) Tablet,Delayed Release (Dr/Ec) 325 mg PO BIDM Qty: 60 RF: 0 daptomycin 500 mg recon soln 575 mg IV DAILY Qty: 12 RF: 0 furosemide 40 mg tablet 40 mg PO BID Qty: 60 RF: 0 Lantus Solostar U-100 Insulin 100 unit/mL (3 mL) Insulin Pen 8 unit SC BID Qty: 1 RF: 2 Continued multivitamin Tablet 1 tab PO QAM RF: 0 ferrous fumarate 63 mg (20 mg iron) Tablet 63 mg PO QAM RF: 0 acetaminophen [Tylenol] 325 mg Tablet 650 mg PO Q4H PRN (Reason: FEVER/PAIN) RF: 0 citalopram [Celexa] 40 mg Tablet 40 mg PO QAM RF: 0 omega-3 fatty acids 1,000 mg Capsule 1,000 mg PO QAM RF: 0 cefepime 2 gram Recon Soln 2 g IV Q12H RF: 0 lisinopril 20 mg Tablet 20 mg PO QAM RF: 0 metronidazole [Flagyl] 500 mg Tablet 500 mg PO Q8H RF: 0 potassium chloride [Klor-Con M20] 20 mEq Tablet,Er Particles/Crystals 20 meq PO BID RF: 0 cyanocobalamin (vitamin B-12) [Vitamin B-12] 500 mcg Tablet 500 mcg PO QAM RF: 0 pantoprazole [Protonix] 40 mg Tablet,Delayed Release (Dr/Ec) 40 mg PO DAILYBB RF: 0 metoprolol tartrate 50 mg Tablet 50 mg PO BID RF: 0 gabapentin 300 mg Capsule 300 mg PO TID RF: 0 loratadine [Claritin] 10 mg Tablet 10 mg PO HS RF: 0 glipizide 5 mg Tablet 5 mg PO BID17 RF: 0 cholecalciferol (vitamin D3) [Vitamin D3] 25 mcg (1,000 unit) Capsule 25 mcg PO QAM RF: 0 cinnamon bark [Cinnamon] 500 mg Capsule 1,000 mg PO QAM RF: 0 diclofenac sodium [Voltaren] 1 % Gel 4 g TOPICAL BID RF: 0 melatonin 5 mg Tablet 5 mg PO HS RF: 0 Xarelto 20 mg Tablet 20 mg PO PM RF: 0 Probiotic 10 billion cell Capsule 10,000 mmu cells PO QAM RF: 0 Combivent Respimat 20-100 mcg/actuation Mist 1 puff INHALATION Q6H PRN (Reason: Shortness Of Breath Or Wheezing) RF: 0 Discontinued furosemide [Lasix] 40 mg Tablet 40 mg PO QAM RF: 0 vancomycin in dextrose 5 % 2 gram/500 mL Solution 1,500 mg IV Q12H RF: 0 Discharge Orders: Discharge Order (Routine); Ordered 05/27/20 Ordered By: Tal Damon Admission Data Admit Date/Time: 05/20/20 00:27 Attending Provider: Chaim Johnson Admit Provider: Emma Carlos Primary Care Provider: Jairo Gill Other Providers: mEma Carlos ; Venkata Moore Other Interventions: Discharge Summary Assessment (RN) Last Done: 05/27/20 13:49 Supervising Physician Co-Signing Physician Notes Patient seen and examined on the day of discharge. I agree with the discharge summary by Tal KNOTT. I have reviewed the chart including labs, imaging and plans for discharge. patient doing better, CO2 retention resolved with NIPPV, plan for discharge with PICC line with antibiotics until 06/08 Coding Level of Care Code D/C Day Management >30 mins Diagnoses Hypercapnic respiratory failure J96.92 CHF (congestive heart failure) I50.9 Heart failure chronicity: unspecified Heart failure type: unspecified Osteomyelitis M86.9 DM type 2 (diabetes mellitus, type 2) E11.9 Diabetes mellitus complication status: without complication Diabetes mellitus terminal gauger supervisor insulin use: without terminal gauger supervisor use Atrial fibrillation I48.21 Atrial fibrillation type: permanent Chronic anticoagulation Z79.01 HTN (hypertension) I10 Hypertension type: essential hypertension GERD (gastroesophageal reflux disease) K21.9 Esophagitis presence: esophagitis presence not specified Anemia D64.9 DVT prophylaxis Z29.9 Hypercapnia R06.89 Obesity hypoventilation syndrome E66.2 Hypoxia R09.02 Depression F32.9 Depression Type: major depressive disorder Major depression recurrence: unspecified whether recurrent Active/Remission status: remission status unspecified SCOTT (obstructive sleep apnea) G47.33 Time Spent (min) 40
== END 2020-05-27 14:55 | DRG 291 ==
LOC: ED 21:38 → SUATTDRO 05-20 00:27 → 2N 05-20 00:27